=== PATIENT | female | born 1960 | race Caucasian/White ===

== ENCOUNTER → 2019-03-07 14:00 | Outpatient (CLI) | payer OTHER, SELFPAY | PROVIDERS: PCP Nurse Practitioner Family; Visit Provider Nurse Practitioner Family | DX: G47.33 Obstructive sleep apnea (adult) (pediatric) (principal) | CPT/HCPCS: 95806 ==

== ENCOUNTER → 2019-09-16 07:46 | Outpatient (CLI) | payer OTHER, SELFPAY ==
--- NOTE | 2019-09-16 07:48 | MM_ITS ---
PROCEDURE: MM DIG SCREENING MAMM BI W/CAD Patient Age:58Y CLINICAL INDICATION: SCREENING routine mammogram. Previous at [facility]. No hormones but no new complaints. 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 R2 CAD reviewed. FINDINGS: Low-density breast with generalized fatty replacement. No dominant or suspicious mass in either breast. No suspicious calcifications but no architectural distortion. The prior scanned and film screen studies are minimal a value for comparison Right breast. No areas of significant concern. Scattered benign secretory and benign round calcifications are more evident at right breast than left but. No mass lesion b Left breast but no significant findings but . Bilateral follow-up 1 year recommended IMPRESSION: Low-density breast, diffuse fatty replacement. No areas of significant concern. Scattered benign calcifications on right. Follow-up 1 year recommended BI-RAD Category: 2 Benign Finding(s) FOLLOW-UP: 1YR 1 Year Follow-up (A letter has been sent to the patient regarding results of the study.) The, a Dictated by: Kt Anderson MD 10/05/2019 21:28 Electronically signed by Kt Anderson MD in [place] 10/05/2019 21:28
== END ==
PROVIDERS: PCP Nurse Practitioner; Visit Provider Nurse Practitioner
DX: Z12.31 Encounter for screening mammogram for malignant neoplasm of breast (principal)
CPT/HCPCS: 77067

== ENCOUNTER 2020-03-14 19:27 | Emergency (ER) | payer MEDICAID, SELFPAY ==
[2020-03-14] VITALS (9 sets, daily range): BP systolic 129–145; BP diastolic 70–84; PULSE 68–81; RESP 16–18; TEMP 36.9–37; O2SAT 95–99; BMI 35.0
--- NOTE | 2020-03-14 19:53 | CT_ITS ---
PROCEDURE: CT ABDOMEN PELVIS W CON CLINICAL INDICATION: generalized abd. pain Lower abdominal pain with nausea and constipation now having diarrhea COMPARISON: ABDPELW/O CT ABD PELVIS W/O CONTRAST from 09/22/2014 TECHNIQUE: IV Contrast: 75ML OPTIRAY 350 Oral Contrast None Axial images obtained with sagittal and coronal reformats. All CT scans at the facility use one or more dose reduction, viz: automated exposure control, ma/kV adjustment per patient size (including targeted exams where dose is matched to indication, i.e. head), or iterative reconstruction technique. FINDINGS: LOWER THORAX: No acute finding ABDOMEN & PELVIS: Prior cholecystectomy with mild biliary ectasia. The liver, spleen, adrenal glands, and pancreas have an unremarkable appearance. There is a horseshoe kidney present. No renal or ureteral calculi. No hydronephrosis. There is a tiny umbilical hernia containing fat. No intestinal obstruction or free air. No evidence of appendicitis. There is colonic diverticulosis. There is mild thickening of the sigmoid colon in the left lower quadrant with minimal stranding of the pericolic fat. This could be due to mild acute diverticulitis or even chronic colitis. This was much more extensive on 09/22/2014.. Degenerative changes are present in the lumbar spine. There is 9 mm anterolisthesis of L4 on L5. There is a right-sided inguinal hernia containing a loop of small bowel without obstruction. IMPRESSION: 1. Colonic diverticulosis with possible mild acute diverticulitis in the sigmoid colon in the left lower quadrant versus chronic changes. 2. Horseshoe kidney 3. Right inguinal hernia containing a loop of small bowel without obstruction Dictated by: Antoino Mckeon MD 03/15/2020 08:35 Electronically signed by Antonio Mckeon MD in [place] 03/15/2020 08:35
[2020-03-14 20:11] LABS: Microscopic, Urine URINE MICROSCOPIC (MICROSCOPIC)
[2020-03-14 20:14] LABS: Appearance,Urine CLEAR (Clear); Bilirubin,Urine Negative (Negative); Blood, Urine Negative (Negative); Color,Urine YELLOW (Yellow); Glucose,Urine (UA) Negative (Negative); Ketones,Urine Negative (Negative); Leukocyte Esterase,Urine 1+ (Negative); Nitrate,Urine Negative (Negative); Protein,Urine Negative (Negative); Urobilinogen,Urine 0.2 EU/dl (0.2)
[2020-03-14 20:17] LABS: Basophils # 0.1 K/mm3 (0-0.2); Basophils % 0.5 % (0.1-2.0); Eosinophils # 0.2 K/mm3 (0.0-0.4); Eosinophils % 2.1 % (0.1-12.0); Hematocrit 44.9 % (37.0-47.0); Hemoglobin 15.3 g/dL (12.2-16.2); Lymphocytes # 1.8 K/mm3 (0.7-4.5); Lymphocytes % 18.2 % (10-50); Mean Corpuscular Hemoglobin 30.5 pg (27.0-31.2); Mean Corpuscular Volume 89.6 fl (81-99); Mean Platelet Volume 8.4 fl (7.4-10.4); Monocytes # 0.7 K/mm3 (0.1-1.0); Neutrophils # 7.1 K/mm3 (1.8-7.8); Neutrophils % 72.2 % (37.0-80.0); Platelet Count 327 K/mm3 (142-424); Red Blood Count 5.01 M/mm3 (4.20-5.40); Red Cell Distribution Width 12.9 % (11.5-17.5); White Blood Count 9.8 K/mm3 (4.8-10.8)
[2020-03-14 20:22] LABS: Squamous Epithelial Cell,Urine Occasional #/hpf (0-5)
[2020-03-14 20:31] LABS: Alanine Aminotransferase 30 U/L (12-78); Albumin Level 4.1 g/dl (3.5-5.0); Albumin/Globulin Ratio 1.2 (1.1-1.8); Alkaline Phosphatase 48 U/L (38-126); Amylase 43 U/L (30-110); Anion Gap 10.3 mEq/L (5-15); Aspartate Amino Transferase 37 U/L (14-36); Bilirubin,Total 0.2 mg/dl (0.2-1.3); Blood Urea Nitrogen 13 mg/dl (7-17); Calcium 8.9 mg/dl (8.4-10.2); Carbon Dioxide 31 mmol/L (22.0-30.0); Chloride 100 mmol/L (98-107); Creatinine Clearance Estimated 137 mL/min (50-200); Estimated Glomerular Filt Rate 85 ml/min (>60); GFR (African American) 103 ML/MIN (>60); Globulin 3.3 g/dL (1.3-3.2); Glucose 149 mg/dl (74-100); Lipase 125 U/L (23-300); Potassium 3.3 mmoL/L (3.5-5.1); Sodium 138 mmol/L (136-145); Total Protein,Serum 7.4 g/dl (6.3-8.2)
[2020-03-14 20:36] LABS: C-Reactive Protein 4.9 mg/L (0-4)
--- NOTE | 2020-03-14 20:38 | HMH.EDNVD ---
ED Disposition Clinical Impression: Diverticulitis Disposition: Home, Self-Care Condition on Discharge: Good Instructions: DI for Diverticulitis Additional Instructions: call pcp for follow up and consider surg consult , stop flagyl Prescriptions: clindamycin HCL [Clindamycin HCl 300mg Cap] 300 mg PO Q6 #28 cap Transmission Status: Pending to [id number] Referrals: Meaghan Mcnamara, HORTICULTURE TEACHER [Primary Care Provider] - - Critical Care Critical Care Time: No Attestation: On 03/14/20, the high probability of a clinically significant, sudden or life threatening deterioration of the following system(s) required my full and direct attention, intervention and personal management. The time I documented below is in addition to time spent performing reported procedures but includes the following listed in this critical care notation. Medical Decision Making - Medical Records Medical records reviewed: Yes: I reviewed the patient's medical records. - Felix Inquiry Pt receiving controlled substance: No Vital Signs: 03/14/20 19:29 03/14/20 20:00 03/14/20 20:30 Temperature 98.6 F Temperature Source Oral Pulse Rate [Left Radial] 81 80 74 Respiratory Rate 16 17 16 Blood Pressure [Right Arm] 139/70 145/71 H 141/79 H Blood Pressure Mean [Right Arm] 93 95 99 Blood Pressure Source [Right Arm] Automatic Cuff Automatic Cuff Automatic Cuff Blood Pressure Position [Right Arm] Sitting Supine Supine 02 Sat by Pulse Oximetry 98 95 99 Oxygen Delivery Method Room Air Room Air Room Air 03/14/20 21:00 03/14/20 21:30 03/14/20 22:00 Temperature Temperature Source Pulse Rate [Left Radial] 81 68 68 Respiratory Rate 16 17 16 Blood Pressure [Right Arm] 144/78 H 129/74 132/78 Blood Pressure Mean [Right Arm] 100 92 96 Blood Pressure Source [Right Arm] Automatic Cuff Automatic Cuff Automatic Cuff Blood Pressure Position [Right Arm] Supine Supine Supine 02 Sat by Pulse Oximetry 99 99 97 Oxygen Delivery Method Room Air Room Air Room Air 03/14/20 22:30 Temperature Temperature Source Pulse Rate [Left Radial] 76 Respiratory Rate 18 Blood Pressure [Right Arm] 137/84 Blood Pressure Mean [Right Arm] 101 Blood Pressure Source [Right Arm] Automatic Cuff Blood Pressure Position [Right Arm] Supine 02 Sat by Pulse Oximetry 99 Oxygen Delivery Method Room Air - Lab Data Lab results reviewed: Yes: I reviewed the patient's lab results. Lab Results 03/14/20 19:45: Urine Color Yellow, Urine Appearance Clear, Urine pH 6.0, Ur Specific [place] 1.020, Urine Protein Negative, Urine Glucose (UA) Negative, Urine Ketones Negative, Urine Blood Negative, Urine Nitrate Negative, Urine Bilirubin Negative, Urine Urobilinogen 0.2, Ur Leukocyte Esterase 1+ A, Urine WBC 5-10, Ur Squamous Epith Cells Occasional, Ur Renal Epithelial Cell 5-10 03/14/20 19:57: WBC 9.8, RBC 5.01, Hgb 15.3, Hct 44.9, MCV 89.6, MCH 30.5, MCHC 34.0, RDW 12.9, Plt Count 327, MPV 8.4, Neut % (Auto) 72.2, Lymph % (Auto) 18.2, [place] % (Auto) 7.0, Eos % (Auto) 2.1, Baso % (Auto) 0.5, Neut # (Auto) 7.1, Lymph # (Auto) 1.8, [place] # (Auto) 0.7, Eos # (Auto) 0.2, Baso # (Auto) 0.1, ESR 16 03/14/20 19:57: Sodium 138, Potassium 3.3 L, Chloride 100, Carbon Dioxide 31 H, Anion Gap 10.3, BUN 13, Creatinine 0.70, Estimated Creat Clear 137, Estimated GFR 85, Est GFR ( Amer) 103, Glucose 149 H, Calcium 8.9, Total Bilirubin 0.2, AST 37 H, ALT 30, Alkaline Phosphatase 48, C-Reactive Protein 4.9 H, Total Protein 7.4, Albumin 4.1, Globulin 3.3 H, Albumin/Globulin Ratio 1.2, Amylase 43, Lipase 125 03/14/20 21:05: Lactate 1.2 Result diagrams: 03/14/20 19:57 03/14/20 19:57 Orders (Tests/Meds): ED MEDICATIONS Generic Name Dose Route Start Last Admin Trade Name Freq PRN Reason Stop Dose Admin Sodium Chloride 1,000 mls @ 999 mls/hr 03/14/20 20:00 03/14/20 20:12 Sod Chlor 0.9% 1000ml Bag IV 03/14/20 21:00 999 mls/hr .Q1H1M COBY Administration Ceftriaxone Sodium 1 gm
[2020-03-14 20:40] LABS: Erythrocyte Sedimentation Rate 16 mm/hr (0-30)
[2020-03-14 21:37] LABS: Lactic Acid 1.2 mmol/L (0.7-2.1)
== END 2020-03-14 23:28 | disposition home or self-care (01) ==
PROVIDERS: Emergency Medicine; Emergency Provider Emergency Medicine; PCP Nurse Practitioner
DX: K57.92 Diverticulitis of intestine, part unspecified, without perforation or abscess without bleeding (principal); Z88.6 Allergy status to analgesic agent
CPT/HCPCS: 74177; 80053; 81001; 82150; 83605; 83690; 85025; 85651; 86140; 87040; 87086; 96365; 96367; 96375; 99284; J2405; Q9967

== ENCOUNTER 2020-06-10 12:10 | Emergency (ER) | payer MEDICAID, SELFPAY ==
[2020-06-10 12:23] VITALS: BP 138/79; PULSE 64; RESP 18; TEMP 36.7; O2SAT 98; BMI 37.0
[2020-06-10 12:29] VITALS: BMI 37.0
--- NOTE | 2020-06-10 12:30 | XR_ITS ---
PROCEDURE: XR KNEE RT 3V CLINICAL INDICATION: INJURY Pain COMPARISON: MR LEAJW/ORT MRI-LOW EXT ANY JOINT W/O-RT from 01/08/2015 FINDINGS: No fracture or dislocation. No lytic or blastic change. There is normal mineralization. There are mild osteoarthritic changes of the medial compartment and moderate osteoarthritis of the patellofemoral joint with small suprapatellar effusions. There are multiple calcific densities in the popliteal region consistent with loose bodies/synovial osteo chondroma is.. The largest of these loose bodies measures 9 mm. IMPRESSION: Osteoarthritis with knee joint effusion with multiple loose bodies in the popliteal region Dictated by: Antonio Mckeon MD 06/11/2020 16:25 Antonio Mckeon MD in [place] 06/11/2020 16:25
[2020-06-10 12:31] VITALS: BP 134/74; PULSE 58; RESP 20; TEMP 36.7; O2SAT 99; BMI 37.0
--- NOTE | 2020-06-10 12:32 | HMH.EDUTC ---
[facility] [place] Disposition Clinical Impression: Knee sprain Qualifiers: Encounter type: initial encounter Involved ligament of knee: other ligament Laterality: right Qualified Code(s): S83.8X1A - Sprain of other specified parts of right knee, initial encounter Disposition: Home, Self-Care Condition on Discharge: Good Instructions: How to Choose and Use a Walker, How To Perform RICE (Rest, Ice, Compress, Elevate), How to Use a Knee Immobilizer Additional Instructions: *weight bearing as tolerated *RICE, Rest the extremity, Ice 15-20 minutes 3-4 times daily, Compress- wear the gabino wrap as discussed as much as possible to help reduce swelling and pain, Elevate the extremity when at rest *Gabino wrap is for support and help control swelling, use it except in the shower. Be sure that is not to tight but not to loose either *Elevate when resting *Ibuprofen every 6-8 hours as needed for pain an inflammation. If need something more can take Tylenol in between doses of Ibuprofen to help Immediately follow up with your family doctor for new or worsening of symptoms, or no noticeable improvement over the next 3-5 days Follow up with Family Doctor as scheduled Follow up with Orthopedics if no improvement or any worsening of symptoms Straight to ER if any life threatening symptoms Referrals: Lexis Shaffer MD [Physician] - (Call office for appointment) Meaghan Mcnamara APRN [Primary Care Provider] - As needed Juan Weems MD [Referring] - 06/14/20 10:00 am (appointement at [facility]) Time of Disposition: 13:26 Medical Decision Making - Felix Inquiry Pt receiving controlled substance: No Felix was queried for this patient: No Vital Signs: 06/10/20 12:23 06/10/20 12:31 06/10/20 13:28 Temperature 98.1 F 98.1 F 98.1 F Temperature Source Oral Oral Pulse Rate 58 L Pulse Rate [Right Radial] 64 58 L Respiratory Rate 18 20 20 Blood Pressure 134/74 Blood Pressure [Right Arm] 138/79 134/74 Blood Pressure Mean [Right Arm] 98 94 Blood Pressure Source [Right Arm] Automatic Cuff Blood Pressure Position [Right Arm] Sitting 02 Sat by Pulse Oximetry 98 99 Oxygen Delivery Method Room Air Room Air Orders (Tests/Meds): ORDERS Category Date Time Status Knee XR right 3 views [XR knee RT 3V] Stat Exams 06/10/20 12:30 Taken Medical Decision Narrative: Spoke with staff in Orthopedic clinic and Dr Shaffer loss prevention specialist advised them that I would have patient call office for appointment [facility] [place] HPI - General Stated complaint: right knee pain, no accident Time Seen by Provider: 06/10/20 12:32 Mode of Arrival: Ambulatory Source of Information: Patient Limitations: No Limitations Description of Symptoms (Recalled from Triage Doc. by RN): right knee pain after hyper extending it per patient. - History of Present Illness Provider Complaint: Patient states that she was walking yesterday when she stepped into a hole and hyperextended her right knee State that years ago she had problems with this knee and it wanted to give out on her but then she rested it and has not had problems with it since until she hurt it yesterday States that now when she walks she feels like it is going to give out on her - Related Data Home Medications Medication Instructions Recorded Confirmed Ciprofloxacin HCl [Ciprofloxacin 500 mg PO BID 03/14/20 03/14/20 500mg Tab] metroNIDAZOLE [metroNIDAZOLE 500mg 500 mg PO DAILY 03/14/20 03/14/20 Tablet] Previous Rx's Medication Instructions Recorded clindamycin HCL [Clindamycin HCl 300 mg PO Q6 #28 cap 03/14/20 300mg Cap] Allergies Allergy/AdvReac Type Severity Reaction Status Date / Time ibuprofen Allergy Verified 06/10/20 12:36 [facility] History - Hepatitis A Screen Attestation statement:: This patient has been screened for Hepatitis A risk factors. I have reviewed the patient's past medical history: Yes - Social History Alcohol Intake: never Occupational
[2020-06-10 13:28] VITALS: BP 134/74; PULSE 58; RESP 20; TEMP 36.7; O2SAT 99
== END 2020-06-10 13:59 | disposition home or self-care (01) ==
PROVIDERS: Emergency Provider Nurse Practitioner; PCP Nurse Practitioner
DX: S83.8X1A Sprain of other specified parts of right knee, initial encounter (principal); W17.2XXA Fall into hole, initial encounter; Y92.017 Garden or yard in single-family (private) house as the place of occurrence of the external cause
CPT/HCPCS: 73562; 99201

== ENCOUNTER 2020-07-13 10:44 | Emergency (ER) | payer MEDICAID, SELFPAY ==
[2020-07-13 10:52] VITALS: BP 123/74; PULSE 61; RESP 18; TEMP 36.6; O2SAT 99; BMI 37.0
--- NOTE | 2020-07-13 11:15 | HMH.EDUTC ---
[facility] [place] Disposition Clinical Impression: Encounter for laboratory testing for COVID-19 virus, Body aches Disposition: Home, Self-Care Condition on Discharge: Good Instructions: Nosebleeds (Alternative Therapy), DI for Nosebleed, Preventing the Spread of Coronavirus Discharge Instructions Additional Instructions: *Monitor Temp, Over the counter Motrin or Tylenol as directed/as needed Tylenol every 4 hours and Motrin every 6 hours (as long as your family doctor has told you that you can take it) for fever or pain. and straight to ER if unable to lower temp less than 101.0 after medication given *Warm salt water gargles may help to soothe the throat *Throat Lozenges *Warm fluids like tea with honey may help to soothe the throat *Sleep elevated *Humidifier/Vaporizer Follow up IMMEDIATELY for new or worsening symptoms or no Noticeable improvement over the next 48-72 hours. 911 for difficulty breathing or swallowing You was tested for today for COVID19 your test result should be back in the next 24 hours, you may call tomorrow after 9am to see if your test results are back and the result You was given a handout with instructions for Self Quarantine and Self isolation for while you wait on test results and what to do if they are positive Referrals: Meaghan Mcnamara APRN [Primary Care Provider] - As needed Forms: Work/School Release Medical Decision Making - Felix Inquiry Pt receiving controlled substance: No Felix was queried for this patient: No Vital Signs: 07/13/20 10:52 Temperature 97.9 F Temperature Source Oral Pulse Rate [Radial] 61 Respiratory Rate 18 Blood Pressure [Right Arm] 123/74 Blood Pressure Mean [Right Arm] 90 Blood Pressure Source [Right Arm] Automatic Cuff Blood Pressure Position [Right Arm] Sitting 02 Sat by Pulse Oximetry 99 Oxygen Delivery Method Room Air Orders (Tests/Meds): ORDERS Category Date Time Status Covid-19 Nasal PCR Sendout [facility] Stat Lab 07/13/20 10:49 Received Medical Decision Narrative: after covid test patient had minor bleeding from the nose that easily stopped with ice pack [facility] [place] HPI - General Stated complaint: body aches Time Seen by Provider: 07/13/20 11:15 Mode of Arrival: Ambulatory Source of Information: Patient Limitations: No Limitations Description of Symptoms (Recalled from Triage Doc. by RN): BODY ACHES ALL OVER LAST NIGHT WANTS COVID TEST. HEENT Symptoms (Recalled from RN notes): No Resp Symptoms (Recalled from RN notes): No Skin Symptoms (Recalled from RN notes): No MS Symptoms (Recalled from RN notes): Yes Functional Status (Recalled from RN notes): WNL - History of Present Illness Provider Complaint: Patient states that yesterday she started feeling achy all over and last night it continued States that she woke up this morning with body aches and mild chills and wanted to get tested for COVID - Related Data Home Medications Medication Instructions Recorded Confirmed Ciprofloxacin HCl [Ciprofloxacin 500 mg PO BID 03/14/20 03/14/20 500mg Tab] metroNIDAZOLE [metroNIDAZOLE 500mg 500 mg PO DAILY 03/14/20 03/14/20 Tablet] Previous Rx's Medication Instructions Recorded clindamycin HCL [Clindamycin HCl 300 mg PO Q6 #28 cap 03/14/20 300mg Cap] Allergies Allergy/AdvReac Type Severity Reaction Status Date / Time ibuprofen Allergy Verified 06/10/20 12:36 - Worker's Comp Is this a Worker's Comp case?: No [facility] History - Hepatitis A Screen Drug use history?: No High risk sexual behaviors?: No History of sexually transmitted infection?: No Currently employed?: No Childcare worker?: No Do you have indoor plumbing?: Yes Do you have electricity?: Yes Attestation statement:: This patient has been screened for Hepatitis A risk factors. I have reviewed the patient's past medical history: Yes Laterality Cases: Left: Arthroscopy Shoulder - Social History Alcohol Intake: never Occupational Status: other
[2020-07-13 11:39] VITALS: BP 123/74; PULSE 61; RESP 18; TEMP 36.6; O2SAT 99
[2020-07-14 09:06] LABS: Covid-19 Nasal PCR Sendout Lex NOT DETECTED
== END 2020-07-13 11:40 | disposition home or self-care (01) ==
PROVIDERS: Emergency Provider Nurse Practitioner; PCP Nurse Practitioner
DX: Z20.828 Contact with and (suspected) exposure to other viral communicable diseases (principal)
CPT/HCPCS: 99201; U0004

== ENCOUNTER → 2021-03-22 09:04 | Outpatient (CLI) | payer MEDICAID, SELFPAY ==
--- NOTE | 2021-03-22 09:08 | XR_ITS ---
PROCEDURE: XR FOOT WT BEARING RT 3V CLINICAL INDICATION: bilateral foot pain COMPARISON: No exams were available for comparison FINDINGS: Moderate hallux valgus with osteoarthritis of the 1st MTP joint and bunion formation at the distal aspect of the 1st metatarsal. Mild osteoarthritic changes at the tarsal metatarsal junction, talonavicular joint, and navicular cuneiform joint. Normal alignment Other findings:. Prominent calcaneal spur and Achilles enthesophyte. IMPRESSION: Osteoarthritic change with hallux valgus and bunion formation at the 1st MTP Dictated by: Antonio Mckeon MD 03/22/2021 10:29 Antonio Mckeon MD in [place] 03/22/2021 10:29
--- NOTE | 2021-03-22 09:08 | XR_ITS ---
PROCEDURE: XR FOOT WT BEARING LT 3V CLINICAL INDICATION: bilateral foot pain COMPARISON: No exams were available for comparison FINDINGS: Moderate hallux valgus with osteoarthritis of the 1st MTP joint and bunion formation at the distal aspect of the 1st metatarsal. Mild osteoarthritic changes at the tarsal metatarsal junction talonavicular joint, and navicular cuneiform joint with pes planus. Other findings:Prominent calcaneal spur. Osteoarthritis at the ankle joint. IMPRESSION: Osteoarthritic changes with pes planus and hallux valgus Dictated by: Antonio Mckeon MD 03/22/2021 10:28 Antonio Mckeon MD in [place] 03/22/2021 10:28
== END ==
PROVIDERS: PCP Nurse Practitioner; Visit Provider Podiatrist
DX: M79.672 Pain in left foot (principal); M79.671 Pain in right foot
CPT/HCPCS: 73630

== ENCOUNTER → 2021-04-05 08:10 | Outpatient (CLI) | payer MEDICAID, SELFPAY ==
--- NOTE | 2021-04-05 08:12 | MM_ITS ---
PROCEDURE: MM DIG SCREENING MAMM BI W/CAD Digital Breast Tomosynthesis Included CLINICAL INDICATION: SCREENING There is no personal or family history breast cancer. 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 R2 CAD reviewed. FINDINGS: The breasts are composed primarily fibroglandular each breast there are mole markers on each breast. There few scattered benign-appearing microcalcifications in each breast. There are no CAD markings. There is no suspicious lesion and no suspicious microcalcifications. IMPRESSION: Low-density fatty type breast parenchyma with no suspicious lesions seen BI-RAD Category: 2 Benign Finding(s) FOLLOW-UP: 1YR 1 Year Follow-up (A letter has been sent to the patient regarding results of the study.) Dictated by: Dr. Jr Ashton MD 04/06/2021 08:46 Dr. Jr Ashton MD in [place] 04/06/2021 08:46
== END ==
PROVIDERS: PCP Nurse Practitioner; Visit Provider Nurse Practitioner
DX: Z12.31 Encounter for screening mammogram for malignant neoplasm of breast (principal)
CPT/HCPCS: 77063; 77067

== ENCOUNTER → 2021-04-21 09:07 | Outpatient (CLI) | payer MEDICAID, SELFPAY ==
--- NOTE | 2021-04-21 09:12 | XR_ITS ---
PROCEDURE: XR ANKLE WT BEARING LT MIN 3V CLINICAL INDICATION: ankle pain COMPARISON: No exams were available for comparison FINDINGS: Bones: No fracture or dislocation. No lytic or blastic change. There is normal mineralization. Joints: The ankle joint space is preserved. There are mild degenerative changes in the midfoot. Other findings:Small calcaneal spur and Achilles enthesophyte noted. IMPRESSION: No acute findings. Dictated by: Antonio Mckeon MD 04/21/2021 13:04 Antonio Mckeon MD in [place] 04/21/2021 13:04
[2021-04-21 10:27] LABS: Basophils # 0.1 K/mm3 (0-0.2); Basophils % 0.7 % (0.1-2.0); Eosinophils # 0.4 K/mm3 (0.0-0.4); Eosinophils % 4.6 % (0.1-12.0); Hematocrit 47.2 % (37.0-47.0); Lymphocytes # 1.5 K/mm3 (0.7-4.5); Lymphocytes % 18.9 % (10-50); Mean Corpuscular HGB Conc 31.8 g/dL (31.8-35.4); Mean Corpuscular Hemoglobin 29.2 pg (27.0-31.2); Mean Corpuscular Volume 91.9 fl (81-99); Mean Platelet Volume 8.1 fl (7.4-10.4); Monocytes # 0.4 K/mm3 (0.1-1.0); Monocytes % 4.7 % (1.7-9.3); Neutrophils # 5.6 K/mm3 (1.8-7.8); Neutrophils % 71.2 % (37.0-80.0); Platelet Count 254 K/mm3 (142-424); Red Blood Count 5.13 M/mm3 (4.20-5.40); Red Cell Distribution Width 12.9 % (11.5-17.5); White Blood Count 7.8 K/mm3 (4.8-10.8)
[2021-04-21 10:46] LABS: Chloride 107 mmol/L (98-107)
[2021-04-21 10:47] LABS: Potassium 4.5 mmoL/L (3.5-5.1); Sodium 142 mmol/L (136-145)
[2021-04-21 10:49] LABS: Alanine Aminotransferase 27 U/L (12-78); Aspartate Amino Transferase 34 U/L (14-36); Bilirubin,Total 0.7 mg/dl (0.2-1.3); Blood Urea Nitrogen 16 mg/dl (7-17); Estimated Glomerular Filt Rate 102 ml/min (>60); GFR (African American) 123 ML/MIN (>60)
[2021-04-21 10:50] LABS: Albumin Level 4.3 g/dl (3.5-5.0); Albumin/Globulin Ratio 1.5 (1.1-1.8); Alkaline Phosphatase 56 U/L (38-126); Anion Gap 13.5 mEq/L (5-15); Calcium 9.1 mg/dl (8.4-10.2); Carbon Dioxide 26 mmol/L (22.0-30.0); Globulin 2.8 g/dL (1.3-3.2); Glucose 101 mg/dl (74-100); Total Protein,Serum 7.1 g/dl (6.3-8.2)
[2021-04-21 10:53] LABS: Erythrocyte Sedimentation Rate 15 mm/hr (0-30)
[2021-04-21 10:55] LABS: C-Reactive Protein 5.1 mg/L (0-4)
[2021-04-21 11:15] LABS: Hemoglobin A1C 5.9 % (4.0-6.0)
[2021-04-29 19:23] LABS: 1,25 Dihydroxy Vitamin D 38 pg/mL (.); 1,25-Dihydroxy, Vitamin D-2 <10 pg/mL (.); 1,25-Dihydroxy, Vitamin D-3 37 pg/mL (.)
== END ==
PROVIDERS: PCP Nurse Practitioner; Visit Provider Podiatrist
DX: S99.912A Unspecified injury of left ankle, initial encounter (principal); M79.672 Pain in left foot
CPT/HCPCS: 73610; 80053; 82652; 83036; 85025; 85651; 86140

== ENCOUNTER → 2021-04-25 09:00 | Outpatient (CLI) | payer MEDICAID, SELFPAY ==
--- NOTE | 2021-04-25 09:01 | XR_ITS ---
PROCEDURE: XR DEXA AXIAL SKELETON CLINICAL HISTORY: osteoporosis COMPARISON: No exams were available for comparison FINDINGS: The right hip BMD is 0.839 with a T-score of -0.1. The left hip BMD is 0.939 with a T-score of 0.8. The lumbar spine BMD is 1.259 with a T-score of 1.9. IMPRESSION: This patient is considered normal according to the World Health Organization criteria. Fracture risk is low. Based on these results a follow-up exam is recommended in 2 year. Dictated by: Antonio Mckeon MD 04/25/2021 10:12 Antonio Mckeon MD in [place] 04/25/2021 10:12
== END ==
PROVIDERS: PCP Nurse Practitioner; Visit Provider Podiatrist
DX: M81.0 Age-related osteoporosis without current pathological fracture (principal)
CPT/HCPCS: 77080

== ENCOUNTER → 2021-05-11 13:42 | Outpatient (CLI) | payer MEDICAID, SELFPAY | PROVIDERS: Visit Provider Internal Medicine Gastroenterology | DX: Z20.822 Contact with and (suspected) exposure to COVID-19 (principal); Z01.812 Encounter for preprocedural laboratory examination; Z12.11 Encounter for screening for malignant neoplasm of colon | CPT/HCPCS: U0003 ==

== ENCOUNTER 2021-05-13 06:56 | Day surgery (SDC) | payer MEDICAID, SELFPAY ==
[2021-05-06 11:34] VITALS: BMI 37.4
[2021-05-13] VITALS (7 sets, daily range): BP systolic 83–118; BP diastolic 50–82; PULSE 51–63; RESP 18; TEMP 36.2–36.3; O2SAT 96–98
--- NOTE | 2021-05-13 07:22 | P.PN_ITS ---
[facility] Anesthesia Checklist - Patient Identification Patient Identification: Arm Band - Structural Data Admitted From: Home Planned Operative Procedure/s: Colonoscopy Consent for Planned Operative Procedure(s) Verified: Yes - NPO Status Verified Time NPO: 00:00 - Airway Assessment C-Spine Mobility Assessed: Yes TMJ Mobility Assessed: Yes - Neurological Assessment Level of Consciousness: Awake Hx Seizures: No Numbness or tingling in extremities: No - Anesthesia Plan Anesthesia Risk discussed: Yes Anesthesia Plan: Verified ASA Class: III Anesthesia Type: MAC [facility] History I have reviewed the patient's past medical history: Yes Medical History: Reports:: Anxiety, Hypertension Denies:: Cancer, Diabetes Mellitus Type 1, Diabetes Mellitus Type 2, Internal Pacemaker, MRSA *Have you ever received a pneumonia vaccine?: No *Have you received a flu vaccine this season?: Yes Other Medical History: Reports: Arthritis Anesthesia experience/problems:: States she couldn't feel alert for days Laterality Cases: Left: Arthroscopy Shoulder Other Surgeries: Yes: Cholecystectomy. No: Pacemaker Amputation: No Fractures: No - *Social History Last grade of school completed: High school graduate Smoking Status: Never smoker Alcohol Intake: never Substance Use Type: denies use *Occupational Status:: unemployed Housing: house Household Members: spouse *Travel in the last 8 weeks: None - Psychiatric History Pschychiatric History:: Reports:: Anxiety Family Hx:: Diabetes, Hypertension, Hyperlipidemia, Asthma
--- NOTE | 2021-05-13 08:28 | P.PCN_ITS ---
[facility] Procedure Note Procedure Note:: Colonoscopy Procedure Report: Colonoscopy with snare polypectomy (snare cautery) and Endo Clip placement Endoscopist: Amos Lea II, MD Referring physician: STACI Downs Date of Procedure: May 13, 2021 Equipment: Olympus 190 variable stiffness pediatric colonoscope Sedation: MAC sedation Indication: Mrs. Rodriguez is a 60-year-old female who is here for initial screening colonoscopy. 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 She does get crampy abdominal discomfort and diarrhea especially with stress. She does state that milk and dairy resulted in gassiness, bloating and diarrhea. The patient does have some chronic gas and bloating. She does note hemorrhoidal bleeding at least once monthly. She has had several bouts of diverticulitis and her last bout was in the fall 2019. She does get fever with this. She does take a probiotic (lactobacillus) daily. She has had prior cholecystectomy. She reports no abdominal pain, weight loss or family history of colon cancer. Procedure: Prior to the procedure, a history and physical exam was performed, and patient's medications and allergies were reviewed. The risks, benefits and alternatives of the sedation and procedure were discussed with the patient. All questions were answered and informed consent was obtained. The patient was brought to the procedure room. Patient identification and proposed procedure were verified by the physician and the nurse. The patient was placed in a left lateral decubitus position and the scope was passed under direct vision. Throughout the procedure, the patient's blood pressure, pulse, and oxygen saturations were monitored continuously. The colonoscopy was accomplished without difficulty. The patient tolerated the procedure well. Findings: On digital rectal examination there was normal rectal tone. There were no external hemorrhoids. The colonoscope was introduced through the anal canal to the rectum and advanced to the cecum. The ileocecal valve and appendiceal orifice were identified. The scope was advanced a short distance into the ileum which appeared grossly normal. The scope was then withdrawn into the colon. The cecum, ascending and transverse colon and mucosa were grossly normal. There were scattered diverticuli throughout the descending and sigmoid colon (LEFT colon). There was a large pedunculated 14 to 15 mm polyp in the sigmoid colon at 25 cm from the anal verge. This was removed via snare cautery. There was some heme at the polypectomy site so 2 endoclips were placed over the polyp stalk with excellent hemostasis. The rectum itself was normal. Upon retroflexion within the rectum there were grade 1-2 internal hemorrhoids. The preparation was excellent throughout with Paris Preparation Score of 9. The cecal time was 12 minutes. Impression: 1. Pedunculated sigmoid colon polyp (14 to 15 mm) 2. Left-sided diverticulosis 3. Grade 1-2 internal hemorrhoids Plan: I will follow up the polyp histology. Based upon the size of this adenomatous polyp, I would consider repeat surveillance again in 3 years if this is villous adenoma/advanced adenoma. I will discussed dietary measures and bulking fiber (FiberCon 2 tablets p.o. every morning) and IBgard. I would consider adding Colestid for cholerrheic diarrhea.
== END 2021-05-13 09:22 | disposition home or self-care (01) ==
LOC: OUTP 06:58
PROVIDERS: PCP Nurse Practitioner; Visit Provider Internal Medicine Gastroenterology
PROC: 0DJD8ZZ Inspection of Lower Intestinal Tract, Via Natural or Artificial Opening Endoscopic (ICD-10-PCS; CPT 45378; principal; 2021-05-13 08:00)
DX: Z12.11 Encounter for screening for malignant neoplasm of colon (principal); Z87.19 Personal history of other diseases of the digestive system; K63.5 Polyp of colon; K57.32 Diverticulitis of large intestine without perforation or abscess without bleeding; K64.0 First degree hemorrhoids; I10 Essential (primary) hypertension; F41.9 Anxiety disorder, unspecified; M19.90 Unspecified osteoarthritis, unspecified site
CPT/HCPCS: 45385; J2704

== ENCOUNTER → 2021-07-28 09:02 | Outpatient (CLI) | payer MEDICAID, SELFPAY ==
[2021-08-03 12:11] LABS: Pancreatic Elastase, Fecal >500 (>200)
== END ==
PROVIDERS: Visit Provider Internal Medicine Gastroenterology
DX: R19.7 Diarrhea, unspecified (principal); R14.0 Abdominal distension (gaseous)
CPT/HCPCS: 82656

== ENCOUNTER 2021-11-07 17:24 | Emergency (ER) | payer MEDICAID, SELFPAY ==
[2021-11-07] VITALS (11 sets, daily range): BP systolic 105–169; BP diastolic 60–105; PULSE 62–82; RESP 12–20; TEMP 36.5–36.7; O2SAT 92–100; BMI 37.5
--- NOTE | 2021-11-07 17:45 | XR_ITS ---
PROCEDURE INFORMATION: Exam: XR Left Shoulder Exam date and time: 11/07/2021 5:45 PM Age: 60 years old Clinical indication: Injury or trauma; Fall; Blunt trauma (contusions or hematomas); Shoulder; Left; Additional info: Pain TECHNIQUE: Imaging protocol: XR Left shoulder. Views: 2 or more views. Total images: 2 COMPARISON: No relevant prior studies available. FINDINGS: Bones/joints: Anterior inferior glenohumeral dislocation. No mikie macro fractures. Suspect minimal bony Bankart impaction injury at the posterosuperior humeral head. Calcification suggesting Bankart injury at the anterior inferior glenoid margin is better demonstrated on the subsequent views at 6:15 p.m., although this is age indeterminate. Small chronic appearing calcifications adjacent to the acromion. Lungs: 6 mm calcified granuloma in the left lung. Soft tissues: Normal. IMPRESSION: 1. Anterior inferior glenohumeral dislocation. 2. Calcification at the anterior inferior glenoid margin better demonstrated on subsequent images at 6:15 p.m. suggesting small bony Bankart injury, although this is age indeterminate and might be chronic.
--- NOTE | 2021-11-07 17:45 | XR_ITS ---
PROCEDURE INFORMATION: Exam: XR Left Humerus Exam date and time: 11/07/2021 5:45 PM Age: 60 years old Clinical indication: Injury or trauma; Fall; Blunt trauma (contusions or hematomas); Arm, upper; Left; Additional info: Pain TECHNIQUE: Imaging protocol: XR Left humerus. Views: 2 or more views. Total images: 3 COMPARISON: CR XR SHOULDER LT MIN 2V 11/07/2021 6:13 PM FINDINGS: Bones/joints: Osteopenia. Anterior inferior glenohumeral dislocation unchanged from comparison exam at 6:13 p.m.. No humeral macrofracture although there is suspected minor Hill-Sachs impaction injury at the posterosuperior humeral head. 10 x 3 mm calcification at the anterior inferior glenoid margin on the transthoracic view suggests a small bony Bankart injury although this is age indeterminate. Small calcifications adjacent to the acromion and posterior glenoid margin may be chronic although minor avulsion flakes are not excluded. Adjacent ribs appear intact. Soft tissues: No gross soft tissue abnormalities. IMPRESSION: 1. Continued anterior inferior dislocation of the left glenohumeral joint. 2. No humeral macro fracture although there is suspected mild Hill-Sachs impaction injury. 3. Thin 10 x 3 mm calcification at the anterior inferior glenoid margin suggesting bony Bankart injury although this is age indeterminate. Additional smaller periarticular calcifications are probably chronic although minor avulsion flake injuries are not excluded.
--- NOTE | 2021-11-07 18:31 | HMH.EDGENADL ---
ED Disposition Clinical Impression: Hill Sachs deformity, left Dislocation of left shoulder joint Qualifiers: Encounter type: initial encounter Qualified Code(s): S43.005A - Unspecified dislocation of left shoulder joint, initial encounter Disposition: Home, Self-Care Condition on Discharge: Good Instructions: DI for Shoulder Dislocation Prescriptions: Hydrocod/Acet 5/325 mg [Warren 5/325mg tablet] 1 tab PO Q6HP PRN #7 tab PRN Reason: Moderate Pain Transmission Status: Sent to [facility] Referrals: Meaghan Mcnamara APRN [Primary Care Provider] - Mathieu Gagnon MD [Staff Physician] - - Critical Care Critical Care Time: No Attestation: On 11/07/21, the high probability of a clinically significant, sudden or life threatening deterioration of the following system(s) required my full and direct attention, intervention and personal management. The time I documented below is in addition to time spent performing reported procedures but includes the following listed in this critical care notation. Medical Decision Making - Medical Records Medical records reviewed: Yes: I reviewed the patient's medical records. - Felix Inquiry Pt receiving controlled substance: Yes Felix was queried for this patient: No Reason not queried -: Emergent pt cond-no time Risks and benefits of using a controlled substance: were discussed with pt by me Vital Signs: 11/07/21 17:26 Temperature 97.7 F Temperature Source Oral Pulse Rate [Radial] 82 Respiratory Rate 20 Blood Pressure [Right Arm] 151/98 H Blood Pressure Mean [Right Arm] 115 Blood Pressure Position [Right Arm] Sitting 02 Sat by Pulse Oximetry 98 Oxygen Delivery Method Room Air Orders (Tests/Meds): ED MEDICATIONS Generic Name Dose Route Start Last Admin Trade Name Freq PRN Reason Stop Dose Admin Sodium Chloride 1,000 mls @ 999 mls/hr 11/07/21 18:00 11/07/21 17:59 Sod Chlor 0.9% 1000ml Bag IV 11/07/21 19:00 999 mls/hr .Q1H1M COBY Administration Discontinued Medications Generic Name Dose Route Start Last Admin Trade Name Freq PRN Reason Stop Dose Admin Hydromorphone HCl 1 mg 11/07/21 17:56 11/07/21 17:57 Hydromorphone 2mg/Ml Syringe IV 11/07/21 17:57 1 mg ONCE ONE Administration Morphine Sulfate 4 mg 11/07/21 17:51 11/07/21 17:59 Morphine 4mg/Ml Syringe IV 11/07/21 17:52 Not Given ONCE ONE Ondansetron HCl 4 mg 11/07/21 17:51 11/07/21 17:57 Ondansetron 4mg/2ml Vial IV 11/07/21 17:52 4 mg ONCE ONE Administration ORDERS Category Date Time Status XR shoulder LT 1V Stat Exams 11/07/21 19:35 Ordered - Radiology Data #1 Image(s): Shoulder Image Reviewed: Yes I reviewed the patient's radiology results, Yes I reviewed the patient's radiology image, Yes I have reviewed radiologist's interpretation IMPRESSION: 1. Anterior inferior glenohumeral dislocation. 2. Calcification at the anterior inferior glenoid margin better demonstrated on subsequent images at 6:15 p.m. suggesting small bony Bankart injury, although this is age indeterminate and might be chronic. IMPRESSION: 1. Continued anterior inferior dislocation of the left glenohumeral joint. 2. No humeral macro fracture although there is suspected mild Hill-Sachs impaction injury. 3. Thin 10 x 3 mm calcification at the anterior inferior glenoid margin suggesting bony Bankart injury although this is age indeterminate. Additional smaller periarticular calcifications are probably chronic although minor avulsion flake injuries are not excluded. - Reevaluation(s) Time: 19:50 Reevaluation #1: On reevaluation, patient tolerated procedure well. Patient's pain is improved. Relocation was confirmed via x-ray. Patient does have questionable Hill-Sachs deformity. She will need to follow-up with orthopedic surgery. Given strict return precautions. Verbalized understanding. Medical Decision Narrative: This
--- NOTE | 2021-11-07 19:35 | XR_ITS ---
PROCEDURE INFORMATION: Exam: XR Left Shoulder Exam date and time: 11/07/2021 7:35 PM Age: 60 years old Clinical indication: Pain; Shoulder; Left; Additional info: Post reduction TECHNIQUE: Imaging protocol: XR Left shoulder. Views: 1 view. Total images: 1 COMPARISON: CR XR SHOULDER LT MIN 2V 11/07/2021 6:13 PM FINDINGS: Bones/joints: The previous anterior inferior glenohumeral dislocation appears reduced, although there is a high riding humeral head position relative to the glenoid which may relate to chronic rotator cuff tear. No gross fractures are evident. Soft tissues: Normal. IMPRESSION: Glenohumeral joint successfully reduced although there is a high riding humeral head configuration suspicious for chronic rotator cuff tear.
== END 2021-11-07 20:50 | disposition home or self-care (01) ==
PROVIDERS: Emergency Provider Emergency Medicine; PCP Nurse Practitioner
DX: S43.005A Unspecified dislocation of left shoulder joint, initial encounter (principal); S42.295A Other nondisplaced fracture of upper end of left humerus, initial encounter for closed fracture; W01.0XXA Fall on same level from slipping, tripping and stumbling without subsequent striking against object, initial encounter; Y92.010 Kitchen of single-family (private) house as the place of occurrence of the external cause
CPT/HCPCS: 73020; 73030; 73060; 96365; 96375; 99152; 99153; 99284; J2405

== ENCOUNTER 2021-12-31 12:47 | Emergency (ER) | payer MEDICAID, SELFPAY ==
[2021-12-31 13:12] VITALS: BP 132/86; PULSE 77; RESP 19; TEMP 36.9; O2SAT 100; BMI 40.3
--- NOTE | 2021-12-31 13:14 | HMH.EDUTC ---
[facility] [place] Disposition Clinical Impression: Spondylolysis of lumbosacral region, Lumbar back pain with radiculopathy affecting right lower extremity Disposition: Home, Self-Care Condition on Discharge: Good Instructions: DI for Chronic Pain -- Adult Additional Instructions: Follow up with marine habitat resource specialist Referrals: Meaghan Mcnamara APRN [Primary Care Provider] - Time of Disposition: 14:22 Medical Decision Making - Felix Inquiry Pt receiving controlled substance: No Vital Signs: 12/31/21 13:12 Temperature 98.4 F Temperature Source Oral Pulse Rate [Right Brachial] 77 Respiratory Rate 19 Blood Pressure [Right Arm] 132/86 Blood Pressure Mean [Right Arm] 101 Blood Pressure Source [Right Arm] Automatic Cuff Blood Pressure Position [Right Arm] Sitting 02 Sat by Pulse Oximetry 100 Orders (Tests/Meds): ED MEDICATIONS Discontinued Medications Generic Name Dose Route Start Last Admin Trade Name Freq PRN Reason Stop Dose Admin Ketorolac Tromethamine 60 mg 12/31/21 14:12 Ketorolac 60mg/2ml Vial IM 12/31/21 14:13 ONCE ONE Methylprednisolone Acetate 80 mg 12/31/21 14:12 Methylprednisolone Acetate 80mg/Ml Vial IM 12/31/21 14:13 ONCE ONE ORDERS Category Date Time Status XR hip RT 2-3V w/pelvis Stat Exams 12/31/21 13:42 Taken XR lumbar spine 2-3V Stat Exams 12/31/21 13:42 Taken - Radiology Data #1 Image(s): Hip Image Reviewed: Yes I reviewed the patient's radiology image Preliminary Findings: No Fracture Seen #2 Image(s): L-Spine Image Reviewed: Yes I reviewed the patient's radiology image Preliminary Findings: Abnormal, No Fracture Seen (spondylolisthesis) [facility] [place] HPI - General Stated complaint: right foot numbness, lower back and hip pain Time Seen by Provider: 12/31/21 14:16 - History of Present Illness Provider Complaint: Patient fell on 11/07 and began having back pain on 11/18. She has a stress fracture of her lumbar spine and spondylolisthesis. She is under the care of ortho and a marine habitat resource specialist. She is taking Mobic or Diclofenac. She starts PT this week. For the past week or so, she has pain radiating to her right groin, her right hip and down her right leg. Her right foot is numb. Onset (ago): week(s) (1) Location: back, right, lower extremity Radiation: extremity Severity scale (1-10): 5 Quality: burning Consistency: constant Relieving factors: none Exacerbating factors: none Associated symptoms: denies other symptoms Treatments prior to arrival: NSAID, splint - Related Data Home Medications Medication Instructions Recorded Confirmed fenofibrate nanocrystallized 48 mg 48 mg PO DAILY tab 03/22/21 06/20/21 tablet hydrochlorothiazide 25 mg tablet 25 mg PO DAILY tab 03/22/21 06/20/21 lorazepam 0.5 mg tablet 0.5 mg PO DAILY tab 03/22/21 06/20/21 meloxicam 7.5 mg tablet 7.5 mg PO DAILY tab 03/22/21 06/20/21 metoprolol tartrate 100 mg tablet 100 mg PO BID tab 03/22/21 06/20/21 potassium chloride 20 mEq 20 meq PO DAILY tab 03/22/21 06/20/21 tablet,extended release tizanidine 4 mg tablet 4 mg PO DAILY tab 03/22/21 06/20/21 Aspirin [Aspirin 81mg EC Tab] 81 mg PO DAILY 05/13/21 06/20/21 Calcium Carb, Citrate/Vit D3 1 each PO DAILY 05/13/21 06/20/21 [Calcium + D3 ER Tablet] L.acidoph,Paracasei, B.lactis 1 each PO DAILY 05/13/21 06/20/21 [Probiotic] Vit A/Vit C/Vit E/Zinc/Copper 1 each PO DAILY 05/13/21 06/20/21 [Preservision Areds Tablet] Previous Rx's Medication Instructions Recorded Hydrocod/Acet 5/325 mg [Mingus 1 tab PO Q6HP PRN #7 tab 11/07/21 5/325mg tablet] Allergies Allergy/AdvReac Type Severity Reaction Status Date / Time ibuprofen AdvReac fluid Verified 06/20/21 10:43 retention [facility] History - Hepatitis A Screen Attestation statement:: This patient has been screened for Hepatitis A risk factors. I have reviewed the patient's past medical history: Yes Medical History: Report
--- NOTE | 2021-12-31 13:42 | XR_ITS ---
PROCEDURE INFORMATION: Exam: XR Right Hip Exam date and time: 12/31/2021 1:44 PM Age: 61 years old Clinical indication: Hip pain; Right hip TECHNIQUE: Imaging protocol: XR Right hip. Views: 2 or 3 views hip with pelvis when performed. COMPARISON: CT ABDOMEN PELVIS W CON 03/14/2020 9:16 PM FINDINGS: Bones/joints: Mild osteoarthritis of the right hip joint, as manifested by decreased joint space, subchondral sclerosis, and marginal osteophyte formation. There is a linear lucency with cortical disruption, consistent with an acute fracture. There is no evidence of joint dislocation. No aggressive osseous lesions. Soft tissues: There is no significant soft tissue swelling. Vasculature: There are numerous benign phleboliths in the pelvis. IMPRESSION: 1. Mild right hip osteoarthritis. 2. No acute skeletal pathology.
--- NOTE | 2021-12-31 13:42 | XR_ITS ---
PROCEDURE INFORMATION: Exam: XR Lumbosacral Spine Exam date and time: 12/31/2021 1:43 PM Age: 61 years old Clinical indication: Low back pain and lumbago with sciatica; Right TECHNIQUE: Imaging protocol: XR of the lumbosacral spine. Views: 2 or 3 views. COMPARISON: CR [id number] LUMBAR SPINE-2 TO 3 VIEWS 06/01/2017 12:45 PM FINDINGS: Moderate to severe multilevel degenerative changes of the lumbar spine, as manifested by decreased intervertebral disc space, subchondral sclerosis, and moderate multilevel anterior osteophytes. There is significantly decreased intervertebral disc space at L1-L2, L2-L3, and L4-L5. There is grade 1 retrolisthesis of L2 in relation to L3 and L3 in relation to L4. There is grade 1 anterolisthesis of L4 in relation to L5. The spinal canal appears grossly patent. There is severe and diffuse facet joint hypertrophy noted. No acutely displaced fracture or dislocation. No aggressive osseous lesion. No significant soft tissue swelling. IMPRESSION: 1. Moderate to severe multilevel degenerative changes, as detailed above. 2. No acute skeletal pathology.
[2021-12-31 14:32] VITALS: BP 132/86; PULSE 77; RESP 19; TEMP 36.9; O2SAT 100
== END 2021-12-31 14:40 | disposition home or self-care (01) ==
PROVIDERS: Emergency Provider Physician Assistant; PCP Nurse Practitioner
DX: M47.896 Other spondylosis, lumbar region (principal); I10 Essential (primary) hypertension; F41.9 Anxiety disorder, unspecified
CPT/HCPCS: 72100; 73502; 96372; 99213; G0463; J1040

== ENCOUNTER 2022-03-08 08:00 | Outpatient (RCR) | payer MEDICAID, SELFPAY | END 2022-03-08 08:05 | disposition home or self-care (01) | LOC: OT 08:00 | PROVIDERS: PCP Nurse Practitioner; Visit Provider Orthopaedic Surgery | DX: M25.312 Other instability, left shoulder (principal); S42.145A Nondisplaced fracture of glenoid cavity of scapula, left shoulder, initial encounter for closed fracture | CPT/HCPCS: 97010; 97014; 97110; 97140; 97165; 97530; G0283 ==

== ENCOUNTER 2022-03-16 10:30 | Outpatient (RCR) | payer MEDICAID, SELFPAY | END 2022-03-16 10:35 | disposition home or self-care (01) | LOC: PT 10:30 | PROVIDERS: PCP Nurse Practitioner; Visit Provider Orthopaedic Surgery | DX: M54.50 Low back pain, unspecified (principal); M79.604 Pain in right leg | CPT/HCPCS: 97010; 97012; 97014; 97110; 97163; 97164; G0283 ==

== ENCOUNTER 2022-05-16 09:39 | Emergency (ER) | payer MEDICAID, SELFPAY ==
[2022-05-16 11:30] VITALS: BP 150/71; PULSE 70; RESP 17; TEMP 36.8; O2SAT 97; BMI 38.2
--- NOTE | 2022-05-16 11:46 | EXP.UTC ---
Discharge Plan Disposition Patient Disposition: Home, Self-Care Condition: Good Prescriptions Prescriptions: New azithromycin [Zithromax Z-Alexis] 250 mg tablet See Rx Instructions .ROUTE .COMPLEX Qty: 6 0RF Rx Instructions: For 250 mg dose pack: take 500 mg today (day 1), then 250 mg for 4 days (days 2-5) methylprednisolone [Medrol (Alexis)] 4 mg tablets,dose pack See Rx Instructions .Route .COMPLEX 6 Days Qty: 21 0RF Rx Instructions: taper pack; No Action lorazepam 0.5 mg tablet 0.5 mg PO DAILY fenofibrate nanocrystallized 48 mg tablet 48 mg PO DAILY hydrochlorothiazide 25 mg tablet 25 mg PO DAILY meloxicam 7.5 mg tablet 7.5 mg PO DAILY tizanidine 4 mg tablet 4 mg PO DAILY metoprolol tartrate 100 mg tablet 100 mg PO BID potassium chloride 20 mEq tablet extended release 20 meq PO DAILY hydrocodone-acetaminophen 1 TAB tablet 1 tab PO Q6HP PRN (Reason: Moderate Pain) Qty: 7 0RF aspirin 81 MG tablet,delayed release (DR/EC) 81 mg PO DAILY vitamins A,C,Z-aynv-epjpbf 1 EACH tablet 1 each PO DAILY calcium carb and citrate-vitD3 1 EACH tablet extended release 1 each PO DAILY L.acidoph, paracasei,B. lactis 1 EACH capsule 1 each PO DAILY Referrals Follow up/Referrals: Meaghan Mcnamara APRN [Primary Care Provider] - See instructions Activity Restrictions/Add. Instructions Additional Instructions/Restrictions: *Monitor Temp, Over the counter Motrin or Tylenol as directed/as needed Tylenol every 4 hours and Motrin every 6 hours (as long as your family doctor has told you that you can take it) for fever or pain. and straight to ER if unable to lower temp less than 101.0 after medication given *Warm salt water gargles may help to soothe the throat *Throat Lozenges? *Warm fluids like tea with honey may help to soothe the throat? *Sleep elevated *Humidifier/Vaporizer Your throat swab was sent for culture. Those results are typically sent to your primary care. Be sure to follow up in 2-3 days with your family doctor/primary care physician if no improvement so they can review those result and treat if necessary. If you don?t have a primary care doctor, I recommend you get one but in the mean time, you will have to return to a walk in clinic Follow up IMMEDIATELY for new or worsening symptoms or no Noticeable improvement over the next 48-72 hours. 911 for difficulty breathing or swallowing You were tested for today for COVID19 your test result should be back in the next 24-48 hours, you may check your results on the [facility] My Health Portal Make sure to take your Vitamins Vit. C Vit D and Zinc if you can take them Clinical Impressions Clinical Impression: URI (upper respiratory infection) Qualifiers: URI type: unspecified URI Qualified Code(s): J06.9 - Acute upper respiratory infection, unspecified Instructions Patient Instructions: Sore Throat, Sinusitis Discharge ED Provider: Shy Ramon [facility] [place] General Stated complaint: Sore throat, drainage Mode of Arrival: Ambulatory Source of Information: Patient Limitations: No Limitations Time Seen by Provider: 05/16/22 11:46 Description of Symptoms (Recalled from Triage Doc. by RN): PATIENT C/O SORE THROAT, RUNNY NOSE, AND BODY ACHES SINCE YESTERDAY. REQUESTING A COVID TEST HEENT Symptoms (Recalled from RN notes): Yes Resp Symptoms (Recalled from RN notes): No Skin Symptoms (Recalled from RN notes): No MS Symptoms (Recalled from RN notes): No Functional Status (Recalled from RN notes): WNL History of Present Illness Provider Complaint: Patient state that she has been having sore throat, runny nose, drainage in the back of her throat sinus congestion and pressure that got worse yesterday State that had something similar and had to have antibiotics State that she wants to get tested for strep and COVID to be safe also Related Data Home Medications
[2022-05-16 12:00] VITALS: BP 150/71; PULSE 70; RESP 17; TEMP 36.8; O2SAT 97
[2022-05-16 12:01] LABS: UTC Strep Screen (Rapid) Negative (Negative)
== END 2022-05-16 12:03 | disposition home or self-care (01) ==
PROVIDERS: Emergency Provider Nurse Practitioner; PCP Nurse Practitioner
DX: J06.9 Acute upper respiratory infection, unspecified (principal)
CPT/HCPCS: 87880; 99212; C9803; G0463; U0003; U0005

== ENCOUNTER 2022-08-07 08:02 | Emergency (ER) | payer MEDICAID, SELFPAY ==
[2022-08-07 08:30] VITALS: BP 140/72; PULSE 73; RESP 20; TEMP 36.7; O2SAT 96; BMI 37.4
--- NOTE | 2022-08-07 08:57 | EXP.UTC ---
Discharge Plan Disposition Patient Disposition: Home, Self-Care Condition: Good Prescriptions Prescriptions: New azithromycin [Zithromax Z-Alexis] 250 mg tablet See Rx Instructions .ROUTE .COMPLEX 5 Days Qty: 6 0RF Rx Instructions: For 250 mg dose pack: take 500 mg today (day 1), then 250 mg for 4 days (days 2-5) prednisone [prednisone] 20 mg tablet 20 mg PO BID 5 Days Qty: 10 0RF benzonatate 100 mg capsule 100 mg PO TID PRN (Reason: cough) Qty: 30 0RF No Action lorazepam 0.5 mg tablet 0.5 mg PO DAILY fenofibrate nanocrystallized 48 mg tablet 48 mg PO DAILY hydrochlorothiazide 25 mg tablet 25 mg PO DAILY meloxicam 7.5 mg tablet 7.5 mg PO DAILY tizanidine 4 mg tablet 4 mg PO DAILY metoprolol tartrate 100 mg tablet 100 mg PO BID potassium chloride 20 mEq tablet extended release 20 meq PO DAILY hydrocodone-acetaminophen 1 TAB tablet 1 tab PO Q6HP PRN (Reason: Moderate Pain) Qty: 7 0RF aspirin 81 MG tablet,delayed release (DR/EC) 81 mg PO DAILY vitamins A,C,U-hdnw-[id number] 1 EACH tablet 1 each PO DAILY calcium carb and citrate-vitD3 1 EACH tablet extended release 1 each PO DAILY L.acidoph, paracasei,B. lactis 1 EACH capsule 1 each PO DAILY azithromycin [Zithromax Z-Alexis] 250 mg tablet See Rx Instructions .ROUTE .COMPLEX Qty: 6 0RF Rx Instructions: For 250 mg dose pack: take 500 mg today (day 1), then 250 mg for 4 days (days 2-5) methylprednisolone [Medrol (Alexis)] 4 mg tablets,dose pack See Rx Instructions .Route .COMPLEX 6 Days Qty: 21 0RF Rx Instructions: taper pack; Referrals Follow up/Referrals: Meaghan Mcnamara APRN [Primary Care Provider] - See instructions Activity Restrictions/Add. Instructions Additional Instructions/Restrictions: Start antibiotic today. Be sure to complete entire prescription even if feeling better Monitor temp. Tylenol every 4 hours as needed and / or ibuprofen every 6 hours as needed ( As long as your primary care physician has told you that it ok to take both. For fever/aches/pains ER if no less than 101 despite Tylenol or Motrin Humidifier/vaporizer or hot steamy shower *Tessalon Perles will not cause drowsiness but use at bedtime to help stop cough so that you may get some rest. *Start steroid today. Helps with inflammation therefore, cough and wheezing. Follow directions on the package. Reviewed side effects. Patient reports taking them before. Follow up IMMEDIATELY for new or worsening of symptoms OR no noticeable improvement over the next 48-72 hours. 911 immediately for any life threatening symptoms such as chest pain or difficulty breathing Clinical Impressions Clinical Impression: Sinusitis, Bronchitis Instructions Patient Instructions: DI for Sinusitis, Sinusitis, Acute Bronchitis, DI for Acute Bronchitis Discharge ED Provider: Shy Ramon [facility] [place] HPI General Stated complaint: congestion cough Mode of Arrival: Ambulatory Source of Information: Patient Limitations: No Limitations Time Seen by Provider: 08/07/22 09:02 Description of Symptoms (Recalled from Triage Doc. by RN): PATIENT C/O CHEST CONGESTION AND COUGH SINCE SUNDAY HEENT Symptoms (Recalled from RN notes): No Resp Symptoms (Recalled from RN notes): Yes Skin Symptoms (Recalled from RN notes): No MS Symptoms (Recalled from RN notes): No Functional Status (Recalled from RN notes): WNL History of Present Illness Provider Complaint: Patient states that she has been having sinus congestion and pressure and feels like it is moving into her chest area States that on Sunday she had burning like sensation in her throat on Sunday from all the drainage States that her cough is dry but she felt like she was having a little wheezing last night so she wanted to come in and get treated before it got too bad Related Data Home Medications Medication Instruc
[2022-08-07 09:10] VITALS: BP 140/72; PULSE 73; RESP 20; TEMP 36.7; O2SAT 96
== END 2022-08-07 09:31 | disposition home or self-care (01) ==
PROVIDERS: Emergency Provider Nurse Practitioner; PCP Nurse Practitioner
DX: J40 Bronchitis, not specified as acute or chronic (principal); J32.9 Chronic sinusitis, unspecified
CPT/HCPCS: 99212; G0463

== ENCOUNTER 2022-08-14 08:00 | Emergency (ER) | payer MEDICAID, SELFPAY ==
--- NOTE | 2022-08-14 08:26 | EXP.UTC ---
Discharge Plan Disposition Patient Disposition: Home, Self-Care Condition: Good Prescriptions Prescriptions: New methylprednisolone 4 mg Tablets,Dose Pack 4 mg PO DIRECTED Qty: 21 0RF guaifenesin [Mucinex] 600 mg tablet extended release 12hr 600 - 1,200 mg PO BIDP PRN (Reason: Congestion) Qty: 30 0RF amoxicillin-pot clavulanate 500-125 mg tablet 1 tab PO BID Qty: 20 0RF albuterol sulfate [Ventolin HFA] 90 mcg/actuation HFA aerosol inhaler 2 puff inhalation Q6H PRN (Reason: Shortness Of Breath Or Wheezing) Qty: 6.7 2RF No Action lorazepam 0.5 mg tablet 0.5 mg PO DAILY fenofibrate nanocrystallized 48 mg tablet 48 mg PO DAILY hydrochlorothiazide 25 mg tablet 25 mg PO DAILY meloxicam 7.5 mg tablet 7.5 mg PO DAILY tizanidine 4 mg tablet 4 mg PO DAILY metoprolol tartrate 100 mg tablet 100 mg PO BID potassium chloride 20 mEq tablet extended release 20 meq PO DAILY hydrocodone-acetaminophen 1 TAB tablet 1 tab PO Q6HP PRN (Reason: Moderate Pain) Qty: 7 0RF aspirin 81 MG tablet,delayed release (DR/EC) 81 mg PO DAILY vitamins A,C,J-fhgu-obecsv 1 EACH tablet 1 each PO DAILY calcium carb and citrate-vitD3 1 EACH tablet extended release 1 each PO DAILY L.acidoph, paracasei,B. lactis 1 EACH capsule 1 each PO DAILY azithromycin [Zithromax Z-Alexis] 250 mg tablet See Rx Instructions .ROUTE .COMPLEX Qty: 6 0RF Rx Instructions: For 250 mg dose pack: take 500 mg today (day 1), then 250 mg for 4 days (days 2-5) methylprednisolone [Medrol (Alexis)] 4 mg tablets,dose pack See Rx Instructions .Route .COMPLEX 6 Days Qty: 21 0RF Rx Instructions: taper pack; azithromycin [Zithromax Z-Alexis] 250 mg tablet See Rx Instructions .ROUTE .COMPLEX 5 Days Qty: 6 0RF Rx Instructions: For 250 mg dose pack: take 500 mg today (day 1), then 250 mg for 4 days (days 2-5) prednisone [prednisone] 20 mg tablet 20 mg PO BID 5 Days Qty: 10 0RF benzonatate 100 mg capsule 100 mg PO TID PRN (Reason: cough) Qty: 30 0RF Referrals Follow up/Referrals: Meaghan Mcnamara, ASHWIN [Primary Care Provider] - See instructions Activity Restrictions/Add. Instructions Additional Instructions/Restrictions: Drink plenty of fluids. Take tylenol or ibuprofen for pain or fever. Take the medications as directed. Follow up with your regular doctor. GO TO THE ER FOR ANY WORSENING SYMPTOMS Clinical Impressions Clinical Impression: Viral syndrome, Bronchitis Instructions Patient Instructions: DI for Acute Bronchitis, DI for Viral Syndrome [place]charge ED Provider: Frantz Campbell [facility] [place] General Stated complaint: congestion soa Time Seen by Provider: 08/14/22 08:26 History of Present Illness Provider Complaint: She states that she has had chest congestion for the past 2 weeks. She has had a z-pack with not much improvement in her symptoms. Related Data Home Medications Medication Instructions Recorded Confirmed fenofibrate nanocrystallized 48 mg 48 mg PO DAILY Cholesterol 03/22/21 06/20/21 tablet hydrochlorothiazide 25 mg tablet 25 mg PO DAILY High blood pressure 03/22/21 06/20/21 lorazepam 0.5 mg tablet 0.5 mg PO DAILY Anxiety 03/22/21 06/20/21 meloxicam 7.5 mg tablet 7.5 mg PO DAILY Arthritis 03/22/21 06/20/21 metoprolol tartrate 100 mg tablet 100 mg PO BID High blood pressure 03/22/21 06/20/21 potassium chloride 20 mEq 20 meq PO DAILY Supplement 03/22/21 06/20/21 tablet,extended release tizanidine 4 mg tablet 4 mg PO DAILY bladder 03/22/21 06/20/21 L.acidoph, paracasei,B. lactis 10 1 each PO DAILY Supplement 05/13/21 06/20/21 billion cell capsule aspirin 81 mg tablet,delayed 81 mg PO DAILY HEART HEALTHY 05/13/21 06/20/21 release calcium carb,cit ER 600 mg-vit D3 1 each PO DAILY Supplement 05/13/21 06/20/21 12.5 mcg (500 unit) tablet,ext.rel vitamins A,C,N-ruik-oyxmqh 2,148 1 each PO DAILY Supplem
[2022-08-14 08:30] LABS: UTC Influenza A Antigen Negative (Negative); UTC Strep Screen (Rapid) Negative (Negative)
--- NOTE | 2022-08-14 08:30 | XR_ITS ---
FINAL REPORT CLINICAL HISTORY: cough, congestion FINDINGS: TWO-VIEW CHEST Two views of the chest were obtained. The heart size and pulmonary vascularity are within normal limits. The mediastinum is normal. No acute pulmonary abnormality is identified. There is no pneumothorax. The bony thorax is intact. IMPRESSION: No active disease. Reviewed, Interpreted and Dictated by Sandip Troy MD Transcribed by Tuyet Houston Authenticated and [facility]
[2022-08-14 08:31] LABS: UTC Influenza B Antigen Negative (Negative)
[2022-08-14 08:37] VITALS: BP 140/66; PULSE 65; RESP 16; TEMP 37; O2SAT 97; BMI 36.8
[2022-08-14 09:15] VITALS: BP 140/66; PULSE 65; RESP 16; TEMP 37
[2022-08-14 09:34] LABS: Adenovirus,PCR Not Detected (NotDetected); Bordetella Pertussis Not Detected (NotDetected); Chlamydophila Pneumoniae, PCR Not Detected (NotDetected); Coronavirus 19, PCR Not Detected (NotDetected); Coronavirus 229E Not Detected (NotDetected); Coronavirus NL63 Not Detected (NotDetected); Coronavirus OC43 Not Detected (NotDetected); Coronovirus HKU1,PCR Not Detected (NotDetected); Human Metapneumovirus Not Detected (NotDetected); Influenza A, PCR Not Detected (NotDetected); Influenza AH1, 2009 Not Detected (NotDetected); Influenza AH1, PCR Not Detected (NotDetected); Influenza AH3,PCR Not Detected (NotDetected); Influenza B, PCR Not Detected (NotDetected); Mycoplasma Pneumoniae, PCR Not Detected (NotDetected); Parainfluenza 1, PCR Not Detected (NotDetected); Parainfluenza 2, PCR Not Detected (NotDetected); Parainfluenza 3, PCR Not Detected (NotDetected); Parainfluenza 4, PCR Not Detected (NotDetected); Rhinovirus/Enterovirus Not Detected (NotDetected)
[2022-08-14 19:24] LABS: Respiratory Syncytial Virus Detected (NotDetected)
== END 2022-08-14 09:16 | disposition home or self-care (01) ==
PROVIDERS: Emergency Provider Nurse Practitioner Family; PCP Nurse Practitioner
DX: J20.5 Acute bronchitis due to respiratory syncytial virus (principal)
CPT/HCPCS: 71046; 87581; 87632; 87798; 87804; 87880; 99212; C9803; G0463; U0003; U0005

== ENCOUNTER → 2022-08-14 09:43 | Outpatient (CLI) | payer MEDICAID, SELFPAY ==
--- NOTE | 2022-08-14 09:46 | MM_ITS ---
PROCEDURE INFORMATION: Exam: MG Bilateral Screening 3D Mammography Exam date and time: 08/14/2022 9:47 AM Age: 61 years old Clinical indication: Screening examination. No family history of breast cancer. TECHNIQUE: Imaging protocol: Bilateral Screening tomosynthesis and 2D mammography including computer-aided detection (CAD) when performed. COMPARISON: 1. MG MM DIG SCREENING MAMM BI W/CAD 04/05/2021 8:09 AM 2. MG MM DIG SCREENING MAMM BI W/CAD 09/16/2019 8:28 AM 3. MG MAMMO SUPERVISOR RUBBER COVERING 05/05/2008 9:43 AM 4. MG MAMMO SUPERVISOR RUBBER COVERING 05/14/2007 9:51 AM FINDINGS: MAMMOGRAPHY: Breast composition: There are scattered areas of fibroglandular density. Mass: None. Architectural distortion: None. Calcifications: No suspicious calcifications. Asymmetric density: None. Skin thickening: None. Axillary adenopathy: None. IMPRESSION: No mammographic evidence of malignancy. Annual screening is recommended unless otherwise clinically indicated. ASSESSMENT: BI-RADS Category 1: Negative
== END ==
PROVIDERS: PCP Nurse Practitioner; Visit Provider Nurse Practitioner
DX: Z12.31 Encounter for screening mammogram for malignant neoplasm of breast (principal)
CPT/HCPCS: 77063; 77067

== ENCOUNTER 2022-09-13 09:00 | Outpatient (RCR) | payer MEDICAID, SELFPAY | END 2022-09-20 10:32 | disposition home or self-care (01) | LOC: PT.CARL 09:00 | PROVIDERS: PCP Nurse Practitioner; Visit Provider Nurse Practitioner | DX: M79.601 Pain in right arm (principal) | CPT/HCPCS: 97010; 97014; 97110; 97163; 97164; 97530; G0283 ==

== ENCOUNTER 2022-10-27 08:00 | Emergency (ER) | payer MEDICAID, SELFPAY ==
[2022-10-27 08:15] VITALS: BP 140/95; PULSE 77; RESP 20; TEMP 36.7; O2SAT 98; BMI 37.5
--- NOTE | 2022-10-27 08:22 | EXP.UTC ---
Discharge Plan Disposition Patient Disposition: Home, Self-Care Condition: Good Prescriptions Prescriptions: New prednisone [prednisone] 20 mg tablet 20 mg PO BID 5 Days Qty: 10 0RF amoxicillin-pot clavulanate 875-125 mg Tablet 1 tab PO Q12H Qty: 20 0RF No Action lorazepam 0.5 mg tablet 0.5 mg PO DAILY fenofibrate nanocrystallized 48 mg tablet 48 mg PO DAILY hydrochlorothiazide 25 mg tablet 25 mg PO DAILY meloxicam 7.5 mg tablet 7.5 mg PO DAILY metoprolol tartrate 100 mg tablet 100 mg PO BID potassium chloride 20 mEq tablet extended release 20 meq PO DAILY hydrocodone-acetaminophen 1 TAB tablet 1 tab PO Q6HP PRN (Reason: Moderate Pain) Qty: 7 0RF guaifenesin [Mucinex] 600 mg tablet extended release 12hr 600 - 1,200 mg PO BIDP PRN (Reason: Congestion) Qty: 30 0RF albuterol sulfate [Ventolin HFA] 90 mcg/actuation HFA aerosol inhaler 2 puff inhalation Q6H PRN (Reason: Shortness Of Breath Or Wheezing) Qty: 6.7 2RF aspirin 81 MG tablet,delayed release (DR/EC) 81 mg PO DAILY calcium carb and citrate-vitD3 1 EACH tablet extended release 1 each PO DAILY prednisone [prednisone] 20 mg tablet 20 mg PO BID 5 Days Qty: 10 0RF Referrals Follow up/Referrals: Meaghan Mcnamara APRN [Primary Care Provider] - See instructions Activity Restrictions/Add. Instructions Additional Instructions/Restrictions: Rest, fluids Clinical Impressions Clinical Impression: Sinusitis Instructions Patient Instructions: DI for Sinusitis Discharge ED Provider: Philly Mcnamara [facility] [place] General Stated complaint: Sore throat drainage Time Seen by Provider: 10/27/22 08:22 History of Present Illness Provider Complaint: Sore throat, sinus drainage X 1week. No fever. Losing voice. Has been gargling salt water with little relief. Onset (ago): week(s) (1) Relieving factors: none Exacerbating factors: none Associated symptoms: denies other symptoms Treatments prior to arrival: other (salt water gargles) Related Data Home Medications Medication Instructions Recorded Confirmed fenofibrate nanocrystallized 48 mg 48 mg PO DAILY Cholesterol 03/22/21 10/27/22 tablet hydrochlorothiazide 25 mg tablet 25 mg PO DAILY High blood pressure 03/22/21 10/27/22 lorazepam 0.5 mg tablet 0.5 mg PO DAILY Anxiety 03/22/21 10/27/22 meloxicam 7.5 mg tablet 7.5 mg PO DAILY Arthritis 03/22/21 06/20/21 metoprolol tartrate 100 mg tablet 100 mg PO BID High blood pressure 03/22/21 10/27/22 potassium chloride 20 mEq 20 meq PO DAILY Supplement 03/22/21 10/27/22 tablet,extended release aspirin 81 mg tablet,delayed 81 mg PO DAILY HEART HEALTHY 05/13/21 06/20/21 release calcium carb,cit ER 600 mg-vit D3 1 each PO DAILY Supplement 05/13/21 06/20/21 12.5 mcg (500 unit) tablet,ext.rel Previous Rx's Medication Instructions Recorded hydrocodone 5 mg-acetaminophen 325 1 tab PO Q6HP PRN Moderate Pain #7 11/07/21 mg tablet tabs prednisone 20 mg tablet 20 mg PO BID 5 days #10 tabs 08/07/22 albuterol sulfate 90 mcg/actuation 2 puff inhalation Q6H PRN 08/14/22 aerosol inhaler (Ventolin HFA) Shortness Of Breath Or Wheezing #6.7 grams guaifenesin 600 mg tablet, 600 - 1,200 mg PO BIDP PRN 08/14/22 extended release 12 hr (Mucinex) Congestion #30 tabs amoxicillin 875 mg-potassium 1 tab PO Q12H #20 tabs 10/27/22 clavulanate 125 mg tablet prednisone 20 mg tablet 20 mg PO BID 5 days #10 tabs 10/27/22 Allergies Allergy/AdvReac Type Severity Reaction Status Date / Time ibuprofen AdvReac fluid Verified 10/27/22 08:26 retention PFS PFS Disclaimer: The information contained in this section may have been updated after the patient was seen, as this information can be updated by other users. Medical History Anxiety Endometriosis Hypertension Kidney stone Surgical History (Reviewed 08/15/22 @ 22:29 by Reagan
[2022-10-27 08:40] VITALS: BP 140/95; PULSE 77; RESP 20; TEMP 36.7; O2SAT 98
== END 2022-10-27 08:40 | disposition home or self-care (01) ==
PROVIDERS: Emergency Provider Physician Assistant; PCP Nurse Practitioner
DX: J32.9 Chronic sinusitis, unspecified (principal)
CPT/HCPCS: 99212; 99213; G0463

== ENCOUNTER 2022-12-09 08:00 | Emergency (ER) | payer MEDICAID, SELFPAY ==
[2022-12-09 08:10] VITALS: BP 131/75; PULSE 70; RESP 20; TEMP 37; O2SAT 96; BMI 37.0
--- NOTE | 2022-12-09 08:15 | XR_ITS ---
PROCEDURE INFORMATION: Exam: XR Chest Exam date and time: 12/09/2022 8:19 AM Age: 62 years old Clinical indication: Cough TECHNIQUE: Imaging protocol: Radiologic exam of the chest. Views: 2 views. COMPARISON: CR XR CHEST 2V 08/14/2022 8:29 AM FINDINGS: Lungs: Unremarkable. No consolidation. Pleural spaces: Unremarkable. No pleural effusion. No pneumothorax. Heart/Mediastinum: Unremarkable. No cardiomegaly. Bones/joints: Unremarkable. IMPRESSION: No acute findings.
--- NOTE | 2022-12-09 08:55 | EXP.UTC ---
Discharge Plan Disposition Patient Disposition: Home, Self-Care Condition: Good Prescriptions Prescriptions: New prednisone 10 mg tablet 10 mg PO DIRECTED 9 Days Qty: 21 0RF Rx Instructions: Take 4 tablets daily for 3 days, then take 2 tablets daily for 3 days, then take 1 tablet daily for 3 days, then stop. guaifenesin [Mucinex] 600 mg tablet extended release 12hr 600 - 1,200 mg PO BIDP PRN (Reason: Congestion) Qty: 30 0RF benzonatate [benzonatate] 100 mg capsule 100 mg PO TIDP PRN (Reason: Cough) Qty: 30 0RF amoxicillin [amoxicillin] 875 mg tablet 875 mg PO Q12H Qty: 20 0RF No Action lorazepam 0.5 mg tablet 0.5 mg PO DAILY fenofibrate nanocrystallized 48 mg tablet 48 mg PO DAILY hydrochlorothiazide 25 mg tablet 25 mg PO DAILY metoprolol tartrate 100 mg tablet 100 mg PO BID potassium chloride 20 mEq tablet extended release 20 meq PO DAILY albuterol sulfate [Ventolin HFA] 90 mcg/actuation HFA aerosol inhaler 2 puff inhalation Q6H PRN (Reason: Shortness Of Breath Or Wheezing) Qty: 6.7 2RF aspirin 81 MG tablet,delayed release (DR/EC) 81 mg PO DAILY Referrals Follow up/Referrals: Meaghan Mcnamara APRN [Primary Care Provider] - See instructions Activity Restrictions/Add. Instructions Additional Instructions/Restrictions: Drink plenty of fluids. Take tylenol or ibuprofen for pain or fever. Take the medications as directed. Follow up with your regular doctor. GO TO THE ER FOR ANY WORSENING SYMPTOMS Don't start the oral steroids until tomorrow, since you had the shot here today. Clinical Impressions Clinical Impression: Acute bronchitis, Sinusitis Instructions Patient Instructions: DI for Sinusitis, DI for Acute Bronchitis, Ceftriaxone Injection, Methylprednisolone Injection Discharge ED Provider: Frantz Campbell [facility] General Stated complaint: sore throat,cough,SOA,congestion Mode of Arrival: Ambulatory Source of Information: Patient Limitations: No Limitations Time Seen by Provider: 12/09/22 08:45 Description of Symptoms (Recalled from Triage Doc. by RN): congestion, cough, and wheezing HEENT Symptoms (Recalled from RN notes): Yes Resp Symptoms (Recalled from RN notes): No Skin Symptoms (Recalled from RN notes): No MS Symptoms (Recalled from RN notes): No Functional Status (Recalled from RN notes): n/a History of Present Illness Provider Complaint: She states that for the past 5 days she has had worsening sinus and chest congestion. She is coughing up thick yellowish sputum. She denies fever. Related Data Home Medications Medication Instructions Recorded Confirmed fenofibrate nanocrystallized 48 mg 48 mg PO DAILY Cholesterol 03/22/21 12/09/22 tablet hydrochlorothiazide 25 mg tablet 25 mg PO DAILY High blood pressure 03/22/21 12/09/22 lorazepam 0.5 mg tablet 0.5 mg PO DAILY Anxiety 03/22/21 12/09/22 metoprolol tartrate 100 mg tablet 100 mg PO BID High blood pressure 03/22/21 12/09/22 potassium chloride 20 mEq 20 meq PO DAILY Supplement 03/22/21 12/09/22 tablet,extended release aspirin 81 mg tablet,delayed 81 mg PO DAILY HEART HEALTHY 05/13/21 12/09/22 release Previous Rx's Medication Instructions Recorded albuterol sulfate 90 mcg/actuation 2 puff inhalation Q6H PRN 08/14/22 aerosol inhaler (Ventolin HFA) Shortness Of Breath Or Wheezing #6.7 grams amoxicillin 875 mg tablet 875 mg PO Q12H #20 tabs 12/09/22 benzonatate 100 mg capsule 100 mg PO TIDP PRN Cough #30 caps 12/09/22 guaifenesin 600 mg tablet, 600 - 1,200 mg PO BIDP PRN 12/09/22 extended release 12 hr (Mucinex) Congestion #30 tabs prednisone 10 mg tablet 10 mg PO DIRECTED 9 days #21 12/09/22 tabs Allergies Allergy/AdvReac Type Severity Reaction Status Date / Time ibuprofen AdvReac fluid Verified 12/09/22 08:14 retention Worker's Comp Is this a Worker's Comp case?: No [facility] Disclaimer: The information c
[2022-12-09 09:30] VITALS: BP 131/75; PULSE 70; RESP 20; TEMP 37; O2SAT 96
== END 2022-12-09 09:30 | disposition home or self-care (01) ==
PROVIDERS: Emergency Provider Nurse Practitioner Family; PCP Nurse Practitioner
DX: J20.9 Acute bronchitis, unspecified (principal); J01.90 Acute sinusitis, unspecified
CPT/HCPCS: 96372; 71046; 99212; 99214; G0463; J0696

== ENCOUNTER → 2023-03-23 06:49 | Outpatient (CLI) | payer MEDICAID, SELFPAY ==
--- NOTE | 2023-03-23 07:21 | US_ITS ---
FINAL REPORT TECHNIQUE: Limited sonographic images of the neck were obtained. CLINICAL HISTORY: LYMPHEDEMA FINDINGS: US THYROID/HEAD OR NECK SOFT TISSUE There are small bilateral neck nodes. No mass or abnormal fluid collection identified. IMPRESSION: No mass or abnormal fluid collection. Reviewed, Interpreted and Dictated by Choco Lo III, MD Transcribed by Cathy Luna Authenticated and [facility]
== END ==
PROVIDERS: PCP Nurse Practitioner; Visit Provider Nurse Practitioner Family
DX: I89.0 Lymphedema, not elsewhere classified (principal)
CPT/HCPCS: 76536

== ENCOUNTER → 2023-04-24 09:22 | Outpatient (CLI) | payer MEDICAID, SELFPAY ==
--- NOTE | 2023-04-24 09:25 | XR_ITS ---
FINAL REPORT CLINICAL HISTORY: left ankle pain COMPARISON: None FINDINGS: LEFT ANKLE: Three views of the left ankle were obtained. There is no acute fracture or dislocation. There is mild and moderate degenerative change noted in the ankle. Calcaneal spurs are present. There is a chronic calcification adjacent to the medial malleolus. Soft tissue swelling is present. IMPRESSION: Degenerative change and soft tissue swelling present. No acute bony abnormality identified. Reviewed, Interpreted and Dictated by Choco Lo III, MD Transcribed by Jaja Valladares Authenticated and [facility]
--- NOTE | 2023-04-24 09:25 | XR_ITS ---
FINAL REPORT CLINICAL HISTORY: left foot pain COMPARISON: None FINDINGS: LEFT FOOT: Three views of the left foot were obtained. There is no acute fracture or dislocation. There is a moderate hallux valgus deformity. Mild degenerative changes are noted in the foot. Calcaneal spurs are present as well as pes planus. There is no soft tissue abnormality. IMPRESSION: No acute bony abnormality. Degenerative change as described. Reviewed, Interpreted and Dictated by Choco Lo III, MD Transcribed by Jaja Valladares Authenticated and [facility]
== END ==
PROVIDERS: PCP Nurse Practitioner; Visit Provider Nurse Practitioner Family
DX: M25.572 Pain in left ankle and joints of left foot (principal); M77.42 Metatarsalgia, left foot
CPT/HCPCS: 73610; 73630

== ENCOUNTER 2023-04-28 08:25 | Emergency (ER) | payer MEDICAID, SELFPAY ==
[2023-04-28 08:35] VITALS: BP 147/82; PULSE 60; RESP 20; TEMP 36.5; O2SAT 98; BMI 38.7
--- NOTE | 2023-04-28 08:42 | EXP.UTC ---
Discharge Plan Disposition Patient Disposition: Home, Self-Care Condition: Good Prescriptions Prescriptions: New ciprofloxacin HCl [Cipro] 500 mg tablet 500 mg PO BID 10 Days Qty: 20 0RF metronidazole 500 mg tablet 500 mg PO Q8H Qty: 30 0RF ondansetron 4 mg Tablet,Disintegrating 4 mg PO Q8H PRN (Reason: Nausea) Qty: 12 0RF No Action calcium carbonate [Calcium 600] 600 mg calcium (1,500 mg) tablet 600 mg PO BID fenofibrate nanocrystallized 48 mg tablet 48 mg PO DAILY hydrochlorothiazide 25 mg tablet 25 mg PO DAILY metoprolol tartrate 100 mg tablet 100 mg PO BID potassium chloride 20 mEq tablet extended release 20 meq PO DAILY lorazepam 0.5 mg tablet 0.5 mg PO BID aspirin 81 MG tablet,delayed release (DR/EC) 81 mg PO DAILY Referrals Follow up/Referrals: Meaghan Mcnamara APRN [Primary Care Provider] - See instructions Activity Restrictions/Add. Instructions Additional Instructions/Restrictions: Drink plenty of fluids. Take tylenol for pain or fever. Take the medications as directed. Follow up with your regular doctor. GO TO THE ER FOR ANY WORSENING SYMPTOMS Clinical Impressions Clinical Impression: Diverticulitis Instructions Patient Instructions: DI for Diverticulitis, Ondansetron, Ciprofloxacin, Metronidazole Discharge ED Provider: Frantz Campbell [facility] General Stated complaint: stomach cramps Time Seen by Provider: 04/28/23 08:42 History of Present Illness Provider Complaint: She states that for the past 3 days she has had left lower quadrant abdominal pain. She states that she has a history of diverticulitis and this feels like her normal symptoms. Usually her pcp gives her antibiotics and it takes care of it. She denies any fever or chills. Related Data Home Medications Medication Instructions Recorded Confirmed fenofibrate nanocrystallized 48 mg 48 mg PO DAILY Cholesterol 03/22/21 04/28/23 tablet hydrochlorothiazide 25 mg tablet 25 mg PO DAILY Hypertension 03/22/21 04/28/23 metoprolol tartrate 100 mg tablet 100 mg PO BID Hypertension 03/22/21 04/28/23 potassium chloride 20 mEq 20 meq PO DAILY Supplement 03/22/21 04/28/23 tablet,extended release aspirin 81 mg tablet,delayed 81 mg PO DAILY HEART HEALTHY 05/13/21 04/28/23 release lorazepam 0.5 mg tablet 0.5 mg PO BID Anxiety 01/18/23 04/28/23 calcium carbonate 600 mg calcium 600 mg PO BID Supplement 04/24/23 04/28/23 (1,500 mg) tablet (Calcium) Previous Rx's Medication Instructions Recorded ciprofloxacin HCl 500 mg tablet 500 mg PO BID 10 days #20 tabs 04/28/23 (Cipro) metronidazole 500 mg tablet 500 mg PO Q8H #30 tabs 04/28/23 ondansetron 4 mg disintegrating 4 mg PO Q8H PRN Nausea #12 tabs 04/28/23 tablet Allergies Allergy/AdvReac Type Severity Reaction Status Date / Time ibuprofen AdvReac fluid Verified 04/24/23 09:01 retention PFS PFSH Disclaimer: The information contained in this section may have been updated after the patient was seen, as this information can be updated by other users. Medical History Anxiety Endometriosis Hypertension Kidney stone Left ankle pain Metatarsalgia of left foot Surgical History History of cholecystectomy Social History Smoking Status: Never smoker alcohol intake: never substance use type: denies use current occupational status: retired and disabled Travel in the last 8 weeks: None household members: family housing: house current occupational exposures/hazards: No caffeine: No ROS Obtained: Yes All systems reviewed & no additional complaints except as documented Constitutional Constitutional: Denies chills, Denies fever(s) and Reports poor appetite ENT Ears, Nose, Mouth, and Throat: Denies dizziness and Konstantin
[2023-04-28 08:54] VITALS: BP 147/82; PULSE 60; RESP 20; TEMP 36.5; O2SAT 98
== END 2023-04-28 08:56 | disposition home or self-care (01) ==
PROVIDERS: Emergency Provider Nurse Practitioner Family; PCP Nurse Practitioner
DX: K57.32 Diverticulitis of large intestine without perforation or abscess without bleeding (principal); R10.32 Left lower quadrant pain; I10 Essential (primary) hypertension; F41.9 Anxiety disorder, unspecified
CPT/HCPCS: 99212; 99214; G0463

== ENCOUNTER → 2023-05-01 10:01 | Outpatient (CLI) | payer MEDICAID, SELFPAY ==
--- NOTE | 2023-05-01 10:03 | US_ITS ---
FINAL REPORT CLINICAL HISTORY: Decreased Pulses, HTN, bilateral claudication, bilateral rest pain, obesity FINDINGS: COMPLETE ANKLE/BRACHIAL INDICES BILATERAL Complete ankle brachial indices were obtained. The right ELIAS is 1.1. The left ELIAS is 1.3. IMPRESSION: ABIs are within normal limits bilaterally. Reviewed, Interpreted and Dictated by Choco Lo III, MD Transcribed by Cathy Luna Authenticated and [facility]
== END ==
PROVIDERS: PCP Nurse Practitioner; Visit Provider Nurse Practitioner Family
DX: R09.89 Other specified symptoms and signs involving the circulatory and respiratory systems (principal)
CPT/HCPCS: 93923

== ENCOUNTER → 2023-05-22 08:50 | Outpatient (CLI) | payer MEDICAID, SELFPAY | PROVIDERS: Visit Provider Nurse Practitioner Family | DX: M79.674 Pain in right toe(s) (principal); B35.1 Tinea unguium | CPT/HCPCS: 87102; 87206; 87220 ==

== ENCOUNTER 2023-05-26 16:16 | Emergency (ER) | payer MEDICAID, SELFPAY ==
[2023-05-26 16:30] VITALS: BP 121/69; PULSE 62; RESP 18; TEMP 36.8; O2SAT 95; BMI 37.5
--- NOTE | 2023-05-26 16:36 | EXP.UTC ---
Discharge Plan Disposition Patient Disposition: Home, Self-Care Condition: Good Prescriptions Prescriptions: New phenazopyridine [Pyridium] 200 mg tablet 200 mg PO Q8H 2 Days Qty: 6 0RF sulfamethoxazole-trimethoprim [Bactrim DS] 800-160 mg Tablet 1 tab PO BID Qty: 14 0RF mupirocin 2 % ointment 1 applic topical TID 7 Days Qty: 15 0RF mupirocin 2 % ointment 1 applic topical TID 7 Days Qty: 15 0RF No Action calcium carbonate [Calcium 600] 600 mg calcium (1,500 mg) tablet 600 mg PO BID fenofibrate nanocrystallized 48 mg tablet 48 mg PO DAILY hydrochlorothiazide 25 mg tablet 25 mg PO DAILY metoprolol tartrate 100 mg tablet 100 mg PO BID potassium chloride 20 mEq tablet extended release 20 meq PO DAILY lorazepam 0.5 mg tablet 0.5 mg PO BID metronidazole 500 mg tablet 500 mg PO Q8H Qty: 30 0RF aspirin 81 MG tablet,delayed release (DR/EC) 81 mg PO DAILY Referrals Follow up/Referrals: Meaghan Mcnamara APRN [Primary Care Provider] - See instructions Activity Restrictions/Add. Instructions Additional Instructions/Restrictions: Drink plenty of fluids. Take tylenol or ibuprofen for pain or fever. Take the medications as directed. Follow up with your regular doctor. GO TO THE ER FOR ANY WORSENING SYMPTOMS Put the mupirocin on the red area on your left ankle. The pyridium will make your urine turn orange, this is an expected side effect. It will stain your clothes if it comes into contact with them. We will culture the urine. That will tell what bacteria is causing your infection and which antibiotics will treat it best. Sometimes the first antibiotic we prescribe turns out to not work against different bacteria. So, make sure you follow up within 3 days if you are not getting better. Clinical Impressions Clinical Impression: UTI (urinary tract infection), Ankle pain, left Instructions Patient Instructions: Urinary Tract Infection, DI for Urinary Tract Infection (UTI), Mupirocin Discharge ED Provider: Frantz Campbell [facility] General Stated complaint: ankle swelling and pain, no accident Time Seen by Provider: 05/26/23 16:35 History of Present Illness Provider Complaint: She states that for the past 3 days she has had worsening dysuria, low back pain and urinary frequency. She also c/o right ankle pain for the past several days. She denies any injury. Related Data Home Medications Medication Instructions Recorded Confirmed fenofibrate nanocrystallized 48 mg 48 mg PO DAILY Cholesterol 03/22/21 05/26/23 tablet hydrochlorothiazide 25 mg tablet 25 mg PO DAILY Hypertension 03/22/21 05/26/23 metoprolol tartrate 100 mg tablet 100 mg PO BID Hypertension 03/22/21 05/26/23 potassium chloride 20 mEq 20 meq PO DAILY Supplement 03/22/21 05/26/23 tablet,extended release aspirin 81 mg tablet,delayed 81 mg PO DAILY HEART HEALTHY 05/13/21 05/26/23 release lorazepam 0.5 mg tablet 0.5 mg PO BID Anxiety 01/18/23 05/26/23 calcium carbonate 600 mg calcium 600 mg PO BID Supplement 04/24/23 05/26/23 (1,500 mg) tablet (Calcium) Previous Rx's Medication Instructions Recorded metronidazole 500 mg tablet 500 mg PO Q8H #30 tabs 04/28/23 mupirocin 2 % topical ointment 1 applic topical TID 7 days #15 05/26/23 grams mupirocin 2 % topical ointment 1 applic topical TID 7 days #15 05/26/23 grams phenazopyridine 200 mg tablet 200 mg PO Q8H 2 days #6 tabs 05/26/23 (Pyridium) sulfamethoxazole 800 1 tab PO BID #14 tabs 05/26/23 mg-trimethoprim 160 mg tablet (Bactrim DS) Allergies Allergy/AdvReac Type Severity Reaction Status Date / Time ibuprofen AdvReac fluid Verified 05/26/23 16:50 retention [facility] Disclaimer: The information contained in this section may have been updated after the patient was seen, as this information can be updated by other users. Medical History (Reviewed 05/22/23 @ 08:14 by Pauly
[2023-05-26 16:43] LABS: Microscopic, Urine URINE MICROSCOPIC (MICROSCOPIC)
[2023-05-26 16:48] LABS: Appearance,Urine CLEAR (Clear); Bilirubin,Urine Negative (Negative); Blood, Urine Negative (Negative); Color,Urine YELLOW (Yellow); Glucose,Urine (UA) Negative (Negative); Ketones,Urine Negative (Negative); Leukocyte Esterase,Urine 1+ (Negative); Nitrate,Urine Negative (Negative); Protein,Urine Negative (Negative); Urobilinogen,Urine 0.2 EU/dl (0.2)
[2023-05-26 18:00] VITALS: BP 121/69; PULSE 62; RESP 18; TEMP 36.8; O2SAT 95
== END 2023-05-26 18:00 | disposition home or self-care (01) ==
PROVIDERS: Emergency Provider Nurse Practitioner Family; PCP Nurse Practitioner
DX: N39.0 Urinary tract infection, site not specified (principal); M25.572 Pain in left ankle and joints of left foot; M54.59 Other low back pain; I10 Essential (primary) hypertension; F41.9 Anxiety disorder, unspecified
CPT/HCPCS: 81001; 87086; 99212; 99214; G0463

== ENCOUNTER 2023-05-28 09:36 | Outpatient (RCR) | payer MEDICAID, SELFPAY ==
--- NOTE | 2023-05-28 11:11 | HMH.PTOPEV ---
PT Outpatient Evaluation Rehab PT Outpatient Evaluation Start: 05/28/23 09:43 Freq: Status: Active Protocol: Document 05/28/23 09:43 PDESEROUX (Rec: 05/28/23 11:10 [email or web address] [id number]) E-signed By Danny Goode, PT Outpatient Therapy Subjective History Subjective History Pt. is a 62 year old female who presents to [facility] in [place] for the initial evaluation this date(05/28/23) w/ c/o subacute and constant LLE ankle and ft. P!, edema, decreased circulation, and instability of insidious onset since February 2023. Pt. reports current s/s are secondary to being on my feet more in the summer time. Pt. vocalizes having similar s/s last summer(2021) secondary to being more active, but reports symptoms are better during the winter d/t being more sedentary. Pt. reports having symptom relief w/ steroids, resting, and icing w / previuos s/s. Pt. reports having symptom relief of current s/s w/ recent steroid injection. Pt. reports current s/s worsen w/ ambulation, standing, and first getting out of bet in the morning time . Pt. also c/o imbalance d/t current s/s. Pt. reports current edema has improved w/ injection and rest. Recent diagnostic imaging indicates bone on bone and arterial calcifications per pt. report . Pt. reports being referred to Dr. Beavers secondary to positive findings on the imaging and Ankle-Brachial Pressure Index score. Pt. reports donning CAM bt. x1 wk, but stated having to discontinue secondary to having an increase in hip/LBP! . Pt. reports having a
== END 2023-07-09 15:37 | disposition home or self-care (01) ==
LOC: PT 09:36
PROVIDERS: Visit Provider Nurse Practitioner Family
DX: M25.572 Pain in left ankle and joints of left foot (principal); M25.372 Other instability, left ankle
CPT/HCPCS: 97163

== ENCOUNTER 2023-08-20 08:06 | Emergency (ER) | payer MEDICAID, SELFPAY ==
[2023-08-20 08:20] VITALS: BP 137/82; PULSE 59; RESP 20; TEMP 36.7; O2SAT 98; BMI 36.8
[2023-08-20 08:39] LABS: Apearance,Urine Cloudy (Clear); Color,Urine Yellow (Yellow); Glucose,Urine (UA) Negative (Negative); Ketones,Urine Negative (Negative); Protein,Urine Negative (Negative); Specific Gravity, Urine 1.025 (1.005-1.030)
[2023-08-20 08:40] LABS: Bilirubin,Urine Negative (Negative); Blood, Urine 2+ (Negative); UTC Leukocyte Esterase,Urine 1+ (Negative); UTC Nitrate,Urine Positive (Negative); Urobilinogen,Urine 0.2 EU/dl (0.2)
--- NOTE | 2023-08-20 08:40 | EXP.UTC ---
Discharge Plan Disposition Patient Disposition: Home, Self-Care Condition: Good Prescriptions Prescriptions: New cefdinir 300 mg capsule 300 mg PO BID Qty: 20 0RF phenazopyridine [Pyridium] 200 mg tablet 200 mg PO Q8H 2 Days Qty: 6 0RF No Action calcium carbonate [Calcium 600] 600 mg calcium (1,500 mg) tablet 600 mg PO BID fenofibrate nanocrystallized 48 mg tablet 48 mg PO DAILY hydrochlorothiazide 25 mg tablet 25 mg PO DAILY metoprolol tartrate 100 mg tablet 100 mg PO BID potassium chloride 20 mEq tablet extended release 20 meq PO DAILY lorazepam 0.5 mg tablet 0.5 mg PO BID aspirin 81 MG tablet,delayed release (DR/EC) 81 mg PO DAILY mupirocin 2 % ointment 1 applic topical TID 7 Days Qty: 15 0RF mupirocin 2 % ointment 1 applic topical TID 7 Days Qty: 15 0RF Referrals Follow up/Referrals: Meaghan Mcnamara APRN [Primary Care Provider] - See instructions Activity Restrictions/Add. Instructions Additional Instructions/Restrictions: *Increase fluids. Water not Soda or Tea *Start antibiotic immediately and be sure to take as ordered for the FULL length of time although you should start to see improvement over the next 48 hours *Pyridium as needed Remember this medication will turn your urine . This is normal but it will stain what ever it gets on *You should not use Pyridium for more than 48 hours. If so , follow up with your primary physician to review urine culture and ensure that antibiotic is adequate for infection *Be SURE to follow up anytime for new or worsening symptoms with your family doctor. AND in 48 hours for urine culture results with your family doctor, if you do not have a doctor then you may call back to the [facility] for urine culture results and further treatment. We do recommend that you choose and establish care with a Primary Care Physician. ?AND follow up with them ?in 10-14 days to repeat UA to ensure infection is resolved and blood no longer present *Be sure to let your PCP know that we sent urine cultures from the [facility] so they can follow up to ensure that you area the on the correct antibiotic Call your doctor office and make appointment for 48 hours (2 days from today) ?to follow up and get the results of your urine culture and further treatment Clinical Impressions Clinical Impression: UTI (urinary tract infection) Qualifiers: Urinary tract infection type: site unspecified Hematuria presence: with hematuria Qualified Code(s): N39.0 - Urinary tract infection, site not specified; R31.9 - Hematuria, unspecified Instructions Patient Instructions: DI for Urinary Tract Infection (UTI), Urinary Tract Infection Discharge ED Provider: Shy Ramon [facility] [place] General Stated complaint: possible UTI Mode of Arrival: Ambulatory Source of Information: Patient Limitations: No Limitations Time Seen by Provider: 08/20/23 08:41 Description of Symptoms (Recalled from Triage Doc. by RN): PATIENT C/O PELVIC PRESSURE, AND URINARY FREQUENCY AND URGENCY SINCE YESTERDAY HEENT Symptoms (Recalled from RN notes): No Resp Symptoms (Recalled from RN notes): No Skin Symptoms (Recalled from RN notes): No MS Symptoms (Recalled from RN notes): No Functional Status (Recalled from RN notes): WNL History of Present Illness Provider Complaint: Patient states that she thinks she may have a UTI States she has been having pressure, pain/spasms after urination frequency and urgency states feels like it does when she has a UTI States this morning she was still having symptoms so she came in Denies fever denies chills Related Data Home Medications Medication Instructions Recorded Confirmed fenofibrate nanocrystallized 48 mg 48 mg PO DAILY Cholesterol 03/22/21 06/04/23 tablet hydrochlorothiazide 25 mg tablet 25 mg PO DAILY Hypertension 03/22/21 06/04/23 metoprolol tartrate 100 mg tablet 100 mg PO BID Hypertension 03/22/21 06/04/23 potassium chloride 20 mEq
[2023-08-20 08:47] VITALS: BP 137/82; PULSE 59; RESP 20; TEMP 36.7; O2SAT 98
--- NOTE | 2023-08-23 15:30 | EXP.EVENT.NO ---
The patient called and says that she is continuing to have her UTI symptoms despite taking the medications as prescribed. She request to have the urine culture from her last visit reviewed to see if she is on the right antibiotic. When looking at her lab work, no urine culture is noted. So, the lab was called and they state that they still have the urine but they never received an order for a culture. So, the order for the culture was entered now. Macrobid was prescribed for the patient. She was instructed to stop her current antibiotic and start the new one. She was also instructed to follow up with her pcp.
== END 2023-08-20 08:50 | disposition home or self-care (01) ==
PROVIDERS: Emergency Provider Nurse Practitioner; PCP Nurse Practitioner
DX: N39.0 Urinary tract infection, site not specified (principal); R31.9 Hematuria, unspecified; R10.2 Pelvic and perineal pain; I10 Essential (primary) hypertension
CPT/HCPCS: 81003; 87086; 99212; 99214; G0463

== ENCOUNTER 2023-10-03 10:26 | Emergency (ER) | payer MEDICAID, SELFPAY ==
[2023-10-03 10:50] VITALS: PULSE 58; RESP 19; TEMP 36.9; O2SAT 98; BMI 38.7
[2023-10-03 10:53] LABS: Apearance,Urine Cloudy (Clear); Color,Urine Dark Yellow (Yellow); PH,Urine 5.5 (5.0-8.5)
[2023-10-03 10:54] LABS: Bilirubin,Urine Negative (Negative); Blood, Urine 1+ (Negative); Glucose,Urine (UA) Negative (Negative); Ketones,Urine Negative (Negative); Protein,Urine Negative (Negative); UTC Leukocyte Esterase,Urine 3+ (Negative); UTC Nitrate,Urine Negative (Negative); Urobilinogen,Urine 0.2 EU/dl (0.2)
--- NOTE | 2023-10-03 11:03 | EXP.UTC ---
Discharge Plan Disposition Patient Disposition: Home, Self-Care Condition: Good Prescriptions Prescriptions: New cyclobenzaprine 10 mg Tablet 10 mg PO BID PRN (Reason: Muscle Spasm) Qty: 20 0RF methylprednisolone 4 mg Tablets,Dose Pack 4 mg PO DIRECTED 6 Days Qty: 21 0RF Rx Instructions: Take 1 pack as directed for 6 days cefdinir 300 mg capsule 300 mg PO BID 7 Days Qty: 14 0RF No Action calcium carbonate [Calcium 600] 600 mg calcium (1,500 mg) tablet 600 mg PO BID fenofibrate nanocrystallized 48 mg tablet 48 mg PO DAILY hydrochlorothiazide 25 mg tablet 25 mg PO DAILY metoprolol tartrate 100 mg tablet 100 mg PO BID potassium chloride 20 mEq tablet extended release 20 meq PO DAILY lorazepam 0.5 mg tablet 0.5 mg PO BID aspirin 81 MG tablet,delayed release (DR/EC) 81 mg PO DAILY Referrals Follow up/Referrals: Meaghan Mcnamara APRN [Primary Care Provider] - See instructions Activity Restrictions/Add. Instructions Additional Instructions/Restrictions: Go home and rest. It would be best if you rested tomorrow too. No heavy lifting. No twisting. The muscle relaxer (cyclobenzaprine--Flexeril) will make you drowsy, so don't drive or operate heavy machinery after taking it. Don't start the oral steroids (medrol dose pack) until tomorrow, since you had the shots in here today. Drink plenty of fluids. Take the medications as directed. Follow up with your regular doctor. GO TO THE ER FOR ANY WORSENING SYMPTOMS We will culture the urine. That will tell what bacteria is causing your infection and which antibiotics will treat it best. Sometimes the first antibiotic we prescribe turns out to not work against different bacteria. So, make sure you follow up within 3 days if you are not getting better. Clinical Impressions Clinical Impression: Low back pain with sciatica, UTI (urinary tract infection) Stand Alone Forms Stand Alone Forms: Work/School Release Instructions Patient Instructions: Urine Culture, DI for Low Back Pain, DI for Urinary Tract Infection (UTI), Cyclobenzaprine Discharge ED Provider: Frantz Campbell [facility] General Stated complaint: back pain Mode of Arrival: Ambulatory Source of Information: Patient Limitations: No Limitations Time Seen by Provider: 10/03/23 11:03 Description of Symptoms (Recalled from Triage Doc. by RN): Pt's symptoms are right lower back pain, and makes feet tingle. Has hx of back problems. HEENT Symptoms (Recalled from RN notes): No Resp Symptoms (Recalled from RN notes): No Skin Symptoms (Recalled from RN notes): No MS Symptoms (Recalled from RN notes): Yes Functional Status (Recalled from RN notes): n/a History of Present Illness Provider Complaint: She states that she has had right lower back pain that radiates down her right leg at time. Her symptoms began about 3 days ago. She denies any fever/chills. Related Data Home Medications Medication Instructions Recorded Confirmed fenofibrate nanocrystallized 48 mg 48 mg PO DAILY Cholesterol 03/22/21 10/03/23 tablet hydrochlorothiazide 25 mg tablet 25 mg PO DAILY Hypertension 03/22/21 10/03/23 metoprolol tartrate 100 mg tablet 100 mg PO BID Hypertension 03/22/21 10/03/23 potassium chloride 20 mEq 20 meq PO DAILY Supplement 03/22/21 10/03/23 tablet,extended release aspirin 81 mg tablet,delayed 81 mg PO DAILY HEART HEALTHY 05/13/21 10/03/23 release lorazepam 0.5 mg tablet 0.5 mg PO BID Anxiety 01/18/23 10/03/23 calcium carbonate 600 mg calcium 600 mg PO BID Supplement 04/24/23 10/03/23 (1,500 mg) tablet (Calcium) Previous Rx's Medication Instructions Recorded cefdinir 300 mg capsule 300 mg PO BID 7 days #14 caps 10/03/23 cyclobenzaprine 10 mg tablet 10 mg PO BID PRN Muscle Spasm #20 10/03/23 tabs methylprednisolone 4 mg tablets in 4 mg PO DIRECTED 6 days #21 tabs 10/03/23 a dose pack Allergies Allergy/AdvReac Type Severity Reaction Status Date / Time ibuprofen AdvReac fluid Verified 10/03/23 10:58 retention Worker's Comp Is this a Worker's Comp case?: No [facility] Disclaimer: The information contained in this section may have been updated after the patient was seen, as this information can be updated by other users. Medical History (Updated 10/03/23 @ 11:46 by Frantz Campbell APRN) Anxiety Dyspnea on exertion Edema Endometriosis Hypertension Kidney stone Left ankle pain Metatarsalgia of left foot Surgical History History of cholecystectomy Social History Smoking Status: Never smoker alcohol intake: never substance use type: denies use current occupational status: retired and disabled Travel in the last 8 weeks: None household members: family housing: house current occupational exposures/hazards: No caffeine: No ROS Obtained: Yes All systems reviewed & no additional complaints except as documented Constitutional Constitutional: Denies chills and Denies fever(s) Eyes Eyes: Denies eye discharge ENT Ears, Nose, Mouth, and Throat: Denies dizziness, Denies otalgia, Denies neck pain and Denies sore throat Cardiovascular Cardiovascular: Denies chest pain Respiratory Respiratory: Denies shortness of breath, Denies chest congestion, Denies cough, Denies stridor and Denies wheezing Gastrointestinal Gastrointestingal: Denies nausea or vomiting Musculoskeletal Musculoskeletal: Reports as per HPI, Reports back pain and Denies neck pain Integumentary/Breasts Skin/Breast: Denies rash Neurologic Neurologic: Denies dizziness and Denies paresthesias Allergic/Immunologic Allergic/Immunologic: Denies wheezing Physical Exam General General appearance: alert and in no apparent distress Head Head exam: atraumatic, normocephalic and normal inspection Eye Eye exam: Present normal appearance, PERRL and EOMI ENT ENT exam: Present normal exam, normal oropharynx, mucous membranes moist, TM's normal bilaterally and normal external ear exam Neck Neck exam: Present normal inspection, full ROM and trachea midline; Absent meningismus or lymphadenopathy Chest Chest inspection: Present normal inspection and symmetric chest wall rise; Absent tenderness Respiratory Respiratory exam: Present normal lung sounds bilaterally; Absent respiratory distress Cardiovascular Cardiovascular exam: Present regular rate and normal rhythm; Absent JVD Abdominal Exam Abdominal exam: Present soft and normal bowel sounds; Absent distention, tenderness or guarding Extremities Exam Extremities exam: Present normal inspection, full ROM and normal capillary refill; Absent calf tenderness Back Exam Back exam: Present normal inspection; Absent tenderness Neurological Exam Neurological exam: Present alert, oriented X3, CN II-XII intact, normal gait and reflexes normal; Absent motor sensory deficit Expanded Neurological Exam Cranial nerves: Normal: EOM function (II, III, IV, ), facial sensation (V), facial palsy (VII), gag reflex (IX), spinal accessory function (XI) and tongue deviation (XII) Cerebellar function: normal gait Motor strength - LUE: 5/5 Motor strength - RUE: 5/5 Motor strength - LLE: 5/5 Motor strength - RLE: 5/5 Sensory exam upper extremity: Normal: light touch and 2 point discrimination Sensory exam lower extremity: Normal: light touch and 2 point discrimination DTR: 2+: biceps (L), biceps (R), patellar (L), patellar (R), Achilles tendon (L) and Achilles tendon (R) Spinal cord function: Absent saddle anesthesia Psychiatric Psychiatric exam: Present normal affect and normal mood Skin Skin exam: Present warm, dry, intact and normal color Lymphatic Lymphatic Findings: no adenopathy Medical Decision Making Medical Records Medical records reviewed: No I reviewed the patient's medical records. Felix Inquiry Pt receiving controlled substance: No Vital Signs: 10/03/23 10:50 Temperature 98.4 F Temperature Source Oral Pulse Rate [Right Radial] 58 L Respiratory Rate 19 02 Sat by Pulse Oximetry 98 Oxygen Delivery Method Room Air Lab Data Lab results reviewed: Yes I reviewed the patient's lab results. Lab Results 10/03/23 10:43: Urine Color Dark yellow, Urine Appearance Cloudy, Urine pH 5.5, Ur Specific [place] 1.020, Urine Protein Negative, Urine Glucose (UA) Negative, Urine Ketones Negative, Urine Blood 1+, Urine Nitrate Negative, Urine Bilirubin Negative, Urine Urobilinogen 0.2, Ur Leukocyte Esterase 3+ A
[2023-10-03] MEDS: KETOROLAC 60MG/2ML VIAL 60 MG IM (11:21)
[2023-10-03] MEDS: DEXAMETHASONE 4MG/ML 1ML VIAL 8 MG IM (11:21)
[2023-10-03 12:00] VITALS: BP 0/0; PULSE 58; RESP 18; TEMP 36.7; O2SAT 98
== END 2023-10-03 12:00 | disposition home or self-care (01) ==
PROVIDERS: Emergency Provider Nurse Practitioner Family; PCP Nurse Practitioner
DX: N39.0 Urinary tract infection, site not specified (principal); M54.41 Lumbago with sciatica, right side; I10 Essential (primary) hypertension
CPT/HCPCS: 81003; 87086; 96372; 99212; 99214; G0463

== ENCOUNTER 2023-12-27 08:14 | Emergency (ER) | payer MEDICAID, SELFPAY ==
[2023-12-27 08:25] VITALS: BP 121/49; PULSE 60; RESP 19; TEMP 36.9; O2SAT 99; BMI 36.8
--- NOTE | 2023-12-27 09:06 | EXP.UTC ---
Discharge Plan Disposition Patient Disposition: Home, Self-Care Condition: Good Prescriptions Prescriptions: New ondansetron 4 mg Tablet,Disintegrating 4 mg PO Q8H PRN (Reason: Nausea) Qty: 12 0RF No Action fenofibrate nanocrystallized 48 mg tablet 48 mg PO DAILY hydrochlorothiazide 25 mg tablet 25 mg PO DAILY metoprolol tartrate 100 mg tablet 100 mg PO BID potassium chloride 20 mEq tablet extended release 20 meq PO DAILY lorazepam 0.5 mg tablet 0.5 mg PO BID aspirin 81 MG tablet,delayed release (DR/EC) 81 mg PO DAILY Referrals Follow up/Referrals: Meaghan Mcnamara APRN [Primary Care Provider] - See instructions Activity Restrictions/Add. Instructions Additional Instructions/Restrictions: Drink plenty of fluids. Pedialyte or water would be the best things to drink. Take tylenol for pain or fever. Take the zofran as directed for your nausea. Follow up with your regular doctor. GO TO THE ER FOR ANY WORSENING SYMPTOMS Clinical Impressions Clinical Impression: Gastroenteritis, Diarrhea Instructions Patient Instructions: Viral Gastroenteritis, DI for Viral Gastroenteritis -- Adult, Ondansetron Discharge ED Provider: Frantz Campbell [facility] General Stated complaint: v/d hot flashes exposed to Covid Mode of Arrival: Ambulatory Source of Information: Patient Limitations: No Limitations Time Seen by Provider: 12/27/23 09:05 Description of Symptoms (Recalled from Triage Doc. by RN): PATIENT C/O STOMACH CRAMPS THAT STARTED SUNDAY AND DECREASED APPETITE, HOT FLASHES, AND DIARRHEA THAT STARTED SUNDAY NIGHT. PATIENT STATES SHE WAS EXPOSED TO COVID ON SUNDAY HEENT Symptoms (Recalled from RN notes): No Resp Symptoms (Recalled from RN notes): No Skin Symptoms (Recalled from RN notes): No MS Symptoms (Recalled from RN notes): No Functional Status (Recalled from RN notes): WNL History of Present Illness Provider Complaint: She states that for the past 2 days she has had diarrhea, abdominal cramping, and nausea. She has not vomited, but she has felt like she was close. She denies abdominal pain. She denies fever. She has been exposed to covid-19. She denies any cough, congestion, and sore throat. Related Data Home Medications Medication Instructions Recorded Confirmed fenofibrate nanocrystallized 48 mg 48 mg PO DAILY Cholesterol 03/22/21 12/27/23 tablet hydrochlorothiazide 25 mg tablet 25 mg PO DAILY Hypertension 03/22/21 12/27/23 metoprolol tartrate 100 mg tablet 100 mg PO BID Hypertension 03/22/21 12/27/23 potassium chloride 20 mEq 20 meq PO DAILY Supplement 03/22/21 12/27/23 tablet,extended release aspirin 81 mg tablet,delayed 81 mg PO DAILY HEART HEALTHY 05/13/21 12/27/23 release lorazepam 0.5 mg tablet 0.5 mg PO BID Anxiety 01/18/23 12/27/23 Previous Rx's Medication Instructions Recorded ondansetron 4 mg disintegrating 4 mg PO Q8H PRN Nausea #12 tabs 12/27/23 tablet Allergies Allergy/AdvReac Type Severity Reaction Status Date / Time ibuprofen AdvReac fluid Verified 10/03/23 10:58 retention Worker's Comp Is this a Worker's Comp case?: No [facility] Disclaimer: The information contained in this section may have been updated after the patient was seen, as this information can be updated by other users. Medical History (Updated 12/27/23 @ 09:19 by Frantz Campbell APRN) Edema Dyspnea on exertion Metatarsalgia of left foot Left ankle pain Endometriosis Kidney stone Anxiety Hypertension Surgical History History of cholecystectomy Social History Smoking Status: Never smoker alcohol intake: never substance use type: denies use current occupational status: retired and disabled Travel in the last 8 weeks: None household members: family housing: house current occupational exposures/hazards: No caffeine: No ROS Obtained: Yes All systems reviewed & no additional complaints except as documented Constitutional Constitutional: Denies chills, Denies fever(s) and Reports poor appetite ENT Ears, Nose, Mouth, and Throat: Denies dizziness and Denies sore throat Cardiovascular Cardiovascular: Denies dyspnea Respiratory Respiratory: Denies chest congestion, Denies cough and Denies dyspnea Gastrointestinal Gastrointestingal: Reports as per HPI, cramping, diarrhea and nausea; Denies abdominal pain, hematochezia, melena or vomiting Genitourinary Female Genitourinary: Denies difficulty voiding, Denies dysuria, Denies hematuria, Denies urinary frequency, Denies urinary incontinence, Denies urinary hesitancy and Denies urinary urgency Musculoskeletal Musculoskeletal: Denies arthralgias Integumentary/Breasts Skin/Breast: Denies rash Neurologic Neurologic: Denies dizziness Physical Exam General General appearance: alert and in no apparent distress Head Head exam: atraumatic and normocephalic Eye Eye exam: Present normal appearance, PERRL and EOMI ENT ENT exam: Present normal exam, normal oropharynx, mucous membranes moist, TM's normal bilaterally and normal external ear exam Neck Neck exam: Present normal inspection, full ROM and trachea midline; Absent tenderness, meningismus or lymphadenopathy Chest Chest inspection: Present normal inspection and symmetric chest wall rise; Absent tenderness, rash or abscess Respiratory Respiratory exam: Present normal lung sounds bilaterally; Absent respiratory distress, wheezes or stridor Cardiovascular Cardiovascular exam: Present regular rate and normal rhythm; Absent irregular rhythm, systolic murmur, diastolic murmur or JVD Abdominal Exam Abdominal exam: Present soft and hyperactive bowel sounds; Absent distention, tenderness, guarding, rebound, rigidity, psoas sign, obturator sign, heel tap sign, Gorman's sign, Rovsing's sign or tenderness at McBurney's Point Extremities Exam Extremities exam: Present normal inspection and full ROM; Absent tenderness Back Exam Back exam: Present normal inspection and full ROM; Absent tenderness, CVA tenderness (R) or CVA tenderness (L) Neurological Exam Neurological exam: Present alert, oriented X3 and CN II-XII intact Psychiatric Psychiatric exam: Present normal affect and normal mood Skin Skin exam: Present warm, dry, intact and normal color Lymphatic Lymphatic Findings: no adenopathy Medical Decision Making Medical Records Medical records reviewed: No I reviewed the patient's medical records. Felix Inquiry Pt receiving controlled substance: No Vital Signs: 12/27/23 08:25 Temperature 98.4 F Temperature Source Oral Pulse Rate [Left Brachial] 60 Respiratory Rate 19 Blood Pressure [Left Arm] 121/49 L Blood Pressure Mean [Left Arm] 73 Blood Pressure Source [Left Arm] Automatic Cuff Blood Pressure Position [Left Arm] Sitting 02 Sat by Pulse Oximetry 99 Oxygen Delivery Method Room Air Lab Data Lab results reviewed: Yes I reviewed the patient's lab results. Orders (Tests/Meds): ORDERS Category Date Time Status Covid-19 Nasal PCR ([facility]) Routine Lab 12/27/23 08:25 Received
[2023-12-27 09:16] LABS: Adenovirus F 40/41, stool Not Detected (NotDetected); Astrovirus Not Detected (NotDetected); Campylobacter Not Detected (NotDetected); Cryptosporidium Not Detected (NotDetected); Cyclospora Cayetanesis Not Detected (NotDetected); Entamoeba histolytica Not Detected (NotDetected); Enteroaggregative E coli Not Detected (NotDetected); Enteropathogenic E coli Not Detected (NotDetected); Enterotoxigenic E coli Not Detected (NotDetected); Giardia lamblia Not Detected (NotDetected); Norovirus Not Detected (NotDetected); Plesimonas Shigalloides, PCR Not Detected (NotDetected); Rotavirus A Not Detected (NotDetected); Salmonella, PCR Not Detected (NotDetected); Shiga-like toxin E coli Not Detected (NotDetected); Shigella Enterovasive E coli Not Detected (NotDetected); Vibrio Cholerae Not Detected (NotDetected); Vibrio, PCR Not Detected (NotDetected); Yersinia Entercolitica, PCR Not Detected (NotDetected)
[2023-12-27 09:17] VITALS: BP 121/49; PULSE 60; RESP 19; TEMP 36.9; O2SAT 99
[2023-12-30 10:36] LABS: Clostridium Difficile A/B, PCR Detected (NotDetected); Sapovirus Detected (NotDetected)
== END 2023-12-27 09:24 | disposition home or self-care (01) ==
PROVIDERS: Emergency Provider Nurse Practitioner Family; PCP Nurse Practitioner
DX: A08.39 Other viral enteritis (principal); A04.72 Enterocolitis due to Clostridium difficile, not specified as recurrent; R19.7 Diarrhea, unspecified; R10.819 Abdominal tenderness, unspecified site; R11.0 Nausea; I10 Essential (primary) hypertension
CPT/HCPCS: 87507; 87635; 99212; 99214; G0463

== ENCOUNTER 2024-02-14 08:19 | Emergency (ER) | payer MEDICAID, SELFPAY ==
[2024-02-14 08:50] VITALS: BP 157/70; PULSE 55; RESP 20; TEMP 36.6; O2SAT 97; BMI 36.9
[2024-02-14 08:51] LABS: Apearance,Urine Clear (Clear); Color,Urine Yellow (Yellow)
[2024-02-14 08:52] LABS: Bilirubin,Urine Negative (Negative); Blood, Urine Trace (Negative); Glucose,Urine (UA) Negative (Negative); Ketones,Urine Negative (Negative); Protein,Urine Negative (Negative); UTC Leukocyte Esterase,Urine 1+ (Negative); UTC Nitrate,Urine Negative (Negative); Urobilinogen,Urine 0.2 EU/dl (0.2)
--- NOTE | 2024-02-14 09:27 | EXP.UTC ---
Discharge Plan Disposition Patient Disposition: Home, Self-Care Condition: Good Prescriptions Prescriptions: New cephalexin 500 mg capsule 500 mg PO BID 7 Days Qty: 14 0RF No Action fenofibrate nanocrystallized 48 mg tablet 48 mg PO DAILY hydrochlorothiazide 25 mg tablet 25 mg PO DAILY metoprolol tartrate 100 mg tablet 100 mg PO BID potassium chloride 20 mEq tablet extended release 20 meq PO DAILY lorazepam 0.5 mg tablet 0.5 mg PO BID aspirin 81 MG tablet,delayed release (DR/EC) 81 mg PO DAILY Referrals Follow up/Referrals: Meaghan Mcnamara APRN [Primary Care Provider] - See instructions Activity Restrictions/Add. Instructions Additional Instructions/Restrictions: *Increase fluids. Water not Soda or Tea *Start antibiotic immediately and be sure to take as ordered for the FULL length of time although you should start to see improvement over the next 48 hours Be SURE to follow up anytime for new or worsening symptoms with your family doctor. AND in 48 hours for urine culture results with your family doctor, if you do not have a doctor then you may call back to the [facility] for urine culture results and further treatment. We do recommend that you choose and establish care with a Primary Care Physician. ?AND follow up with them ?in 10-14 days to repeat UA to ensure infection is resolved and blood no longer present *Be sure to let your PCP know that we sent urine cultures from the [facility] so they can follow up to ensure that you area the on the correct antibiotic Call your doctor office and make appointment for 48 hours (2 days from today) ?to follow up and get the results of your urine culture and further treatment Clinical Impressions Clinical Impression: UTI (urinary tract infection) Instructions Patient Instructions: DI for Urinary Tract Infection (UTI), Urinary Tract Infection Discharge ED Provider: Shy Ramon [facility] HPI General Stated complaint: burning while urinating, lower back pain Mode of Arrival: Ambulatory Source of Information: Patient Limitations: No Limitations Time Seen by Provider: 02/14/24 09:37 Description of Symptoms (Recalled from Triage Doc. by RN): PATIENT C/O BURNING WITH URINATION, BLADDER PRESSURE, AND LOWER BACK PAIN X 2 DAYS HEENT Symptoms (Recalled from RN notes): No Resp Symptoms (Recalled from RN notes): No Skin Symptoms (Recalled from RN notes): No MS Symptoms (Recalled from RN notes): No Functional Status (Recalled from RN notes): WNL History of Present Illness Provider Complaint: Patient states that she feels like she may have a UTI States that she has been having achy like feeling in her back and feeling like she is urinating more often and pressure so today she came in to get checked Related Data Home Medications Medication Instructions Recorded Confirmed fenofibrate nanocrystallized 48 mg 48 mg PO DAILY Cholesterol 03/22/21 02/14/24 tablet hydrochlorothiazide 25 mg tablet 25 mg PO DAILY Hypertension 03/22/21 02/14/24 metoprolol tartrate 100 mg tablet 100 mg PO BID Hypertension 03/22/21 02/14/24 potassium chloride 20 mEq 20 meq PO DAILY Supplement 03/22/21 02/14/24 tablet,extended release aspirin 81 mg tablet,delayed 81 mg PO DAILY HEART HEALTHY 05/13/21 02/14/24 release lorazepam 0.5 mg tablet 0.5 mg PO BID Anxiety 01/18/23 02/14/24 Previous Rx's Medication Instructions Recorded cephalexin 500 mg capsule 500 mg PO BID 7 days #14 caps 02/14/24 Allergies Allergy/AdvReac Type Severity Reaction Status Date / Time ibuprofen AdvReac fluid Verified 10/03/23 10:58 retention Worker's Comp Is this a Worker's Comp case?: No [facility] Disclaimer: The information contained in this section may have been updated after the patient was seen, as this information can be updated by other users. Medical History (Updated 02/14/24 @ 09:42 by Shy Ramon APRN) Edema Dyspnea on exertion Metatarsalgia of left foot Left ankle pain Endometriosis Kidney stone Anxiety Hypertension Surgical History History of cholecystectomy Social History Smoking Status: Never smoker alcohol intake: never substance use type: denies use current occupational status: retired and disabled Travel in the last 8 weeks: None household members: family housing: house current occupational exposures/hazards: No caffeine: No ROS Obtained: Yes All systems reviewed & no additional complaints except as documented and Yes Systems reviewed as appropriate & no additional complaints except as documented ENT Ears, Nose, Mouth, and Throat: Reports system reviewed and no additional complaints, except as documented and Reports as per HPI Cardiovascular Cardiovascular: Reports system reviewed and no additional complaints, except as documented and Reports as per HPI Respiratory Respiratory: Reports system reviewed and no additional complaints, except as documented and Reports as per HPI Gastrointestinal Gastrointestingal: Reports system reviewed and no additional complaints, except as documented and as per HPI Genitourinary Female Genitourinary: Reports system reviewed and no additional complaints, except as documented, Reports as per HPI, Reports flank pain, Reports urinary frequency and Reports urinary urgency Physical Exam General General appearance: alert and in no apparent distress ENT ENT exam: Present mucous membranes moist Respiratory Respiratory exam: Present normal lung sounds bilaterally; Absent respiratory distress or wheezes Cardiovascular Cardiovascular exam: Present regular rate, normal rhythm and normal heart sounds Neurological Exam Neurological exam: Present alert, oriented X3 and normal gait Medical Decision Making Felix Inquiry Pt receiving controlled substance: No Felix was queried for this patient: No Vital Signs: 02/14/24 08:50 Temperature 97.9 F Temperature Source Oral Pulse Rate [Right Brachial] 55 L Respiratory Rate 20 Blood Pressure [Right Arm] 157/70 H Blood Pressure Mean [Right Arm] 99 Blood Pressure Source [Right Arm] Automatic Cuff Blood Pressure Position [Right Arm] Sitting 02 Sat by Pulse Oximetry 97 Oxygen Delivery Method Room Air Lab Data Lab results reviewed: Yes I reviewed the patient's lab results. Lab Results 02/14/24 08:50: Urine Color Yellow, Urine Appearance Clear, Urine pH 7.0, Ur Specific [place] 1.020, Urine Protein Negative, Urine Glucose (UA) Negative, Urine Ketones Negative, Urine Blood Trace, Urine Nitrate Negative, Urine Bilirubin Negative, Urine Urobilinogen 0.2, Ur Leukocyte Esterase 1+ A Orders (Tests/Meds): ORDERS Category Date Time Status Urine Culture Stat Micro 02/14/24 08:51 Ordered
[2024-02-14 09:44] VITALS: BP 157/70; PULSE 55; RESP 20; TEMP 36.6; O2SAT 97
== END 2024-02-14 09:47 | disposition home or self-care (01) ==
PROVIDERS: Emergency Provider Nurse Practitioner; PCP Nurse Practitioner
DX: N39.0 Urinary tract infection, site not specified (principal); R30.0 Dysuria; M54.59 Other low back pain
CPT/HCPCS: 81003; 87086; 99212; 99214; G0463

== ENCOUNTER 2024-03-18 09:00 | Outpatient (RCR) | payer MEDICAID, SELFPAY | END 2024-04-15 13:15 | disposition home or self-care (01) | LOC: PT 09:00 | PROVIDERS: Visit Provider Podiatrist Foot & Ankle Surgery | DX: M25.572 Pain in left ankle and joints of left foot (principal); R26.89 Other abnormalities of gait and mobility | CPT/HCPCS: 97110; 97163 ==

== ENCOUNTER 2024-03-25 10:26 | Outpatient (CLI) | payer MEDICAID, SELFPAY ==
--- NOTE | 2024-03-25 10:29 | MM_ITS ---
PROCEDURE INFORMATION: Exam: MG Bilateral Screening 3D Mammography Exam date and time: 03/25/2024 10:18 AM Age: 63 years old Clinical indication: Screening examination TECHNIQUE: Imaging protocol: Bilateral Screening tomosynthesis and 2D mammography including computer-aided detection (CAD) when performed. COMPARISON: 1. MG MM DIG SCREENING MAMM BI W/CAD 08/14/2022 9:47 AM 2. MG MM DIG SCREENING MAMM BI W/CAD 04/05/2021 8:09 AM FINDINGS: MAMMOGRAPHY: Breast composition: The breasts are almost entirely fatty. Mass: None. Architectural distortion: None. Calcifications: No suspicious calcifications. Asymmetric density: None. Skin thickening: None. Axillary adenopathy: None. IMPRESSION: No mammographic evidence of malignancy. Annual screening is recommended unless otherwise clinically indicated. ASSESSMENT: BI-RADS Category 1: Negative
== END 2024-03-25 23:59 | disposition home or self-care (01) ==
LOC: RAD 10:26
PROVIDERS: PCP Nurse Practitioner; Visit Provider Nurse Practitioner
DX: Z12.31 Encounter for screening mammogram for malignant neoplasm of breast (principal)
CPT/HCPCS: 77063; 77067

== ENCOUNTER 2024-04-19 22:05 | Emergency (ER) | payer MEDICAID, SELFPAY ==
[2024-04-19 22:07] VITALS: BP 123/61; PULSE 80; RESP 20; TEMP 36.9; O2SAT 99; BMI 37.3
[2024-04-19 22:19] VITALS: BP 132/61; PULSE 81; O2SAT 98
[2024-04-19 22:30] VITALS: BP 118/69; PULSE 75; O2SAT 96
--- NOTE | 2024-04-19 22:58 | XR_ITS ---
PROCEDURE INFORMATION: Exam: XR Right Hip Exam date and time: 04/19/2024 11:09 PM Age: 63 years old Clinical indication: Injury or trauma; Fall; Other: Pain TECHNIQUE: Imaging protocol: Radiologic exam of the right hip. Views: 2 or 3 views hip with pelvis when performed. COMPARISON: CR XR HIP RT 2-3V W/PELVIS 04/19/2024 11:09 PM FINDINGS: Bones/joints: Degenerative changes of both hips [id number]. Degenerative changes of both sacroiliac joints. No acute fracture. Soft tissues: Unremarkable. IMPRESSION: No acute findings.
--- NOTE | 2024-04-19 22:58 | XR_ITS ---
PROCEDURE INFORMATION: Exam: XR Right Femur Exam date and time: 04/19/2024 11:09 PM Age: 63 years old Clinical indication: Injury or trauma; Fall; Other: Pain TECHNIQUE: Imaging protocol: Radiologic exam of the right femur. Views: 2 views. COMPARISON: CR XR HIP RT 2-3V W/PELVIS 04/19/2024 11:09 PM FINDINGS: Bones/joints: Severe degenerative changes of hip. Moderate to moderately severe degenerative changes of the visualized knee. No acute fracture. Soft tissues: Unremarkable. IMPRESSION: No acute findings.
[2024-04-19 23:00] VITALS: BP 125/66; PULSE 72; O2SAT 95
--- NOTE | 2024-04-19 23:00 | ED_ITS ---
Discharge Plan Disposition Patient Disposition: Home, Self-Care Condition: Good Prescriptions Prescriptions: New methocarbamol 500 mg tablet 500 mg PO Q6H PRN (Reason: pain) Qty: 30 0RF lidocaine 5 % adhesive patch,medicated 1 patch topical DAILY PRN (Reason: pain) Qty: 30 0RF Rx Instructions: leave on most painful area for up to 12 hrs No Action fenofibrate nanocrystallized 48 mg tablet 48 mg PO DAILY hydrochlorothiazide 25 mg tablet 25 mg PO DAILY metoprolol tartrate 100 mg tablet 100 mg PO BID potassium chloride 20 mEq tablet extended release 20 meq PO DAILY lorazepam 0.5 mg tablet 0.5 mg PO BID aspirin 81 MG tablet,delayed release (DR/EC) 81 mg PO DAILY cephalexin 500 mg capsule 500 mg PO BID 7 Days Qty: 14 0RF Referrals Follow up/Referrals: Meaghan Mcnamara APRN [Primary Care Provider] - See instructions Activity Restrictions/Add. Instructions Additional Instructions/Restrictions: At this time it was felt you are safe to be discharged home. If new or worsening symptoms please do not hesitate to return the emergency department. Please follow-up with Dr. Henderson as discussed. Please take Tylenol and Robaxin as needed for pain. Please use lidocaine patches as needed. Clinical Impressions Clinical Impression: Pulled hamstring, Fall Print Language Print Language: Malaysian Discharge ED Provider: Wilson Carroll General Adult HPI <Lawrence Cheek MD - Last Filed: 04/19/24 23:04> General Chief complaint: Fall Stated complaint: AO 04/19/24 2100 right leg injury Time Seen by Provider: 04/19/24 22:08 Mode of Arrival: Wheelchair Source of Information: Patient Limitations: No Limitations Description of Symptoms (Recalled from ER Triage Doc. by RN): Pt. presented to the ED after a ground level fall onto hardwood floor. Pt. was trying to seperate her dogs and tripped. c/o pain to the back of her right thigh. c/o pain with bearing weight. area on back of thigh with some redness. History of Present Illness HPI narrative: Patient is 63-year-old female past medical history of chronic back pain who presents emergency department for evaluation of traumatic injury sustained in a fall. Patient was trying to separate her dogs which were fighting and she tripped falling hitting one of them on the ground and hitting the hardwood floor . She is complaining of posterior hip and thigh pain. Has been ambulatory since. No other acute complaints at this time. No anticoagulants. Related Data Home Medications ?Medication ?Instructions ?Recorded ?Confirmed fenofibrate nanocrystallized 48 mg 48 mg PO DAILY Cholesterol 03/22/21 02/14/24 tablet hydrochlorothiazide 25 mg tablet 25 mg PO DAILY Hypertension 03/22/21 02/14/24 metoprolol tartrate 100 mg tablet 100 mg PO BID Hypertension 03/22/21 02/14/24 potassium chloride 20 mEq 20 meq PO DAILY Supplement 03/22/21 02/14/24 tablet,extended release aspirin 81 mg tablet,delayed 81 mg PO DAILY HEART HEALTHY 05/13/21 02/14/24 release lorazepam 0.5 mg tablet 0.5 mg PO BID Anxiety 01/18/23 02/14/24 Previous Rx's ?Medication ?Instructions ?Recorded cephalexin 500 mg capsule 500 mg PO BID 7 days #14 caps 02/14/24 lidocaine 5 % topical patch 1 patch topical DAILY PRN pain #30 04/20/24 ea methocarbamol 500 mg tablet 500 mg PO Q6H PRN pain #30 tabs 04/20/24 Allergies Allergy/AdvReac Type Severity Reaction Status Date / Time ibuprofen AdvReac fluid Verified 10/03/23 10:58 retention ON LICENSE OF [facility] <Lawrence Cheek MD - Last Filed: 04/19/24 23:04> PFS Disclaimer: The information contained in this section may have been updated after the patient was seen, as this information can be updated by other users. Medical History (Updated 04/19/24 @ 23:04 by Lawrence Cheek MD) Edema Dyspnea on exertion Metatarsalgia of left foot Left ankle pain Endometriosis Kidney stone Anxiety Hypertension Surgical History History of cholecystectomy Social History Smoking Status: Never smoker alcohol intake: never substance use type: denies use current occupational status: retired and disabled Travel in the last 8 weeks: None household members: family housing: house current occupational exposures/hazards: No caffeine: No <Lawrence Cheek MD - Last Filed: 04/19/24 23:04> ROS Obtained: Yes Systems reviewed as appropriate & no additional complaints except as documented Physical Exam <Lawrence Cheek MD - Last Filed: 04/19/24 23:04> General General appearance: alert and in no apparent distress Head Head exam: atraumatic and normocephalic Eye Eye exam: Present PERRL and EOMI ENT ENT exam: Present mucous membranes moist Neck Neck exam: Present normal inspection Chest Chest inspection: Present normal inspection and symmetric chest wall rise Respiratory Respiratory exam: Present normal lung sounds bilaterally; Absent respiratory distress Cardiovascular Cardiovascular exam: Present regular rate and normal rhythm Abdominal Exam Abdominal exam: Present soft; Absent tenderness Extremities Exam Extremities exam: Present normal inspection and other (Tenderness over her posterior right thigh posterior medial. 5 out of 5 strength bilateral lower extremities in all joints. Pain of the posterior right thigh with flexion at the knee against resistance.) Back Exam Back exam: Absent tenderness (No midline back tenderness) Neurological Exam Neurological exam: Present alert Psychiatric Psychiatric exam: Present normal affect Skin Skin exam: Present warm and dry Medical Decision Making <Lawrence Cheek MD - Last Filed: 04/19/24 23:04> Felix Inquiry Pt receiving controlled substance: No Vital Signs: 04/19/24 22:07 04/19/24 22:19 04/19/24 22:30 Temperature 98.4 F Temperature Source Oral Pulse Rate 81 75 Pulse Rate [Right] 80 Respiratory Rate 20 Blood Pressure 132/61 118/69 Blood Pressure [Right Arm] 123/61 Blood Pressure Mean [Right Arm] 81 Blood Pressure Source Blood Pressure Source [Right Arm] Automatic Cuff Blood Pressure Position Blood Pressure Position [Right Arm] Supine 02 Sat by Pulse Oximetry 99 98 96 Oxygen Delivery Method Room Air 04/19/24 23:00 04/19/24 23:31 04/20/24 00:00 Temperature Temperature Source Pulse Rate 72 86 78 Pulse Rate [Right] Respiratory Rate Blood Pressure 125/66 150/80 H 130/75 Blood Pressure [Right Arm] Blood Pressure Mean [Right Arm] Blood Pressure Source Blood Pressure Source [Right Arm] Blood Pressure Position Blood Pressure Position [Right Arm] 02 Sat by Pulse Oximetry 95 97 97 Oxygen Delivery Method 04/20/24 01:08 Temperature 97.9 F Temperature Source Oral Pulse Rate 77 Pulse Rate [Right] Respiratory Rate 17 Blood Pressure 130/75 Blood Pressure [Right Arm] Blood Pressure Mean [Right Arm] Blood Pressure Source Automatic Cuff Blood Pressure Source [Right Arm] Blood Pressure Position Sitting Blood Pressure Position [Right Arm] 02 Sat by Pulse Oximetry Oxygen Delivery Method Room Air Orders (Tests/Meds): ED MEDICATIONS Discontinued Medications Generic Name Dose Route Start Last Admin Trade Name Jolene PRN Reason Stop Dose Admin Acetaminophen 1,000 mg 04/19/24 22:58 04/19/24 23:11 Acetaminophen 500mg Tab PO 04/19/24 22:59 1,000 mg ONCE ONE Administration Methocarbamol 1,000 mg 04/19/24 22:59 04/19/24 23:12 Methocarbamol 500mg Tablet PO 04/19/24 23:00 1,000 mg ONCE ONE Administration ORDERS Category Date Time Status Femur XR right 2 views [XR femur RT 2V] Stat Exams 04/19/24 22:58 Completed XR hip RT 2-3V w/pelvis Stat Exams 04/19/24 22:58 Completed Medical Decision Narrative: In summary patient is 63-year-old female past medical history described above who presents emergency department for evaluation traumatic injury sustained in a fall. Patient is hemodynamically stable nontoxic-appearing upon arrival, afebrile. I suspect that patient has a pulled hamstring given the location of pain and pain with at the knee against resistance. However differential does include fracture for which point films of the right hip and femur will be obtained. Initial inventions include Tylenol, methocarbamol. Patient is allergic to ibuprofen so will be deferred. Plain films and repeat evaluation pending at time of transfer of care to the oncoming physician, Dr. Carroll. <Wilson Carroll MD - Last Filed: 04/20/24 02:57> Vital Signs: 04/19/24 22:07 04/19/24 22:19 04/19/24 22:30 Temperature 98.4 F Temperature Source Oral Pulse Rate 81 75 Pulse Rate [Right] 80 Respiratory Rate 20 Blood Pressure 132/61 118/69 Blood Pressure [Right Arm] 123/61 Blood Pressure Mean [Right Arm] 81 Blood Pressure Source Blood Pressure Source [Right Arm] Automatic Cuff Blood Pressure Position Blood Pressure Position [Right Arm] Supine 02 Sat by Pulse Oximetry 99 98 96 Oxygen Delivery Method Room Air 04/19/24 23:00 04/19/24 23:31 04/20/24 00:00 Temperature Temperature Source Pulse Rate 72 86 78 Pulse Rate [Right] Respiratory Rate Blood Pressure 125/66 150/80 H 130/75 Blood Pressure [Right Arm] Blood Pressure Mean [Right Arm] Blood Pressure Source Blood Pressure Source [Right Arm] Blood Pressure Position Blood Pressure Position [Right Arm] 02 Sat by Pulse Oximetry 95 97 97 Oxygen Delivery Method 04/20/24 01:08 Temperature 97.9 F Temperature Source Oral Pulse Rate 77 Pulse Rate [Right] Respiratory Rate 17 Blood Pressure 130/75 Blood Pressure [Right Arm] Blood Pressure Mean [Right Arm] Blood Pressure Source Automatic Cuff Blood Pressure Source [Right Arm] Blood Pressure Position Sitting Blood Pressure Position [Right Arm] 02 Sat by Pulse Oximetry Oxygen Delivery Method Room Air Orders (Tests/Meds): ED MEDICATIONS Discontinued Medications Generic Name Dose Route Start Last Admin Trade Name Freq PRN Reason Stop Dose Admin Acetaminophen 1,000 mg 04/19/24 22:58 04/19/24 23:11 Acetaminophen 500mg Tab PO 04/19/24 22:59 1,000 mg ONCE ONE Administration Methocarbamol 1,000 mg 04/19/24 22:59 04/19/24 23:12 Methocarbamol 500mg Tablet PO 04/19/24 23:00 1,000 mg ONCE ONE Administration ORDERS Category Date Time Status Femur XR right 2 views [XR femur RT 2V] Stat Exams 04/19/24 22:58 Completed XR hip RT 2-3V w/pelvis Stat Exams 04/19/24 22:58 Completed Medical Decision Narrative: In summary patient is 63-year-old female past medical history described above who presents emergency department for evaluation traumatic injury sustained in a fall. Patient is hemodynamically stable nontoxic-appearing upon arrival, afebrile. I suspect that patient has a pulled hamstring given the location of pain and pain with at the knee against resistance. However differential does include fracture for which point films of the right hip and femur will be obtained. Initial inventions include Tylenol, methocarbamol. Patient is allergic to ibuprofen so will be deferred. Plain films and repeat evaluation pending at time of transfer of care to the oncoming physician, Dr. Carroll. Carly CORONA: I assumed care of the patient at the time of handoff from the prior provider. On reassessment patient reports mild symptomatic improvement. Radiographs were independently interpreted by me and show no evidence of acute fracture or dislocation. History and exam is most consistent with a musculoskeletal strain. Patient is able to ambulate in the ER. Patient was discharged with prescription for Robaxin and instructions to follow-up PCP for physical therapy and further assessment. Patient reports that she has a walker at home that she will use for ambulation. She was given directions regarding symptomatic care. Critical Care <Lawrence Cheek MD - Last Filed: 04/19/24 23:04> Critical Care Time Critical Care Time: No
[2024-04-19] MEDS: ACETAMINOPHEN 500MG TAB 1000 MG PO (23:11)
[2024-04-19] MEDS: METHOCARBAMOL 500MG TABLET 1000 MG PO (23:12)
--- NOTE | 2024-04-19 23:13 | PC.NURSE ---
patient to radiology
[2024-04-19 23:31] VITALS: BP 150/80; PULSE 86; O2SAT 97
[2024-04-20] VITALS: BP 130/75; PULSE 78; O2SAT 97
--- NOTE | 2024-04-20 00:05 | PC.NURSE ---
Called rad to check on images
[2024-04-20 01:08] VITALS: BP 130/75; PULSE 77; RESP 17; TEMP 36.6; O2SAT 95
== END 2024-04-20 01:31 | disposition home or self-care (01) ==
PROVIDERS: Emergency Provider Emergency Medicine; PCP Nurse Practitioner
DX: S76.311A Strain of muscle, fascia and tendon of the posterior muscle group at thigh level, right thigh, initial encounter (principal); M25.551 Pain in right hip; M79.651 Pain in right thigh; W19.XXXA Unspecified fall, initial encounter
CPT/HCPCS: 73502; 73552; 99283

== ENCOUNTER 2024-06-14 08:44 | Emergency (ER) | payer MEDICAID, SELFPAY ==
--- NOTE | 2024-06-14 09:06 | ED_ITS ---
Discharge Plan Disposition Patient Disposition: Home, Self-Care Condition: Good Prescriptions Prescriptions: New ciprofloxacin HCl [Cipro] 500 mg tablet 500 mg PO Q12H 5 Days Qty: 10 0RF loratadine 10 mg tablet 10 mg PO DAILY Qty: 30 2RF phenazopyridine [Pyridium] 100 mg tablet 100 mg PO TID Qty: 6 0RF No Action fenofibrate nanocrystallized 48 mg tablet 48 mg PO DAILY hydrochlorothiazide 25 mg tablet 25 mg PO DAILY metoprolol tartrate 100 mg tablet 100 mg PO BID potassium chloride 20 mEq tablet extended release 20 meq PO DAILY lorazepam 0.5 mg tablet 0.5 mg PO BID methocarbamol 500 mg tablet 500 mg PO Q6H PRN (Reason: pain) Qty: 30 0RF lidocaine 5 % adhesive patch,medicated 1 patch topical DAILY PRN (Reason: pain) Qty: 30 0RF Rx Instructions: leave on most painful area for up to 12 hrs aspirin 81 MG tablet,delayed release (DR/EC) 81 mg PO DAILY cephalexin 500 mg capsule 500 mg PO BID 7 Days Qty: 14 0RF Referrals Follow up/Referrals: Meaghan Mcnamara APRN [Primary Care Provider] - See instructions Activity Restrictions/Add. Instructions Additional Instructions/Restrictions: Take medication as prescribed. If symptoms persist or worsen, return to clinic or go to primary care provider Clinical Impressions Clinical Impression: Seasonal allergies UTI (urinary tract infection) Qualifiers: Urinary tract infection type: acute cystitis Hematuria presence: with hematuria Qualified Code(s): N30.01 - Acute cystitis with hematuria Instructions Patient Instructions: DI for Urinary Tract Infection (UTI), Allergic Rhinitis Print Language Print Language: Persian Discharge ED Provider: Argelia Tabares [facility] General Stated complaint: uti pain, sore throat Time Seen by Provider: 06/14/24 09:06 History of Present Illness Provider Complaint: Pt reports that she has had some burning with urination, frequency, incontinence, and urgency for the last 3 days. She states that she has increased her fluids to flush out, but this has not helped. She reports that for the last 2 days she has had drainage down the back of her throat and this has made her throat sore. Related Data Home Medications ?Medication ?Instructions ?Recorded ?Confirmed fenofibrate nanocrystallized 48 mg 48 mg PO DAILY Cholesterol 03/22/21 02/14/24 tablet hydrochlorothiazide 25 mg tablet 25 mg PO DAILY Hypertension 03/22/21 02/14/24 metoprolol tartrate 100 mg tablet 100 mg PO BID Hypertension 03/22/21 02/14/24 potassium chloride 20 mEq 20 meq PO DAILY Supplement 03/22/21 02/14/24 tablet,extended release aspirin 81 mg tablet,delayed 81 mg PO DAILY HEART HEALTHY 05/13/21 02/14/24 release lorazepam 0.5 mg tablet 0.5 mg PO BID Anxiety 01/18/23 02/14/24 Previous Rx's ?Medication ?Instructions ?Recorded cephalexin 500 mg capsule 500 mg PO BID 7 days #14 caps 02/14/24 lidocaine 5 % topical patch 1 patch topical DAILY PRN pain #30 04/20/24 ea methocarbamol 500 mg tablet 500 mg PO Q6H PRN pain #30 tabs 04/20/24 ciprofloxacin HCl 500 mg tablet 500 mg PO Q12H 5 days #10 tabs 06/14/24 (Cipro) loratadine 10 mg tablet 10 mg PO DAILY #30 tabs 06/14/24 phenazopyridine 100 mg tablet 100 mg PO TID 6 doses #6 tabs 06/14/24 (Pyridium) Allergies Allergy/AdvReac Type Severity Reaction Status Date / Time ibuprofen AdvReac fluid Verified 10/03/23 10:58 retention [facility] Disclaimer: The information contained in this section may have been updated after the patient was seen, as this information can be updated by other users. Medical History (Updated 06/14/24 @ 09:20 by Argelia Tabares APRN) Edema Dyspnea on exertion Metatarsalgia of left foot Left ankle pain Endometriosis Kidney stone Anxiety Hypertension Surgical History History of cholecystectomy Social History Smoking Status: Never smoker alcohol intake: never substance use type: denies use current occupational status: retired and disabled Travel in the last 8 weeks: None household members: family housing: house current occupational exposures/hazards: No caffeine: No ROS Obtained: Yes All systems reviewed & no additional complaints except as documented Constitutional Constitutional: Reports system reviewed and no additional complaints, except as documented and Reports malaise Eyes Eyes: Reports system reviewed and no additional complaints, except as documented ENT Ears, Nose, Mouth, and Throat: Reports system reviewed and no additional complaints, except as documented, Reports post nasal drip and Reports sore throat Cardiovascular Cardiovascular: Reports system reviewed and no additional complaints, except as documented Respiratory Respiratory: Reports system reviewed and no additional complaints, except as documented and Reports non-productive cough Gastrointestinal Gastrointestingal: Reports system reviewed and no additional complaints, except as documented Genitourinary Female Genitourinary: Reports system reviewed and no additional complaints, except as documented, Reports dysuria, Denies flank pain, Reports urinary frequency, Reports urinary incontinence and Reports urinary urgency Musculoskeletal Musculoskeletal: Reports system reviewed and no additional complaints, except as documented Integumentary/Breasts Skin/Breast: Reports system reviewed and no additional complaints, except as documented Neurologic Neurologic: Reports system reviewed and no additional complaints, except as documented Endocrine Endocrine: Reports system reviewed and no additional complaints, except as documented Hematologic/Lymphatic Henatologic/Lymphatic: Reports system reviewed and no additional complaints, except as documented Allergic/Immunologic Allergic/Immunologic: Reports system reviewed and no additional complaints, except as documented Physical Exam General General appearance: alert and in no apparent distress Head Head exam: atraumatic and normocephalic Eye Eye exam: Present normal appearance ENT ENT exam: Present mucous membranes moist Expanded ENT Exam External ear exam: Present normal external inspection Nasal speculum exam: Bilateral: normal Mouth exam: Present normal external inspection Teeth exam: Present normal inspection Throat exam: Present normal inspection Comment: post nasal drainage noted Neck Neck exam: Present normal inspection; Absent lymphadenopathy Chest Chest inspection: Present normal inspection and symmetric chest wall rise Respiratory Respiratory exam: Present normal lung sounds bilaterally Cardiovascular Cardiovascular exam: Present regular rate, normal rhythm and normal heart sounds Abdominal Exam Abdominal exam: Present soft and tenderness Abdominal tenderness: Present suprapubic Extremities Exam Extremities exam: Present normal inspection Back Exam Back exam: Present normal inspection; Absent CVA tenderness (R) or CVA tenderness (L) Neurological Exam Neurological exam: Present alert and oriented X3 Psychiatric Psychiatric exam: Present normal affect and normal mood Skin Skin exam: Present warm and dry Medical Decision Making Medical Records Screening: Per USPSTF and CDC recommendations, given the prevalence of disease in our region, it is our hospital?s policy to screen for HIV and viral Hepatitis for all patients aged 18 and over and those with ongoing risk factors. Felix Inquiry Pt receiving controlled substance: No Felix was queried for this patient: No
[2024-06-14 09:13] VITALS: BP 137/78; PULSE 59; RESP 16; TEMP 36.8; O2SAT 96; BMI 38.8
[2024-06-14 09:23] VITALS: BP 137/78; PULSE 59; RESP 16; TEMP 36.8; O2SAT 96
[2024-06-14 10:38] LABS: Microscopic, Urine URINE MICROSCOPIC (MICROSCOPIC)
[2024-06-14 10:44] LABS: Appearance,Urine CLEAR (Clear); Bilirubin,Urine Negative (Negative); Blood, Urine 1+ (Negative); Color,Urine YELLOW (Yellow); Glucose,Urine (UA) Negative (Negative); Ketones,Urine Negative (Negative); Leukocyte Esterase,Urine 2+ (Negative); Nitrate,Urine Negative (Negative); PH,Urine 6.5 (5.0-8.5); Protein,Urine Negative (Negative); Urobilinogen,Urine 0.2 EU/dl (0.2)
[2024-06-14 11:13] LABS: Bacteria,Urine Trace /lpf; WBC,Urine Occasional #/hpf (0-3)
== END 2024-06-14 09:24 | disposition home or self-care (01) ==
PROVIDERS: Emergency Provider Nurse Practitioner Family; PCP Nurse Practitioner
DX: N39.0 Urinary tract infection, site not specified (principal); B96.89 Other specified bacterial agents as the cause of diseases classified elsewhere; R30.0 Dysuria; R35.0 Frequency of micturition; R07.0 Pain in throat
CPT/HCPCS: 81001; 87086; 99212; 99214; G0463

== ENCOUNTER 2024-10-21 09:26 | Emergency (ER) | payer MEDICAID, SELFPAY ==
[2024-10-21 10:18] VITALS: BP 166/85; PULSE 61; RESP 18; TEMP 36.7; O2SAT 97; BMI 38.9
--- NOTE | 2024-10-21 10:21 | ED_ITS ---
Discharge Plan Disposition Patient Disposition: Home, Self-Care Condition: Good Prescriptions Prescriptions: New fluconazole 150 mg tablet 150 mg PO ONCE Qty: 1 3RF phenazopyridine [Pyridium] 200 mg tablet 200 mg PO Q8H 2 Days Qty: 6 0RF cephalexin 500 mg capsule 500 mg PO QID 7 Days Qty: 28 0RF ondansetron 4 mg Tablet,Disintegrating 4 mg PO Q8H PRN (Reason: Nausea) Qty: 12 0RF No Action fenofibrate nanocrystallized 48 mg tablet 48 mg PO DAILY hydrochlorothiazide 25 mg tablet 25 mg PO DAILY metoprolol tartrate 100 mg tablet 100 mg PO BID potassium chloride 20 mEq tablet extended release 20 meq PO DAILY lorazepam 0.5 mg tablet 0.5 mg PO BID methocarbamol 500 mg tablet 500 mg PO Q6H PRN (Reason: pain) Qty: 30 0RF lidocaine 5 % adhesive patch,medicated 1 patch topical DAILY PRN (Reason: pain) Qty: 30 0RF Rx Instructions: leave on most painful area for up to 12 hrs aspirin 81 MG tablet,delayed release (DR/EC) 81 mg PO DAILY cephalexin 500 mg capsule 500 mg PO BID 7 Days Qty: 14 0RF ciprofloxacin HCl [Cipro] 500 mg tablet 500 mg PO Q12H 5 Days Qty: 10 0RF loratadine 10 mg tablet 10 mg PO DAILY Qty: 30 2RF phenazopyridine [Pyridium] 100 mg tablet 100 mg PO TID Qty: 6 0RF Referrals Follow up/Referrals: Meaghan Mcnamara APRN [Primary Care Provider] - See instructions Activity Restrictions/Add. Instructions Additional Instructions/Restrictions: Drink plenty of fluids. Take tylenol or ibuprofen for pain or fever. Take the medications as directed. Follow up with your regular doctor. GO TO THE ER FOR ANY WORSENING SYMPTOMS The pyridium will make your urine turn orange, this is an expected side effect. It will stain your clothes if it comes into contact with them. We will culture the urine. That will tell what bacteria is causing your infection and which antibiotics will treat it best.This test takes 3 days to complete. Clinical Impressions Clinical Impression: UTI (urinary tract infection) Instructions Patient Instructions: Urine Culture, DI for Urinary Tract Infection (UTI), Phenazopyridine, Fluconazole Print Language Print Language: Chadian Discharge ED Provider: Frantz Campbell [facility] [place] HPI General Stated complaint: fever, frequent urination, burning when urinating Mode of Arrival: Ambulatory Source of Information: Patient Time Seen by Provider: 10/21/24 10:21 Description of Symptoms (Recalled from Triage Doc. by RN): UTI S/S HEENT Symptoms (Recalled from RN notes): No Resp Symptoms (Recalled from RN notes): No Skin Symptoms (Recalled from RN notes): No MS Symptoms (Recalled from RN notes): No Functional Status (Recalled from RN notes): WNL Related Data Home Medications ?Medication ?Instructions ?Recorded ?Confirmed fenofibrate nanocrystallized 48 mg 48 mg PO DAILY Cholesterol 03/22/21 10/21/24 tablet hydrochlorothiazide 25 mg tablet 25 mg PO DAILY Hypertension 03/22/21 10/21/24 metoprolol tartrate 100 mg tablet 100 mg PO BID Hypertension 03/22/21 10/21/24 potassium chloride 20 mEq 20 meq PO DAILY Supplement 03/22/21 10/21/24 tablet,extended release aspirin 81 mg tablet,delayed 81 mg PO DAILY HEART HEALTHY 05/13/21 10/21/24 release lorazepam 0.5 mg tablet 0.5 mg PO BID Anxiety 01/18/23 10/21/24 Previous Rx's ?Medication ?Instructions ?Recorded cephalexin 500 mg capsule 500 mg PO BID 7 days #14 caps 02/14/24 lidocaine 5 % topical patch 1 patch topical DAILY PRN pain #30 04/20/24 ea methocarbamol 500 mg tablet 500 mg PO Q6H PRN pain #30 tabs 04/20/24 ciprofloxacin HCl 500 mg tablet 500 mg PO Q12H 5 days #10 tabs 06/14/24 (Cipro) loratadine 10 mg tablet 10 mg PO DAILY #30 tabs 06/14/24 phenazopyridine 100 mg tablet 100 mg PO TID 6 doses #6 tabs 06/14/24 (Pyridium) cephalexin 500 mg capsule 500 mg PO QID 7 days #28 caps 10/21/24 fluconazole 150 mg tablet 150 mg PO ONCE 1 dose #1 tab 10/21/24 ondansetron 4 mg disintegrating 4 mg PO Q8H PRN Nausea #12 tabs 10/21/24 tablet phenazopyridine 200 mg tablet 200 mg PO Q8H 2 days #6 tabs 10/21/24 (Pyridium) Allergies Allergy/AdvReac Type Severity Reaction Status Date / Time ibuprofen AdvReac fluid Verified 10/03/23 10:58 retention Worker's Comp Is this a Worker's Comp case?: No [facility] Disclaimer: The information contained in this section may have been updated after the patient was seen, as this information can be updated by other users. Medical History (Updated 10/21/24 @ 10:41 by Frantz Campbell APRN) Edema Dyspnea on exertion Metatarsalgia of left foot Left ankle pain Endometriosis Kidney stone Anxiety Hypertension Surgical History History of cholecystectomy Social History Smoking Status: Never smoker alcohol intake: never substance use type: denies use current occupational status: retired and disabled Travel in the last 8 weeks: None household members: family housing: house current occupational exposures/hazards: No caffeine: No Have you lived/traveled outside [place] in past 30 days?: No Contact w/someone who lives/traveled outside [place] past 30 days?: No Exposure to someone with infectious disease in past 14 days?: No Do you have a fever (greater than 100.4 F or 38 C)?: Yes Have you tested positive for COVID-19: No Exposed to someone with COVID-19 in past 14 days?: No Do you have a sore throat?: No Do you have a cough?: No Do you have any weakness?: No Do you have any diarrhea?: No Are you experiencing any unusual bleeding?: No Do you have any muscle aches/pain?: No Do you have any abdominal pain?: No Are you experiencing loss of taste or smell?: No ROS Obtained: Yes All systems reviewed & no additional complaints except as documented Constitutional Constitutional: Reports system reviewed and no additional complaints, except as documented, Denies chills and Denies fever(s) Eyes Eyes: Denies eye discharge ENT Ears, Nose, Mouth, and Throat: Denies dysphagia, Denies sore throat and Denies throat swelling Cardiovascular Cardiovascular: Denies chest pain and Denies dyspnea Respiratory Respiratory: Denies chest congestion, Denies cough and Denies dyspnea Gastrointestinal Gastrointestingal: Denies abdominal pain, constipation, diarrhea, dysphagia, nausea or vomiting Genitourinary Female Genitourinary: Reports as per HPI, Reports dysuria, Reports urinary frequency, Denies urinary incontinence, Reports urinary hesitancy and Reports urinary urgency Musculoskeletal Musculoskeletal: Denies arthralgias and Reports back pain Integumentary/Breasts Skin/Breast: Denies rash Neurologic Neurologic: Denies paresthesias Allergic/Immunologic Allergic/Immunologic: Denies throat swelling Physical Exam General General appearance: alert and in no apparent distress Head Head exam: atraumatic and normocephalic Eye Eye exam: Present normal appearance, PERRL and EOMI ENT ENT exam: Present normal exam, mucous membranes moist, TM's normal bilaterally and normal external ear exam Neck Neck exam: Present normal inspection, full ROM and trachea midline; Absent tenderness, meningismus or lymphadenopathy Chest Chest inspection: Present normal inspection and symmetric chest wall rise; Absent tenderness Respiratory Respiratory exam: Present normal lung sounds bilaterally; Absent respiratory distress, wheezes or stridor Cardiovascular Cardiovascular exam: Present regular rate, normal rhythm and normal heart sounds Abdominal Exam Abdominal exam: Present soft and normal bowel sounds; Absent distention, tenderness, guarding, rebound, rigidity, incision, psoas sign, obturator sign, heel tap sign, Gorman's sign, Rovsing's sign or tenderness at McBurney's Point Extremities Exam Extremities exam: Present normal inspection, full ROM and normal capillary refill; Absent tenderness, edema, joint swelling, calf tenderness or cyanosis Back Exam Back exam: Present normal inspection and full ROM; Absent tenderness, CVA tenderness (R) or CVA tenderness (L) Neurological Exam Neurological exam: Present alert, oriented X3 and normal gait Psychiatric Psychiatric exam: Present normal affect and normal mood Skin Skin exam: Present warm, dry, intact and normal color Lymphatic Lymphatic Findings: no adenopathy Medical Decision Making Medical Records Medical records reviewed: No I reviewed the patient's medical records. Screening: Per USPSTF and CDC recommendations, given the prevalence of disease in our region, it is our hospital?s policy to screen for HIV and viral Hepatitis for all patients aged 18 and over and those with ongoing risk factors. Felix Inquiry Pt receiving controlled substance: No Vital Signs: 10/21/24 10:18 Temperature 98.0 F Temperature Source Oral Pulse Rate [Left Radial] 61 Respiratory Rate 18 Blood Pressure [Left Arm] 166/85 H Blood Pressure Mean [Left Arm] 112 02 Sat by Pulse Oximetry 97 Lab Data Lab results reviewed: Yes I reviewed the patient's lab results.
[2024-10-21 10:33] LABS: Apearance,Urine Clear (Clear); Bilirubin,Urine Negative (Negative); Blood, Urine Negative (Negative); Color,Urine Yellow (Yellow); Glucose,Urine (UA) Negative (Negative); Ketones,Urine Negative (Negative); PH,Urine 5.5 (5.0-8.5); Protein,Urine Negative (Negative); Specific Gravity, Urine 1.025 (1.005-1.030); Urobilinogen,Urine 0.2 EU/dl (0.2)
[2024-10-21 10:34] LABS: UTC Leukocyte Esterase,Urine 3+ (Negative); UTC Nitrate,Urine Negative (Negative)
[2024-10-21 11:00] VITALS: BP 166/85; PULSE 61; RESP 18; TEMP 36.7
== END 2024-10-21 11:01 | disposition home or self-care (01) ==
PROVIDERS: Emergency Provider Nurse Practitioner Family; PCP Nurse Practitioner
DX: N39.0 Urinary tract infection, site not specified (principal)
CPT/HCPCS: 81003; 87086; 99213; G0381

== ENCOUNTER 2024-12-01 16:25 | Outpatient (CLI) | payer MEDICARE, SELFPAY ==
[2024-12-01 15:10] LABS: Microscopic,Cath URINE MICROSCOPIC (MICROSCOPIC)
[2024-12-01 16:19] LABS: Appearance,Urine/Cath Clear (Clear); Bilirubin,Cath Negative (Negative); Blood, Urine/Cath Negative (Negative); Color,Urine/Cath Yellow (Yellow); Glucose,Urine/Cath (UA) Negative (Negative); Ketones,Urine/Cath Negative (Negative); Leukocyte Esterase,Cath Negative (Negative); Nitrate,Cath Negative (Negative); Protein,Urine/Cath Negative (Negative); Specific Gravity, Urine/Cath 1.015 (1.005-1.030); Urobilinogen,Cath 0.2 EU/dl (0.2)
[2024-12-01 16:20] LABS: Bacteria,Urine/Cath TRACE /lpf; Squamous Epithelial Ur./Cath Occasional #/hpf (0-5)
[2024-12-04 12:18] LABS: Atopobium vaginae Low - 0 Score (.); BVAB2 Low - 0 Score (.); Candida albicans NAA Negative (Negative); Candida glabrata Negative (Negative); Chlamydia Trachomatis NAA Negative (Negative); HSV 1 NAA Negative (Negative); HSV 2 NAA Negative (Negative); Megasphaera 1 Low - 0 Score (.); Neisseria gonorrhoeae NAA Negative (Negative); Trich vag NAA Negative (Negative)
== END 2024-12-01 23:59 | disposition home or self-care (01) ==
LOC: LAB.DROPOF 16:25
PROVIDERS: PCP Urology; Visit Provider Urology
DX: N32.81 Overactive bladder (principal); N39.0 Urinary tract infection, site not specified; R31.9 Hematuria, unspecified; N95.2 Postmenopausal atrophic vaginitis
CPT/HCPCS: 81001; 87086; 87491; 87529; 87591; 87661; 87798; 87801

== ENCOUNTER 2024-12-25 08:44 | Outpatient (CLI) | payer MEDICARE, MEDICAID, SELFPAY ==
[2024-12-25 09:15] LABS: Blood Urea Nitrogen 17 mg/dl (7-17); Estimated Glomerular Filt Rate 84 ml/min (>60); GFR (African American) 102 ML/MIN (>60)
--- NOTE | 2024-12-25 09:30 | CT_ITS ---
FINAL REPORT TECHNIQUE: Axial CT of the abdomen and pelvis, without and with IV contrast. This study was performed with techniques to keep radiation doses as low as reasonably achievable, (ALARA). Individualized dose reduction techniques using automated exposure control or adjustment of mA and/or kV according to the patient''s size were employed. CLINICAL HISTORY: Hematuria FINDINGS: Abdomen: Lung bases are clear. Liver has an unremarkable CT appearance. The spleen, pancreas and adrenal glands are unremarkable. There is biliary ductal dilatation measuring up to 12 mm, probably related to previous cholecystectomy. There are tiny nonobstructing stones within the left renal calyces. 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 There is a benign, 28 mm cyst in the left kidney. No obstructive changes are identified. No bowel obstruction or fluid collection is seen. There is a tiny umbilical hernia containing fat. Pelvis: The appendix is normal. The uterus and ovaries are unremarkable. The bladder has a normal appearance. Pelvic bowel loops are unremarkable. No fluid collection or adenopathy is seen. IMPRESSION: Horseshoe kidney with tiny nonobstructing left renal stones. Benign-appearing left renal cyst without evidence of renal neoplasm. Reviewed, Interpreted and Dictated by Sandip Troy MD Transcribed by Cathy Luna Authenticated and . [facility]
[2024-12-25] MEDS: IOPAMIDOL-370 (76%);100ML BOTTLE 75 ML IV (09:38)
[2024-12-25] MEDS: SODIUM CHLORIDE 0.9% 10ML SYR (RAD ONLY) 10 ML IV (09:38)
== END 2024-12-25 23:59 | disposition home or self-care (01) ==
LOC: RAD 08:45
PROVIDERS: PCP Urology; Visit Provider Urology
DX: N32.81 Overactive bladder (principal); R31.9 Hematuria, unspecified
CPT/HCPCS: 36415; 74178; 82565; 84520; Q9967

== ENCOUNTER 2025-03-02 16:13 | Outpatient (CLI) | payer MEDICARE, MEDICAID, SELFPAY ==
[2025-03-02 14:53] LABS: Microscopic, Urine URINE MICROSCOPIC (MICROSCOPIC)
[2025-03-02 15:31] LABS: Appearance,Urine CLEAR (Clear); Bilirubin,Urine Negative (Negative); Blood, Urine TRACE-L (Negative); Color,Urine YELLOW (Yellow); Glucose,Urine (UA) Negative (Negative); Ketones,Urine Negative (Negative); Leukocyte Esterase,Urine 2+ (Negative); Nitrate,Urine POSITIVE (Negative); PH,Urine 6.5 (5.0-8.5); Protein,Urine Negative (Negative); Specific Gravity, Urine 1.015 (1.005-1.030); Urobilinogen,Urine 0.2 EU/dl (0.2)
[2025-03-02 15:57] LABS: Bacteria,Urine 4+ /lpf
--- OUTSIDE RECORDS SUMMARY | 2025-03-02 16:16 | XMS_ITS | Clinical Summary ---
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 Medications No information available. Medications Administered No information available. Allergies, Adverse Reactions, Alerts No information available. Results No information available. Plan of Care No information available. Procedures No information available. Vital Signs No information available. Immunizations No information available. Advance Directives No information available.
--- OUTSIDE RECORDS SUMMARY | 2025-03-02 16:17 | XMS_ITS | Data Portability ---
Author Organization [facility] Oohly., [facility] Address [address] [place] [address] [place] [address] Care Team Providers Care Infection Control Practitioner Name Role Phone MEAGHAN MCNAMARA Primary Care Provider Unavailabl e Assessment No assessment recorded. 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 Not available Not available Not available Lab HbA1c (hemoglob in A1c), blood [address], [address], 02/26/2025 12:36:45 drug screen, 14 drugs (detectim ed), urine 2024 025 [place] [id number] [facility], [address] [place] [address], [address], 02/26/2025 12:36:45 culture, urine 2024 025 [place] [facility]), [address] [place] [address], [address], 11/27/2024 05:06:44 urinalysi s, dipstick [address], [address], 11/25/2024 10:40:32 CBC w/ auto diff 2024 025 [place] [facility], [facility] [place], [address], 11/26/2024 08:12:56 CMP, serum or plasma 2024 025 [facility] ([place]), [address] [place], [address], 11/26/2024 08:12:57 TSH + free T4, serum 2024 025 [facility] ([place]), [address] [place], [address], 11/26/2024 08:12:56 vaginal pathogens panel, SUPA+probe , vaginal fluid 2024 025 [facility] ([place]), [address] [place], [address], 11/27/2024 05:06:44 lipid panel, serum 2024 025 [facility]), [address] [place], [address], 11/26/2024 08:12:57 HbA1c (hemoglob in A1c), blood 2024 025 [facility] ([place]), [address] [place], [address], 11/26/2024 08:12:58 cobalamin and folate panel, serum 2024 025 [facility]), [address] [place], [address], 11/26/2024 08:12:58 vitamin D, 25-hydrox y, total, serum 2024 025 [facility] ([place]), [address] [place], [address], 11/26/2024 08:12:59 iron + TIBC + ferritin, serum [address] [facility]), [address] [place], [address], 11/26/2024 08:12:56 CBC w/ auto diff 2024 025 [facility]), [address] [place], [address], 09/26/2024 07:07:58 CMP, serum or plasma [address]24 [address] [facility]), [address] [place], [address], 09/26/2024 07:07:59 TSH + free T4, serum 2024 025 [facility]), [address] [place], [address], 09/26/2024 07:07:58 lipid panel, serum 2024 025 [facility]), [address] [place], [address], 09/26/2024 07:08:00 HbA1c (hemoglob in A1c), blood [address] [facility]), [address] [place], [address], 09/26/2024 07:08:01 cobalamin and folate panel, serum [address] [facility]), [facility] [place], [address], 09/26/2024 07:08:00 vitamin D, 25-hydrox y, total, serum [address] [facility]), [address] [place], [address], 09/26/2024 07:08:02 iron + TIBC + ferritin, serum [address] [facility]), [address] [place] [address], [place], [address], 09/26/2024 07:07:57 urinalysi s, dipstick [address], [facility] [place], [address], 08/25/2024 15:47:18 culture, urine 2023 024 [place] [facility]), [address] [place] [address], [address], 08/27/2024 07:10:50 bacterial vaginosis + vaginitis panel, vaginal 2023 024 [place] [facility] [address] [place] [address], [address], 08/27/2024 07:10:49 Referral urologist referral - david recurrent UTI. 2024 025 [place] [facility], [address], [place], [address], 12/01/2024 13:04:05 dermatolo gist referral - first avail. skin check/les ions. after first of year 2023 024 [place] [facility], [address] , [place] [address], [place], [address], 11/13/2024 14:14:55 Procedures None recorded. Surgeries None recorded. Imaging XR, knee, 3 view 2024 025 [facility], [facility], [place], [address], 02/26/2025 13:52:59 Medication Orders fenofibra te nanocryst allized 48 mg tablet 2024 025 [facility], [address] [place] [address], [address], 02/26/2025 09:41:37 metoprolo l tartrate 100 mg tablet 2024 025 [facility], [address] [place] [address], [address], 02/26/2025 09:41:37 calcium 600 mg (as carbonate )-vitamin D3 20 mcg (800 unit) tablet 2024 025 [facility], [address] [place] [address], [address], 02/26/2025 09:41:36 prednison e 20 mg tablet 2024 025 [facility], [address] [place] [address], [address], 02/26/2025 10:06:55 doxycycli ne monohydra te 100 mg capsule 2024 025 [facility], [address] [place] [address], [address], 02/26/2025 09:06:29 prednison e 20 mg tablet 2024 025 [facility], [address] [place] [address], [address], 12/08/2024 14:49:14 mupirocin 2 % topical ointment 2024 025 [facility], [address] [place] [address], [address], 12/08/2024 14:49:13 Augmentin 500 mg-125 mg tablet 2024 025 [facility], [address] [place] [address], [address], 12/08/2024 13:56:10 diclofena c sodium 75 mg tablet,de layed release [address], [address] [place] [address], [place], [address], 11/25/2024 10:12:26 methocarb heber 500 mg tablet 2024 [place] [id number] [facility], [address], [place], [address], 11/25/2024 10:12:26 lorazepam 0.5 mg tablet 2024 [place] [facility], [address], [place], [address], 12/10/2024 15:30:18 fluconazo le 150 mg tablet 2024 [place] [facility], [address] , [place], [address], 12/08/2024 13:56:11 fenofibra te nanocryst allized 48 mg tablet 2024 49 [facility], [address] , [place], [address], 11/25/2024 10:12:26 aspirin 81 mg tablet,de layed release 2024 [place] [id number] [facility], [address] , [place], [address], 11/25/2024 10:12:26 hydrochlo rothiazid e 25 mg tablet 2024 [place] [id number] [facility], [address] , [place], [address], 11/25/2024 10:12:26 metoprolo l tartrate 100 mg tablet 2024 [place] [id number] [facility], [address] , [place], [address], 11/25/2024 10:12:27 polyethyl kelvin glycol 3350 17 gram/dose oral powder 2024 025 mary [facility], [address], [place], [address], 11/25/2024 10:12:27 calcium 600 mg (as carbonate )-vitamin D3 20 mcg (800 unit) tablet 2024 025 mary [facility], [address], [place], [address], 11/25/2024 10:12:26 multivita min tablet 2024 [place] [facility], [address], [place], [address], 02/26/2025 08:55:18 potassium chloride ER 20 mEq tablet,ex tended release(p art/cryst ) 2024 [email or web address] [facility], [address], [place], [address], 11/25/2024 10:12:27 diclofena c sodium 75 mg tablet,de layed release 2024 025 [place] [facility], [address], [place], [address], 09/25/2024 11:29:17 methocarb heber 500 mg tablet 2024 025 [place] [facility], [address], [place], [address], 09/29/2024 11:36:46 lorazepam 0.5 mg tablet 2024 025 [facility] [facility], [address], [place], [address], 09/29/2024 11:36:47 fenofibra te nanocryst allized 48 mg tablet 2024 025 [facility] [facility], [address], [place], [address], 09/29/2024 11:36:50 aspirin 81 mg tablet,de layed release 2024 025 [facility] [facility], [address] [facility], [place], [address], 09/29/2024 11:36:50 hydrochlo rothiazid e 25 mg tablet 2024 025 [place] [facility], [address] , [place], [address], 09/29/2024 11:36:44 metoprolo l tartrate 100 mg tablet 2024 025 [facility] [facility], [address] [place], [address], 09/29/2024 11:36:41 polyethyl kelvin glycol 3350 17 gram/dose oral powder 2024 025 [place] [facility], [address] [facility], [place], [address], 09/29/2024 11:36:51 calcium 600 mg (as carbonate )-vitamin D3 20 mcg (800 unit) tablet 2024 025 [place] [facility], [address] , [place], [address], 11/03/2024 11:27:51 multivita min tablet 2024 025 [facility], [address] [place], [address], 02/26/2025 08:54:33 potassium chloride ER 20 mEq tablet,ex tended release(p art/cryst ) 2024 025 [place] [facility], [address] [place], [address], 09/29/2024 11:36:42 Macrobid 100 mg capsule 2023 025 [place] [facility], [address] [place], [address], 09/25/2024 10:58:47 fluconazo le 150 mg tablet 2023 025 [facility], [address] [place], [address], 12/08/2024 13:55:48 Patient TargetsNo targets recorded. 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 skin check/lesions. after first of year Referring Physician: Meaghan Mcnamara [facility], Encounter Date: 08/25/2024 Urologist Referral for Recur rent urinary tract infection david recurrent UTI. Referring Physician: Meaghan Mcnamara [facility], Encounter Date: 11/25/2024 Results Created Date Observation Date Name Description Value Unit Range Abnormal Flag Note LastModifiedBy Organization Detail LastModifiedTime 08/25/2008/26/2024 NUSWA B VAGIN ITIS (VG) atopobium vaginae Low - 0 score Not Available [facility]) [address] [place], [address], 08/27/2024 07:10:49 08/25/2008/26/2024 NUSWA B VAGIN ITIS (VG) bvab 2 Low - 0 score Not Available [facility] [address] [place], [address], 08/27/2024 07:10:49 08/25/2008/26/2024 NUSWA B VAGIN ITIS (VG) megasphaera 1 Low - 0 score Calcu late total score by gay larsen the 3 indiv idual bacte rial vagin osis (BV) marke r score s toget her. Total score is inter prete d as follo ws: Total score 0-1: Indic ates the absen ce of BV. Total score 2: Indet ermin ate for BV. Addit ional clini anam data shoul d be evalu ated to estab radha a diagn osis. Total score 3-6: Indic ates the prese nce of BV. Not Available [facility] ([facility]) [address] [place], [address], 08/27/2024 07:10:49 08/25/20 24 08/26/2024 NUSWA B VAGIN ITIS (VG) becky albicans, SUPA Negati ve negati ve Not Available [facility] ([facility]) [address] [place], [address], 08/27/2024 07:10:49 08/25/20 24 08/26/2024 NUSWA B VAGIN ITIS (VG) becky glabrata, SUPA Negati ve negati ve Not Available [facility] ([facility]) [address] [place], [address], 08/27/2024 07:10:49 08/25/20 24 08/27/2024 NUSWA B VAGIN ITIS (VG) trich vag by SUPA Negati ve negati ve Not Available [facility]) [address] [place], [address], 08/27/2024 07:10:49 08/25/20 24 08/27/2024 URINE CULTU REJOURDAN urine culture, routine Final report Not Available [facility]) [address] [place], [address], 08/27/2024 07:10:50 08/25/20 24 08/27/2024 URINE CULTU REJOURDAN result 1 No growth Not Available [facility]) [address] [place], [address], 08/27/2024 07:10:50 08/25/20 24 08/25/2024 urina lysis , dipst ick Leukocytes Small Not Available [address], [address], 08/25/2024 13:54:23 08/25/20 24 08/25/2024 urina lysis , dipst ick Nitrite negati ve Not Available [address], [address], 08/25/2024 13:54:23 08/25/20 24 08/25/2024 urina lysis , dipst ick Urobilinogen .2 Not Available [address], [address], 08/25/2024 13:54:23 08/25/20 24 08/25/2024 urina lysis , dipst ick Protein Negati ve Not Available [address], [address], 08/25/2024 13:54:23 08/25/20 24 08/25/2024 urina lysis , dipst ick pH 6.0 Not Available [address], [address], 08/25/2024 13:54:23 08/25/20 24 08/25/2024 urina lysis , dipst ick Blood Negati ve Not Available [address], [address], 08/25/2024 13:54:23 08/25/20 24 08/25/2024 urina lysis , dipst ick Specific [place] 1.020 Not Available [address], [address], 08/25/2024 13:54:23 08/25/20 24 08/25/2024 urina lysis , dipst ick Ketone Negati ve Not Available [address], [address], 08/25/2024 13:54:23 08/25/20 24 08/25/2024 urina lysis , dipst ick Bilirubin Negati ve Not Available [address], [address], 08/25/2024 13:54:23 08/25/20 24 08/25/2024 urina lysis , dipst ick Glucose Negati ve Not Available [address], [address], 08/25/2024 13:54:23 08/25/20 24 08/25/2024 urina lysis , dipst ick Appearance Clear Not Available [address], [address], 08/25/2024 13:54:23 08/25/20 24 08/25/2024 urina lysis , dipst ick Color Dark Yellow Not Available [address], [address], 08/25/2024 13:54:23 09/25/1909/26/2024 FE+TI BC+FE R iron bind.cap.(TI BC) 305 ug/dL 250-45 0 normal Not Available [facility]) [address] [facility], [place], [address], 09/26/2024 07:07:57 09/25/1909/26/2024 FE+TI BC+FE R UIBC 199 ug/dL 118-36 9 normal Not Available [facility] ([facility]) [address] [facility], [place], [address], 09/26/2024 07:07:57 09/25/19 25 09/26/2024 FE+TI BC+FE R iron 106 ug/dL 27-139 normal Not Available [facility] ([facility]) [address] [place], [address], 09/26/2024 07:07:57 09/25/19 25 09/26/2024 FE+TI BC+FE R iron saturation 35 % 15-55 normal Not Available [facility] ([facility]) [address] [place], [address], 09/26/2024 07:07:57 09/25/1909/26/2024 FE+TI BC+FE R ferritin 323 NG/mL 15-150 above high normal Not Available [facility] ([facility]) [address] [place], [address], 09/26/2024 07:07:57 09/25/1909/26/2024 TSH+F REE T4 TSH 1.730 uIU/m L 0.450- 4.500 normal Not Available [facility] ([facility]) [address] [place], [address], 09/26/2024 07:07:58 09/25/1909/26/2024 TSH+F REE T4 T4,free(dire ct) 1.26 NG/dL 0.82-1 .77 normal Not Available [facility] ([facility]) [address] [place], [address], 09/26/2024 07:07:58 09/25/1909/26/2024 CBC WITH DIFFE RENKENNEDY AL/PL ATELE T WBC 13.5 x10e3 /uL 3.4-10 .8 above high normal Not Available [facility] ([facility]) [address] [place], [address], 09/26/2024 07:07:58 09/25/1909/26/2024 CBC WITH DIFFE RENTI AL/PL ATELE T RBC 5.30 x10e6 /uL 3.77-5 .28 above high normal Not Available [facility] ([facility]) [address] [place], [address], 09/26/2024 07:07:58 09/25/1909/26/2024 CBC WITH DIFFE RENTI AL/PL ATELE T hemoglobin 16.2 g/dL 11.1-1 5.9 above high normal Not Available [facility] ([facility]) [address] [place], [address], 09/26/2024 07:07:58 09/25/1909/26/2024 CBC WITH DIFFE RENTI AL/PL ATELE T hematocrit 47.9 % 34.0-4 6.6 above high normal Not Available [facility] ([facility]) [address] [place], [address], 09/26/2024 07:07:58 09/25/1909/26/2024 CBC WITH DIFFE RENTI AL/PL ATELE T MCV 90 fL 79-97 normal Not Available [facility]) [address] [place], [address], 09/26/2024 07:07:58 09/25/1909/26/2024 CBC WITH DIFFE RENTI AL/PL ATELE T MCH 30.6 pg 26.6-3 3.0 normal Not Available [facility]) [address] [place], [address], 09/26/2024 07:07:58 09/25/1909/26/2024 CBC WITH DIFFE RENTI AL/PL ATELE T MCHC 33.8 g/dL 31.5-3 5.7 normal Not Available [facility] ([facility]) [address] [place], [address], 09/26/2024 07:07:58 09/25/1911 1009/26/2024 CBC WITH DIFFE RENTI AL/PL ATELE T RDW 12.2 % 11.7-1 5.4 Not Available [facility]) [address] [facility], [place], [address], 09/26/2024 07:07:58 09/25/19 25 09/26/2024 CBC WITH DIFFE RENTI AL/PL ATELE T platelets 275 x10e3 /uL 150-45 0 normal Not Available [facility] ([facility]) [address] [facility], [place], [address], 09/26/2024 07:07:58 09/25/1909/26/2024 CBC WITH DIFFE RENTI AL/PL ATELE T neutrophils 77 % not estab. normal Not Available [facility] ([facility]) [address] [facility], [place], [address], 09/26/2024 07:07:58 09/25/19 25 09/26/2024 CBC WITH DIFFE RENTI AL/PL ATELE T lymphs 15 % not estab. normal Not Available [facility] ([facility]) [address] [facility], [place], [address], 09/26/2024 07:07:58 09/25/19 25 09/26/2024 CBC WITH DIFFE RENTI AL/PL ATELE T monocytes 6 % not estab. normal Not Available [facility] ([facility]) [address] [facility], [place], [address], 09/26/2024 07:07:58 09/25/1909/26/2024 CBC WITH DIFFE RENTI AL/PL ATELE T eos 1 % not estab. normal Not Available [facility] ([facility]) [address] [facility], [place], [address], 09/26/2024 07:07:58 09/25/19 25 09/26/2024 CBC WITH DIFFE RENTI AL/PL ATELE T basos 0 % not estab. normal Not Available [facility] ([facility]) [address] [place], [address], 09/26/2024 07:07:58 09/25/19 25 09/26/2024 CBC WITH DIFFE RENTI AL/PL ATELE T immature cells BLACKSMITH HELPER Not Available [facility] ([facility]) [address] [place], [address], 09/26/2024 07:07:58 09/25/1909/26/2024 CBC WITH DIFFE RENTI AL/PL ATELE T neutrophils (absolute) 10.4 x10e3 /uL 1.4-7. 0 above high normal Not Available [facility] ([facility]) [address] [facility], [place], [address], 09/26/2024 07:07:58 09/25/19 25 09/26/2024 CBC WITH DIFFE RENTI AL/PL ATELE T lymphs (absolute) 2.0 x10e3 /uL 0.7-3. 1 normal Not Available [facility] ([facility]) [address] [place], [address], 09/26/2024 07:07:58 09/25/19 25 09/26/2024 CBC WITH DIFFE RENTI AL/PL ATELE T monocytes(ab solute) 0.9 x10e3 /uL 0.1-0. 9 normal Not Available [facility] ([facility]) [address] [place], [address], 09/26/2024 07:07:58 09/25/1909/26/2024 CBC WITH DIFFE RENTI AL/PL ATELE T eos (absolute) 0.2 x10e3 /uL 0.0-0. 4 normal Not Available [facility] ([facility]) [address] [place], [address], 09/26/2024 07:07:58 09/25/1909/26/2024 CBC WITH DIFFE RENTI AL/PL ATELE T baso (absolute) 0.1 x10e3 /uL 0.0-0. 2 normal Not Available [facility] ([facility]) [address] [facility], [place], [address], 09/26/2024 07:07:58 09/25/19 25 09/26/2024 CBC WITH DIFFE RENTI AL/PL ATELE T immature granulocytes 1 % not estab. Not Available [facility] ([facility]) [address] [facility], [place], [address], 09/26/2024 07:07:58 09/25/1909/26/2024 CBC WITH DIFFE RENTI AL/PL ATELE T immature grans (abs) 0.1 x10e3 /uL 0.0-0. 1 Not Available [facility] ([facility]) [address] [facility], [place], [address], 09/26/2024 07:07:58 09/25/19 25 09/26/2024 CBC WITH DIFFE RENTI AL/PL ATELE T NRBC BLACKSMITH HELPER Not Available [facility] ([facility]) [address] [facility], [place], [address], 09/26/2024 07:07:58 09/25/19 25 09/26/2024 CBC WITH DIFFE RENTI AL/PL ATELE T hematology comments: BLACKSMITH HELPER Not Available [facility] ([facility]) [address] [place], [address], 09/26/2024 07:07:58 09/25/19 25 09/26/2024 COMP. METAB OLIC PANEL (14) glucose 98 mg/dL 70-99 normal Not Available [facility] ([facility]) [address] [place], [address], 09/26/2024 07:07:59 09/25/19 25 09/26/2024 COMP. METAB OLIC PANEL (14) BUN 19 mg/dL 8-27 normal Not Available [facility] ([facility]) [address] [facility] [place], [address], 09/26/2024 07:07:59 09/25/19 25 09/26/2024 COMP. METAB OLIC PANEL (14) creatinine 0.70 mg/dL 0.57-1 .00 normal Not Available [facility] ([facility]) [address] [facility] [place], [address], 09/26/2024 07:07:59 09/25/19 25 09/26/2024 COMP. METAB OLIC PANEL (14) eGFR 97 mL/mi n/1.7 3 >59 normal Not Available [facility] ([facility]) [address] [facility] [place], [address], 09/26/2024 07:07:59 09/25/19 25 09/26/2024 COMP. METAB OLIC PANEL (14) BUN/creatini ne ratio 27 12-28 normal Not Available [facility]) [address] [facility] [place], [address], 09/26/2024 07:07:59 09/25/19 25 09/26/2024 COMP. METAB OLIC PANEL (14) sodium 137 mmol/ L 134-14 4 normal Not Available [facility] ([facility]) [address] [facility] [place], [address], 09/26/2024 07:07:59 09/25/19 25 09/26/2024 COMP. METAB OLIC PANEL (14) potassium 4.0 mmol/ L 3.5-5. 2 normal Not Available [facility] ([facility]) [address] [facility] [place], [address], 09/26/2024 07:07:59 09/25/19 25 09/26/2024 COMP. METAB OLIC PANEL (14) chloride 97 mmol/ L 96-106 normal Not Available [facility] ([facility]) [address] [place], [address], 09/26/2024 07:07:59 09/25/19 25 09/26/2024 COMP. METAB OLIC PANEL (14) carbon dioxide, total 23 mmol/ L 20-29 normal Not Available [facility] ([facility]) [address] [place], [address], 09/26/2024 07:07:59 09/25/19 25 09/26/2024 COMP. METAB OLIC PANEL (14) calcium 9.1 mg/dL 8.7-10 .3 normal Not Available [facility] ([facility]) [address] [place], [address], 09/26/2024 07:07:59 09/25/19 25 09/26/2024 COMP. METAB OLIC PANEL (14) protein, total 6.7 g/dL 6.0-8. 5 normal Not Available [facility] ([facility]) [address] [place], [address], 09/26/2024 07:07:59 09/25/1909/26/2024 COMP. METAB OLIC PANEL (14) albumin 4.2 g/dL 3.9-4. 9 normal Not Available [facility] ([facility]) [address] [place], [address], 09/26/2024 07:07:59 09/25/1909/26/2024 COMP. METAB OLIC PANEL (14) globulin, total 2.5 g/dL 1.5-4. 5 Not Available [facility] ([facility]) [address] [place], [address], 09/26/2024 07:07:59 09/25/19 25 09/26/2024 COMP. METAB OLIC PANEL (14) bilirubin, total 0.7 mg/dL 0.0-1. 2 normal Not Available [facility] ([facility]) [address] [place], [address], 09/26/2024 07:07:59 09/25/19 25 09/26/2024 COMP. METAB OLIC PANEL (14) alkaline phosphatase 61 IU/L 44-121 normal Not Available [facility]) [address] [place], [address], 09/26/2024 07:07:59 09/25/19 25 09/26/2024 COMP. METAB OLIC PANEL (14) AST (SGOT) 16 IU/L 0-40 normal Not Available [facility] ([facility]) [address] [place], [address], 09/26/2024 07:07:59 09/25/19 25 09/26/2024 COMP. METAB OLIC PANEL (14) ALT (SGPT) 16 IU/L 0-32 normal Not Available [facility] ([facility]) [address] [place], [address], 09/26/2024 07:07:59 09/25/19 25 09/26/2024 LIPID PANEL cholesterol, total 183 mg/dL 100-19 9 normal Not Available [facility] ([facility]) [address] [place], [address], 09/26/2024 07:08:00 09/25/19 25 09/26/2024 LIPID PANEL triglyceride s 183 mg/dL 0-149 above high normal Not Available [facility] ([facility]) [address] [place], [address], 09/26/2024 07:08:00 09/25/19 25 09/26/2024 LIPID PANEL HDL cholesterol 55 mg/dL >39 normal Not Available [facility] ([facility]) [address] [place], [address], 09/26/2024 07:08:00 09/25/19 25 09/26/2024 LIPID PANEL VLDL cholesterol anam 31 mg/dL 5-40 Not Available [facility] ([facility]) [address] [facility], [place], [address], 09/26/2024 07:08:00 09/25/1909/26/2024 LIPID PANEL LDL chol calc ([facility]) 97 mg/dL 0-99 Not Available [facility] ([facility]) [address] [facility] [place], [address], 09/26/2024 07:08:00 09/25/1909/26/2024 LIPID PANEL LDL calc comment: BLACKSMITH HELPER Not Available [facility] ([facility]) [address] [facility], [place], [address], 09/26/2024 07:08:00 09/25/19 25 09/26/2024 VITAM IN B12 AND FOLAT E vitamin B12 365 pg/mL 232-12 45 normal Not Available [facility] ([facility]) [address] [facility], [place], [address], 09/26/2024 07:08:00 09/25/1909/26/2024 VITAM IN B12 AND FOLAT E folate (folic acid), serum 10.4 NG/mL >3.0 normal A serum folat e mart ntrat ion of less than 3.1 ng/mL is consi dered to repre sent clini anam defic iency . Not Available [facility] ([facility]) [address] [facility], [place], [address], 09/26/2024 07:08:00 09/25/1909/26/2024 HEMOG LOBIN A1C hemoglobin A1C 6.7 % 4.8-5. 6 above high normal Predi abete s: 5.7 - 6.4 Diabe chriss: >6.4 Glyce shemar contr ol for adult s with diabe chriss: <7.0 Not Available [facility] ([facility]) [address] [facility], [place], [address], 09/26/2024 07:08:01 09/25/1909/26/2024 VITAM IN D, 25-HY DROXY vitamin D, 25-hydroxy 33.5 NG/mL 30.0-1 00.0 Vitam in D defic iency has been defin ed by the Insti tute of Medic ine and an Endoc rine Socie ty pract ice guide line as a level of serum 25-OH vitam in D less than 20 ng/mL (1,2) . The Endoc rine Socie ty went on to furth er defin e vitam in D insuf ficie ncy as a level betwe en 21 and 29 ng/mL (2). 1. IOM (Inst itute of Medic ine). 2010. Mareka ry refer ence tg es for calci um and D. Pepe alvarez [place]: The [facility] . 2. Cheryl sainz MF, Moira ibanez [place], Khushbu off-F errar i FLOOD, et al. Evalu ation , treat ment, and preve ntion of vitam in D defic iency : an Endoc rine Socie ty clini anam pract ice guide line. JCEM. 2010; 96(7) :1911 -30. Not Available [facility] ([facility]) [address] [place], [address], 09/26/2024 07:08:02 11/26/19 25 11/26/2024 FE+TI BC+FE R iron bind.cap.(TI BC) 300 ug/dL 250-45 0 normal Not Available [facility] ([facility]) [address] [place], [address], 11/26/2024 08:12:56 11/26/19 25 11/26/2024 FE+TI BC+FE R UIBC 213 ug/dL 118-36 9 normal Not Available [facility] ([facility]) [address] [place], [address], 11/26/2024 08:12:56 11/26/19 25 11/26/2024 FE+TI BC+FE R iron 87 ug/dL 27-139 normal Not Available [facility] ([facility]) [address] [place], [address], 11/26/2024 08:12:56 11/26/1911/26/2024 FE+TI BC+FE R iron saturation 29 % 15-55 normal Not Available [facility] ([facility]) [address] [place], [address], 11/26/2024 08:12:56 11/26/19 25 11/26/2024 FE+TI BC+FE R ferritin 288 NG/mL 15-150 above high normal Not Available [facility] ([facility]) [address] [place], [address], 11/26/2024 08:12:56 11/26/19 25 11/26/2024 TSH+F REE T4 TSH 1.260 uIU/m L 0.450- 4.500 normal Not Available [facility] ([facility]) [address] [place], [address], 11/26/2024 08:12:56 11/26/1911/26/2024 TSH+F REE T4 T4,free(dire ct) 1.10 NG/dL 0.82-1 .77 normal Not Available [facility] ([facility]) [address] [place], [address], 11/26/2024 08:12:56 11/26/1911/26/2024 CBC WITH DIFFE RENTI AL/PL ATELE T WBC 12.8 x10e3 /uL 3.4-10 .8 above high normal Not Available [facility] ([facility]) [address] [place], [address], 11/26/2024 08:12:56 11/26/19 25 11/26/2024 CBC WITH DIFFE RENTI AL/PL ATELE T RBC 5.41 x10e6 /uL 3.77-5 .28 above high normal Not Available [facility] ([facility]) [address] [facility] [place], [address], 11/26/2024 08:12:56 11/26/19 25 11/26/2024 CBC WITH DIFFE RENTI AL/PL ATELE T hemoglobin 16.3 g/dL 11.1-1 5.9 above high normal Not Available [facility] ([facility]) [address] [facility], [place], [address], 11/26/2024 08:12:56 11/26/19 25 11/26/2024 CBC WITH DIFFE RENTI AL/PL ATELE T hematocrit 48.9 % 34.0-4 6.6 above high normal Not Available [facility] ([facility]) [address] [facility], [place], [address], 11/26/2024 08:12:56 11/26/19 25 11/26/2024 CBC WITH DIFFE RENTI AL/PL ATELE T MCV 90 fL 79-97 normal Not Available [facility] ([facility]) [address] [facility] [place], [address], 11/26/2024 08:12:56 11/26/19 25 11/26/2024 CBC WITH DIFFE RENTI AL/PL ATELE T MCH 30.1 pg 26.6-3 3.0 normal Not Available [facility] ([facility]) [address] [place], [address], 11/26/2024 08:12:56 11/26/1911/26/2024 CBC WITH DIFFE RENTI AL/PL ATELE T MCHC 33.3 g/dL 31.5-3 5.7 normal Not Available [facility] ([facility]) [address] [place], [address], 11/26/2024 08:12:56 11/26/19 25 11/26/2024 CBC WITH DIFFE RENTI AL/PL ATELE T RDW 12.2 % 11.7-1 5.4 Not Available [facility] ([facility]) [address] [facility], [place], [address], 11/26/2024 08:12:56 11/26/19 25 11/26/2024 CBC WITH DIFFE RENTI AL/PL ATELE T platelets 233 x10e3 /uL 150-45 0 normal Not Available [facility] ([facility]) [address] [facility], [place], [address], 11/26/2024 08:12:56 11/26/19 25 11/26/2024 CBC WITH DIFFE RENTI AL/PL ATELE T neutrophils 83 % not estab. normal Not Available [facility] ([facility]) [address] [facility], [place], [address], 11/26/2024 08:12:56 11/26/19 25 11/26/2024 CBC WITH DIFFE RENTI AL/PL ATELE T lymphs 9 % not estab. normal Not Available [facility] ([facility]) [address] [facility] [place], [address], 11/26/2024 08:12:56 11/26/19 25 11/26/2024 CBC WITH DIFFE RENTI AL/PL ATELE T monocytes 6 % not estab. normal Not Available [facility] ([facility]) [address] [facility], [place], [address], 11/26/2024 08:12:56 11/26/19 25 11/26/2024 CBC WITH DIFFE RENTI AL/PL ATELE T eos 1 % not estab. normal Not Available [facility] ([facility]) [address] [facility], [place], [address], 11/26/2024 08:12:56 11/26/19 25 11/26/2024 CBC WITH DIFFE RENTI AL/PL ATELE T basos 1 % not estab. normal Not Available [facility] ([facility]) [address] [facility], [place], [address], 11/26/2024 08:12:56 11/26/19 25 11/26/2024 CBC WITH DIFFE RENTI AL/PL ATELE T immature cells BLACKSMITH HELPER Not Available [facility] ([facility]) [address] [place], [address], 11/26/2024 08:12:56 11/26/19 25 11/26/2024 CBC WITH DIFFE RENTI AL/PL ATELE T neutrophils (absolute) 10.6 x10e3 /uL 1.4-7. 0 above high normal Not Available [facility] ([facility]) [address] [place], [address], 11/26/2024 08:12:56 11/26/19 25 11/26/2024 CBC WITH DIFFE RENTI AL/PL ATELE T lymphs (absolute) 1.2 x10e3 /uL 0.7-3. 1 normal Not Available [facility] ([facility]) [address] [place], [address], 11/26/2024 08:12:56 11/26/19 25 11/26/2024 CBC WITH DIFFE RENTI AL/PL ATELE T monocytes(ab solute) 0.8 x10e3 /uL 0.1-0. 9 normal Not Available [facility] ([facility]) [address] [place], [address], 11/26/2024 08:12:56 11/26/19 25 11/26/2024 CBC WITH DIFFE RENTI AL/PL ATELE T eos (absolute) 0.2 x10e3 /uL 0.0-0. 4 normal Not Available [facility] ([facility]) [address] [place], [address], 11/26/2024 08:12:56 11/26/19 25 11/26/2024 CBC WITH DIFFE RENTI AL/PL ATELE T baso (absolute) 0.1 x10e3 /uL 0.0-0. 2 normal Not Available [facility] ([facility]) [address] [facility], [place], [address], 11/26/2024 08:12:56 11/26/19 25 11/26/2024 CBC WITH DIFFE RENTI AL/PL ATELE T immature granulocytes 0 % not estab. Not Available [facility] ([facility]) [address] [facility] [place], [address], 11/26/2024 08:12:56 11/26/19 25 11/26/2024 CBC WITH DIFFE RENTI AL/PL ATELE T immature grans (abs) 0.0 x10e3 /uL 0.0-0. 1 Not Available [facility] ([facility]) [address] [facility] [place], [address], 11/26/2024 08:12:56 11/26/19 25 11/26/2024 CBC WITH DIFFE RENTI AL/PL ATELE T NRBC BLACKSMITH HELPER Not Available [facility] ([facility]) [address] [facility] [place], [address], 11/26/2024 08:12:56 11/26/1911/26/2024 CBC WITH DIFFE RENTI AL/PL ATELE T hematology comments: BLACKSMITH HELPER Not Available [facility] ([facility]) [address] [facility], [place], [address], 11/26/2024 08:12:56 11/26/19 25 11/26/2024 COMP. METAB OLIC PANEL (14) glucose 112 mg/dL 70-99 above high normal Not Available [facility] ([facility]) [address] [facility] [place], [address], 11/26/2024 08:12:57 11/26/19 25 11/26/2024 COMP. METAB OLIC PANEL (14) BUN 18 mg/dL 8-27 normal Not Available [facility] ([facility]) [address] [facility], [place], [address], 11/26/2024 08:12:57 11/26/19 25 11/26/2024 COMP. METAB OLIC PANEL (14) creatinine 0.67 mg/dL 0.57-1 .00 normal Not Available [facility] ([facility]) [address] [facility] [place], [address], 11/26/2024 08:12:57 11/26/19 25 11/26/2024 COMP. METAB OLIC PANEL (14) eGFR 98 mL/mi n/1.7 3 >59 normal Not Available [facility] ([facility]) [address] [facility] [place], [address], 11/26/2024 08:12:57 11/26/19 25 11/26/2024 COMP. METAB OLIC PANEL (14) BUN/creatini ne ratio 27 12-28 normal Not Available [facility] ([facility]) [address] [facility] [place], [address], 11/26/2024 08:12:57 11/26/19 25 11/26/2024 COMP. METAB OLIC PANEL (14) sodium 141 mmol/ L 134-14 4 normal Not Available [facility] ([facility]) [address] [facility] [place], [address], 11/26/2024 08:12:57 11/26/19 25 11/26/2024 COMP. METAB OLIC PANEL (14) potassium 4.4 mmol/ L 3.5-5. 2 normal Not Available [facility] ([facility]) [address] [facility] [place], [address], 11/26/2024 08:12:57 11/26/19 25 11/26/2024 COMP. METAB OLIC PANEL (14) chloride 101 mmol/ L 96-106 normal Not Available [facility] ([facility]) [address] [facility] [place], [address], 11/26/2024 08:12:57 11/26/19 25 11/26/2024 COMP. METAB OLIC PANEL (14) carbon dioxide, total 22 mmol/ L 20-29 normal Not Available [facility] ([facility]) [address] [facility] [place], [address], 11/26/2024 08:12:57 11/26/19 25 11/26/2024 COMP. METAB OLIC PANEL (14) calcium 9.4 mg/dL 8.7-10 .3 normal Not Available [facility] ([facility]) [address] [facility] [place], [address], 11/26/2024 08:12:57 11/26/19 25 11/26/2024 COMP. METAB OLIC PANEL (14) protein, total 6.6 g/dL 6.0-8. 5 normal Not Available [facility] ([facility]) [address] [facility] [place], [address], 11/26/2024 08:12:57 11/26/19 25 11/26/2024 COMP. METAB OLIC PANEL (14) albumin 4.2 g/dL 3.9-4. 9 normal Not Available [facility] ([facility]) [address] [facility] [place], [address], 11/26/2024 08:12:57 11/26/19 25 11/26/2024 COMP. METAB OLIC PANEL (14) globulin, total 2.4 g/dL 1.5-4. 5 Not Available [facility] ([facility]) [address] [facility] [place], [address], 11/26/2024 08:12:57 11/26/19 25 11/26/2024 COMP. METAB OLIC PANEL (14) bilirubin, total 0.8 mg/dL 0.0-1. 2 normal Not Available [facility] ([facility]) [address] [facility] [place], [address], 11/26/2024 08:12:57 11/26/19 25 11/26/2024 COMP. METAB OLIC PANEL (14) alkaline phosphatase 63 IU/L 44-121 normal Not Available [facility] ([facility]) [address] [facility] [place], [address], 11/26/2024 08:12:57 11/26/19 25 11/26/2024 COMP. METAB OLIC PANEL (14) AST (SGOT) 20 IU/L 0-40 normal Not Available [facility] ([facility]) [address] [facility] [place], [address], 11/26/2024 08:12:57 11/26/19 25 11/26/2024 COMP. METAB OLIC PANEL (14) ALT (SGPT) 17 IU/L 0-32 normal Not Available [facility] ([facility]) [address] [facility] [place], [address], 11/26/2024 08:12:57 11/26/19 25 11/26/2024 LIPID PANEL cholesterol, total 221 mg/dL 100-19 9 above high normal Not Available [facility] ([facility]) [address] [place], [address], 11/26/2024 08:12:57 11/26/19 25 11/26/2024 LIPID PANEL triglyceride s 129 mg/dL 0-149 normal Not Available [facility] ([facility]) [address] [place], [address], 11/26/2024 08:12:57 11/26/19 25 11/26/2024 LIPID PANEL HDL cholesterol 60 mg/dL >39 normal Not Available [facility] ([facility]) [address] [facility] [place], [address], 11/26/2024 08:12:57 11/26/19 25 11/26/2024 LIPID PANEL VLDL cholesterol anam 23 mg/dL 5-40 Not Available [facility] ([facility]) [address] [place], [address], 11/26/2024 08:12:57 11/26/19 25 11/26/2024 LIPID PANEL LDL chol calc ([facility]) 138 mg/dL 0-99 above high normal Not Available [facility] ([facility]) [address] [place], [address], 11/26/2024 08:12:57 11/26/19 25 11/26/2024 LIPID PANEL LDL calc comment: BLACKSMITH HELPER Not Available [facility] ([facility]) [address] [place], [address], 11/26/2024 08:12:57 11/26/19 25 11/26/2024 VITAM IN B12 AND FOLAT E vitamin B12 402 pg/mL 232-12 45 normal Not Available [facility] ([facility]) [address] [facility] [place], [address], 11/26/2024 08:12:58 11/26/19 25 11/26/2024 VITAM IN B12 AND FOLAT E folate (folic acid), serum 19.5 NG/mL >3.0 normal A serum folat e mart ntrat ion of less than 3.1 ng/mL is consi dered to repre sent clini anam defic iency . Not Available [facility] ([facility]) [address] [facility] [place], [address], 11/26/2024 08:12:58 11/26/1911/26/2024 HEMOG LOBIN A1C hemoglobin A1C 6.7 % 4.8-5. 6 above high normal Predi abete s: 5.7 - 6.4 Diabe chriss: >6.4 Glyce shemar contr ol for adult s with diabe chriss: <7.0 Not Available [facility] ([facility]) [address] [place], [address], 11/26/2024 08:12:58 11/26/19 25 11/26/2024 VITAM IN D, 25-HY DROXY vitamin D, 25-hydroxy 32.0 NG/mL 30.0-1 00.0 Vitam in D defic iency has been defin ed by the Insti tute of Medic ine and an Endoc rine Socie ty pract ice guide line as a level of serum 25-OH vitam in D less than 20 ng/mL (1,2) . The Endoc rine Socie ty went on to furth er defin e vitam in D insuf ficie ncy as a level betwe en 21 and 29 ng/mL (2). 1. IOM (Inst itute of Medic ine). 2010. Dieta ry refer ence intak es for calci um and D. Pepe alvarez [place]: The [facility] Press . 2. Cheryl sainz MF, Moira ibanez [place], Khushbu off-F titi i FLOOD, et al. Evalu ation , treat ment, and preve ntion of vitam in D defic iency : an Endoc rine Socie ty clini anam pract ice guide line. JCEM. 2010; 96(7) :1911 -30. Not Available [facility] ([facility]) [address] [place], [address], 11/26/2024 08:12:59 11/26/19 25 11/26/2024 NUSWA B VAGIN ITIS PLUS (VG+) atopobium vaginae Low - 0 score Not Available [facility] ([facility]) [address] [place], [address], 11/27/2024 05:06:44 11/26/19 25 11/26/2024 NUSWA B VAGIN ITIS PLUS (VG+) bvab 2 Low - 0 score Not Available [facility] ([facility]) [address] [place], [address], 11/27/2024 05:06:44 11/26/19 25 11/26/2024 NUSWA B VAGIN ITIS PLUS (VG+) megasphaera 1 Low - 0 score Calcu late total score by gay larsen the 3 indiv idual bacte rial vagin osis (BV) marke r score s toget her. Total score is inter prete d as follo ws: Total score 0-1: Indic ates the absen ce of BV. Total score 2: Indet ermin ate for BV. Addit ional clini anam data shoul d be evalu ated to estab radha a diagn osis. Total score 3-6: Indic ates the prese nce of BV. Not Available [facility] ([facility]) [address] [place], [address], 11/27/2024 05:06:44 11/26/19 25 11/26/2024 NUSWA B VAGIN ITIS PLUS (VG+) becky albicans, SUPA Negati ve negati ve Not Available [facility] ([facility]) [address] [place], [address], 11/27/2024 05:06:44 11/26/19 25 11/26/2024 NUSWA B VAGIN ITIS PLUS (VG+) becky glabrata, SUPA Negati ve negati ve Not Available [facility] ([facility]) [address] [place], [address], 11/27/2024 05:06:44 11/26/19 25 11/27/2024 NUSWA B VAGIN ITIS PLUS (VG+) trich vag by SUPA Negati ve negati ve Not Available [facility] ([facility]) [address] [place], [address], 11/27/2024 05:06:44 11/26/19 25 11/27/2024 NUSWA B VAGIN ITIS PLUS (VG+) chlamydia trachomatis, SUPA Negati ve negati ve Not Available [facility] ([facility]) [address] [place], [address], 11/27/2024 05:06:44 11/26/19 25 11/27/2024 NUSWA B VAGIN ITIS PLUS (VG+) neisseria gonorrhoeae, SUPA Negati ve negati ve Not Available [facility] ([facility]) [address] [facility] [place], [address], 11/27/2024 05:06:44 11/26/19 25 11/26/2024 URINE CULTU RE, ROUTI NE urine culture, routine Final report Not Available [facility] ([facility]) [address] [facility] [place], [address], 11/27/2024 05:06:44 11/26/19 25 11/26/2024 URINE CULTU RE, ROUTI NE result 1 COMMEN T Cultu re shows less than 10,00 0 colon y formi ng units of bacte vito per nicho liter of urine . This colon y count is not gener ally consi dered to be clini breanna signi ficlukas t. Not Available [facility] ([facility]) [address] [facility] [place], [address], 11/27/2024 05:06:44 11/26/19 25 11/25/2024 urina lysis , dipst ick Leukocytes Large Not Available [address], [address], 11/25/2024 09:22:28 11/26/19 25 11/25/2024 urina lysis , dipst ick Nitrite negati ve Not Available [address], [address], 11/25/2024 09:22:28 11/26/19 25 11/25/2024 urina lysis , dipst ick Urobilinogen .2 Not Available [address], [address], 11/25/2024 09:22:28 11/26/19 25 11/25/2024 urina lysis , dipst ick Protein Negati ve Not Available [address], [address], 11/25/2024 09:22:28 11/26/19 25 11/25/2024 urina lysis , dipst ick pH 6.0 Not Available [address], [address], 11/25/2024 09:22:28 11/26/19 25 11/25/2024 urina lysis , dipst ick Blood Non-He molyze d: Trace Not Available [address], [address], 11/25/2024 09:22:28 11/26/19 25 11/25/2024 urina lysis , dipst ick Specific [place] 1.015 Not Available [address], [address], 11/25/2024 09:22:28 11/26/19 25 11/25/2024 urina lysis , dipst ick Ketone Negati ve Not Available [address], [address], 11/25/2024 09:22:28 11/26/19 25 11/25/2024 urina lysis , dipst ick Bilirubin Negati ve Not Available [address], [address], 11/25/2024 09:22:28 11/26/19 25 11/25/2024 urina lysis , dipst ick Glucose Negati ve Not Available [address], [address], 11/25/2024 09:22:28 11/26/19 25 11/25/2024 urina lysis , dipst ick Appearance Cloudy Not Available [address], [address], 11/25/2024 09:22:28 11/26/19 25 11/25/2024 urina lysis , dipst ick Color Dark Yellow Not Available [address], [address], 11/25/2024 09:22:28 02/27/20 25 02/26/2025 HbA1c (hemo globi n A1c), blood HbA1c 6.6 Not Available [address], [address], 02/25/2025 17:20:33 01/28/20 25 05/13/2021 colon oscop y proce dure (PROC ) No observ ation record ed. [email or web address] Not Available 01/27 17:54:05 02/27/20 25 04/25/2021 DEXA No observ ation record ed. [email or web address] [facility] (Med Record) [address], [place], [address], 02/27/2025 10:30:40 02/27/20 25 XR, knee, 3 view No observ ation record ed. [email or web address] [address], [address], 02/27/2025 10:09:09 Result Notes None recorded. Problems Name Problem SNOMED Code Status Onset Date Resolution Date Notes Provider Name and Address Organization Details Recorded Time Cat scratch disease [id number] Completed 202007/20/2022 Problem Code: A28.1; Problem Code Type: ICD-10; CURTIS Teresa - [employer] 08:38:26 Candidia sis of vulva [id number] Completed 201902/01/2021 Not Available [employer] 22:55:53 Neoplast ic disease of uncertai n behavior [id number] Completed 202107/20/2022 Problem Code: D48.9; Problem Code Type: ICD-10; KARMA keen [employer] 08:38:26 Mixed hyperlip idemia [id number] Active 2016 Problem Code: E78.2; Problem Code Type: ICD-10; Not Available [facility] 2 22:55:53 Generali zed anxiety disorder 81317349 Completed 201709/19/2018 Problem Code: F41.1; Problem Code Type: ICD-10; Not Available [facility] 22:55:53 Generali zed anxiety disorder 69039592 Active 2016 Problem Code: F41.1; Problem Code Type: ICD-10; Not Available [facility] 22:55:53 Obstruct meg sleep apnea syndrome 64825924 Active 2018 Problem Code: G47.33; Problem Code Type: ICD-10; Not Available [facility] 22:55:53 Hyperten sive disorder [id number] Active 2016 Problem Code: I10; Problem Code Type: ICD-10; Not Available [facility] 22:55:54 Acute sinusiti s 62559707 Completed 201701/31/2018 Problem Code: J01.90; Problem Code Type: ICD-10; Not Available [facility] 22:55:54 Acute sinusiti s 73130796 Completed 201802/02/2020 Problem Code: J01.90; Problem Code Type: ICD-10; Not Available [facility] 22:55:54 Streptoc occal sore throat 84322556 Completed 201601/14/2017 Problem Code: J02.0; Problem Code Type: ICD-10; Not Available [facility] 22:55:54 Acute pharyngi tis 879117510 Completed 201509/29/2016 Problem Code: J02.8; Problem Code Type: ICD-10; Not Available [facility] 22:55:54 Acute pharyngi tis [id number] Completed 201605/28/2017 Problem Code: J02.8; Problem Code Type: ICD-10; Not Available [facility] 2 22:55:54 Acute pharyngi tis [id number] Completed 201606/14/2017 Problem Code: J02.8; Problem Code Type: ICD-10; Not Available [facility] 2 22:55:54 Acute respirat ory infectio ns [id number] Completed 201807/20/2022 Problem Code: J22; Problem Code Type: ICD-10; KARMA SOLNER [place], [employer]. 2 08:38:26 Divertic ular disease of colon [id number] Active 2019 Problem Code: K57.30; Problem Code Type: ICD-10; [employer]MA [employer] 2 08:38:51 Divertic ulitis of large intestin e without complica tion 660883272 Completed 201606/17/2021 Problem Code: K57.32; Problem Code Type: ICD-10; Not Available [facility] 2 22:55:54 Constipa tion 26089059 Completed 201907/20/2022 [employer] 2 08:38:26 Divertic ulitis of intestin e 398223868 Completed 201807/20/2022 Problem Code: K57.92; Problem Code Type: ICD-10; KARMA JAZ [employer] 2 08:38:26 Irritabl e bowel syndrome 97314543 Active 2018 Problem Code: K58.2; Problem Code Type: ICD-10; Not Available [facility] 2 22:55:55 Epidermo id cyst of skin 514266071 Completed 201810/02/2022 Problem Code: L72.3; Problem Code Type: ICD-10; KARMACARLOS SEBASTIAN [employer] 3 10:15:38 Disorder of skin and/or subcutan eous tissue 16625555 Completed 201807/20/2022 Problem Code: L98.9; Problem Code Type: ICD-10; KARMA keen, [employer] 2 08:38:26 Pain in right knee Completed 201907/20/2022 Problem Code: M25.561; Problem Code Type: ICD-10; KARMA keen, [employer] 2 08:38:26 Pain of left hip joint [id number] 9100 Completed 202107/20/2022 Problem Code: M25.552; Problem Code Type: ICD-10; KARMA keen, [employer] 2 08:38:26 Lumbar spondylo listhesi s [id number] 9102 Completed 201607/20/2022 Problem Code: M43.16; Problem Code Type: ICD-10; KARMA keen, [employer] 2 08:38:26 Low back pain 686703448 Completed 202004/22/2021 Problem Code: M54.5; Problem Code Type: ICD-10; Not Available [facility] 2 22:55:56 Low back pain 706101757 Active 2016 Problem Code: M54.5; Problem Code Type: ICD-10; Not Available [facility] 2 22:55:56 Left side sciatica [id number] 9104 Completed 202004/22/2021 Problem Code: M54.32; Problem Code Type: ICD-10; Not Available [facility] 2 22:55:56 Low back pain 108333536 Completed 201609/04/2019 Problem Code: M54.5; Problem Code Type: ICD-10; Not Available [facility] 2 22:55:57 Spasm of back muscles 169646444 Completed 201603/30/2017 Problem Code: M62.830; Problem Code Type: ICD-10; Not Available [facility] 2 22:55:57 Plantar fascial fibromat osis 25667564 Completed 201805/03/2020 Problem Code: M72.2; Problem Code Type: ICD-10; Not Available [facility] 22:55:57 Plantar fascial fibromat osis 79217226 Active 2019 Problem Code: M72.2; Problem Code Type: ICD-10; Not Available [facility] 22:55:57 Urinary tract infectio us disease 86589018 Completed 202102/20/2022 Problem Code: N39.0; Problem Code Type: ICD-10; Not Available [facility] 22:55:57 Acute vaginiti s 10448105 Completed 202107/20/2022 Problem Code: N76.0; Problem Code Type: ICD-10; KARMA keen, [employer] 08:38:26 Urinary tract infectio us disease 18075837 Completed 202004/22/2021 Problem Code: N39.0; Problem Code Type: ICD-10; Not Available [facility] 22:55:58 Urinary tract infectio us disease 89952188 Completed 202004/22/2021 Problem Code: N39.0; Problem Code Type: ICD-10; Not Available [facility] 22:55:58 Acute vaginiti s 12600235 Completed 201808/21/2019 Problem Code: N76.0; Problem Code Type: ICD-10; KARMA keen, [employer] 08:38:26 Cough 54307808 Completed 201511/14/2016 Problem Code: R05; Problem Code Type: ICD-10; Sarah keen, [employer] 5 13:56:02 Abdomina l pain 02119613 Completed 201807/20/2022 Problem Code: R10.9; Problem Code Type: ICD-10; KARMA keen [employer] 2 08:38:26 Rebound tenderne ss 41145392 Completed 201708/09/2018 Not Available [facility] 2 22:55:59 Dysuria 21585141 Completed 202107/20/2022 Problem Code: R30.0; Problem Code Type: ICD-10; Sarah keen [employer] 4 13:54:17 Dysuria 81650114 Completed 202004/22/2021 Problem Code: R30.0; Problem Code Type: ICD-10; Sarah keen, [employer] 4 13:54:17 Dysthymi a 25458504 Completed 201609/04/2019 Problem Code: R53.81; Problem Code Type: ICD-10; Not Available [facility] 2 22:56:00 Chronic fatigue syndrome 00570366 Active 2020 Problem Code: R53.82; Problem Code Type: ICD-10; Not Available [facility] 2 22:56:00 Abnormal weight gain 556903838 Completed 201706/15/2018 Problem Code: R63.5; Problem Code Type: ICD-10; Not Available [facility] 2 22:56:00 Fracture of lumbar spine 636697758 Completed 202107/20/2022 Problem Code: S32.009A ; Problem Code Type: ICD-10; KARMA keen [employer] 2 08:38:26 Divertic ulum of [place] an tube 934411457 Completed 201703/18/2018 Problem Code: H69.80; Problem Code Type: ICD-10; Not Available [facility] 2 22:56:01 Fracture of shoulder 72190522750 925582 Completed 202107/20/2022 Problem Code: S42.90XA ; Problem Code Type: ICD-10; KARMA keen [employer] 2 08:38:26 General examinat ion of patient Completed 201907/20/2022 KARMA keen, [employer] 2 08:38:26 Dog bite Completed 202007/20/2022 KARMA keen, [employer] 2 08:38:26 General examinat ion of patient Completed 202006/17/2021 KARMA keen, [employer] 2 08:38:26 Gynecolo gic examinat ion Completed 202007/20/2022 Problem Code: Z01.411; Problem Code Type: ICD-10; KARMA keen, [employer] 2 08:38:26 Screenin g mammogra phy Completed 202004/22/2021 Problem Code: Z12.31; Problem Code Type: ICD-10; KARMA keen, [employer] 2 08:38:26 Acute sinusiti s 95881072 Completed 201810/03/2018 Problem Code: J01.90; Problem Code Type: ICD-10; Not Available [facility] 2 22:56:03 Screenin g mammogra phy Completed 201807/20/2022 Problem Code: Z12.31; Problem Code Type: ICD-10; KARMA keen, [employer] 2 08:38:26 Endocrin e/metabo lic screenin g Completed 201910/02/2022 Problem Code: Z13.29; Problem Code Type: ICD-10; KARMA keen, [employer] 3 10:15:38 Body mass index 30+ - obesity 803410835 Active 2020 Problem Code: Z68.36; Problem Code Type: ICD-10; Not Available [facility] 2 22:56:05 Body mass index 30+ - obesity 400933928 Completed 201902/01/2021 Problem Code: Z68.37; Problem Code Type: ICD-10; Not Available [facility] 22:56:06 Body mass index 30+ - obesity 707405291 Completed 201902/01/2021 Problem Code: Z68.37; Problem Code Type: ICD-10; Not Available [facility] 22:56:06 Body mass index 30+ - obesity 103416707 Completed 202012/22/2021 Problem Code: Z68.38; Problem Code Type: ICD-10; Not Available [facility] 22:56:07 Current drug user 062919396 Active 2019 Problem Code: Z79.899; Problem Code Type: ICD-10; Not Available [facility] 22:56:07 Body mass index 30+ - obesity 104199395 Completed 201802/01/2021 Problem Code: Z68.37; Problem Code Type: ICD-10; Not Available [facility] 22:56:08 Body mass index 30+ - obesity 016614673 Completed 201802/01/2021 Problem Code: Z68.37; Problem Code Type: ICD-10; Not Available [facility] 22:56:09 Cyst of thyroid 64106918 Completed 201701/25/2021 Problem Code: 246.2; Problem Code Type: ICD-9; Not Available [facility] 22:56:09 Acquired hallux malleus 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 Active 2020 Problem Code: M20.40; Problem Code Type: ICD-10; Not Available [facility] 22:56:09 Bunion 563942532 Active 2020 Problem Code: M21.619; Problem Code Type: ICD-10; Not Available [facility] 22:56:10 History of disorder of digestiv e system 641562513 Completed 201807/20/2022 Problem Code: Z87.19; Problem Code Type: ICD-10; KARMA keen [facility] 08:38:26 Low back pain 252989813 Completed 201904/22/2021 Problem Code: M54.5; Problem Code Type: ICD-10; Not Available [facility] 22:56:11 Spasm of back muscles 703743433 Completed 201612/15/2016 Problem Code: M62.830; Problem Code Type: ICD-10; Not Available [facility] 2 22:56:11 Generali zed anxiety disorder 02159037 Completed 201501/25/2021 Problem Code: 300.02; Problem Code Type: ICD-9; Not Available [facility] 22:56:12 Urinary tract infectio us disease 34724472 Completed 201709/24/2018 Problem Code: N39.0; Problem Code Type: ICD-10; Not Available [facility] 2 22:56:14 Generali zed anxiety disorder 88045124 Completed 201601/25/2021 Problem Code: 300.02; Problem Code Type: ICD-9; Not Available [facility] 2 22:56:15 Benign essentia l hyperten andrew 2034589 Completed 201601/25/2021 Problem Code: 401.1; Problem Code Type: ICD-9; Not Available [facility] 2 22:56:16 Dysfunct ion of eustachi an tube 01912536 Completed 201703/18/2018 Problem Code: 381.81; Problem Code Type: ICD-9; Not Available [facility] 2 22:56:16 Benign essentia l hyperten andrew 9813337 Completed 201701/25/2021 Problem Code: 401.1; Problem Code Type: ICD-9; Not Available [facility] 2 22:56:17 Divertic ulitis of colon 829850319 Completed 201601/25/2021 Problem Code: 562.11; Problem Code Type: ICD-9; Not Available [facility] 2 22:56:17 Acquired spondylo listhesi s 802924493 Completed 201601/25/2021 Problem Code: 738.4; Problem Code Type: ICD-9; Not Available [facility] 2 22:56:18 Generali zed abdomina l pain 811700747 Completed 201708/09/2018 Problem Code: 789.07; Problem Code Type: ICD-9; Not Available [facility] 2 22:56:19 Fever 395805839 Completed 201607/20/2022 Problem Code: R50.81; Problem Code Type: ICD-10; KARMA JAZ [employer], [employer] 2 08:38:26 Spasm 03370703 Completed 201612/15/2016 Problem Code: 728.85; Problem Code Type: ICD-9; Not Available [facility] 2 22:56:20 Spasm 14284801 Completed 201603/30/2017 Problem Code: 728.85; Problem Code Type: ICD-9; Not Available [facility] 2 22:56:20 Dog bite Completed 201902/02/2020 [employer] 2 08:38:26 Screenin g for malignan t neoplasm of colon Completed 202007/20/2022 KARMACARLOS SEBASTIAN [employer], [employer] 2 08:38:26 Screenin g mammogra phy Completed 201805/03/2020 Problem Code: Z12.31; Problem Code Type: ICD-10; KARMACARLOS keen, [employer] 2 08:38:26 Body mass index 30+ - obesity 048943201 Completed 201802/01/2021 Problem Code: Z68.37; Problem Code Type: ICD-10; Not Available [facility] 2 22:56:23 Malaise and fatigue 232488861 Completed 201601/25/2021 Problem Code: 780.79; Problem Code Type: ICD-9; Not Available [facility] 2 22:56:26 Dysuria 51033738 Active 2023 Problem Code: R30.0; Problem Code Type: ICD-10; Sarah keen, [employer] 4 13:54:17 Recurren t urinary tract infectio n 723770173 Active 2023 Sarah keen, [employer] 4 13:54:30 Vaginal discharg e 463937952 Active 2023 Sarah Quiroga [employer], [employer] 4 13:54:43 Vaginal irritati on 108330609 Active 2024 Sarah Quiroga [employer], [employer] 5 09:40:04 Cough 60598092 Active 2024 Problem Code: R05; Problem Code Type: ICD-10; Sarah keen, [employer] 5 13:56:02 Type 2 diabetes mellitus 13270371 Active 2024 Sarah Quiroga [employer], [employer] 5 17:20:31 Problem Notes None recorded. Procedures Surgical History Date Name Laterality Status Provider Name and Address Organization Details Recorded Time 03/25/20 24 Most Recent Mammogram completed [employer] 06/09/2024 11:20:51 08/29/20 16 cholecystectomy completed Not Available [facility] 05/23/2022 22:56:18 Orthopedic Surgery completed [employer] 09/19/2022 09:53:54 Gallbladder Surgery completed [employer] 09/19/2022 09:53:54 Colposcopy completed [employer] 09/19/2022 09:53:54 Imaging Results None recorded. Procedure Notes None recorded. Medical Equipment None Reported. Allergies Allergen ID Allergen Name Allergen Category Reaction Reaction Severity Criticality Documentation Date Start Date Code Code System Note Provider Name and Address Organization Details Recorded Time 29004 ibuprofen medicatio n Not available Not available Not available 05/23/2022 5640 RxNorm Not Available [facility] 2 22:57:15 07669 Norvasc medicatio n Not available Not available Not available 05/23/2022 34110 RxNorm Not Available [facility] 2 22:57:15 Medications Name Sig Start Date Stop Date Status Note LastModified by Organization Details LastModified Time gabapenti n 4% lipomax cream [] APPLY 1 GRAM 3-4 TIMES DAILY FOR TREATMEN T OF PAIN 03/13 completed podiatry Not Available Not Available Not Available diclofena c na/ lidocaine hcl 0.925/0.3 % gel (w/w) [] APPLY 4 GRAMS 3-4 TIMES DAILY FOR TREATMEN T OF PAIN 09/06 completed Not Available Not Available Not Available multivita min tablet 1 tablet PO daily 02/26 completed Not Available Not Available Not Available cyclobenz aprine 10 mg tablet TAKE 1 TABLET BY MOUTH TWICE DAILY NEEDED FOR MUSCLE SPASM 11/06 completed Not Available Not Available Not Available methocarb heber 500 mg tablet take 1 tablet by oral route 4 times per day PRN muscle aches 2024 active Not Available Not Available Not Avai lable promethaz ine-DM 6.25 mg-15 mg/5 mL oral syrup Take 1 teaspoon by mouth q 4 to 6 hr 07/30 completed Not Available Not Available Not Available nystatin 100,000 unit/mL oral suspensio n Take 5 mL 4 times a day by oral route for 7 days. 11/16 completed Not Available Not Available Not Available prednison e 10 mg tablet TAKE 4 TABLETS BY MOUTH ONCE DAILY FOR 3 DAYS, THEN TAKE 2 TABLETS ONCE DAILY FOR 3 DAYS, THEN TAKE 1 TABLET ONCE DAILY FOR 3 DAYS. 01/16 completed Not Available Not Available Not Available polyethyl kelvin glycol 3350 17 gram oral powder packet take 1 packet (17 gram) mixed with 8 oz. water, juice, soda, coffee or tea by oral route once daily 07/20 completed Not Available Not Available Not Available cetirizin e 10 mg tablet Take 1 tablet(s ) by mouth daily 07/13 completed Not Available Not Available Not Available oxybutyni n chloride ER 10 mg tablet,ex tended release 24 hr TAKE 1 TABLET BY MOUTH ONCE DAILY active Not Available Not Available No t Available azithromy susy 250 mg tablet TAKE 2 TABLETS (500 MG) BY ORAL ROUTE ONCE DAILY FOR 1 DAY THEN 1 TABLET (250 MG) BY ORAL ROUTE ONCE DAILY FOR 4 DAYS 11/06 completed Not Available Not Available Not Available aspirin 325 mg tablet take 1 tablet (325 mg) once daily 02/20 completed Not Available Not Available Not Available metoprolo l tartrate 100 mg tablet Take 1 tablet twice a day by oral route. 2024 active Not Available Not Available Not Avai lable tizanidin e 4 mg tablet 1 po q hs 02/03 completed Not Available Not Available Not Available fluconazo le 150 mg tablet take one tablet by mouth today then repeat in 3 days. 12/08 completed Not Available Not Available Not Available meloxicam 15 mg tablet Take 1 tablet(s ) by mouth daily 07/17 completed Not Available Not Available Not Available phenazopy ridine 200 mg tablet TAKE 1 TABLET BY MOUTH EVERY 8 HOURS FOR 2 DAYS 12/08 completed Not Available Not Available Not Available prednison e 20 mg tablet Take 1 tablet 3 times a day by oral route for 3 days. 2024 active Not Available Not Available Not Avai lable prednison e 5 mg tablet 10 pills po today and decrease by one pill each day 03/30 completed Not Available Not Available Not Available metronida zole 500 mg tablet TAKE 1 TABLET BY MOUTH EVERY 8 HOURS 05/10 completed Not Available Not Available Not Available dextromet horphan-g uaifenesi n 10 mg-100 mg/5 mL oral syrup Take 1 teaspoon by mouth q4h prn for cough 11/18 completed Not Available Not Available Not Available calcium 600 mg (as carbonate )-vitamin D3 5 mcg (200 unit) tablet Take 1 tablet(s ) by mouth bid 07/20 completed Not Available Not Available Not Available ciproflox acin 500 mg tablet TAKE 1 TABLET BY MOUTH EVERY 12 HOURS FOR 5 DAYS 08/25 completed Not Available Not Available Not Available sulfameth oxazole 800 mg-trimet hoprim 160 mg tablet take 1 tablet by oral route bid for 7 days 12/06 completed Not Available Not Available Not Available aspirin 81 mg tablet,de layed release take 1 tablet (81 mg) by oral route once daily 2024 active Not Available Not Available Not Avai lable Medrol 4 mg tablet as directed 09/23 completed Not Available Not Available Not Available vancomyci n 125 mg capsule TAKE 1 CAPSULE BY MOUTH EVERY 6 HOURS 01/13 completed Not Available Not Available Not Available Depo-Medr ol 80 mg/mL suspensio n for injection Take 1 mL by injectio n route. 11/16 completed Not Available Not Available Not Available meloxicam 7.5 mg tablet take 1 tablet (7.5 mg) by oral route once daily 05/10 completed Not Available Not Available Not Available alprazola m 0.5 mg tablet Take 1 tablet twice a day by oral route. 06/05 completed Not Available Not Available Not Available water for irrigatio n, sterile solution 07/20 completed Not Available Not Available Not Available amoxicill in 875 mg tablet TAKE 1 TABLET BY MOUTH EVERY 12 HOURS 01/16 completed Not Available Not Available Not Available potassium chloride ER 20 mEq tablet,ex tended release(p art/cryst ) Take 1 tablet every day by oral route. 2024 active Not Available Not Available Not Avai lable lorazepam 0.5 mg tablet TAKE ONE TABLET BY MOUTH TWICE DAILY NEEDED active Not Available Not Available No t Available Diflucan 100 mg tablet take 1 tablet (100 mg) by oral route once daily for 3 days 07/23 completed Not Available Not Available Not Available phenazopy ridine 100 mg tablet TAKE 1 TABLET BY MOUTH THREE TIMES DAILY FOR 6 DAYS 08/25 completed Not Available Not Available Not Available benzonata te 100 mg capsule TAKE 1 CAPSULE BY MOUTH THREE TIMES DAILY NEEDED FOR COUGH 01/16 completed Not Available Not Available Not Available doxycycli ne monohydra te 100 mg capsule TAKE ONE CAPSULE BY MOUTH TWICE DAILY 02/26 completed Not Available Not Available Not Available cephalexi n 500 mg capsule TAKE 1 CAPSULE BY MOUTH 4 TIMES DAILY FOR 7 DAYS 12/08 completed Not Available Not Available Not Available erythromy susy 5 mg/gram (0.5 %) eye ointment 09/06 completed Not Available Not Available Not Available nitrofura ntoin macrocrys jocelynn 100 mg capsule Take 1 capsule every day by oral route at bedtime for 90 days. active urologis t Not Available Not Available Not Available lidocaine 5 % topical patch USE 1 PATCH EXTERNAL LY TO MOST PAINFUL AREA FOR UP TO 12 HOURS active Not Available Not Available No t Available diclofena c sodium 75 mg tablet,de layed release Take 1 tablet twice a day by oral route as needed. 2024 active Not Available Not Available Not Avai lable hydrochlo rothiazid e 25 mg tablet Take 1 tablet twice a day by oral route. 2024 active Not Available Not Available Not Avai lable mupirocin 2 % topical ointment APPLY A SMALL AMOUNT TO THE AFFECTED AREA BY TOPICAL ROUTE 3 TIMES PER DAY active Not Available Not Available No t Available polyethyl kelvin glycol 3350 17 gram/dose oral powder 1 capful in 8 oz beverage q day 2024 active Not Available Not Available Not Avai lable estradiol 0.01% (0.1 mg/gram) vaginal cream USING FINGER TECHNIQU E APPLY 1 GRAM VAGINALL Y ONCE DAILY FOR 14 DAYS AND THEN 3 TIMES WEEKLY active Not Available Not Available No t Available methylpre dnisolone 4 mg tablets in a dose pack TAKE BY MOUTH DIRECTED ON INSIDE OF PACKAGE 09/25 completed Not Available Not Available Not Available Lactobaci llus acidophil us capsule 1 capsule (30 million) po daily 03/13 completed Not Available Not Available Not Available ondansetr on 4 mg disintegr ating tablet DISSOLVE 1 TABLET IN MOUTH EVERY 8 HOURS NEEDED FOR NAUSEA active Not Available Not Available No t Available cefdinir 300 mg capsule TAKE 1 CAPSULE BY MOUTH TWICE DAILY FOR 7 DAYS 11/06 completed Not Available Not Available Not Available fluticaso ne propionat e 50 mcg/actua tion nasal spray,sophia pension 1 spray(s) each nostril bid 03/18 completed Not Available Not Available Not Available Augmentin 500 mg-125 mg tablet Take 1 tablet every 12 hours by oral route for 7 days. 12/08 completed Not Available Not Available Not Available loratadin e 10 mg tablet TAKE 1 TABLET BY MOUTH ONCE DAILY active Not Available Not Available No t Available amoxicill in 875 mg-potass ium clavulana te 125 mg tablet Take 1 tablet every 12 hours by oral route for 10 days. 01/13 completed Not Available Not Available Not Available Ventolin HFA 90 mcg/actua tion aerosol inhaler INHALE 2 PUFFS BY MOUTH EVERY 6 HOURS NEEDED FOR SHORTNES S OF BREATH OR WHEEZING active Not Available Not Available No t Available nitrofura ntoin monohydra te/macroc rystals 100 mg capsule Take 1 capsule every 12 hours by oral route for 7 days. 09/25 completed Not Available Not Available Not Available Lactobaci llus acidophil 04/22 completed Not Available Not Available Not Available fenofibra te nanocryst allized 48 mg tablet Take 1 tablet every day by oral route. 2024 active Not Available Not Available Not Avai lable diclofena c 1 % topical gel 07/20 completed Not Available Not Available Not Available Mucus Relief ER 600 mg tablet, extended release TAKE 1 TO 2 TABLETS BY MOUTH TWICE DAILY NEEDED FOR CONGESTI ON 09/19 completed Not Available Not Available Not Available calcium 600 mg (as carbonate )-vitamin D3 20 mcg (800 unit) tablet Take 1 tablet twice a day by oral route. 2024 active Not Available Not Available Not Avai lable One Daily Multivita min 400 mcg tablet active Not Available Not Available Not Available potassium chloride ER 20 mEq tablet,ex tended release Take 1 tablet by mouth once daily 07/20 completed Not Available Not Available Not Available Vitals Date Recorded Body height Body mass index (BMI) Body weight Heart rate Oxygen saturation Oxygen saturation in Arterial blood by Pulse oximetry Systolic blood pressure Diastolic blood pressure Provider Name and Address Organization Details Last Updated DateTime 5 170.18 cm 38.7 kg/m2 439312. 32 g 59 /min 98 % 98 % 132 mm[Hg] 67 mm[Hg] [employer] 5 11:03:04 Date Recorded Body height Body mass index (BMI) Body weight Body temperature Heart rate Oxygen saturation Oxygen saturation in Arterial blood by Pulse oximetry Systolic blood pressure Diastolic blood pressure Provider Name and Address Organization Details Last Updated DateTime 5 170.18 cm 37.7 kg/m2 398689. 76 g 97.7 [degF] 73 /min 95 % 95 % 139 mm[Hg] 88 mm[Hg] [employer] 5 09:39:44 Date Recorded Body height Body mass index (BMI) Body weight Body temperature Heart rate Oxygen saturation Oxygen saturation in Arterial blood by Pulse oximetry Systolic blood pressure Diastolic blood pressure Provider Name and Address Organization Details Last Updated DateTime 5 170.18 cm 37.9 kg/m2 816199. 35 g 97.9 [degF] 65 /min 95 % 95 % 138 mm[Hg] 81 mm[Hg] [employer] 5 13:55:39 Date Recorded Body height Body mass index (BMI) Body weight Heart rate Oxygen saturation Oxygen saturation in Arterial blood by Pulse oximetry Systolic blood pressure Diastolic blood pressure Provider Name and Address Organization Details Last Updated DateTime 5 170.18 cm 39.5 kg/m2 251208. 28 g 55 /min 95 % 95 % 132 mm[Hg] 77 mm[Hg] [employer] 5 08:54:56 Date Recorded Body height Body mass index (BMI) Body weight Heart rate Oxygen saturation Oxygen saturation in Arterial blood by Pulse oximetry Body temperature Systolic blood pressure Diastolic blood pressure Provider Name and Address Organization Details Last Updated DateTime 4 170.18 cm 39.3 kg/m2 448346. 68 g 83 /min 95 % 95 % 97.7 [degF] 135 mm[Hg] 83 mm[Hg] [employer] 4 13:53:20 Social History Question Answer Notes LastModified by Organizat ion Details LastModified Time Tobacco Smoking Status Never Smoker KARMA keen [facility] [employer] 07/20/2022 08:40:03 Do You Have An Advance Directive? No [email or web address] Information n ot available 07/20/2022 Is Your Home Air Conditioned? Yes [email or web address] Information not available 09/19/2022 Are You Blind Or Do You Have Difficulty Seeing? No [email or web address] Information n ot available 07/20/2022 Are You A Caregiver? No [email or web address] Information not available 07/20/2022 In The 14 Days Before Symptom Onset, Have You Had Close Contact With A Laboratory-confirm ed COVID-19 While That Case Was Ill? No [email or web address] Information n ot available 09/19/2022 In The 14 Days Before Symptom Onset, Have You Had Close Contact With A Person Who Is Under Investigation For COVID-19 While That Person Was Ill? No [email or web address] Information not available 09/19/2022 Have You Been To An Area Known To Be High Risk For COVID-19? No [email or web address] Information not available 09/19/2022 Are You Deaf Or Do You Have Serious Difficulty Hearing? No [email or web address] Information not available 07/20/2022 What Type Of Diet Are You Following? REGULAR [email or web address] Information n ot available 07/20/2022 Have There Been Any Changes To Your Family Or Social Situation? No [email or web address] Information no t available 07/20/2022 Are There Any Guns Present In Your Home? No [email or web address] Information not available 07/20/2022 Which Of Your Hands Is Dominant? Right [email or web address] Information n ot available 09/19/2022 Do You Have A Medical Power Of Telephone Mechanic? No Information not available 07/20/2022 What Was The Date Of Your Most Recent Tobacco Screening? 02/26/2025 [email or web address] Information not available 02/26/2025 Do You Have Any Pets? Yes [email or web address] Information not available 09/19/2022 Do You Use Protection During Sex? No [email or web address] Information not available 09/19/2022 What Is Your Relationship Status? [email or web address] Information not available 07/20/2022 Have You Repeated Any Grades? Yes [email or web address] Information not available 09/19/2022 Do You Use Your Seat Belt Or Car Seat Routinely? Yes [email or web address] Information not available 07/20/2022 Are You Sexually Active? Yes [email or web address] Information not available 09/19/2022 Do You Have Any Siblings? 3 Information not available 09/19/2022 Do You Have Smoke And Carbon Monoxide Detectors In Your Home? Yes [email or web address] Information not available 07/20/2022 Are You Passively Exposed To Smoke? No [email or web address] Information no t available 09/19/2022 Are There Any Smokers In Your House? Yes [email or web address] Information not available 09/19/2022 Do You Use Sunscreen Routinely? No Information not available 07/20/2022 Have You Recently Traveled Abroad? No [email or web address] Information not available 07/20/2022 Do You Have Difficulty Walking Or Climbing Stairs? No [email or web address] Information not available 07/20/2022 Are You Currently In School? No [email or web address] Information not available 07/20/2022 Sex: Female Functional Status Question Answer Note LastModified by Organizat ion Details LastModified Time Do you use any illicit or recreational drugs? No [email or web address] Information not available 09/19/2022 What is your level of alcohol consumption? None [email or web address] Information not available 07/20/2022 Are you currently employed? No [email or web address] Information not available 07/20/2022 Do you have transportation difficulties? No Information not available 07/20/2022 Are you able to walk? YESWOREST [email or web address] Information not available 07/20/2022 Do you have difficulty doing errands alone? No [email or web address] Information not available 07/20/2022 Are you able to care for yourself? Yes [email or web address] Information not available 07/20/2022 Do you have difficulty dressing or bathing? No [email or web address] Information not available 07/20/2022 Mental Status Question Answer Note LastModified by Organizat ion Details LastModified Time Do you feel stressed (tense, restless, nervous, or anxious, or unable to sleep at night)? [id number] [email or web address] Information not available 09/19/2022 Do you have difficulty concentrating, remembering or making decisions? No Information no t available 07/20/2022 Are you or have you been involved with bullying? No [email or web address] Information not available 09/19/2022 Family History Relationship Description Onset Age of this Age Resolved Age Notes LastModified by Organization Details LastModified Time Unspecified Relation Family history of Hypertension [email or web address] Not available 09:08:53 Unspecified Relation Family history of diabetes mellitus type 2 API-27 Not available 2023 09:08:53 Maternal Grandmother Hypertensive disorder Not available 09/19 09:53:52 Paternal Grandfather Hypertensive disorder [email or web address] Not available 09/19 09:53:52 Mother Hypertensive disorder [email or web address] Not available 09/19 09:53:52 Mother Arthritis [email or web address] Not availa ble 09/19/2022 09:53:52 Mother Diabetes mellitus [email or web address] Not available 09/19 09:53:52 Mother Hypercholest erolemia [email or web address] Not available 09/19 09:53:52 Mother Anxiety disorder [email or web address] Not available 09/19 09:53:52 Father Arthritis Not availa ble 09/19/2022 09:53:52 Father Liver problem [email or web address] Not available 09/19 09:53:52 Father Diabetes mellitus [email or web address] Not available 09/19 09:53:52 Father Hypertensive disorder [email or web address] Not available 09/19 09:53:52 Maternal Grandfather Hypertensive disorder Not available 09/19 09:53:52 Brother Hypertensive disorder [email or web address] Not available 09/19 09:53:52 Brother Diabetes mellitus [email or web address] Not available 09/19 09:53:52 Sister Hypertensive disorder [email or web address] Not available 09/19 09:53:52 Sister Diabetes mellitus [email or web address] Not available 01/03 /2023 09:53:52 Medical History Condition Response Hypertension Y High Cholesterol Y Gynecological History Statement/Question Response Abnormal Pap N STIs/STDs N HPV Vaccine N Age at Menarche 10 Most Recent Mammogram 03/25/2024 Age at First Child 39 If Post Menopausal, Age at Menopause 49 Sexually Active? Y Menses Monthly N Date of Last Pap Smear Sexual Problems? N Obstetrics History GPAL:G 1 P 0 1 0 1 Type Value Premature 1 Living 1 Total 1 Immunizations Vaccine Type Date Status Note Provider Nam e and Address Organization Details Recorded Time Influenza, split virus, quadrivalent, PF 3 completed Reta [place] null, [employer] 07/10/2023 08:32:44 Influenza, split virus, quadrivalent, preservative 1 completed Reta Gary null, [employer] 12/07/2023 09:26:55 Influenza, split virus, quadrivalent, preservative 0 completed Reta [place] null, [employer] 12/07/2023 09:26:55 Influenza, split virus, quadrivalent, preservative 9 completed Reta [place] null, [employer] 12/07/2023 09:26:55 Tdap 7 completed Reta [place] null, [employer] 12/07/2023 09:26:55 COVID-19, mRNA, LNP-S, PF, 100 mcg/0.5mL dose or 50 mcg/0.25mL dose 1 completed Reta [place] null, [employer] 12/07/2023 09:26:55 COVID-19, mRNA, LNP-S, PF, 100 mcg/0.5mL dose or 50 mcg/0.25mL dose 1 completed Reta Gary null, [employer] 12/07/2023 09:26:55 Influenza, split virus, quadrivalent, PF 8 completed Reta [place] null, [employer] 12/07/2023 09:26:55 zoster recombinant 06/27/202 4 completed Meaghan Mcnamara, DENTAL [employer]OR [address] [place], [address], [employer] 03/13/2024 08:53:07 zoster recombinant 4 completed Meaghan Mcnamara, DENTAL [employer]AL[employer] PROCESSOR [address] [place], [address], [employer] 06/09/2024 12:19:53 Influenza, split virus, trivalent, PF 4 completed Sarah Quiroga null, [employer] 06/30/2024 09:50:26 Influenza, split virus, trivalent, preservative 5 completed KARMA SEBASTIAN null, [employer] 09/19/2022 09:52:55 Influenza, split virus, quadrivalent, PF 7 completed KARMA SEBASTIAN null, [employer] 09/19/2022 09:52:55 Td (adult), 2 Lf tetanus toxoid, preservative free, adsorbed 6 completed KARMA SEBASTIAN null, [employer] 09/19/2022 09:52:55 Td (adult), 2 Lf tetanus toxoid, preservative free, adsorbed 6 completed KARMACARLOS SEBASTIAN [place], [employer] 09/19/2022 09:52:55 COVID-19, mRNA, LNP-S, PF, 100 mcg/0.5mL dose or 50 mcg/0.25mL dose 1 completed KARMA SEBASTIAN null, [employer] 09/19/2022 09:52:55 Influenza, split virus, quadrivalent, PF 2 completed KARMA SEBASTIAN null, [employer] 09/21/2022 15:11:16 Pneumococcal conjugate PCV15, polysaccharide EMX375 conjugate, adjuvant, PF 5 completed Meaghan Mcnamara APRN [address] [place], [address], [employer] 02/26/2025 09:36:12 Influenza, split virus, quadrivalent, PF 1 completed [facility]eta [place] null, [facility] 12/07/2023 09:26:55 Influenza, split virus, quadrivalent, PF 0 completed Reta [place] null, [facility] 12/07/2023 09:26:55 Influenza, split virus, quadrivalent, PF 9 completed Reta Gary null, [facility] 12/07/2023 09:26:55 Past Encounters Encounter ID Performer Location Encounter Start Date Encounter Closed Date Diagnosis/Indication Diagnosis SNOMED-CT Code Diagnosis ICD10 Code Diagnosis Note [id number] [place] [address] 07/20/2022 08:47:40 07/20/2022 10:07:52 Generalized anxiety disorder 28203108 F41.1 Pain in right arm 779023 004 M79.601 Screening for malignant neoplasm of breast 869843086 Z12.39 Candidiasis of mouth 797 91818 B37.0 Body mass index 30+ - obesity 736208016 Z68.37 [id number] [place] [address] 09/19/2022 09:38:32 09/19/2022 10:21:47 Generalized anxiety disorder 72956628 F41.1 Low back pain 181228185 M54.50 Body mass index 30+ - obesity 337606941 Z68.37 [id number] Meaghan Mcnamara [place] [address] 0 10/02/2022 10:31:38 10/02/2022 11:07:07 Low back pain 758963358 M54.50 Right side sciatica 3202 601745 51085 M54.31 Dysuria 51632181 R30.0 Acute urin jocelyne tract infection 030734529 N39.0 Body mass index 30+ - obesity 236454093 Z68.37 [id number] [place] [address] 11/16/2022 10:56:59 11/16/2022 11:34:48 Fatigue 65631199 R53.83 Vitamin D deficiency 347 74583 E55.9 Vitamin B deficiency 479 38212 E53.9 Hypocalcemia 5744869 E83 .51 Generalize d anxiety disorder 39937319 F41.1 Low back pain 670309027 M54.50 Hypokalemia 35233011 E87 .6 Abrasion 836456338 T14.8 XXA Body mass index 30+ - obesity 145050115 Z68.37 [id number] Meaghan Mcnamara [place] [address] 0 01/16/2023 16:43:30 01/16/2023 17:20:35 Dysuria 91120035 R30.0 Candidiasis of vagina 72 864810 B37.31 Foot callus 241530583 L8 4 Generalize d anxiety disorder 40898048 F41.1 [id number] [place] [address] 03/13/2023 11:32:34 03/13/2023 13:12:37 Pain in left foot 6254353895 90452 M79.672 Lymphedema 737805515 I89 .0 Generalize d anxiety disorder 13378093 F41.1 [id number] Meaghan Mcnamara [place] [address] 0 05/10/2023 07:55:06 05/10/2023 08:46:09 Generalized anxiety disorder 72668027 F41.1 Tendinitis of left elbow 1542043185 2608427 M67.824 History of diverticulitis 2341655691 64876 Z87.19 Body mass index 30+ - obesity 774880668 Z68.37 [id number] [place] [address] 05/28/2023 08:48:14 05/28/2023 10:00:55 Edema of lower extremity 823639044 R60.0 Body mass index 30+ - obesity 142874719 Z68.37 [id number] [place] [address] 07/10/2023 08:00:20 07/10/2023 08:31:50 Administration of influenza vaccine 94530228 Z23 Hypocalcemia 9781825 E83 .51 Mixed hyperlipidemia 267 931318 E78.2 Hypertensive disorder 38 410643 I10 Generalize d anxiety disorder 15254194 F41.1 Constipation 17438285 K5 9.00 Hypokalemia 02438637 E87 .6 Body mass index 30+ - obesity 743776721 Z68.37 [id number] [place] [address] 09/06/2023 10:28:25 09/06/2023 10:55:55 Hypertensive disorder 69928994 I10 Hypocalcemia 0635140 E83 .51 Low back pain 361736615 M54.50 Mixed hyperlipidemia 267 832179 E78.2 Generalize d anxiety disorder 44356841 F41.1 Hypokalemia 47461439 E87 .6 Constipation 06895825 K5 9.00 Lower resp iratory tract infection 19863655 J22 Body mass index 30+ - obesity 864230087 Z68.37 [id number] Meaghan Mcnamara [place] [address] 11/06/2023 10:24:21 11/06/2023 11:13:12 Long-term drug therapy 245383140 Z79.899 Urinary symptoms 9009520 08 R39.9 Fatigue 92887901 R53.83 Hyperlipidemia 78994105 E78.5 Vitamin D deficiency 347 66786 E55.9 Generalize d anxiety disorder 36796684 F41.1 Acute urin jocelyne tract infection 945664503 N39.0 Body mass index 30+ - obesity 604388109 Z68.37 [id number] Fadi Viveros CNM [address],[facility] e [place] [address] 11/13/2023 08:57:30 11/13/2023 12:11:24 Vaginal discharge 837836269 N89.8 Dysuria 82229905 R30.0 [id number] [place] [address] 12/07/2023 09:14:27 12/07/2023 10:28:54 Cough 45000715 R05.9 Acute sinusitis 33045482 J01.90 Pain of ri ght knee joint 4085944773 69478 M25.561 Body mass index 30+ - obesity 050386227 Z68.37 [id number] [place] [address] 01/14/2024 11:25:36 01/14/2024 11:40:52 Generalized anxiety disorder 55497009 F41.1 Low back pain 817099831 M54.50 Body mass index 30+ - obesity 989938134 Z68.37 [id number] Meaghan Mcnamara [place] [address] 03/13/2024 07:58:56 03/13/2024 09:01:11 Screening for malignant neoplasm of breast 195447777 Z12.39 Body mass index 30+ - obesity 541400265 Z68.37 Active or passive immunization 371291399 Z23 Low back pain 170467777 M54.50 Mixed hyperlipidemia 267 229677 E78.2 Hypertensive disorder 38 338744 I10 Generalize d anxiety disorder 99677028 F41.1 Hypokalemia 81603339 E87 .6 Constipation 44301557 K5 9.00 Vitamin D deficiency 347 80834 E55.9 [id number] Meaghan Mcnamara [address] [address] 06/09/2024 11:14:30 06/09/2024 11:55:48 Active or passive immunization 736367389 Z23 Hypertensive disorder 38 463332 I10 Vitamin D deficiency 347 47647 E55.9 Low back pain 880216568 M54.50 Mixed hyperlipidemia 267 046555 E78.2 Generalize d anxiety disorder 41328857 F41.1 Hypokalemia 28118040 E87 .6 Constipation 31230151 K5 9.00 Body mass index 30+ - obesity 448976195 Z68.37 [id number] [place] [address] 06/30/2024 09:25:40 06/30/2024 10:02:17 Administration of influenza vaccine 56007997 Z23 [id number] [place] [address] 08/25/2024 13:33:04 08/25/2024 14:24:26 Dysuria 19598531 R30.0 Recurrent urinary tract infection 097918760 N39.0 Vaginal discharge 338395 006 N89.8 Skin lesion 85457020 L98 .9 Acute urin jocelyne tract infection 350211654 N39.0 Candidiasis of vagina 72 025500 B37.31 Body mass index 30+ - obesity 426924443 Z68.37 [id number] Meaghan Mcnamara [place] [address] 0 09/25/2024 10:49:10 09/25/2024 11:09:57 Fatigue 82358352 R53.83 Hyperlipidemia 03420153 E78.5 Hyperglycemia 01052743 R 73.9 Vitamin D deficiency 347 23755 E55.9 Iron defic iency anemia 06106741 D50.9 Vitamin B deficiency 479 20255 E53.9 Hypertensive disorder 38 602092 I10 Low back pain 277211272 M54.50 Mixed hyperlipidemia 267 113054 E78.2 Generalize d anxiety disorder 31927522 F41.1 Hypokalemia 75650031 E87 .6 Constipation 71186548 K5 9.00 Body mass index 30+ - obesity 980144621 Z68.37 [id number] Meaghan Mcnamara [place] [address] 0 11/25/2024 08:56:09 11/25/2024 10:25:53 Recurrent urinary tract infection 961804011 N39.0 Vaginal irritation 50793 6004 N89.8 Hypertensive disorder 38 220710 I10 Mixed hyperlipidemia 267 173752 E78.2 Fatigue 86936578 R53.83 Hyperlipidemia 98901205 E78.5 Hyperglycemia 73227053 R 73.9 Vitamin D deficiency 347 45445 E55.9 Iron defic iency anemia 90857888 D50.9 Vitamin B deficiency 479 98204 E53.9 Low back pain 631013367 M54.50 Generalize d anxiety disorder 64366872 F41.1 Hypokalemia 39215618 E87 .6 Constipation 02285373 K5 9.00 Body mass index 30+ - obesity 508594842 Z68.37 Acute urin jocelyne tract infection 112890726 N39.0 Candidiasis of vagina 72 373573 B37.31 [id number] Meaghan Mcnamara[address] 12/08/2024 13:23:43 12/08/2024 14:31:57 Cough 10615679 R05.9 Impetigo 62772610 L01.00 Lower resp iratory tract infection 81311207 J22 Body mass index 30+ - obesity 135890515 Z68.37 [id number] [place] [address] 02/26/2025 08:29:46 02/26/2025 09:38:09 Type 2 diabetes mellitus 97869592 E11.9 Long-term current use of drug therapy 031377888 Z79.899 Vaccination needed 99500 89198 56202 Z23 Screening for osteoporosis 044161253 Z13.820 Patient states that she had this a couple of years ago at [facility] Pain of ri ght knee joint 5355365470 43631 M25.561 Vitamin D deficiency 347 05124 E55.9 Mixed hyperlipidemia 267 247544 E78.2 Hypertensive disorder 38 175240 I10 Body mass index 30+ - obesity 516847282 Z68.39 Health Concerns Section Related Observation LastModified by Organization Detai ls LastModified Time None Recorded Concern Status LastModified by Organization Details LastModified Time None Recorded Advance Directives Directive N: Payers Insurance Date Sequence Insurance Name Policy Number Policy Molina Covered Member ID Molina Member ID Guarantor Name 02/21/2023 1 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 Berta Rodriguez 02/26/2025 [place] [id number] - C Berta G Jennifer [id number] Berta G Jennifer 01/02/2025 SLIDING FEE SCHEDULE - DISCOUNT Berta G Jennifer 12/08/2024 2 [facility] (MEDICAID REPLACEMENT - HMO) Berta M Jennifer [id number] Berta G Jennifer 02/26/2025 1 [place] Berta G Jennifer [id number] Berta G Jennifer 02/25/2025 [place] [facility] [place] Berta G Jennifer [id number] Berta G Jennifer 10/30/2024 1 [facility] (MEDICAID REPLACEMENT - HMO) Berta M Jennifer [id number] Berta G Jennifer 02/25/2025 2 [place] [facility] [employer] - FFS/TRADITIONA L Berta M Jennifer [id number] Berta G Jennifer Notes Date Note Type Note Provider Name and Address Organization Details Recorded Time 08/25/2024 text/html pt here today wi th c/o dysuria, urinary frequency and vaginal itching for almost 2 weeks. pt states that every time this happens she gets medication and it seems to get better but then it comes back. UA with leuks. ordered a culture and swab to check for yeast. in the meantime i will treat for infection and vaginal yeast. educated pt on new meds. pt voiced understanding. pt also talked about wt loss med. pt insurance will not cover injectables and pt cannot take a stimulant due to heart palpitations with caffeine. pt also would like to go to derm for skin check. she has a couple of skin lesions she would like looked at. Meaghan Mcnamara APRN [address] [facility], [place], [address], [employer] 08/25/2024 15:41:05 09/25/2024 text/html pt here today fo r medication refills. pt states shes doing well and has no new complaints today. ordered routine labwork today. Meaghan Mcnamara APRN [address] [place], [address], [employer] 09/25/2024 12:14:41 11/25/2024 text/html 63 year old alvarez walter presents with dysuria x 3 days. States she has had recurrent UTI within the past year, with last one being in sep. States she is good until she stops taking abx. Was told it could also chronic yeast, she was treated with diflucan in sep as well. Today pain over her bladder and with voiding. Also has burning and itching around her vulva. UA with blood and large leuks today. Nu swab and urine culture sent. Will prescribe abx and diflucan today. Will also refer to urology for further workoup. 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 Pt agreesShe also is in need of routine labs and refills. pt agrees today Meaghan Mcnamara APRN [address] [place], [address], [employer] 11/25/2024 12:44:46 12/08/2024 text/html 64 year old alvarez walter presents with cough, yellow chest congestion, hoarseness x 1 week. Denies fever. States shes been around illness at [facility]. Declines testing today. Left upper lobe with Exp wheezing. Will prescribe steroids and abx today.She had f.u with urology. Switched her abx, ordered oxybutynin, ct and cystoscopy. pt also has rash below right nostril. appears to be impetigo. Meaghan Mcnamara APRN [address] [facility], [place], [address], [employer] 12/08/2024 17:48:48 02/26/2025 text/html pt here today fo r medication refills. pt states shes doing well on current medication regime. pt states around 5 days age she was stepping up into a truck and twisted or did something to her right knee and now it hurts worse than her left. states that she has been getting injections in both knees and is currently being working up for left knee sx. and now her right knee is hurting worse. states that she has taken OTC med and applied ice and has rest but its not helping. pt states when she did it something felt like it was pulling . states that it still feels that way. on exam, pt has moderate tenderness just below patella and to medial patella. states that it hurts worse weight bearing and when going up stairs. i will order xray for further evaluation and steroids to help with inflammation. A1C 6.6, 6.7 at last visit. pt states that she is trying to cut out carbs but she just got some steroid injection in bilateral knees. again went over diabetic diet and exercise with pt. Meaghan Mcnamara APRN [address] [facility], [place], [address], [facility] [employer] 02/26/2025 10:49:54 OBGyn Episode No OBEpisode recorded.
== END 2025-03-02 23:59 | disposition home or self-care (01) ==
LOC: LAB.DROPOF 16:14
PROVIDERS: PCP Urology; Visit Provider Urology
DX: N30.01 Acute cystitis with hematuria (principal)
CPT/HCPCS: 81001; 87086; 87088

== ENCOUNTER 2025-05-24 17:32 | Emergency (ER) | payer MEDICARE, MEDICAID, SELFPAY ==
--- OUTSIDE RECORDS SUMMARY | 2025-05-24 17:47 | XMS_ITS | Clinical Summary ---
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 Medications No information available. Medications Administered No information available. Allergies, Adverse Reactions, Alerts No information available. Results No information available. Plan of Care No information available. Procedures No information available. Vital Signs No information available. Immunizations No information available. Advance Directives No information available.
[2025-05-24 17:49] VITALS: BP 195/111; PULSE 62; RESP 17; TEMP 36.7; O2SAT 95; BMI 37.4
--- NOTE | 2025-05-24 18:03 | PC.NURSE ---
Patient became upset when I asked her to fill out the dog bite form for mandatory reporting to the health department. Patient states she does not want to be seen by the physician. She states she will go to her family doctor tomorrow to be seen.
== END 2025-05-24 18:07 | disposition left against medical advice (07) ==
LOC: ER 17:46
PROVIDERS: Emergency Provider Student in an Organized Health Care Education/Training Program; PCP Nurse Practitioner
DX: Z53.21 Procedure and treatment not carried out due to patient leaving prior to being seen by health care provider (principal)
CPT/HCPCS: 99211; 99282

== ENCOUNTER 2025-08-05 13:49 | Outpatient (CLI) | payer MEDICARE, MEDICAID, SELFPAY ==
--- NOTE | 2025-08-05 13:52 | MM_ITS ---
PROCEDURE INFORMATION: Exam: MG Bilateral Screening 3D Mammography Exam date and time: 08/05/2025 1:58 PM Age: 64 years old Clinical indication: Screening mammogram TECHNIQUE: Imaging protocol: Bilateral Screening tomosynthesis and 2D mammography including computer-aided detection (CAD) when performed. COMPARISON: 1. MG MM DIG SCREENING MAMM BI W/CAD 03/25/2024 10:18 AM 2. MG MM DIG SCREENING MAMM BI W/CAD 08/14/2022 9:47 AM 3. MG MM DIG SCREENING MAMM BI W/CAD 04/05/2021 8:09 AM 4. MG MM DIG SCREENING MAMM BI W/CAD 09/16/2019 8:28 AM FINDINGS: MAMMOGRAPHY: Breast composition: The breasts are almost entirely fatty. Mass: None. Architectural distortion: No new or suspicious architectural distortion. Calcifications: No new or suspicious calcifications are present Asymmetric density: No new or suspicious asymmetric density is present Skin thickening: None. Axillary adenopathy: None. IMPRESSION: No mammographic evidence of malignancy. Recommend annual screening mammography unless otherwise clinically indicated. ASSESSMENT: BI-RADS category 1: Negative.
--- OUTSIDE RECORDS SUMMARY | 2025-08-05 15:12 | XMS_ITS | Clinical Summary ---
Author Organization [facility] Address [address] [place] [address] Phone Care Team Providers Care Pharmacy Resource Tech Name Role Phone Unavailable Unavailable Conditions or Problems No information available. Medications No information available. Medications Administered No information available. Allergies, Adverse Reactions, Alerts No information available. Results No information available. Plan of Care No information available. Procedures No information available. Vital Signs No information available. Immunizations No information available. Advance Directives No information available.
--- OUTSIDE RECORDS SUMMARY | 2025-08-05 15:13 | XMS_ITS | Continuity of Care Document ---
Author Organization [facility] Address [address] [place] [id number] Care Team Providers Care Tobacco Stemmer Machine Name Role Phone MEAGHAN MCNAMARA Primary Care Provider Unavailabl e Assessment No assessment recorded. Plan of Treatment Reminders Order Date Submit Date Provider Last Modified By Organization Details Last Modified Time Details Appointments FOLLOW UP 2025 09:00A M Varun Mcnamara [employer]TENAN[employer] GROUNDSK[employer]PER Not available Not available Not available Lab HbA1c (hemoglob in A1c), blood [address], [address] [place] [address], [id number], 07/14/2025 14:00:46 Referral None recorded. Procedures None recorded. Surgeries None recorded. Imaging MAMMO, screening , digital, bilateral [address] (Formerly [facility]), [address], [place], [address], 07/28/2025 11:11:10 Medication Orders Depo-Medr ol 40 mg/mL suspensio n for injection [address] [facility] [address] [facility], [address] [place] [address], [id number], 07/14/2025 14:36:51 fenofibra te nanocryst allized 48 mg tablet [facility]24 [facility] [address] [place] [address], [id number], 07/20/2025 08:28:54 methocarb heber 500 mg tablet 2024 025 [facility], [address] [place] [address], [id number], 07/20/2025 08:28:51 Patient TargetsNo targets recorded. Patient InstructionsNo instructions recorded. Reason for Referral None Reported. Results Created Date Observation Date Name Description Value Unit Range Abnormal Flag Note LastModifiedBy Organization Detail LastModifiedTime 07/14/2007/14/2025 HbA1c (hemo globi n A1c), blood HbA1c 6.0 Not Available [address], [id number], 07/14/2025 13:39:53 Result Notes None recorded. Problems Name Problem SNOMED Code Status Onset Date Resolution Date Notes Provider Name and Address Organization Details Recorded Time Generali zed anxiety disorder [id number] Completed 201501/25/2021 Problem Code: 300.02; Problem Code Type: ICD-9; Not Available [facility] 22:56:12 Acute pharyngi tis 216510253 Completed 201509/29/2016 Problem Code: J02.8; Problem Code Type: ICD-10; Not Available [facility] 22:55:54 Cough 18719752 Completed 201511/14/2016 Problem Code: R05; Problem Code Type: ICD-10; Sarah keen [facility] [employer] 13:56:02 Spasm of back muscles 702326164 Completed 201612/15/2016 Problem Code: M62.830; Problem Code Type: ICD-10; Not Available [facility] 22:56:11 Generali zed anxiety disorder 59884501 Completed 201601/25/2021 Problem Code: 300.02; Problem Code Type: ICD-9; Not Available [facility] 22:56:15 Spasm 36746233 Completed 201612/15/2016 Problem Code: 728.85; Problem Code Type: ICD-9; Not Available [facility] 22:56:20 Generali zed anxiety disorder 41022825 Active 2016 Problem Code: F41.1; Problem Code Type: ICD-10; Not Available [facility] 22:55:53 Streptoc occal sore throat 72168508 Completed 201601/14/2017 Problem Code: J02.0; Problem Code Type: ICD-10; Not Available [facility] 2 22:55:54 Fever 530316603 Completed 201607/20/2022 Problem Code: R50.81; Problem Code Type: ICD-10; KARMA keen [employer] 08:38:26 Spasm of back muscles 658564622 Completed 201603/30/2017 Problem Code: M62.830; Problem Code Type: ICD-10; Not Available [facility] 2 22:55:57 Spasm 98850145 Completed 201603/30/2017 Problem Code: 728.85; Problem Code Type: ICD-9; Not Available [facility] 22:56:20 Mixed hyperlip idemia 967201204 Active 2016 Problem Code: E78.2; Problem Code Type: ICD-10; Not Available [facility] 22:55:53 Hyperten sive disorder 76820766 Active 2016 Problem Code: I10; Problem Code Type: ICD-10; Not Available [facility] 2 22:55:54 Dysthymi a 49991913 Completed 201609/04/2019 Problem Code: R53.81; Problem Code Type: ICD-10; Not Available [facility] 22:56:00 Benign essentia l hyperten andrew 6052210 Completed 201601/25/2021 Problem Code: 401.1; Problem Code Type: ICD-9; Not Available [facility] 2 22:56:16 Malaise and fatigue 883299489 Completed 201601/25/2021 Problem Code: 780.79; Problem Code Type: ICD-9; Not Available [facility] 2 22:56:26 Acute pharyngi tis 036116797 Completed 201605/28/2017 Problem Code: J02.8; Problem Code Type: ICD-10; Not Available [facility] 2 22:55:54 Acute pharyngi tis 430088147 Completed 201606/14/2017 Problem Code: J02.8; Problem Code Type: ICD-10; Not Available [facility] 2 22:55:54 Low back pain 696245186 Active 2016 Problem Code: M54.5; Problem Code Type: ICD-10; Not Available [facility] 22:55:56 Lumbar spondylo listhesi s [id number] 9102 Completed 201607/20/2022 Problem Code: M43.16; Problem Code Type: ICD-10; KARMA keen [facility] [employer] [facility]. 08:38:26 Acquired spondylo listhesi s 535790158 Completed 201601/25/2021 Problem Code: 738.4; Problem Code Type: ICD-9; Not Available [facility] 22:56:18 Low back pain 482938695 Completed 201609/04/2019 Problem Code: M54.5; Problem Code Type: ICD-10; Not Available [facility] 2 22:55:57 Divertic ulitis of large intestin e without complica tion 698850873 Completed 201606/17/2021 Problem Code: K57.32; Problem Code Type: ICD-10; Not Available [facility] 2 22:55:54 Divertic ulitis of colon 378784198 Completed 201601/25/2021 Problem Code: 562.11; Problem Code Type: ICD-9; Not Available [facility] 2 22:56:17 Generali zed anxiety disorder 54811776 Completed 201709/19/2018 Problem Code: F41.1; Problem Code Type: ICD-10; Not Available [facility] 2 22:55:53 Cyst of thyroid 65652665 Completed 201701/25/2021 Problem Code: 246.2; Problem Code Type: ICD-9; Not Available [facility] 2 22:56:09 Benign essentia l hyperten andrew 2232430 Completed 201701/25/2021 Problem Code: 401.1; Problem Code Type: ICD-9; Not Available [facility] 2 22:56:17 Acute sinusiti s 76903849 Completed 201701/31/2018 Problem Code: J01.90; Problem Code Type: ICD-10; Not Available [facility] 2 22:55:54 Divertic ulum of [place] an tube 255667008 Completed 201703/18/2018 Problem Code: H69.80; Problem Code Type: ICD-10; Not Available [facility] 2 22:56:01 Dysfunct ion of [place] an tube 58645138 Completed 201703/18/2018 Problem Code: 381.81; Problem Code Type: ICD-9; Not Available [facility] 2 22:56:16 Abnormal weight gain 654459556 Completed 201706/15/2018 Problem Code: R63.5; Problem Code Type: ICD-10; Not Available [facility] 2 22:56:00 Rebound tenderne ss 01961401 Completed 201708/09/2018 Not Available [facility] 2 22:55:59 Urinary tract infectio us disease 19153139 Completed 201709/24/2018 Problem Code: N39.0; Problem Code Type: ICD-10; Not Available [facility] 2 22:56:14 Generali zed abdomina l pain 740548860 Completed 201708/09/2018 Problem Code: 789.07; Problem Code Type: ICD-9; Not Available [facility] 2 22:56:19 Acute sinusiti s 44733832 Completed 201810/03/2018 Problem Code: J01.90; Problem Code Type: ICD-10; Not Available [facility] 2 22:56:03 Irritabl e bowel syndrome 79112784 Active 2018 Problem Code: K58.2; Problem Code Type: ICD-10; Not Available [facility] 22:55:55 Obstruct meg sleep apnea syndrome 44011587 Active 2018 Problem Code: G47.33; Problem Code Type: ICD-10; Not Available [facility] 2 22:55:53 Acute vaginiti s 11024373 Completed 201808/21/2019 Problem Code: N76.0; Problem Code Type: ICD-10; KARMA keen, [employer] 08:38:26 Divertic ulitis of intestin e 565734247 Completed 201807/20/2022 Problem Code: K57.92; Problem Code Type: ICD-10; KARMA SEBASTIAN [employer] 08:38:26 Abdomina l pain 21439329 Completed 201807/20/2022 Problem Code: R10.9; Problem Code Type: ICD-10; KARMACARLOS SEBASTIAN [employer], [employer] 08:38:26 Body mass index 30+ - obesity 418295113 Completed 201802/01/2021 Problem Code: Z68.37; Problem Code Type: ICD-10; Not Available [facility] 2 22:56:08 History of disorder of digestiv e system 280794135 Completed 201807/20/2022 Problem Code: Z87.19; Problem Code Type: ICD-10; KARMACARLOS SEBASTIAN [employer], [employer] 08:38:26 Epidermo id cyst of skin 456015959 Completed 201810/02/2022 Problem Code: L72.3; Problem Code Type: ICD-10; KARMA keen, [employer] 3 10:15:38 Plantar fascial fibromat osis 66088561 Completed 201805/03/2020 Problem Code: M72.2; Problem Code Type: ICD-10; Not Available [facility] 2 22:55:57 Screenin g mammogra phy Completed 201807/20/2022 Problem Code: Z12.31; Problem Code Type: ICD-10; KARMA keen, [employer] 2 08:38:26 Body mass index 30+ - obesity 240683258 Completed 201802/01/2021 Problem Code: Z68.37; Problem Code Type: ICD-10; Not Available [facility] 2 22:56:23 Disorder of skin and/or subcutan eous tissue 43811519 Completed 201807/20/2022 Problem Code: L98.9; Problem Code Type: ICD-10; KARMA keen, [employer] 2 08:38:26 Body mass index 30+ - obesity 525358774 Completed 201802/01/2021 Problem Code: Z68.37; Problem Code Type: ICD-10; Not Available [facility] 2 22:56:09 Acute sinusiti s 49565196 Completed 201802/02/2020 Problem Code: J01.90; Problem Code Type: ICD-10; Not Available [facility] 22:55:54 Acute respirat ory infectio ns 546475535 Completed 201807/20/2022 Problem Code: J22; Problem Code Type: ICD-10; KARMACARLOS keen, [employer] 2 08:38:26 Screenin g mammogra phy Completed 201805/03/2020 Problem Code: Z12.31; Problem Code Type: ICD-10; KARMA keen, [employer] 2 08:38:26 Body mass index 30+ - obesity 034750361 Completed 201902/01/2021 Problem Code: Z68.37; Problem Code Type: ICD-10; Not Available [facility] 2 22:56:06 Dog bite Completed 201902/02/2020 [employer] [employer] 2 08:38:26 Endocrin e/metabo lic screenin g Completed 201910/02/2022 Problem Code: Z13.29; Problem Code Type: ICD-10; KARMA keen, [employer] 3 10:15:38 General examinat ion of patient Completed 201907/20/2022 [employer] 2 08:38:26 Body mass index 30+ - obesity 679786552 Completed 201902/01/2021 Problem Code: Z68.37; Problem Code Type: ICD-10; Not Available [facility] 2 22:56:06 Current drug user 293003664 Active 2019 Problem Code: Z79.899; Problem Code Type: ICD-10; Not Available [facility] 2 22:56:07 Divertic ular disease of colon 719615242 Active 2019 Problem Code: K57.30; Problem Code Type: ICD-10; KARMA keen, [employer] 2 08:38:51 Constipa tion 44758395 Completed 201907/20/2022 KARMA keen, [employer] 2 08:38:26 Pain in right knee Completed 201907/20/2022 Problem Code: M25.561; Problem Code Type: ICD-10; KARMA keen, [employer] 2 08:38:26 Plantar fascial fibromat osis 61836662 Active 2019 Problem Code: M72.2; Problem Code Type: ICD-10; Not Available [facility] 2 22:55:57 Low back pain 396580095 Completed 201904/22/2021 Problem Code: M54.5; Problem Code Type: ICD-10; Not Available [facility] 22:56:11 Candidia sis of vulva 2088064 Completed 201902/01/2021 Not Available [facility] 22:55:53 Body mass index 30+ - obesity 550873618 Active 2020 Problem Code: Z68.36; Problem Code Type: ICD-10; Not Available [facility] 22:56:05 Acquired hallux malleus 32350943 Active 2020 Problem Code: M20.40; Problem Code Type: ICD-10; Not Available [facility] 22:56:09 Bunion 499102070 Active 2020 Problem Code: M21.619; Problem Code Type: ICD-10; Not Available [facility] 22:56:10 Dog bite Completed 202007/20/2022 [employer] 08:38:26 Low back pain 511381865 Completed 202004/22/2021 Problem Code: M54.5; Problem Code Type: ICD-10; Not Available [facility] 22:55:56 Left side sciatica 89627077846 9104 Completed 202004/22/2021 Problem Code: M54.32; Problem Code Type: ICD-10; Not Available [facility] 2 22:55:56 Urinary tract infectio us disease 10857590 Completed 202004/22/2021 Problem Code: N39.0; Problem Code Type: ICD-10; Not Available [facility] 22:55:58 Cat scratch disease 88146629 Completed 202007/20/2022 Problem Code: A28.1; Problem Code Type: ICD-10; KARMA keen [employer] 08:38:26 Urinary tract infectio us disease 88798495 Completed 202004/22/2021 Problem Code: N39.0; Problem Code Type: ICD-10; Not Available [facility] 2 22:55:58 Dysuria 12572340 Completed 202004/22/2021 Problem Code: R30.0; Problem Code Type: ICD-10; Sarah Quiroga leonila, [employer] 4 13:54:17 Screenin g mammogra phy Completed 202004/22/2021 Problem Code: Z12.31; Problem Code Type: ICD-10; KARMA SOLNER [employer], [employer] 2 08:38:26 General examinat ion of patient Completed 202006/17/2021 KARMACARLOS SOLNER [employer], [employer] 2 08:38:26 Screenin g for malignan t neoplasm of colon Completed 202007/20/2022 KARMACARLOS SOLNER [employer] 2 08:38:26 Chronic fatigue syndrome 18445134 Active 2020 Problem Code: R53.82; Problem Code Type: ICD-10; Not Available [facility] 2 22:56:00 Gynecolo gic examinat ion Completed 202007/20/2022 Problem Code: Z01.411; Problem Code Type: ICD-10; KARMA SOLNER leonila, [employer] 2 08:38:26 Body mass index 30+ - obesity 997324602 Completed 202012/22/2021 Problem Code: Z68.38; Problem Code Type: ICD-10; Not Available [facility] 2 22:56:07 Neoplast ic disease of uncertai n behavior 118880822 Completed 202107/20/2022 Problem Code: D48.9; Problem Code Type: ICD-10; KARMA SOLNER [employer], [employer] 2 08:38:26 Fracture of lumbar spine 799167350 Completed 202107/20/2022 Problem Code: S32.009A ; Problem Code Type: ICD-10; KARMA SOLNER leonila, [employer] 2 08:38:26 Fracture of shoulder 86184792128 901391 Completed 202107/20/2022 Problem Code: S42.90XA ; Problem Code Type: ICD-10; KARMA SOLNER leonila, [employer] 2 08:38:26 Urinary tract infectio us disease 88738093 Completed 202102/20/2022 Problem Code: N39.0; Problem Code Type: ICD-10; Not Available [facility] 2 22:55:57 Dysuria 59749135 Completed 202107/20/2022 Problem Code: R30.0; Problem Code Type: ICD-10; Sarah keen, [employer] 4 13:54:17 Acute vaginiti s 86026777 Completed 202107/20/2022 Problem Code: N76.0; Problem Code Type: ICD-10; KARMA SOLNER leonila, [employer] 2 08:38:26 Pain of left hip joint 91928581733 9100 Completed 202107/20/2022 Problem Code: M25.552; Problem Code Type: ICD-10; KARMA JAZCARMELITA keen, [employer] 2 08:38:26 Dysuria 72858898 Active 2023 Problem Code: R30.0; Problem Code Type: ICD-10; Sarah keen, [employer] 4 13:54:17 Recurren t urinary tract infectio n 420941360 Active 2023 Sarah keen, [employer] 4 13:54:30 Vaginal discharg e 087010815 Active 2023 Sarah keen, [employer] 4 13:54:43 Vaginal irritati on 394512702 Active 2024 Sarah Quiroga null, [employer] 09:40:04 Cough 19208819 Active 2024 Problem Code: R05; Problem Code Type: ICD-10; Sarah Quiroga null, [employer] 13:56:02 Type 2 diabetes mellitus 23995512 Active 2024 Sarah Quiroga null, [employer] 17:20:31 Lacerati on of right hand 63737123805 109794 Active 2024 Sarah Quiroga null, [employer] 14:34:23 Diabetes mellitus 51182488 Active 2024 Sarah Quiroga null, [employer] 14:21:25 Hyperlip idemia 19503613 Active 2024 Sarah Quiroga null, [employer] 14:22:06 Fatigue 07523445 Active 2024 Sarah Quiroga null, [employer] 14:22:06 Hypergly cemia 50507483 Active 2024 Sarah Quiroga null, [employer] 14:22:06 Well controll ed type 2 diabetes mellitus 263441512 Active 2024 Sarah Quiroga null, [employer] 13:24:10 Chronic pain of left upper limb 59502062463 310155 Active 2024 Sarah Quiroga null, [employer] 14:01:42 Pain of knee region 7274820523 Active 2024 Sarah Mcguirey null, [employer] 14:18:49 Problem Notes None recorded. Procedures Surgical History Date Name Laterality Status Provider Name and Address Organization Details Recorded Time 03/25/20 24 Most Recent Mammogram completed Sarah Quiroga [employer] 06/09/2024 11:20:51 08/29/20 16 cholecystectomy completed Not Available [facility] 05/23/2022 22:56:18 Orthopedic Surgery completed [facility] 09/19/2022 09:53:54 Gallbladder Surgery completed [facility] 09/19/2022 09:53:54 Colposcopy completed [facility] 09/19/2022 09:53:54 Imaging Results None recorded. Procedure Notes None recorded. Medical Equipment None Reported. Allergies Allergen ID Allergen Name Allergen Category Reaction Reaction Severity Criticality Documentation Date Start Date Code Code System Note Provider Name and Address Organization Details Recorded Time 43407 ibuprofen medicatio n Not available Not available Not available 05/23/2022 5640 RxNorm Not Available [facility] 22:57:15 98824 Norvasc medicatio n Not available Not available Not available 05/23/2022 66139 RxNorm Not Available [facility] 22:57:15 Medications Name Sig Start Date Stop [...] completed Not Available Not Available Not Available celecoxib 200 mg capsule TAKE 1 CAPSULE BY MOUTH EVERY DAY active Not Available Not Available No t Available cyclobenz aprine 10 mg tablet TAKE 1 TABLET BY MOUTH TWICE DAILY NEEDED FOR MUSCLE SPASM 11/06 completed Not Available Not Available Not Available methocarb heber 500 mg tablet TAKE 1 TABLET BY MOUTH 4 TIMES DAILY NEEDED FOR muscle ACHES active Not Available Not Available No t Available promethaz ine-DM 6.25 mg-15 mg/5 mL oral syrup Take 1 teaspoon by mouth q 4 to 6 hr 07/30 completed Not Available Not Available Not Available nystatin 100,000 unit/mL oral suspensio n Take 5 mL 4 times a day by oral route for 7 days. 11/16 completed Not Available Not Available Not Available prednison e 10 mg tablet Take 1 tablet 3 times a day by oral route for 3 days. 05/14 completed Not Available Not Available Not Available Depo-Medr ol 40 mg/mL suspensio n for injection Take 1 mg by injectio n route. 2024 active Not Available Not Available Not Avai lable polyethyl kelvin glycol 3350 17 gram oral [...] Available metoprolo l tartrate 100 mg tablet TAKE 1 TABLET BY MOUTH TWICE DAILY active Not Available Not Available No t Available tizanidin e 4 mg tablet 1 po [...] Not Available prednison e 20 mg tablet TAKE ONE TABLET BY MOUTH THREE TIMES DAILY FOR THREE DAYS 05/04 completed Not Available Not Available Not Available prednison e 5 mg tablet 10 pills [...] Avai lable lorazepam 0.5 mg tablet TAKE 1 TABLET BY MOUTH TWICE DAILY NEEDED active [...] Not Available cephalexi n 500 mg capsule Take 1 capsule twice a day by oral route for 7 days. 06/08 completed Not Available Not Available Not Available erythromy susy 5 mg/gram (0.5 %) eye ointment 09/06 completed Not Available Not Available Not Available nitrofura ntoin macrocrys jocelynn 100 mg capsule TAKE 1 CAPSULE BY MOUTH AT BEDTIME NIGHTLY WITH MEALS 05/04 completed Not Available Not Available Not Available lidocaine [...] BY TOPICAL ROUTE 3 TIMES PER DAY 07/14 completed Not Available Not Available Not Available polyethyl kelvin glycol 3350 17 gram/dose oral powder 1 capful in 8 oz beverage q day 2024 active Not Available Not Available Not Avai lable estradiol 0.01% (0.1 mg/gram) vaginal cream USING FINGER TECHNIQU E APPLY 1 GRAM VAGINALL Y ONCE DAILY FOR 14 DAYS THEN USE 1 GRAM VAGINALL Y 3 TIMES WEEKLY active Not Available Not [...] MOUTH EVERY 8 HOURS NEEDED FOR NAUSEA 07/14 completed Not Available Not Available Not Available cefdinir 300 mg capsule TAKE 1 [...] tablet TAKE 1 TABLET BY MOUTH EVERY DAY active Not Available Not Available No [...] Available Not Available Lactobaci llus acidophil us 04/22 completed Not Available Not Available Not Available fenofibra te nanocryst allized 48 mg tablet TAKE 1 TABLET BY MOUTH EVERY DAY active Not Available Not Available No t Available calcium 600 mg (as carbonate )-vitamin D3 10 mcg (400 unit) tablet TAKE 1 TABLET BY MOUTH TWICE DAILY active Not Available Not Available No t Available diclofena c 1 % topical gel 07/20 completed Not Available Not Available Not Available Mucus Relief ER 600 mg tablet, extended release TAKE 1 TO 2 TABLETS BY MOUTH TWICE DAILY NEEDED FOR CONGESTI ON 09/19 completed Not Available Not Available Not Available Certavite -Antioxid ant 18 mg-400 mcg tablet TAKE 1 TABLET BY MOUTH EVERY DAY active Not Available Not Available No t Available calcium 600 mg (as carbonate )-vitamin D3 20 mcg (800 unit) tablet Take 1 tablet twice a day by oral route. 07/14 completed Not Available Not Available Not Available One Daily Multivita min 400 mcg tablet Take 1 tablet every day by oral route for 90 days. 2024 active Not Available Not Available Not Avai lable potassium chloride ER 20 mEq tablet,ex tended release Take 1 tablet by mouth once daily 07/20 completed Not Available Not Available Not Available Vitals Date Recorded Body height Body mass index (BMI) Body weight Heart rate Oxygen saturation Oxygen saturation in Arterial blood by Pulse oximetry Systolic And Diastolic Provider Name and Address Organization Details Last Updated DateTime 5 170.18 cm 38.1 kg/m2 254117. 95 g 73 /min 91 % 91 % 136/77 mm[Hg] Sarah Quiroga [employer], [employer]. 5 13:28:49 Social History Question Answer Notes LastModified by Organizat ion Details LastModified Time Tobacco Smoking Status Never Smoker KARMA keen [employer], [employer] 07/20/2022 08:40:03 Do You Have An Advance Directive? No Information n ot available 07/20/2022 Is Your Home Air Conditioned? Yes [email or web address] Information not available 09/19/2022 Are You Blind Or Do You Have Difficulty Seeing? No [email or web address] Information n ot available 07/20/2022 Are You A Caregiver? No [email or web address] Information not available 07/20/2022 In The 14 Days Before Symptom Onset, Have You Had Close Contact With A Laboratory-confirm ed COVID-19 While That Case Was Ill? No [email or web address] Information n ot available 09/19/2022 In The 14 Days Before Symptom Onset, Have You Had Close Contact With A Person Who Is Under Investigation For COVID-19 While That Person Was Ill? No [email or web address] Information not available 09/19/2022 Have You Been To An Area Known To Be High Risk For COVID-19? No [email or web address] Information not available 09/19/2022 Are You Deaf Or Do You Have Serious Difficulty Hearing? No [email or web address] Information not available 07/20/2022 What Type Of Diet Are You Following? REGULAR [email or web address] Information n ot available 07/20/2022 Have There Been Any Changes To Your Family Or Social Situation? No [email or web address] Information no t available 07/20/2022 Are There Any Guns Present In Your Home? No [email or web address] Information not available 07/20/2022 Which Of Your Hands Is Dominant? Right [email or web address] Information n ot available 09/19/2022 Do You Have A Medical Power Of Curtain Stretcher? No [email or web address] Information not available 07/20/2022 What Was The Date Of Your Most Recent Tobacco Screening? 07/14/2025 [email or web address] Information not available 07/14/2025 Do You Have Any Pets? Yes [email or web address] Information not available 09/19/2022 Do You Use Protection During Sex? No [email or web address] Information not available 09/19/2022 What Is Your Relationship Status? Information not available 07/20/2022 Have You Repeated Any Grades? Yes [email or web address] Information not available 09/19/2022 Do You Use Your Seat Belt Or Car Seat Routinely? Yes Information not available 07/20/2022 Are You Sexually Active? Yes [email or web address] Information not available 09/19/2022 Do You Have Any Siblings? 3 [email or web address] Information not available 09/19/2022 Do You Have Smoke And Carbon Monoxide Detectors In Your Home? Yes [email or web address] Information not available 07/20/2022 Are You Passively Exposed To Smoke? No Information no t available 09/19/2022 Are There Any Smokers In Your House? Yes [email or web address] Information not available 09/19/2022 Do You Use Sunscreen Routinely? No [email or web address] Information not available 07/20/2022 Have You Recently Traveled Abroad? No [email or web address] Information not available 07/20/2022 Do You Have Difficulty Walking Or Climbing Stairs? No [email or web address] Information not available 07/20/2022 Are You Currently In School? No [email or web address] Information not available 07/20/2022 Sex: Unknown Functional Status Question Answer Note LastModified by Organizat ion Details LastModified Time Do you use any illicit or recreational drugs? No Information not available 09/19/2022 What is your level of alcohol consumption? None [email or web address] Information not available 07/20/2022 Are you currently employed? No [email or web address] Information not available 07/20/2022 Do you have transportation difficulties? No [email or web address] Information not available 07/20/2022 Are you able to walk independently without assistance or assistive devices? YESWOREST [email or web address] Information not available 07/20/2022 Do you have difficulty doing errands alone? No [email or web address] Information not available 07/20/2022 Are you able to care for yourself independently? Yes Information not available 07/20/2022 Do you have difficulty dressing, bathing, grooming, or toileting? No [email or web address] Information not available 07/20/2022 Mental Status Question Answer Note LastModified by Organizat ion Details LastModified Time Do you feel stressed (tense, restless, nervous, or anxious, or unable to sleep at night)? [id number] [email or web address] Information not available 09/19/2022 Do you have difficulty concentrating, remembering or making decisions? No [email or web address] Information no t available 07/20/2022 Are you or have you been involved with bullying? No Information not available 09/19/2022 Family History Relationship Description Onset Age of this Age Resolved Age Notes LastModified by Organization Details LastModified Time Unspecified Relation Family history of Hypertension [email or web address]-27 Not available 09:08:53 Unspecified Relation Family history of diabetes mellitus type 2 API-27 Not available 2023 09:08:53 Maternal Grandmother Hypertensive disorder [email or web address] Not available 09/19 09:53:52 Paternal Grandfather Hypertensive disorder [email or web address] Not available 09/19 09:53:52 Mother Hypertensive disorder [email or web address] Not available 09/19 09:53:52 Mother Arthritis Not availa ble 09/19/2022 09:53:52 Mother Diabetes mellitus Not available 09/19 09:53:52 Mother Hypercholest erolemia [email or web address] Not available 09/19 09:53:52 Mother Anxiety disorder [email or web address] Not available 09/19 09:53:52 Father Arthritis [email or web address] Not availa ble 09/19/2022 09:53:52 Father Liver problem Not available 09/19 09:53:52 Father Diabetes mellitus [email or web address] Not available 09/19 09:53:52 Father Hypertensive disorder [email or web address] Not available 09/19 09:53:52 Maternal Grandfather Hypertensive disorder [email or web address] Not available 09/19 09:53:52 Brother Hypertensive disorder [email or web address] Not available 09/19 09:53:52 Brother Diabetes mellitus [email or web address] Not available 09/19 09:53:52 Sister Hypertensive disorder [email or web address] Not available 09/19 09:53:52 Sister Diabetes mellitus [email or web address] Not available 09/19 09:53:52 Medical History Condition Response Hypertension Y [...] split virus, quadrivalent, PF 3 completed Reta Gary null, [employer] 07/10/2023 08:32:44 Influenza, split virus, quadrivalent, preservative [address] [place] null, [employer] 12/07/2023 09:26:55 Influenza, split virus, quadrivalent, preservative 0 completed Reta Gary null, [employer] 12/07/2023 09:26:55 Influenza, split virus, quadrivalent, preservative [address] [place] null, [employer] 12/07/2023 09:26:55 Tdap 7 completed Reta Gary null, [employer] 12/07/2023 09:26:55 COVID-19, mRNA, LNP-S, PF, 100 mcg/0.5mL dose or 50 mcg/0.25mL dose [address] [place] null, [employer] 12/07/2023 09:26:55 COVID-19, mRNA, LNP-S, PF, 100 mcg/0.5mL dose or 50 mcg/0.25mL dose [address] [place] null, [employer] 12/07/2023 09:26:55 Influenza, split virus, quadrivalent, PF [address] [place] null, [employer] 12/07/2023 09:26:55 zoster recombinant 4 completed Meaghan Mcnamara APRN [address] [place], [address], [employer] 03/13/2024 08:53:07 zoster recombinant 4 completed Meaghan Mcnamara APRN [address] [place], [address], [employer] 06/09/2024 12:19:53 Influenza, split virus, trivalent, PF 4 completed Sarah keen, [employer] 06/30/2024 09:50:26 Influenza, split virus, trivalent, preservative 5 completed KARMA SEBASTIAN null, [employer] 09/19/2022 09:52:55 Influenza, split virus, quadrivalent, PF 7 completed KARMA SEBASTIAN null, [employer] 09/19/2022 09:52:55 Td (adult), 2 Lf tetanus toxoid, preservative free, adsorbed 6 completed KARMA SEBASTIAN null, [employer] 09/19/2022 09:52:55 Td (adult), 2 Lf tetanus toxoid, preservative free, adsorbed 6 completed KARMA SEBASTIAN null, [employer] 09/19/2022 09:52:55 COVID-19, mRNA, LNP-S, PF, 100 mcg/0.5mL dose or 50 mcg/0.25mL dose 1 completed KARMA SEBASTIAN null, [employer] 09/19/2022 09:52:55 Influenza, split virus, quadrivalent, PF 2 completed KARMA SEBASTIAN null, [employer] 09/21/2022 15:11:16 Pneumococcal conjugate PCV15, polysaccharide EOM114 conjugate, adjuvant, PF 5 completed Meaghan Mcnamara, [employer] [address] [place], [address], [employer] 02/26/2025 09:36:12 Tdap 5 completed Sarah keen, [employer] 05/25/2025 14:52:02 Influenza, split virus, trivalent, PF 5 completed Sarah keen, [employer] 07/14/2025 14:20:49 Influenza, split virus, quadrivalent, PF 1 completed Reta keen, [employer] 12/07/2023 09:26:55 Influenza, split virus, quadrivalent, PF 0 completed Reta Berriose null, [employer] 12/07/2023 09:26:55 Influenza, split virus, quadrivalent, PF 9 completed Reta Corteschie null, [employer] 12/07/2023 09:26:55 Past Encounters Encounter ID Performer Location Encounter Start Date Encounter Closed Date Diagnosis/Indication Diagnosis SNOMED-CT Code Diagnosis ICD10 Code Diagnosis IMO Codes Diagnosis Note [id number] Meaghan Mcnamara, [place] [phone] 07/14/2025 13:20:05 07/14/2025 15:32:00 Well controlled type 2 diabetes mellitus 267952273 E11.9 076458 Screening mammography 24 176498 Z12.31 [id number] Mixed hyperlipidemia 267 462144 E78.2 Low back pain 818152696 M54.50 Requires i nfluenza virus vaccination 410199025 Z23 6367282 Pain of knee region 1003 085764 M25.561 M25.562 G89.29 11987103 Body mass index 30+ - obesity 316652616 Z68.38 428968 Health Concerns Section Related Observation LastModified by Organization Detai ls LastModified Time None Recorded Concern Status LastModified by Organization Details LastModified Time None Recorded Payers Encounter Date Sequence Insurance Name Policy Number Policy Molina Covered Member ID Molina Member ID Guarantor Name 07/14/2025 1 [place] Berta G Jennifer [id number] Berta G Jennifer 07/14/2025 2 MEDICAID-[facility] - [facility]ADIT[place] NAL Berta M Jennifer [id number] Berta G Jennifer Notes Date Note Type Note Provider Name and Address Organization Details Recorded Time 07/14/2025 text/html pt here today for medication refills. pt states shes doing well on current medication regime. pt states that her bilateral knees have been hurting, L>R, and she is going to have a LTKA sometime between jul-sep with dr waspe and they both have been really hurting and is requesting a steroid injection. pt also wants a flu vaccine. states that the tdap vaccine she received around 6 weeks ago has still made her RUE sore and she can barely raise it, as she is raising her RUE. advise pt to continue to move RUE and apply heat. pt has lost around 9 lbs since february and A1C is 6.0 today down from 6.7 in february and 6.6 at last visit. Meaghan Mcnamara APRN [address] [place], [address], [facility] [employer] 07/14/2025 14:37:20 OBGyn Episode No OBEpisode recorded.
--- OUTSIDE RECORDS SUMMARY | 2025-08-05 15:13 | XMS_ITS | Data Portability ---
Author Organization [facility] [employer] [place] - [place] Address [address] [place] [address] [place] [address] Care Team Providers Care Exam Proctor Name Role Phone MEAGHAN MCNAMARA Primary Care Provider Unavailabl e Assessment Encounter Date Assessment Date Assessment LastModified by Organization Details LastModified Time 05/04/2025 05/04/2025 Patient presented for medication refill. Patient tolerating medication well at current dose without adverse effects. Refilled as below. Discussed plan with patient, who expressed understanding . Follow up as noted below. [email or web address] [id number] Not available 05/04/2025 10:10:54 Plan of Treatment Reminders Order Date Submit Date Provider Last Modified By Organization Details Last Modified Time Details Appointments FOLLOW UP 30 2025 09:00A M Varun Mcnamara APRN Not available Not available Not available Lab HbA1c (hemoglob in A1c), blood [address], [address], 07/14/2025 14:00:46 HbA1c (hemoglob in A1c), blood [address], [address], 02/26/2025 12:36:45 drug screen, 14 drugs (detectim ed), urine 2024 025 NIKOLAY [facility] ([facility], [address] [place] [address], [place], [address], 03/05/2025 13:07:55 Referral None recorded. Procedures None recorded. Surgeries None recorded. Imaging MAMMO, screening , digital, bilateral 2024 apple2 [facility] ([facility]), [address], [place], [address], 07/28/2025 11:11:10 XR, knee, 3 view 2024 [facility], [address] [place] [address], [address], 02/26/2025 13:52:59 Medication Orders Depo-Medr ol 40 mg/mL suspensio n for injection [address], [address] [place] [address], [address], 07/14/2025 14:36:51 fenofibra te nanocryst allized 48 mg tablet 2024 025 [facility], [address] [place] [address], [address], 07/20/2025 08:28:54 methocarb heber 500 mg tablet 2024 025 [facility], [address] [place] [address], [address], 07/20/2025 08:28:51 cephalexi n 500 mg capsule 2024 025 [facility], [address] [place] [address], [address], 06/08/2025 05:01:25 metoprolo l tartrate 100 mg tablet 2024 025 [facility], [address] [place] [address], [address], 05/25/2025 15:16:22 calcium 600 mg (as carbonate )-vitamin D3 20 mcg (800 unit) tablet 2024 025 [facility], [address] [place] [address], [address], 07/14/2025 13:46:47 lorazepam 0.5 mg tablet 2024 025 [facility], [address] [place] [address], [address], 05/05/2025 18:00:11 Depo-Medr ol 40 mg/mL suspensio n for injection 2024 025 Not available 05/25/2025 14:28:27 prednison e 10 mg tablet 2024 025 [facility], [address] [place] [address], [address], 05/14/2025 05:01:13 fenofibra te nanocryst allized 48 mg tablet 2024 025 [facility], [address] [place] [address], [address], 03/03/2025 14:49:23 metoprolo l tartrate 100 mg tablet 2024 025 [facility], [address] [place] [address], [address], 03/03/2025 14:49:24 calcium 600 mg (as carbonate )-vitamin D3 20 mcg (800 unit) tablet 2024 025 [email or web address], [address] [place] [address], [address], 07/14/2025 13:29:07 prednison e 20 mg tablet 2024 025 [facility], [address] [place] [address], [address], 05/04/2025 09:48:49 doxycycli ne monohydra te 100 mg capsule 2024 025 [facility], [address] [place] [address], [address], 02/26/2025 09:06:29 prednison e 20 mg tablet [email or web address], [address] [place] [address], [address], 05/04/2025 09:40:21 mupirocin 2 % topical ointment 2024 025 [facility], [address] [place] [address], [address], 07/14/2025 13:46:46 Patient TargetsNo targets recorded. Patient Instructions Encounter Date Encounter Id Patient Instructions Last Modified By Organization Details Last Modified Time 02/26/2025 [id number] controlled substance agreement* [email or web address] Not available 02/26/2025 09:36:12 Reason for Referral None Reported. Results Created Date Observation Date Name Description Value Unit Range Abnormal Flag Note LastModifiedBy Organization Detail LastModifiedTime 11/26/1911/26/2024 FE+TI BC+FE R iron bind.cap.(TI BC) 300 ug/dL 250-45 0 normal Not Available [facility] ([facility]) [address] [place], [address], 11/26/2024 08:12:56 11/26/1911/26/2024 FE+TI BC+FE R UIBC 213 ug/dL 118-36 9 normal Not Available [facility] ([facility]) [address] [place], [address], 11/26/2024 08:12:56 11/26/19 25 11/26/2024 FE+TI BC+FE R iron 87 ug/dL 27-139 normal Not Available [facility] ([facility]) [address] [place], [address], 11/26/2024 08:12:56 11/26/1911/26/2024 FE+TI BC+FE R iron saturation 29 % 15-55 normal Not Available [facility] ([facility]) [address] [place], [address], 11/26/2024 08:12:56 11/26/1911/26/2024 FE+TI BC+FE R ferritin 288 NG/mL 15-150 above high normal Not Available [facility] ([facility]) [address] [place], [address], 11/26/2024 08:12:56 11/26/1911/26/2024 TSH+F REE T4 TSH 1.260 uIU/m L 0.450- 4.500 normal Not Available [facility] ([facility]) [address] [place], [address], 11/26/2024 08:12:56 11/26/1911/26/2024 TSH+F REE T4 T4,free(dire ct) 1.10 NG/dL 0.82-1 .77 normal Not Available [facility] ([facility]) [address] [place], [address], 11/26/2024 08:12:56 11/26/1911/26/2024 CBC WITH DIFFE RENTI AL/PL ATELE T WBC 12.8 x10e3 /uL 3.4-10 .8 above high normal Not Available [facility] ([facility]) [address] [place], [address], 11/26/2024 08:12:56 11/26/1911/26/2024 CBC WITH DIFFE RENTI AL/PL ATELE T RBC 5.41 x10e6 /uL 3.77-5 .28 above high normal Not Available [facility] ([facility]) [address] [place], [address], 11/26/2024 08:12:56 11/26/19 25 11/26/2024 CBC WITH DIFFE RENTI AL/PL ATELE T hemoglobin 16.3 g/dL 11.1-1 5.9 above high normal Not Available [facility] ([facility]) [address] [place], [address], 11/26/2024 08:12:56 11/26/19 25 11/26/2024 CBC WITH DIFFE RENTI AL/PL ATELE T hematocrit 48.9 % 34.0-4 6.6 above high normal Not Available [facility] ([facility]) [address] [place], [address], 11/26/2024 08:12:56 11/26/19 25 11/26/2024 CBC WITH DIFFE RENTI AL/PL ATELE T MCV 90 fL 79-97 normal Not Available [facility] ([facility]) [address] [place], [address], 11/26/2024 08:12:56 11/26/19 25 11/26/2024 CBC WITH DIFFE RENTI AL/PL ATELE T MCH 30.1 pg 26.6-3 3.0 normal Not Available [facility] ([facility]) [address] [place], [address], 11/26/2024 08:12:56 11/26/19 25 11/26/2024 CBC WITH DIFFE RENTI AL/PL ATELE T MCHC 33.3 g/dL 31.5-3 5.7 normal Not Available [facility] ([facility]) [address] [place], [address], 11/26/2024 08:12:56 11/26/1911/26/2024 CBC WITH DIFFE RENTI AL/PL ATELE T RDW 12.2 % 11.7-1 5.4 Not Available [facility] ([facility]) [address] [place], [address], 11/26/2024 08:12:56 11/26/19 25 11/26/2024 CBC WITH DIFFE RENTI AL/PL ATELE T platelets 233 x10e3 /uL 150-45 0 normal Not Available [facility] ([facility]) [address] [facility], [place], [address], 11/26/2024 08:12:56 11/26/19 25 11/26/2024 CBC WITH DIFFE RENTI AL/PL ATELE T neutrophils 83 % not estab. normal Not Available [facility] ([facility]) [address] [facility], [place], [address], 11/26/2024 08:12:56 11/26/19 25 11/26/2024 CBC WITH DIFFE RENTI AL/PL ATELE T lymphs 9 % not estab. normal Not Available [facility] ([facility]) [address] [facility], [place], [address], 11/26/2024 08:12:56 11/26/19 25 11/26/2024 CBC WITH DIFFE RENTI AL/PL ATELE T monocytes 6 % not estab. normal Not Available [facility] ([facility]) [address] [facility], [place], [address], 11/26/2024 08:12:56 11/26/19 25 11/26/2024 CBC WITH DIFFE RENTI AL/PL ATELE T eos 1 % not estab. normal Not Available [facility] ([facility]) [address] [facility], [place], [address], 11/26/2024 08:12:56 11/26/19 25 11/26/2024 CBC WITH DIFFE RENTI AL/PL ATELE T basos 1 % not estab. normal Not Available [facility] ([facility]) [address] [facility], [place], [address], 11/26/2024 08:12:56 11/26/19 25 11/26/2024 CBC WITH DIFFE RENTI AL/PL ATELE T immature cells [employer]ILROAD [employer] INSPECTOR Not Available [facility] ([facility]) [address] [facility], [place], [address], 11/26/2024 08:12:56 11/26/19 25 11/26/2024 CBC WITH DIFFE RENTI AL/PL ATELE T neutrophils (absolute) 10.6 x10e3 /uL 1.4-7. 0 above high normal Not Available [facility] ([facility]) [address] [place], [address], 11/26/2024 08:12:56 11/26/19 25 11/26/2024 CBC WITH DIFFE RENTI AL/PL ATELE T lymphs (absolute) 1.2 x10e3 /uL 0.7-3. 1 normal Not Available [facility] ([facility]) [address] [place], [address], 11/26/2024 08:12:56 11/26/19 25 11/26/2024 CBC WITH DIFFE RENTI AL/PL ATELE T monocytes(ab solute) 0.8 x10e3 /uL 0.1-0. 9 normal Not Available [facility] ([facility]) [address] [place], [address], 11/26/2024 08:12:56 11/26/19 25 11/26/2024 CBC WITH DIFFE RENTI AL/PL ATELE T eos (absolute) 0.2 x10e3 /uL 0.0-0. 4 normal Not Available [facility] ([facility]) [address] [place], [address], 11/26/2024 08:12:56 11/26/19 25 11/26/2024 CBC WITH DIFFE RENTI AL/PL ATELE T baso (absolute) 0.1 x10e3 /uL 0.0-0. 2 normal Not Available [facility] ([facility]) [address] [place], [address], 11/26/2024 08:12:56 11/26/19 25 11/26/2024 CBC WITH DIFFE RENTI AL/PL ATELE T immature granulocytes 0 % not estab. Not Available [facility] ([facility]) [address] [facility], [place], [address], 11/26/2024 08:12:56 11/26/19 25 11/26/2024 CBC WITH DIFFE RENTI AL/PL ATELE T immature grans (abs) 0.0 x10e3 /uL 0.0-0. 1 Not Available [facility] ([facility]) [address] [facility], [place], [address], 11/26/2024 08:12:56 11/26/19 25 11/26/2024 CBC WITH DIFFE RENTI AL/PL ATELE T NRBC [employer]PECTOR Not Available [facility] ([facility]) [address] [facility], [place], [address], 11/26/2024 08:12:56 11/26/19 25 11/26/2024 CBC WITH DIFFE RENTI AL/PL ATELE T hematology comments: [employer]IL[employer] INSPECTOR Not Available [facility] ([facility]) [address] [facility], [place], [address], 11/26/2024 08:12:56 11/26/19 25 11/26/2024 COMP. METAB OLIC PANEL (14) glucose 112 mg/dL 70-99 above high normal Not Available [facility] ([facility]) [address] [facility], [place], [address], 11/26/2024 08:12:57 11/26/19 25 11/26/2024 COMP. METAB OLIC PANEL (14) BUN 18 mg/dL 8-27 normal Not Available [facility] ([facility]) [address] [facility], [place], [address], 11/26/2024 08:12:57 11/26/19 25 11/26/2024 COMP. METAB OLIC PANEL (14) creatinine 0.67 mg/dL 0.57-1 .00 normal Not Available [facility] ([facility]) [address] [facility] [place], [address], 11/26/2024 08:12:57 11/26/19 25 11/26/2024 COMP. METAB OLIC PANEL (14) eGFR 98 mL/mi n/1.7 3 >59 normal Not Available [facility] ([facility]) [address] [facility] [place], [address], 11/26/2024 08:12:57 11/26/19 25 11/26/2024 COMP. METAB OLIC PANEL (14) BUN/creatini ne ratio 27 12-28 normal Not Available [facility] ([facility]) [address] [facility] [place], [address], 11/26/2024 08:12:57 11/26/19 25 11/26/2024 COMP. METAB OLIC PANEL (14) sodium 141 mmol/ L 134-14 4 normal Not Available [facility] ([facility]) [address] [facility] [place], [address], 11/26/2024 08:12:57 11/26/19 25 11/26/2024 COMP. METAB OLIC PANEL (14) potassium 4.4 mmol/ L 3.5-5. 2 normal Not Available [facility] ([facility]) [address] [facility] [place], [address], 11/26/2024 08:12:57 11/26/19 25 11/26/2024 COMP. METAB OLIC PANEL (14) chloride 101 mmol/ L 96-106 normal Not Available [facility] ([facility]) [address] [facility] [place], [address], 11/26/2024 08:12:57 11/26/19 25 11/26/2024 COMP. METAB OLIC PANEL (14) carbon dioxide, total 22 mmol/ L 20-29 normal Not Available [facility] ([facility]) [address] [facility], [place], [address], 11/26/2024 08:12:57 11/26/19 25 11/26/2024 COMP. METAB OLIC PANEL (14) calcium 9.4 mg/dL 8.7-10 .3 normal Not Available [facility] ([facility]) [address] [place], [address], 11/26/2024 08:12:57 11/26/19 25 11/26/2024 COMP. METAB OLIC PANEL (14) protein, total 6.6 g/dL 6.0-8. 5 normal Not Available [facility] ([facility]) [address] [place], [address], 11/26/2024 08:12:57 11/26/19 25 11/26/2024 COMP. METAB OLIC PANEL (14) albumin 4.2 g/dL 3.9-4. 9 normal Not Available [facility] ([facility]) [address] [facility] [place], [address], 11/26/2024 08:12:57 11/26/19 25 11/26/2024 COMP. METAB OLIC PANEL (14) globulin, total 2.4 g/dL 1.5-4. 5 Not Available [facility] ([facility]) [address] [facility] [place], [address], 11/26/2024 08:12:57 11/26/19 25 11/26/2024 COMP. METAB OLIC PANEL (14) bilirubin, total 0.8 mg/dL 0.0-1. 2 normal Not Available [facility] ([facility]) [address] [place], [address], 11/26/2024 08:12:57 11/26/19 25 11/26/2024 COMP. METAB OLIC PANEL (14) alkaline phosphatase 63 IU/L 44-121 normal Not Available [facility] ([facility]) [address] [facility] [place], [address], 11/26/2024 08:12:57 11/26/19 25 11/26/2024 COMP. METAB OLIC PANEL (14) AST (SGOT) 20 IU/L 0-40 normal Not Available [facility] ([facility]) [address] [place], [address], 11/26/2024 08:12:57 11/26/19 25 11/26/2024 COMP. METAB OLIC PANEL (14) ALT (SGPT) 17 IU/L 0-32 normal Not Available [facility] ([facility]) [address] [place], [address], 11/26/2024 08:12:57 11/26/19 25 11/26/2024 LIPID PANEL cholesterol, total 221 mg/dL 100-19 9 above high normal Not Available [facility] ([facility]) [address] [place], [address], 11/26/2024 08:12:57 11/26/19 25 11/26/2024 LIPID PANEL triglyceride s 129 mg/dL 0-149 normal Not Available [facility] ([facility]) [address] [place], [address], 11/26/2024 08:12:57 11/26/19 25 11/26/2024 LIPID PANEL HDL cholesterol 60 mg/dL >39 normal Not Available [facility] ([facility]) [address] [place], [address], 11/26/2024 08:12:57 11/26/19 25 11/26/2024 LIPID PANEL VLDL cholesterol anam 23 mg/dL 5-40 Not Available [facility] ([facility]) [address] [place], [address], 11/26/2024 08:12:57 11/26/19 25 11/26/2024 LIPID PANEL LDL chol calc ([facility]) 138 mg/dL 0-99 above high normal Not Available [facility] ([facility]) [address], [place], [address], 11/26/2024 08:12:57 11/26/1911/26/2024 LIPID PANEL LDL calc comment: [employer]ILRO[employer] INSPECTOR Not Available [facility] ([facility]) [address] [facility], [place], [address], 11/26/2024 08:12:57 11/26/1911/26/2024 VITAM IN B12 AND FOLAT E vitamin B12 402 pg/mL 232-12 45 normal Not Available [facility] ([facility]) [address] [facility] [place], [address], 11/26/2024 08:12:58 11/26/1911/26/2024 VITAM IN B12 AND FOLAT E folate (folic acid), serum 19.5 NG/mL >3.0 normal A serum folat e mart ntrat ion of less than 3.1 ng/mL is consi dered to repre sent clini anam defic iency . Not Available [facility] ([facility]) [address] [facility], [place], [address], 11/26/2024 08:12:58 11/26/1911/26/2024 HEMOG LOBIN A1C hemoglobin A1C 6.7 % 4.8-5. 6 above high normal Predi abete s: 5.7 - 6.4 Diabe chriss: >6.4 Glyce shemar contr ol for adult s with diabe chriss: <7.0 Not Available [facility] ([facility]) [address] [facility], [place], [address], 11/26/2024 08:12:58 11/26/1911/26/2024 VITAM IN D, 25-HY DROXY vitamin D, [...] um and D. Pepe alvarez [place]: [facility] Press . 2. Cheryl sainz MF, Moira ibanez [place], Khushbu off-F errar i FLOOD, et al. Evalu ation , treat ment, and preve ntion of vitam in D defic iency : an Endoc rine Socie ty clini anam pract ice guide line. JCEM. 2010; 96(7) :1911 -30. Not Available [facility] ([facility]) [address] [place], [address], 11/26/2024 08:12:59 11/26/19 25 11/26/2024 NUSWA B VAGIN ITIS PLUS (VG+) atopobium vaginae Low - 0 score Not Available [facility] ([facility]) [address] [place], [address], 11/27/2024 05:06:44 11/26/19 25 11/26/2024 NUSWA B VAGIN ITIS PLUS (VG+) bvab 2 Low - 0 score Not Available [facility] ([facility]) [address] [place], [address], 11/27/2024 05:06:44 11/26/19 25 11/26/2024 NUSWA B [...] d be evalu ated to estab radha briscoe osis. Total score 3-6: Indic ates the prese nce of BV. Not Available [facility] ([facility]) [address] [facility], [place], [address], 11/27/2024 05:06:44 11/26/19 25 11/26/2024 NUSWA B VAGIN ITIS PLUS (VG+) becky albicans, SUPA Negati ve negati ve Not Available [facility] ([facility]) [address] [place], [address], 11/27/2024 05:06:44 11/26/19 25 11/26/2024 NUSWA B VAGIN ITIS PLUS (VG+) becky glabrata, SUPA Negati ve negati ve Not Available [facility] ([facility]) [address] [place], [address], 11/27/2024 05:06:44 11/26/19 25 11/27/2024 NUA B VAGIN ITIS PLUS (VG+) trich vag by SUPA Negati ve negati ve Not Available [facility] ([facility]) [address] [place], [address], 11/27/2024 05:06:44 11/26/19 25 11/27/2024 NUSWA B VAGIN ITIS PLUS (VG+) chlamydia trachomatis, SUPA Negati ve negati ve Not Available [facility] ([facility]) [address] [place], [address], 11/27/2024 05:06:44 11/26/19 25 11/27/2024 NUSWA B VAGIN ITIS PLUS (VG+) neisseria gonorrhoeae, SUPA Negati ve negati ve Not Available [facility] ([facility]) [address] [place], [address], 11/27/2024 05:06:44 11/26/19 25 11/26/2024 URINE CULTU RE, ROUTI NE urine culture, routine Final report Not Available [facility] ([facility]) [address] [facility], [place], [address], 11/27/2024 05:06:44 11/26/19 25 11/26/2024 URINE CULTU RE, ROUTI NE result 1 COMMEN T Cultu re shows less than 10,00 0 colon y formi ng units of bacte vito per nicho liter of urine . This colon y count is not gener ally consi dered to be clini breanna signi fican t. Not Available [facility] ([facility]) [address] [facility], [place], [address], 11/27/2024 05:06:44 11/26/19 25 11/25/2024 urina lysis , dipst ick Leukocytes Large Not Available [address], [address], 11/25/2024 09:22:28 11/26/19 25 11/25/2024 urina lysis , dipst ick Nitrite negati ve Not Available [address], [address], 11/25/2024 09:22:28 11/26/19 25 11/25/2024 urina lysis , dipst ick Urobilinogen .2 Not Available [address], [address], 11/25/2024 09:22:28 11/26/19 25 11/25/2024 urina lysis , dipst ick Protein Negati ve Not Available [address], [address], 11/25/2024 09:22:28 11/26/19 25 11/25/2024 urina lysis , dipst ick pH 6.0 Not Available [address], [address], 11/25/2024 09:22:28 11/26/19 25 11/25/2024 urina lysis , dipst ick Blood Non-He molyze d: Trace Not Available [address], [address], 11/25/2024 09:22:28 11/26/19 25 11/25/2024 urina lysis , dipst ick Specific [place] 1.015 Not Available [address], [address], 11/25/2024 09:22:28 11/26/19 25 11/25/2024 urina lysis , dipst ick Ketone Negati ve Not Available [address], [address], 11/25/2024 09:22:28 11/26/19 25 11/25/2024 urina lysis , dipst ick Bilirubin Negati ve Not Available [address], [address], 11/25/2024 09:22:28 11/26/19 25 11/25/2024 urina lysis , dipst ick Glucose Negati ve Not Available [address], [address], 11/25/2024 09:22:28 11/26/19 25 11/25/2024 urina lysis , dipst ick Appearance Cloudy Not Available [address], [address], 11/25/2024 09:22:28 11/26/19 25 11/25/2024 urina lysis , dipst ick Color Dark Yellow Not Available [place] [address], [place], [address], 11/25/2024 09:22:28 02/27/20 25 03/05/2025 COMPL IANCE DRUG DEMI SIS, UR summary report (summary) FINAL ===== ===== ===== ===== ===== ===== ===== ===== ===== ===== ===== ===== ===== === TOXAS SURE COMP DRUG DEMI SIS,U R ===== ===== ===== ===== ===== ===== ===== ===== ===== ===== ===== ===== ===== === Test Resul t Flag Units Drug Prese nt Loraz epam 321 ng/mg creat Sourc e of loraz epam is a sched uled presc ripti on medic ation . Metho carba mol PRESE NT Aceta minop hen PRESE NT Metop rolol PRESE NT ===== ===== ===== ===== ===== ===== ===== ===== ===== ===== ===== ===== ===== === Test Resul t Flag Units Ref Range Creat inine 56 mg/dL >=20 ===== ===== ===== ===== ===== ===== ===== ===== ===== ===== ===== ===== ===== === Decla red Medic ation s: Medic ation list was not provi ded. ===== ===== ===== ===== ===== ===== ===== ===== ===== ===== ===== ===== ===== === For pam mendieta consu ltati onsofia call [phone]. ===== ===== ===== ===== ===== ===== ===== ===== ===== ===== ===== ===== ===== === Not Available [facility] ([facility]) [address] [facility], [place], [address], 03/05/2025 13:07:54 02/27/2003/05/2025 COMPL IANCE DRUG DEMI SIS, UR pdf . Not Available [facility] ([facility]) [address] [facility], [place], [address], 03/05/2025 13:07:54 02/27/20 25 02/26/2025 HbA1c (hemo globi n A1c), blood HbA1c 6.6 Not Available [address], [address], 02/25/2025 17:20:33 07/14/20 25 07/14/2025 HbA1c (hemo globi n A1c), blood HbA1c 6.0 Not Available [address], [address], 07/14/2025 13:39:53 01/28/20 25 05/13/2021 colon oscop y proce dure (PROC ) No observ ation record ed. [email or web address] Not Available 01/27 17:54:05 02/27/20 25 04/25/2021 DEXA No observ ation record ed. [email or web address] [facility] ([facility] Record) [address], [place], [address], 02/27/2025 10:30:40 02/27/20 XR, knee, 3 view No observ ation record ed. [email or web address] [address], [place], [address], 02/27/2025 10:09:09 03/25/20 25 03/18/2025 XR, knee, 3 view No observ ation record ed. [address] (Radiology) 19 [place] [address] [place], [address], 03/27/2025 10:53:27 03/25/20 25 03/18/2025 XR, knee, 3 view No observ ation record ed. [address] (Radiology) [address] [place] [address] [place], [address], 03/27/2025 10:53:34 Result Notes None recorded. Problems Name Problem SNOMED Code Status Onset Date Resolution Date Notes Provider Name and Address Organization Details Recorded Time Generali zed anxiety disorder [id number] Completed 201501/25/2021 Problem Code: 300.02; Problem Code Type: ICD-9; Not Available [facility] 22:56:12 Acute pharyngi tis 377284033 Completed 201509/29/2016 Problem Code: J02.8; Problem Code Type: ICD-10; Not Available [facility] 2 22:55:54 Cough 45700033 Completed 201511/14/2016 Problem Code: R05; Problem Code Type: ICD-10; Sarah keen [facility] [employer], [employer] 5 13:56:02 Spasm of back muscles 280738507 Completed 201612/15/2016 Problem Code: M62.830; Problem Code Type: ICD-10; Not Available [facility] 2 22:56:11 Generali zed anxiety disorder 61209130 Completed 201601/25/2021 Problem Code: 300.02; Problem Code Type: ICD-9; Not Available [facility] 2 22:56:15 Spasm 89656976 Completed 201612/15/2016 Problem Code: 728.85; Problem Code Type: ICD-9; Not Available [facility] 22:56:20 Generali zed anxiety disorder 72708979 Active 2016 Problem Code: F41.1; Problem Code Type: ICD-10; Not Available [facility] 22:55:53 Streptoc occal sore throat 07642664 Completed 201601/14/2017 Problem Code: J02.0; Problem Code Type: ICD-10; Not Available [facility] 22:55:54 Fever 832724070 Completed 201607/20/2022 Problem Code: R50.81; Problem Code Type: ICD-10; KARMA keen [employer]. 08:38:26 Spasm of back muscles 164551797 Completed 201603/30/2017 Problem Code: M62.830; Problem Code Type: ICD-10; Not Available [facility] 22:55:57 Spasm 00153720 Completed 201603/30/2017 Problem Code: 728.85; Problem Code Type: ICD-9; Not Available [facility] 22:56:20 Mixed hyperlip idemia 597545746 Active 2016 Problem Code: E78.2; Problem Code Type: ICD-10; Not Available [facility] 22:55:53 Hyperten sive disorder 71433251 Active 2016 Problem Code: I10; Problem Code Type: ICD-10; Not Available [facility] 2 22:55:54 Dysthymi a 13733504 Completed 201609/04/2019 Problem Code: R53.81; Problem Code Type: ICD-10; Not Available [facility] 22:56:00 Benign essentia l hyperten andrew 2532376 Completed 201601/25/2021 Problem Code: 401.1; Problem Code Type: ICD-9; Not Available [facility] 2 22:56:16 Malaise and fatigue 971841365 Completed 201601/25/2021 Problem Code: 780.79; Problem Code Type: ICD-9; Not Available [facility] 22:56:26 Acute pharyngi tis 567047076 Completed 201605/28/2017 Problem Code: J02.8; Problem Code Type: ICD-10; Not Available [facility] 22:55:54 Acute pharyngi tis 786760069 Completed 201606/14/2017 Problem Code: J02.8; Problem Code Type: ICD-10; Not Available [facility] 22:55:54 Low back pain 776725396 Active 2016 Problem Code: M54.5; Problem Code Type: ICD-10; Not Available [facility] 22:55:56 Lumbar spondylo listhesi s 98808401106 9102 Completed 201607/20/2022 Problem Code: M43.16; Problem Code Type: ICD-10; [facility] 08:38:26 Acquired spondylo listhesi s 922910995 Completed 201601/25/2021 Problem Code: 738.4; Problem Code Type: ICD-9; Not Available [facility] 22:56:18 Low back pain 255754111 Completed 201609/04/2019 Problem Code: M54.5; Problem Code Type: ICD-10; Not Available [facility] 2 22:55:57 Divertic ulitis of large intestin e without complica tion 582566840 Completed 201606/17/2021 Problem Code: K57.32; Problem Code Type: ICD-10; Not Available [facility] 22:55:54 Divertic ulitis of colon 576759049 Completed 201601/25/2021 Problem Code: 562.11; Problem Code Type: ICD-9; Not Available [facility] 22:56:17 Generali zed anxiety disorder 77501027 Completed 201709/19/2018 Problem Code: F41.1; Problem Code Type: ICD-10; Not Available [facility] 2 22:55:53 Cyst of thyroid 99043280 Completed 201701/25/2021 Problem Code: 246.2; Problem Code Type: ICD-9; Not Available [facility] 2 22:56:09 Benign essentia l hyperten andrew 7808370 Completed 201701/25/2021 Problem Code: 401.1; Problem Code Type: ICD-9; Not Available [facility] 2 22:56:17 Acute sinusiti s 24726532 Completed 201701/31/2018 Problem Code: J01.90; Problem Code Type: ICD-10; Not Available [facility] 2 22:55:54 Divertic ulum of [place] an tube 956743628 Completed 201703/18/2018 Problem Code: H69.80; Problem Code Type: ICD-10; Not Available [facility] 2 22:56:01 Dysfunct ion of [place] an tube 65235155 Completed 201703/18/2018 Problem Code: 381.81; Problem Code Type: ICD-9; Not Available [facility] 2 22:56:16 Abnormal weight gain 853127242 Completed 201706/15/2018 Problem Code: R63.5; Problem Code Type: ICD-10; Not Available [facility] 2 22:56:00 Rebound tenderne ss 13955969 Completed 201708/09/2018 Not Available [facility] 2 22:55:59 Urinary tract infectio us disease 50280388 Completed 201709/24/2018 Problem Code: N39.0; Problem Code Type: ICD-10; Not Available [facility] 2 22:56:14 Generali zed abdomina l pain 550267780 Completed 201708/09/2018 Problem Code: 789.07; Problem Code Type: ICD-9; Not Available [facility] 2 22:56:19 Acute sinusiti s 13463029 Completed 201810/03/2018 Problem Code: J01.90; Problem Code Type: ICD-10; Not Available [facility] 2 22:56:03 Irritabl e bowel syndrome 73800955 Active 2018 Problem Code: K58.2; Problem Code Type: ICD-10; Not Available [facility] 22:55:55 Obstruct meg sleep apnea syndrome 85992088 Active 2018 Problem Code: G47.33; Problem Code Type: ICD-10; Not Available [facility] 2 22:55:53 Acute vaginiti s 01007154 Completed 201808/21/2019 Problem Code: N76.0; Problem Code Type: ICD-10; KARMA SEBASTIAN [employer] 08:38:26 Divertic ulitis of intestin e 323703348 Completed 201807/20/2022 Problem Code: K57.92; Problem Code Type: ICD-10; KARMA SEBASTIAN [employer] 08:38:26 Abdomina l pain 08309682 Completed 201807/20/2022 Problem Code: R10.9; Problem Code Type: ICD-10; KARMA SEBASTIAN [employer] 08:38:26 Body mass index 30+ - obesity 059515449 Completed 201802/01/2021 Problem Code: Z68.37; Problem Code Type: ICD-10; Not Available [facility] 2 22:56:08 History of disorder of digestiv e system 752687679 Completed 201807/20/2022 Problem Code: Z87.19; Problem Code Type: ICD-10; KARMA SEBASTIAN [employer] 08:38:26 Epidermo id cyst of skin 223792537 Completed 201810/02/2022 Problem Code: L72.3; Problem Code Type: ICD-10; KARMA SEBASTIAN [employer] 3 10:15:38 Plantar fascial fibromat osis 42979320 Completed 201805/03/2020 Problem Code: M72.2; Problem Code Type: ICD-10; Not Available [facility] 2 22:55:57 Screenin g mammogra phy Completed 201807/20/2022 Problem Code: Z12.31; Problem Code Type: ICD-10; KARMA keen, [employer] 2 08:38:26 Body mass index 30+ - obesity 117668471 Completed 201802/01/2021 Problem Code: Z68.37; Problem Code Type: ICD-10; Not Available [facility] 2 22:56:23 Disorder of skin and/or subcutan eous tissue 61623737 Completed 201807/20/2022 Problem Code: L98.9; Problem Code Type: ICD-10; KARMA keen, [employer] 2 08:38:26 Body mass index 30+ - obesity 476023957 Completed 201802/01/2021 Problem Code: Z68.37; Problem Code Type: ICD-10; Not Available [facility] 2 22:56:09 Acute sinusiti s 81385429 Completed 201802/02/2020 Problem Code: J01.90; Problem Code Type: ICD-10; Not Available [facility] 2 22:55:54 Acute respirat ory infectio ns 758695363 Completed 201807/20/2022 Problem Code: J22; Problem Code Type: ICD-10; KARMA keen, [employer] 2 08:38:26 Screenin g mammogra phy Completed 201805/03/2020 Problem Code: Z12.31; Problem Code Type: ICD-10; KARMA keen, [employer] 2 08:38:26 Body mass index 30+ - obesity 196181131 Completed 201902/01/2021 Problem Code: Z68.37; Problem Code Type: ICD-10; Not Available [facility] 2 22:56:06 Dog bite Completed 201902/02/2020 [place] 2 08:38:26 Endocrin e/metabo lic screenin g Completed 201910/02/2022 Problem Code: Z13.29; Problem Code Type: ICD-10; KARMA keen, [employer] 3 10:15:38 General examinat ion of patient Completed 201907/20/2022 [place] 2 08:38:26 Body mass index 30+ - obesity 971015989 Completed 201902/01/2021 Problem Code: Z68.37; Problem Code Type: ICD-10; Not Available [facility] 2 22:56:06 Current drug user 064381217 Active 2019 Problem Code: Z79.899; Problem Code Type: ICD-10; Not Available [facility] 2 22:56:07 Divertic ular disease of colon 446015231 Active 2019 Problem Code: K57.30; Problem Code Type: ICD-10; KARMA keen, [employer] 2 08:38:51 Constipa tion 62326975 Completed 201907/20/2022 KARMA SOLNER leonila, [employer] 2 08:38:26 Pain in right knee Completed 201907/20/2022 Problem Code: M25.561; Problem Code Type: ICD-10; KARMA SOLNER leonila, [employer] 2 08:38:26 Plantar fascial fibromat osis 12536157 Active 2019 Problem Code: M72.2; Problem Code Type: ICD-10; Not Available [facility] 2 22:55:57 Low back pain 179795409 Completed 201904/22/2021 Problem Code: M54.5; Problem Code Type: ICD-10; Not Available [facility] 22:56:11 Candidia sis of vulva 7697734 Completed 201902/01/2021 Not Available [facility] 22:55:53 Body mass index 30+ - obesity 436075169 Active 2020 Problem Code: Z68.36; Problem Code Type: ICD-10; Not Available [facility] 22:56:05 Acquired hallux malleus 28046492 Active 2020 Problem Code: M20.40; Problem Code Type: ICD-10; Not Available [facility] 22:56:09 Bunion 026462822 Active 2020 Problem Code: M21.619; Problem Code Type: ICD-10; Not Available [facility] 22:56:10 Dog bite Completed 202007/20/2022 KARMA keen [employer]. 08:38:26 Low back pain 129193346 Completed 202004/22/2021 Problem Code: M54.5; Problem Code Type: ICD-10; Not Available [facility] 22:55:56 Left side sciatica 37321895029 9104 Completed 202004/22/2021 Problem Code: M54.32; Problem Code Type: ICD-10; Not Available [facility] 2 22:55:56 Urinary tract infectio us disease 12339091 Completed 202004/22/2021 Problem Code: N39.0; Problem Code Type: ICD-10; Not Available [facility] 22:55:58 Cat scratch disease 38522674 Completed 202007/20/2022 Problem Code: A28.1; Problem Code Type: ICD-10; KARMA keen [employer] 2 08:38:26 Urinary tract infectio us disease 79075046 Completed 202004/22/2021 Problem Code: N39.0; Problem Code Type: ICD-10; Not Available [facility] 2 22:55:58 Dysuria 28933591 Completed 202004/22/2021 Problem Code: R30.0; Problem Code Type: ICD-10; Sarah Quiroga leonila, [employer]. 4 13:54:17 Screenin g mammogra phy Completed 202004/22/2021 Problem Code: Z12.31; Problem Code Type: ICD-10; KARMA SOLNER [employer] 2 08:38:26 General examinat ion of patient Completed 202006/17/2021 KARMA JAZ [employer] 2 08:38:26 Screenin g for malignan t neoplasm of colon Completed 202007/20/2022 KARMACARLOS SOLNER [employer] 2 08:38:26 Chronic fatigue syndrome 51571907 Active 2020 Problem Code: R53.82; Problem Code Type: ICD-10; Not Available [facility] 2 22:56:00 Gynecolo gic examinat ion Completed 202007/20/2022 Problem Code: Z01.411; Problem Code Type: ICD-10; KARMA SOLNER leonila, [employer] 2 08:38:26 Body mass index 30+ - obesity 045620608 Completed 202012/22/2021 Problem Code: Z68.38; Problem Code Type: ICD-10; Not Available [facility] 2 22:56:07 Neoplast ic disease of uncertai n behavior 423098932 Completed 202107/20/2022 Problem Code: D48.9; Problem Code Type: ICD-10; KARMA SEBASTIAN [employer] 2 08:38:26 Fracture of lumbar spine 200223520 Completed 202107/20/2022 Problem Code: S32.009A ; Problem Code Type: ICD-10; KARMA keen, [employer] 2 08:38:26 Fracture of shoulder 70494311062 835938 Completed 202107/20/2022 Problem Code: S42.90XA ; Problem Code Type: ICD-10; KARMA keen, [employer] 2 08:38:26 Urinary tract infectio us disease 40673075 Completed 202102/20/2022 Problem Code: N39.0; Problem Code Type: ICD-10; Not Available [facility] 2 22:55:57 Dysuria 89480762 Completed 202107/20/2022 Problem Code: R30.0; Problem Code Type: ICD-10; Sarah keen, [employer] 4 13:54:17 Acute vaginiti s 54283820 Completed 202107/20/2022 Problem Code: N76.0; Problem Code Type: ICD-10; KARMA SOLNER leonila, [employer] 2 08:38:26 Pain of left hip joint 69720108981 9100 Completed 202107/20/2022 Problem Code: M25.552; Problem Code Type: ICD-10; KARMA SOLNER leonila [employer] 2 08:38:26 Dysuria 77839336 Active 2023 Problem Code: R30.0; Problem Code Type: ICD-10; Sarah keen [employer] 4 13:54:17 Recurren t urinary tract infectio n 963317994 Active 2023 Sarah keen [employer] 4 13:54:30 Vaginal discharg e 398269730 Active 2023 Sarah keen [employer] 4 13:54:43 Vaginal irritati on 586099009 Active 2024 Sarah Quiroga null, [employer] 5 09:40:04 Cough 51082852 Active 2024 Problem Code: R05; Problem Code Type: ICD-10; Sarah Quiroga null, [employer] 13:56:02 Type 2 diabetes mellitus 07319083 Active 2024 Sarah Mcguirey null, [employer] 17:20:31 Lacerati on of right hand 99898478962 466171 Active 2024 Sarah Quiroga null, [employer] 14:34:23 Diabetes mellitus 22690488 Active 2024 Sarah Quiroga null, [employer] 14:21:25 Hyperlip idemia 10557625 Active 2024 Sarah Mcguirey null, [employer] 14:22:06 Fatigue 47872275 Active 2024 Sarah Mcguirey null, [employer] 14:22:06 Hypergly cemia 61677836 Active 2024 Sarah Mcguirey null, [employer] 14:22:06 Well controll ed type 2 diabetes mellitus 966560318 Active 2024 Sarah Katzlly null, [employer] 13:24:10 Chronic pain of left upper limb 94744174580 894734 Active 2024 Sarah Katzlly null, [employer] 14:01:42 Pain of knee region 8849299184 Active 2024 Sarah [place] null, [place] - [facility] 14:18:49 Problem Notes None recorded. Procedures Surgical History Date Name Laterality Status Provider Name and Address Organization Details Recorded Time 03/25/20 24 Most Recent Mammogram completed Sarah Quiroga [employer] 06/09/2024 11:20:51 08/29/20 16 cholecystectomy completed Not Available [facility] 05/23/2022 22:56:18 Orthopedic Surgery completed [employer] 09/19/2022 09:53:54 Gallbladder Surgery completed [employer] 09/19/2022 09:53:54 Colposcopy completed [employer] 09/19/2022 09:53:54 Imaging Results None recorded. Procedure Notes None recorded. Medical Equipment None Reported. Allergies Allergen ID Allergen Name Allergen Category Reaction Reaction Severity Criticality Documentation Date Start Date Code Code System Note Provider Name and Address Organization Details Recorded Time 36492 ibuprofen medicatio n Not available Not available Not available 05/23/2022 5640 RxNorm Not Available [facility] 22:57:15 85270 Norvasc medicatio n Not available Not available Not available 05/23/2022 52476 RxNorm Not Available [facility] 22:57:15 Medications Name Sig Start Date Stop [...] Updated DateTime 5 170.18 cm 37.9 kg/m2 429064. 35 g 97.9 [degF] 65 /min 95 % 95 % 138/81 mm[Hg] Sarah [employer] 5 13:55:39 Date Recorded Body height Body mass index (BMI) Body weight Heart rate Oxygen saturation Oxygen saturation in Arterial blood by Pulse oximetry Systolic And Diastolic Provider Name and Address Organization Details Last Updated DateTime 5 170.18 cm 39.5 kg/m2 348400. 28 g 55 /min 95 % 95 % 132/77 mm[Hg] Sarah [employer]. 5 08:54:56 Date Recorded Body height Body mass index (BMI) Body weight Heart rate Oxygen saturation Oxygen saturation in Arterial blood by Pulse oximetry Systolic And Diastolic Provider Name and Address Organization Details Last Updated DateTime 5 170.18 cm 39 kg/m2 797767. 2 g 66 /min 93 % 93 % 136/81 mm[Hg] Sarah Quiroga [employer] 5 09:39:44 Date Recorded Body height Body mass index (BMI) Body weight Body temperature Heart rate Oxygen saturation Oxygen saturation in Arterial blood by Pulse oximetry Systolic And Diastolic Provider Name and Address Organization Details Last Updated DateTime 5 170.18 cm 38.1 kg/m2 809908. 95 g 97.4 [degF] 69 /min 94 % 94 % 132/71 mm[Hg] Sarah Quiroga [employer] 5 14:32:28 Date Recorded Body height Body mass index (BMI) Body weight Heart rate Oxygen saturation Oxygen saturation in Arterial blood by Pulse oximetry Systolic And Diastolic Provider Name and Address Organization Details Last Updated DateTime 5 170.18 cm 38.1 kg/m2 760985. 95 g 73 /min 91 % 91 % 136/77 mm[Hg] Sarah [employer] 5 13:28:49 Social History Question Answer Notes LastModified by Organizat ion Details LastModified Time Tobacco Smoking Status Never Smoker KARMA keen [employer] 07/20/2022 08:40:03 Do You Have An Advance Directive? No [email or web address] Information n ot available 07/20/2022 Is Your Home Air Conditioned? Yes [email or web address] Information not available 09/19/2022 Are You Blind Or Do You Have Difficulty Seeing? No [email or web address] Information n ot available 07/20/2022 Are You A Caregiver? No [email or web address] Information not available 07/20/2022 In The 14 Days Before Symptom Onset, Have You Had Close Contact With A Laboratory-confirm ed COVID-19 While That Case Was Ill? No [email or web address] Information n ot available 09/19/2022 In The 14 Days Before Symptom Onset, Have You Had Close Contact With A Person Who Is Under Investigation For COVID-19 While That Person Was Ill? No Information not available 09/19/2022 Have You Been To An Area Known To Be High Risk For COVID-19? No Information not available 09/19/2022 Are You Deaf Or Do You Have Serious Difficulty Hearing? No [email or web address] Information not available 07/20/2022 What Type Of Diet Are You Following? REGULAR [email or web address] Information n ot available 07/20/2022 Have There Been Any Changes To Your Family Or Social Situation? No [email or web address] Information no t available 07/20/2022 Are There Any Guns Present In Your Home? No [email or web address] Information not available 07/20/2022 Which Of Your Hands Is Dominant? Right [email or web address] Information n ot available 09/19/2022 Do You Have A Medical Power Of Manager Pricing? No Information not available 07/20/2022 What Was The Date Of Your Most Recent Tobacco Screening? 07/14/2025 Information not available 07/14/2025 Do You Have Any Pets? Yes [email or web address] Information not available 09/19/2022 Do You Use Protection During Sex? No Information not available 09/19/2022 What Is Your Relationship Status? [email or web address] Information not available 07/20/2022 Have You Repeated Any Grades? Yes [email or web address] Information not available 09/19/2022 Do You Use Your Seat Belt Or Car Seat Routinely? Yes [email or web address] Information not available 07/20/2022 Are You Sexually Active? Yes [email or web address] Information not available 09/19/2022 Do You Have Any Siblings? 3 [email or web address] Information not available 09/19/2022 Do You Have Smoke And Carbon Monoxide Detectors In Your Home? Yes [email or web address] Information not available 07/20/2022 Are You Passively Exposed To Smoke? No [email or web address] Information no t available 09/19/2022 Are There Any Smokers In Your House? Yes [email or web address] Information not available 09/19/2022 Do You Use Sunscreen Routinely? No Information not available 07/20/2022 Have You Recently Traveled Abroad? No [email or web address] Information not available 07/20/2022 Do You Have Difficulty Walking Or Climbing Stairs? No [email or web address] Information not available 07/20/2022 Are You Currently In School? No [email or web address] Information not available 07/20/2022 Sex: Unknown Functional Status Question Answer Note LastModified by Organizat ion Details LastModified Time Do you use any illicit or recreational drugs? No [email or web address] Information not available 09/19/2022 What is your level of alcohol consumption? None [email or web address] Information not available 07/20/2022 Are you currently employed? No [email or web address] Information not available 07/20/2022 Do you have transportation difficulties? No [email or web address] Information not available 07/20/2022 Are you able to walk independently without assistance or assistive devices? YESWOREST [email or web address] Information not available 07/20/2022 Do you have difficulty doing errands alone? No [email or web address] Information not available 07/20/2022 Are you able to care for yourself independently? Yes [email or web address] Information not available 07/20/2022 Do you have difficulty dressing, bathing, grooming, or toileting? No [email or web address] Information not available 07/20/2022 Mental Status Question Answer Note LastModified by Organizat ion Details LastModified Time Do you feel stressed (tense, restless, nervous, or anxious, or unable to sleep at night)? [id number] [email or web address] Information not available 09/19/2022 Do you have difficulty concentrating, remembering or making decisions? No [email or web address] Information no t available 07/20/2022 Are you or have you been involved with bullying? No [email or web address] Information not available 09/19/2022 Family History Relationship Description Onset Age of this Age Resolved Age Notes LastModified by Organization Details LastModified Time Unspecified Relation Family history of Hypertension [email or web address] Not available 09:08:53 Unspecified Relation Family history of diabetes mellitus type 2 [email or web address] Not available 2023 09:08:53 Maternal Grandmother Hypertensive disorder [email or web address] Not available 09/19 09:53:52 Paternal Grandfather Hypertensive disorder [email or web address] Not available 09/19 09:53:52 Mother Hypertensive disorder [email or web address] Not available 09/19 09:53:52 Mother Arthritis [email or web address] Not availa ble 09/19/2022 09:53:52 Mother Diabetes mellitus [email or web address] Not available 09/19 09:53:52 Mother Hypercholest erolemia [email or web address] Not available 09/19 09:53:52 Mother Anxiety disorder [email or web address] Not available 09/19 09:53:52 Father Arthritis [email or web address] Not availa ble 09/19/2022 09:53:52 Father Liver problem [email or web address] Not available 09/19 09:53:52 Father Diabetes mellitus [email or web address] Not available 09/19 09:53:52 Father Hypertensive disorder [email or web address] Not available 09/19 09:53:52 Maternal Grandfather Hypertensive disorder [email or web address] Not available 09/19 09:53:52 Brother Hypertensive disorder [email or web address] Not available 09/19 09:53:52 Brother Diabetes mellitus [email or web address] Not available 09/19 09:53:52 Sister Hypertensive disorder [email or web address] Not available 09/19 09:53:52 Sister Diabetes mellitus [email or web address] Not available 09/19 09:53:52 Medical History Condition [...] split virus, quadrivalent, PF 3 completed Reta keen [employer] 07/10/2023 08:32:44 Influenza, split virus, quadrivalent, preservative 1 completed Reta keen [employer] 12/07/2023 09:26:55 Influenza, split virus, quadrivalent, preservative 0 completed [place] null, [employer] 12/07/2023 09:26:55 Influenza, split virus, quadrivalent, preservative 9 completed Reta [place] null, [employer] 12/07/2023 09:26:55 Tdap 7 completed Reta [place] null, [employer] 12/07/2023 09:26:55 COVID-19, mRNA, LNP-S, PF, 100 mcg/0.5mL dose or 50 mcg/0.25mL dose 1 completed Reta [place] null, [employer] 12/07/2023 09:26:55 COVID-19, mRNA, LNP-S, PF, 100 mcg/0.5mL dose or 50 mcg/0.25mL dose 1 completed Reta [place] null, [employer] 12/07/2023 09:26:55 Influenza, split virus, quadrivalent, PF 8 completed Reta [place] null, [employer] 12/07/2023 09:26:55 zoster recombinant 4 completed Meaghan Mcnamara APRN [address] [place] [address], [phone], [employer] 03/13/2024 08:53:07 zoster recombinant 4 completed Meaghan Mcnamara APRN [address] [place] [address], [phone], [employer] 06/09/2024 12:19:53 Influenza, split virus, trivalent, PF 4 completed Sarah Quiroga null, [employer] 06/30/2024 09:50:26 Influenza, split virus, trivalent, preservative 5 completed KARMA SEBASTIAN null, [employer] 09/19/2022 09:52:55 Influenza, split virus, quadrivalent, PF 7 completed KARMA SEBASTIAN null, [employer] 09/19/2022 09:52:55 Td (adult), 2 Lf tetanus toxoid, preservative free, adsorbed 6 completed KARMA JAZ null, [employer] 09/19/2022 09:52:55 Td (adult), 2 Lf tetanus toxoid, preservative free, adsorbed 6 completed KARMACARLOS SEBASTIAN null, [employer] 09/19/2022 09:52:55 COVID-19, mRNA, LNP-S, PF, 100 mcg/0.5mL dose or 50 mcg/0.25mL dose 1 completed KARMA JAZ [employer], [employer] 09/19/2022 09:52:55 Influenza, split virus, quadrivalent, PF 2 completed KARMA JAZ [employer], [employer] 09/21/2022 15:11:16 Pneumococcal conjugate PCV15, polysaccharide LDI536 conjugate, adjuvant, PF 5 completed Meaghan Mcnamara APRN [address] [place] [address], [phone], [employer] 02/26/2025 09:36:12 Tdap 5 completed Sarah Quiroga null, [employer] 05/25/2025 14:52:02 Influenza, split virus, trivalent, PF 5 completed Sarah Quiroga null, [employer] 07/14/2025 14:20:49 Influenza, split virus, quadrivalent, PF 1 completed Reta Vega null, [employer] 12/07/2023 09:26:55 Influenza, split virus, quadrivalent, PF 0 completed Reta Vega null, [employer] 12/07/2023 09:26:55 Influenza, split virus, quadrivalent, PF 12/06/201 9 completed Reta keen [facility] [employer] [employer] 12/07/2023 09:26:55 Past Encounters Encounter ID Performer Location Encounter Start Date Encounter Closed Date Diagnosis/Indication Diagnosis SNOMED-CT Code Diagnosis ICD10 Code Diagnosis IMO Codes Diagnosis Note [id number] Meaghan Mcnamara [place] [id number] 07/20/2022 08:47:40 07/20/2022 10:07:52 Generalized anxiety disorder 15193770 F41.1 Pain in right arm 714691 004 M79.601 Screening for malignant neoplasm of breast 073369645 Z12.39 Candidiasis of mouth 797 97762 B37.0 Body mass index 30+ - obesity 004446583 Z68.37 [id number] Meaghan Mcnamara [place] [id number] 09/19/2022 09:38:32 09/19/2022 10:21:47 Generalized anxiety disorder 41888500 F41.1 Low back pain 183182124 M54.50 Body mass index 30+ - obesity 690814720 Z68.37 [id number] [place] [address] 10/02/2022 10:31:38 10/02/2022 11:07:07 Low back pain 672130074 M54.50 Right side sciatica 3202 221369 41583 M54.31 Dysuria 82082009 R30.0 Acute urin jocelyne tract infection 381341779 N39.0 Body mass index 30+ - obesity 094927408 Z68.37 [id number] Meaghan Mcnamara [place] [id number] 11/16/2022 10:56:59 11/16/2022 11:34:48 Fatigue 47884708 R53.83 Vitamin D deficiency 347 38605 E55.9 Vitamin B deficiency 479 87361 E53.9 Hypocalcemia 4949863 E83 .51 Generalize d anxiety disorder 92867226 F41.1 Low back pain 902872221 M54.50 Hypokalemia 64746714 E87 .6 Abrasion 365071524 T14.8 XXA Body mass index 30+ - obesity 621957881 Z68.37 [id number] Meaghan Mcnamara [place] [address] 0 01/16/2023 16:43:30 01/16/2023 17:20:35 Dysuria 04742012 R30.0 Candidiasis of vagina 72 814635 B37.31 Foot callus 018362689 L8 4 Generalize d anxiety disorder 34050599 F41.1 [id number] Meaghan Mcnamara [place] [address] 0 03/13/2023 11:32:34 03/13/2023 13:12:37 Pain in left foot 4468627242 19055 M79.672 Lymphedema 537304082 I89 .0 Generalize d anxiety disorder 53622171 F41.1 [id number] Meaghan Mcnamara [place] [address] 0 05/10/2023 07:55:06 05/10/2023 08:46:09 Generalized anxiety disorder 54041357 F41.1 Tendinitis of left elbow 3558991776 5566233 M67.824 History of diverticulitis 4007821466 78424 Z87.19 Body mass index 30+ - obesity 372070024 Z68.37 [id number] Meaghan Mcnamara [place] [address] 0 05/28/2023 08:48:14 05/28/2023 10:00:55 Edema of lower extremity 835605907 R60.0 Body mass index 30+ - obesity 494600235 Z68.37 [id number] Meaghan Mcnamara [place] [address] 0 07/10/2023 08:00:20 07/10/2023 08:31:50 Administration of influenza vaccine 66283389 Z23 Hypocalcemia 0309194 E83 .51 Mixed hyperlipidemia 267 031209 E78.2 Hypertensive disorder 38 099959 I10 Generalize d anxiety disorder 94959540 F41.1 Constipation 29176189 K5 9.00 Hypokalemia 36784239 E87 .6 Body mass index 30+ - obesity 422949870 Z68.37 [id number] Meaghan [place] [address] 09/06/2023 10:28:25 09/06/2023 10:55:55 Hypertensive disorder 17706694 I10 Hypocalcemia 5973109 E83 .51 Low back pain 068446749 M54.50 Mixed hyperlipidemia 267 419501 E78.2 Generalize d anxiety disorder 45040914 F41.1 Hypokalemia 78875848 E87 .6 Constipation 29583130 K5 9.00 Lower resp iratory tract infection 90524126 J22 Body mass index 30+ - obesity 702303342 Z68.37 [id number] Meaghan [place] [id number] 11/06/2023 10:24:21 11/06/2023 11:13:12 Long-term drug therapy 320470582 Z79.899 Urinary symptoms 2588647 08 R39.9 Fatigue 93363681 R53.83 Hyperlipidemia 35674391 E78.5 Vitamin D deficiency 347 51123 E55.9 Generalize d anxiety disorder 99659882 F41.1 Acute urin jocelyne tract infection 185308987 N39.0 Body mass index 30+ - obesity 430963768 Z68.37 [id number] Fadi Viveros CNM [facility] [address],[place] [address] 11/13/2023 08:57:30 11/13/2023 12:11:24 Vaginal discharge 234696107 N89.8 Dysuria 12272268 R30.0 [id number] Meaghan [address] [address] 12/07/2023 09:14:27 12/07/2023 10:28:54 Cough 15672098 R05.9 Acute sinusitis 17615954 J01.90 Pain of ri ght knee joint 2846929632 74389 M25.561 Body mass index 30+ - obesity 202545240 Z68.37 [id number] [place] [address] 01/14/2024 11:25:36 01/14/2024 11:40:52 Generalized anxiety disorder 69474873 F41.1 Low back pain 737877875 M54.50 Body mass index 30+ - obesity 706949877 Z68.37 [id number] [place] [address] 03/13/2024 07:58:56 03/13/2024 09:01:11 Screening for malignant neoplasm of breast 493530717 Z12.39 Body mass index 30+ - obesity 531212454 Z68.37 Active or passive immunization 644234726 Z23 Low back pain 511835292 M54.50 Mixed hyperlipidemia 267 200437 E78.2 Hypertensive disorder 38 520068 I10 Generalize d anxiety disorder 43340104 F41.1 Hypokalemia 99271100 E87 .6 Constipation 22495999 K5 9.00 Vitamin D deficiency 347 32049 E55.9 [id number] [place] [address] 06/09/2024 11:14:30 06/09/2024 11:55:48 Active or passive immunization 737722547 Z23 Hypertensive disorder 38 075672 I10 Vitamin D deficiency 347 70170 E55.9 Low back pain 695837413 M54.50 Mixed hyperlipidemia 267 458209 E78.2 Generalize d anxiety disorder 08502871 F41.1 Hypokalemia 01600674 E87 .6 Constipation 03693756 K5 9.00 Body mass index 30+ - obesity 376570409 Z68.37 [id number] [place] [address] 06/30/2024 09:25:40 06/30/2024 10:02:17 Administration of influenza vaccine 16016792 Z23 [id number] Meaghan Mcnamara, [employer] [place] [address] 08/25/2024 13:33:04 08/25/2024 14:24:26 Dysuria 83451290 R30.0 Recurrent urinary tract infection 297890757 N39.0 Vaginal discharge 591722 006 N89.8 Skin lesion 02151841 L98 .9 Acute urin jocelyne tract infection 840485349 N39.0 Candidiasis of vagina 72 841502 B37.31 Body mass index 30+ - obesity 577408528 Z68.37 [id number] Meaghan Mcnamara [place] [address] 09/25/2024 10:49:10 09/25/2024 11:09:57 Fatigue 17048405 R53.83 Hyperlipidemia 90602341 E78.5 Hyperglycemia 40972597 R 73.9 Vitamin D deficiency 347 81135 E55.9 Iron defic iency anemia 72762923 D50.9 Vitamin B deficiency 479 30738 E53.9 Hypertensive disorder 38 554158 I10 Low back pain 135518298 M54.50 Mixed hyperlipidemia 267 426611 E78.2 Generalize d anxiety disorder 98435919 F41.1 Hypokalemia 72799838 E87 .6 Constipation 79084422 K5 9.00 Body mass index 30+ - obesity 026862011 Z68.37 [id number] [place] [address] 11/25/2024 08:56:09 11/25/2024 10:25:53 Recurrent urinary tract infection 637268603 N39.0 Vaginal irritation 74659 6004 N89.8 Hypertensive disorder 38 399558 I10 Mixed hyperlipidemia 267 725808 E78.2 Fatigue 11435009 R53.83 Hyperlipidemia 31257632 E78.5 Hyperglycemia 34450342 R 73.9 Vitamin D deficiency 347 14641 E55.9 Iron defic iency anemia 57397686 D50.9 Vitamin B deficiency 479 91629 E53.9 Low back pain 468501802 M54.50 Generalize d anxiety disorder 02966217 F41.1 Hypokalemia 84012748 E87 .6 Constipation 29451018 K5 9.00 Body mass index 30+ - obesity 568120719 Z68.37 Acute urin jocelyne tract infection 599541208 N39.0 Candidiasis of vagina 72 044978 B37.31 [id number] [place] [address] 12/08/2024 13:23:43 12/08/2024 14:31:57 Cough 90285230 R05.9 Impetigo 77695950 L01.00 Lower resp iratory tract infection 40311187 J22 Body mass index 30+ - obesity 664354427 Z68.37 [id number] Meaghan Mcnamara [place] [address] 02/26/2025 08:29:46 02/26/2025 09:38:09 Type 2 diabetes mellitus 18186248 E11.9 90673629 Long-term current use of drug therapy 827632119 Z79.899 48668803 Vaccination needed 40908 20035 41417 Z23 281724 Screening for osteoporosis 316440417 Z13.820 944477 Patient states that she had this a couple of years ago at [facility] Pain of ri ght knee joint 5970283900 92430 M25.561 209474 Vitamin D deficiency 347 50499 E55.9 Mixed hyperlipidemia 267 256684 E78.2 Hypertensive disorder 38 645162 I10 Body mass index 30+ - obesity 453179986 Z68.39 849361 [id number] Meaghan Mcnamara [place] [address] 0 05/04/2025 09:27:14 05/04/2025 10:03:23 Generalized anxiety disorder 11543748 F41.1 Controlled substance agreement and UDS UTD until Feb 2026. Hypertensive disorder 38 786289 I10 Vitamin D deficiency 347 16804 E55.9 Pain of mu ltiple joints 01693597 M25.50 753893 Body mass index 30+ - obesity 064061399 E66.9 0278566 [id number] Meaghan Mcnamara [address] 0 05/25/2025 14:24:17 05/25/2025 14:55:49 Laceration of right hand 5479061973 4630492 S61.411A 90680758 Body mass index 30+ - obesity 694023973 Z68.38 768697 [id number] Meaghan Anders [address] [address] 07/14/2025 13:20:05 07/14/2025 15:32:00 Well controlled type 2 diabetes mellitus 898502574 E11.9 774191 Screening mammography 24 439733 Z12.31 9016703341 Mixed hyperlipidemia 267 225162 E78.2 Low back pain 382642053 M54.50 Requires i nfluenza virus vaccination 747166820 Z23 2752401 Pain of knee region 1003 893355 M25.561 M25.562 G89.29 85530216 Body mass index 30+ - obesity 414610093 Z68.38 232922 Health Concerns Section Related Observation LastModified by Organization Detai ls LastModified Time None Recorded Concern Status LastModified by Organization Details LastModified Time None Recorded Advance Directives Directive N: Payers Insurance Date Sequence Insurance Name Policy Number Policy Molina Covered Member ID Molina Member ID Guarantor Name 02/21/2023 1 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 Berta G Jennifer 07/14/2025 [place] [employer] - C Berta G Jennifer [id number] Berta G Jennifer 01/02/2025 SLIDING FEE SCHEDULE - DISCOUNT Berta G Jennifer 07/14/2025 2 [facility] (MEDICAID REPLACEMENT - HMO) Berta M Jennifer [id number] Berta G Jennifer 07/14/2025 1 [place] Berta G Jennifer [id number] Berta G Jennifer 07/14/2025 [place] [facility] WRAP BILLING (MEDICAID) Berta G Jennifer [id number] Berta G Jennifer 07/14/2025 1 [employer] [place]MEDICA[place]PLACEMENT - HMO) Berta M Jennifer [id number] Berta G Jennifer 07/14/2025 2 [place] [facility] [employer] - FFS/TRADITIONA L Berta Terrazas Jennifer [id number] Berta Larsen Jennifer Notes Date Note Type Note Provider Name and Address Organization Details Recorded Time 12/08/2024 text/html 64 year old female presents with cough, yellow chest congestion, hoarseness x 1 week. Denies fever. States shes been around illness at [facility]. Declines testing today. Left upper lobe with Exp wheezing. Will prescribe steroids and abx today.She had f.u with urology. Switched her abx, ordered oxybutynin, ct and cystoscopy. pt also has rash below right nostril. appears to be impetigo. Meaghan Mcnamara APRN [address] [place], [address], [employer]. 12/08/2024 17:48:48 02/26/2025 text/html pt here today for medication refills. [...] exercise with pt. Meaghan Mcnamara APRN [address] [facility], [place], [address], [employer]. 02/26/2025 10:49:54 05/04/2025 text/html pt here today for medication refills. pt states shes doing well on current medication regime. pt states that she has flared up her back again, doing too much and it is hurting along with knees. i will order steroid injection and a couple days of oral steroid. pt voiced understanding. return for worsening symptoms. Meaghan Mcnamara APRN [address] [place], [address], [employer]. 05/04/2025 10:11:54 05/25/2025 text/html pt here today with c/o a laceration that occurred yesterday. pt states that she was cleaning out a rust fence line and was throwing it over the fence and got cut by the vanda fence. pt states that she did wash her hand. on exam today, right hand, just above thumb has a 1/2 inch laceration that is open but crusted over with a bruise around it. no s/s of infection. i will order tdap and abx. educated pt on new med. pt voiced understanding. advised pt to return for s/s of infection. Meaghan Mcnamara APRN [address] [place], [address], [employer]. 05/25/2025 15:03:21 07/14/2025 text/html pt here today for medication refills. pt states shes doing well on current medication regime. pt states that her bilateral knees have been hurting, L>R, and she is going to have a LTKA sometime between jul-sep with dr garcía and they both have been really hurting [...] at last visit. Meaghan Mcnamara APRN [address] [place], [address], [employer]. 07/14/2025 14:37:20 OBGyn Episode No OBEpisode recorded.
== END 2025-08-05 23:59 | disposition home or self-care (01) ==
LOC: RAD 13:51
PROVIDERS: PCP Nurse Practitioner; Visit Provider Nurse Practitioner
DX: Z12.31 Encounter for screening mammogram for malignant neoplasm of breast (principal)
CPT/HCPCS: 77063; 77067

== ENCOUNTER 2025-08-10 09:45 | Outpatient (CLI) | payer MEDICARE, MEDICAID, SELFPAY ==
[2025-08-10 16:12] LABS: Microscopic, Urine URINE MICROSCOPIC (MICROSCOPIC)
[2025-08-10 16:57] LABS: Bilirubin,Urine Negative (Negative); Color,Urine YELLOW (Yellow); Glucose,Urine (UA) Negative (Negative); Ketones,Urine Negative (Negative); Leukocyte Esterase,Urine Negative (Negative); PH,Urine 5.5 (5.0-8.5); Protein,Urine Negative (Negative); Specific Gravity, Urine 1.025 (1.005-1.030); Urobilinogen,Urine 0.2 EU/dl (0.2)
[2025-08-10 17:36] LABS: Bacteria,Urine 4+ /lpf; Calcium Oxalate Crystals,Urine 1+ /lpf; RBC,Urine 50-100 #/hpf (0-3)
--- OUTSIDE RECORDS SUMMARY | 2025-08-11 09:04 | XMS_ITS | Clinical Summary ---
Author Organization [facility] Address [address] [address] Phone Care Team Providers Care Package Collector Name Role Phone Isaac CORONA, Brandon Diallo Unavailable [phone] Yuliana Sheikh APRN Primary Care Provider [phone] Meaghan Mcnamara APRN Unavailable [phone] Reason for Visit and Chief Complaint The Chief Complaint is: follow up for MRI L Spine on 12/14/15 Problems Includes: Problems addressed during this encounter and other active Problems Current Visit Onset Date Resolved Date Provider Conditio n Status Lower Back Pain 12/23/2015 Brandon Gray MD Act meg Last Documented On 6 1:16PM ; [facility], [facility] Past Visits Onset Date Resolved Date Provider Condition Status History of Joint Pain Shoulder Left 2021 Sarath Eli PA-C Active Last Documented On 2 8:12AM ; [facility], [facility] Plan of Treatment Follow up apt 03/23/16 at 1pm. [place] - Last Documented On 12/31/2015 10:11AM ; [facility], [facility] Recommend weight loss. Recommend continued activity and therapy exercises. Informed of lumbar fusion surgery, she would like to think about this. Follow up in 3 months time. - Last Documented On 12/31/2015 10:11AM ; [facility] Instructions to patient Instructions for patient see pcp for wt mgmt Last Documented On 6 1:21PM ; [facility] Assessments Includes: Assessments from this encounter Findings Low back pain with L4-L5 spondylolisthesis - Last Documented On 12/31/2015 10:11AM ; [facility] Instructions Includes: Instructions from this encounter Instructions to patient Instructions for patient see pcp for wt mgmt Last Documented On 6 1:21PM ; [facility] Medical Equipment - Implanted Devices Includes: Current Devices No Medical Equipment Recorded Medications Includes: Medications discussed during this encounter and other current Medications Current Medications (continue as prescribed) Diclofenac Sodium 75 MG Oral Tablet Delayed Release Provider: Diagnosis: Last Documented On 2 8:36AM By Hillary Lofton ; [facility] Active-Pac/Gabapentin 300 & 4-1 MG & % Combination Therapy Pack 12/15/2021 Provider: Diagnosis: Last Documented On 2 8:36AM By Hillary Lofton ; [facility] Diclofenac Sodium 1% External Gel 12/15/2021 Provide r: Diagnosis: Last Documented On 2 8:36AM By Hillary Lofton ; [facility] Calcium 600 MG Oral Tablet 2021 Provider: Diagnosis: Last Documented On 2 8:41AM By Argelia Romero ; [facility], [facility] LORazepam 0.5 MG Oral Tablet 2021 Provider: Diagnosis: Last Documented On 2 8:41AM By Argelia Romero ; [facility] Metoprolol Tartrate 25 MG Oral Tablet 2021 Pro vider: Diagnosis: Last Documented On 2 8:42AM By Argelia Romero ; [facility], [facility] FiberCon 625 MG Oral Tablet 2021 Provider: Diagnosis: Last Documented On 2 8:43AM By Argelia Romero ; [facility], [facility] PreserVision AREDS Oral Capsule 2021 Provider: Diagnosis: Last Documented On 2 8:43AM By Argelia Romero ; [facility], [facility] Methocarbamol 500 MG Oral Tablet 11/21/2021 Provider : Meaghan Mcnamara APRN Diagnosis: Last Documented On 2 8:42AM By Argelia Romero ; [facility], [facility] Potassium Chloride Ivania ER 2 0 MEQ Oral Tablet Extended Release 11/21/2021 Provider: Meaghan Diallo PRN Diagnosis: Last Documented On 2 8:42AM By Argelia Romero ; [facility] Fenofibrate 48 MG Oral Tablet 10/24/2021 Provider: Meaghan Mcnamara GUEST ROOM ATTENDANT Diagnosis: Last Documented On 2 8:42AM By Argelia Romero ; [facility] Medications Administered Includes: Administered Medications from this encounter No Administered Medications Recorded Vital Signs Includes: Vital Signs from this encounter Vital Name 12/23/2015 01:21P Pulse Rate-Sitting (bpm) 79 Temp-Oral (F) 98.9 Height (in) 67 Weight (lb) 239 Body Mass Index (kg/m2) 37.4 Body Surface Area (m2) 2.2 Note: mg Last Documented: On 12/23/2015 1:21PM ; [facility] Results Includes: Results discussed during this encounter No Results Recorded For Specified Dates History of Present Illness Includes: History of Present Illness from this encounter VON Rodriguez is a 55 year old female. - Symptoms pain in back right side. - Medication list reviewed. - Previous history of chronic pain - New onset 02/27/2015 - Pain is constant (100% of the time) - Pain is throbbing Previous Treatment: Dr Sheikh, Mannie, Tyleol, PT Medications used for this condition:Mobic & Tylenol Physical therapy has helped alleviate her radicular symptoms in her right leg by she still having continued low-back pain and right buttock pain. She also has right knee pain. She has applied for disability. Social History Description Last Updated No caffeine use 12/23/2015 Last Documented On 6 10:11AM ; [facility] No recent change in diet 12/23/2015 Last Documented On 6 10:11AM ; [facility] Not a current smoker 12/23/2015 Last Documented On 6 10:11AM ; [facility] Not exercising regularly 12/23/2015 Last Documented On 6 10:11AM ; [facility] Not using alcohol 12/23/2015 Last Documented On 6 10:11AM ; [facility] Not using drugs 12/23/2015 Last Documented On 6 10:11AM ; [facility] No tobacco use 12/23/2015 Last Documented On 6 10:11AM ; [facility] Smoking status : Never smoker 12/23/2015 Last Documented On 6 10:11AM ; [facility] Procedures and Surgical History Includes: Procedures from this encounter Procedures Code Diagnosis Performing Provider Service L ocation Service Date education and instructions Last Documented On 6 1:21PM ; [facility] Clinical summary provided to patient Last Documented On 6 1:21PM ; [facility] history of a CT scan was per formed [facility] 02/27, [facility] 03/29 [address] Last Documented On 6 1:37PM ; [facility] history of an MRI was performed 12/14/15 41512 Last Documented On 6 1:37PM ; [facility] Medical History Includes: Medical History addressed during this encounter Description Last Updated Rotator Cuff 12/23/2015 Last Documented On 6 10:11AM ; [facility] Arthritic joint problems 12/23/2015 Last Documented On 6 10:11AM ; [facility] Gallbladder disease 12/23/2015 Last Documented On 6 10:11AM ; [facility] History of diverticulitis of colon 12/22 Last Documented On 6 10:11AM ; [facility] History of osteoporosis 12/23/2015 Last Documented On 6 10:11AM ; [facility] Intermittent hypertension 12/23/2015 Last Documented On 6 10:11AM ; [facility] Family History Includes: Family History addressed during this encounter Description Last Updated Family history of diabetes mellitus Moth er, Father, Sister, Brother 12/23/2015 Last Documented On 6 10:11AM ; [facility] Family history of hypertension Mother, F ather, Sister, Brother 12/23/2015 Last Documented On 6 10:11AM ; [facility] Family history of osteoporosis Father Last Documented On 6 10:11AM ; [facility] Review of Systems Includes: Review of Systems from this encounter Systemic: Not feeling tired (fatigue) and no recent weight loss. Recent weight gain. No edema. Head: No headache, no sinus pain, and no sinus pain. Eyes: No vision problems, no vision problems, and no glaucomatous visual field defect. Otolaryngeal: No hearing loss, no hearing loss, and no tinnitus. No nasal symptoms. Cardiovascular: No chest pain or discomfort, no chest pain or discomfort, and no palpitations. Pulmonary: No daytime asthma symptoms, no cough, and no chronic cough. No wheezing. Gastrointestinal: No heartburn, no heartburn, and no abdominal pain. Endocrine: No hot flashes. Muscle weakness. Hematologic: No easy bleeding and no tendency for easy bruising. Musculoskeletal: Lower back pain. No soft tissue swelling. Pain localized to one or more joints. Neurological: No dizziness, no convulsions, and no numbness. Psychological: No anxiety, no emotional lability, no depression, and no insomnia. Not crying for no reason. Skin: No dry skin, no rash, and no ulcers. Allergic and Immunologic: No complaint of seasonal allergic reaction. Mental Status Includes: Mental Status from this encounter Description No anxiety Functional Status Includes: Functional Status from this encounter No Functional Status Recorded Physical Exam Includes: Physical Exam from this encounter Allergies Includes: Active Allergies Substance Type Reaction Onset Date Resolved Date Statu s NSAIDs Allergy 12/23/2015 Active Last Documented On 2 8:06AM ; [facility] Encounters Encounter Provider Location Date Check-In Time Check- Out Time Diagnosis Follow Up Brandon Gray MD [facility] 6 1:06PM 1:58PM Insurance Includes: Active Insurance Policies Plan Name Member ID Group # Subscriber Relationship Effect meg Dates 1 - [employer] [id number] Berta Rodriguez Self Clinical Notes Includes: Clinical Notes from this encounter No Clinical Notes Recorded
--- OUTSIDE RECORDS SUMMARY | 2025-08-11 09:04 | XMS_ITS | Clinical Summary ---
Author Organization [facility] Address [address] [place] [address] Phone Care Team Providers Care Surveyor Geodetic Name Role Phone Unavailable Unavailable Conditions or Problems No information available. Medications No information available. Medications Administered No information available. Allergies, Adverse Reactions, Alerts No information available. Results No information available. Plan of Care No information available. Procedures No information available. Vital Signs No information available. Immunizations No information available. Advance Directives No information available.
--- OUTSIDE RECORDS SUMMARY | 2025-08-11 09:05 | XMS_ITS | Clinical Summary ---
Author Organization [facility] Address [address] [place] [address] Phone Care Team Providers Care Finishing Lab Technician Name Role Phone Isaac CORONA, Brandon Diallo Unavailable [phone] Yuliana Sheikh APRN Primary Care Provider [phone] Meaghan Mcnamara APRN Unavailable [phone] Reason for Referral Date Encounter Description Provider Reason for Referral 12/06/21 Physician Specified Sarath Marcelo Referral To Physician Reason for Visit and Chief Complaint The Chief Complaint is: Left shoulder pain Problems Includes: Problems addressed during this encounter and other active Problems Current Visit Onset Date Resolved Date Provider Cristhian boston Status History of Joint Pain Shoulder Left 2021 Sarath Eli PA-C Active Last Documented On 2 8:12AM ; [facility], [facility] Lower Back Pain 12/23/2015 Brandon Gray MD Act meg Last Documented On 6 1:16PM ; [facility], [facility] Plan of Treatment I did speak with Dr. Massey. we need a CT scan to further evaluate her glenoid. We will see her back as scheduled tomorrow. Options would be possible cuff revision repair versus shoulder arthroplasty - Last Documented On 12/08/2021 1:18PM ; [facility], [facility] Pending Tests Order Diagnosis Results Due Ordering P rovider Radiology - CT Scan Shoulder 12/20/21 Mora Eli PA-C Last Documented On 2 8:45AM ; [facility], [facility] Instructions to patient Lose weight Last Documented On 2 11:25AM ; [facility], [facility] Assessments Includes: Assessments from this encounter Findings Recent right shoulder dislocation with previous cuff repair now re-torn - Last Documented On 12/08/2021 1:18PM ; [facility] Instructions Includes: Instructions from this encounter Instructions to patient Lose weight Last Documented On 2 11:25AM ; [facility] Medical Equipment - Implanted Devices Includes: Current Devices No Medical Equipment Recorded Medications Includes: Medications discussed during this encounter and other current Medications Discontinued / Stopped on this date on 12/23/2015 Benazepril-Hydrochlorothiazide 20-25 MG Tablet Provider: Diagnosis: Last Documented On 2 8:41AM By Argelia Romero ; [facility] Mobic 15 MG Tablet Provider: Diagnosis: Last Documented On 2 8:41AM By Argelia Romero ; [facility] Aspirin 81 MG Tablet Provider: Diagnosis: Last Documented On 2 8:40AM By Argelia Romero ; [facility] Klor-Con 25 MEQ Packet Provider: Diagnosis: Last Documented On 2 8:41AM By Argelia Romero ; [facility] Current Medications (continue as prescribed) Diclofenac Sodium 75 MG Oral Tablet Delayed Release Provider: Diagnosis: Last Documented On 2 8:36AM By Hillary Lofton ; [facility] Active-Pac/Gabapentin 300 & 4-1 MG & % Combination Therapy Pack 12/15/2021 Provider: Diagnosis: Last Documented On 2 8:36AM By Hillary Lofton ; [facility] Diclofenac Sodium 1% External Gel 12/15/2021 Provide r: Diagnosis: Last Documented On 2 8:36AM By Hillary Lofton ; [facility] Calcium 600 MG Oral Tablet 2021 Provider: Diagnosis: Last Documented On 2 8:41AM By Argelia Romero ; [facility] LORazepam 0.5 MG Oral Tablet 2021 Provider: Diagnosis: Last Documented On 2 8:41AM By Argelia Romero ; [facility], [facility] Metoprolol Tartrate 25 MG Oral Tablet 2021 Pro vider: Diagnosis: Last Documented On 2 8:42AM By Argelia Romero ; [facility], [facility] FiberCon 625 MG Oral Tablet 2021 Provider: Diagnosis: Last Documented On 2 8:43AM By Argelia Romero ; [facility], [facility] PreserVision AREDS Oral Capsule 2021 Provider: Diagnosis: Last Documented On 2 8:43AM By Argelia Romero ; [facility], [facility] Methocarbamol 500 MG Oral Tablet 11/21/2021 Provider : Meaghan Mcnamara APRN Diagnosis: Last Documented On 2 8:42AM By Argelia Romero ; [facility], [facility] Potassium Chloride Ivania ER 2 0 MEQ Oral Tablet Extended Release 11/21/2021 Provider: Meaghan Diallo PRN Diagnosis: Last Documented On 2 8:42AM By Argelia Romero ; [facility], [facility] Fenofibrate 48 MG Oral Tablet 10/24/2021 Provider: Meaghan Mcnamara APRN Diagnosis: Last Documented On 2 8:42AM By Argelia Romero ; [facility], [facility] Medications Administered Includes: Administered Medications from this encounter No Administered Medications Recorded Vital Signs Includes: Vital Signs from this encounter Vital Name 2021 08:36A Blood Pressure Sitting R 149/98 Pulse Rate-Sitting (bpm) 57 Height (in) 67.5 Weight (lb) 240 Body Mass Index (kg/m2) 37.0 Body Surface Area (m2) 2.2 Note: mb Last Documented: On 2021 8:41AM ; [facility], [facility] Results Includes: Results discussed during this encounter No Results Recorded For Specified Dates History of Present Illness Includes: History of Present Illness from this encounter VON Rodriguez is a 61 year old female. - Allergy list reviewed - Problem list reviewed - Medication list reviewed - Pain is dull, aching - Patient pain level from 1-10: 3 - No previous treatment. Patient complains of a recent dislocation of her shoulder about a month ago. This was her first dislocation. She fell. She also had a surgical repair of her rotator cuff in 2016. She said she never got full strength back from that. She says she did get motion but her strength never recuperated. She saw an orthopedic surgeon who ordered an MRI of her shoulder. She was told she had a big tear of the cuff again. She denies any numbness in the arm. She is using a sling. Social History Description Last Updated No caffeine use 2021 Last Documented On 2 1:18PM ; [facility], [facility] No recent change in diet 2021 Last Document[facility] 2 1:18PM ; [facility] Not a current smoker. 2021 Last Documented On 2 1:18PM ; [facility] Not exercising regularly 2021 Last Documented On 2 1:18PM ; [facility] Not using alcohol 2021 Last Documented On 2 1:18PM ; [facility] Not using drugs 2021 Last Documented On 2 1:18PM ; [facility] Smoking Status Unknown Procedures and Surgical History Includes: Procedures from this encounter Procedures Code Diagnosis Performing Provider Service L ocation Service Date referral to physician Last Documented On 2 11:25AM ; [facility] an X-ray was performed [id number] Last Documented On 2 3:53PM ; [facility] an MRI was performed [id number] Last Documented On 2 3:53PM ; [facility] Surgical History Last Updated History of History of Gallbladder 2021 Last Documented On 2 1:18PM ; [facility] Medical History Includes: Medical History addressed during this encounter Description Last Updated History of arthritis 2021 Last Documented On 2 1:18PM ; [facility] History of diverticulitis of colon 12/06 Last Documented On 2 1:18PM ; [facility] History of Sleep Apnea 2021 Last Documented On 2 1:18PM ; [facility] No recent immunization for pneumococcal pneumonia 2021 Last Documented On 2 1:18PM ; [facility] Recent immunization for flu 05/18/2021 Last Documented On 2 1:18PM ; [facility] Use of CPAP 2021 Last Documented On 2 1:18PM ; [facility] Family History Includes: Family History addressed during this encounter Description Last Updated Diabetes mellitus 2021 Last Documented On 2 1:18PM ; [facility] Family history of systemic hypertension 2021 Last Documented On 2 1:18PM ; [facility] Review of Systems Includes: Review of Systems from this encounter Systemic: Not feeling tired, no recent weight loss, and no recent weight gain. Head: No headache and no sinus pain. Eyes: No vision problems, no Cataracts, no Glasses/Contacts, and no Glaucoma. Otolaryngeal: No hearing loss and no tinnitus. Cardiovascular: No chest pain or discomfort and no palpitations. Hypertension. No High Cholesterol. Pulmonary: No daytime asthma symptoms and no chronic cough. No wheezing. Gastrointestinal: No heartburn and no abdominal pain. No Indigestion, no Acid Reflux, no Peptic Ulcer, no GI Stomach Bleed, and no Ulcers. Endocrine: No hot flashes, no muscle weakness, no Diabetes, no Hypothyroid, and no Hyperthyroid. Hematologic: No easy bleeding, no tendency for easy bruising, and no Anemia. Musculoskeletal: No Arthritis and no lower back pain. No soft tissue swelling. Pain localized to one or more joints. Neurological: No dizziness, no convulsions, and no numbness. Psychological: No anxiety, no emotional lability, no depression, and no insomnia. Not crying for no reason. Skin: No dry skin. No Ulcers, no Scars, and no rash. Allergic and Immunologic: No complaint of seasonal allergic reaction. Mental Status Includes: Mental Status from this encounter Description No anxiety Functional Status Includes: Functional Status from this encounter No Functional Status Recorded Physical Exam Includes: Physical Exam from this encounter Allergies Includes: Active Allergies Substance Type Reaction Onset Date Resolved Date Statu s NSAIDs Allergy 12/23/2015 Active Last Documented On 2 8:06AM ; [facility], [facility] Encounters Encounter Provider Location Date Check-In Time Check-Out Time Diagnosis Physician Specified [facility] 12/07/19 22 8:28AM 9:34AM Insurance Includes: Active Insurance Policies Plan Name Member ID Group # Subscriber Relationship Effect meg Dates 1 - [employer] [id number] Berta Rodriguez Self Clinical Notes Includes: Clinical Notes from this encounter No Clinical Notes Recorded
--- OUTSIDE RECORDS SUMMARY | 2025-08-11 09:05 | XMS_ITS | Continuity of Care Document ---
Author Organization [facility] Address [address] [place] [address] Care Team Providers Care Lead Accountant Name Role Phone MEAGHAN MCNAMARA Primary Care Provider Unavailabl e Assessment No assessment recorded. Plan of Treatment Reminders Order Date Submit Date Provider Last Modified By Organization Details Last Modified Time Details Appointments FOLLOW UP 15 2024 01:30P M Varun Mcnamara APRN Not available Not available Not available FOLLOW UP 2025 09:00A M Varun Mcnamara APRN Not available Not available Not available Lab HbA1c (hemoglob in A1c), blood [address], [address] [place] [address], [phone], 07/14/2025 14:00:46 Referral None recorded. Procedures None recorded. Surgeries None recorded. Imaging MAMMO, screening , digital, bilateral 2024 [facility] ([facility]), [address], [place], [address], 08/10/2025 08:13:43 Medication Orders Depo-Medr ol 40 mg/mL suspensio n for injection [address] [facility] [address] [facility], [address] [place] [address], [id number], 07/14/2025 14:36:51 fenofibra te nanocryst allized 48 mg tablet 2024 025 [facility], [address] [place] [address], [id number], 07/20/2025 08:28:54 methocarb heber 500 mg tablet 2024 025 [facility], [address] [place] [address], [id number], 07/20/2025 08:28:51 Patient TargetsNo targets recorded. Patient InstructionsNo instructions recorded. Reason for Referral None Reported. Results Created Date Observation Date Name Description Value Unit Range Abnormal Flag Note LastModifiedBy Organization Detail LastModifiedTime 07/14/2007/14/2025 HbA1c (hemo globi n A1c), blood HbA1c 6.0 Not Available [address], [phone], 07/14/2025 13:39:53 08/10/2008/05/2025 MAMMO , scree chava, digit al, bilat eral No observ ation record ed. [facility] [address], [place], [address], 08/10/2025 08:13:43 Result Notes None recorded. Problems Name Problem SNOMED Code Status Onset Date Resolution Date Notes Provider Name and Address Organization Details Recorded Time Generali zed anxiety disorder 95779202 Completed 201501/25/2021 Problem Code: 300.02; Problem Code Type: ICD-9; Not Available [facility] 22:56:12 Acute pharyngi tis 768568725 Completed 201509/29/2016 Problem Code: J02.8; Problem Code Type: ICD-10; Not Available [facility] 22:55:54 Cough 68913481 Completed 201511/14/2016 Problem Code: R05; Problem Code Type: ICD-10; CURTIS Blanco - [employer] 13:56:02 Spasm of back muscles 219886969 Completed 201612/15/2016 Problem Code: M62.830; Problem Code Type: ICD-10; Not Available [facility] 22:56:11 Generali zed anxiety disorder 85428143 Completed 201601/25/2021 Problem Code: 300.02; Problem Code Type: ICD-9; Not Available [facility] 22:56:15 Spasm 47367949 Completed 201612/15/2016 Problem Code: 728.85; Problem Code Type: ICD-9; Not Available [facility] 22:56:20 Generali zed anxiety disorder 47384962 Active 2016 Problem Code: F41.1; Problem Code Type: ICD-10; Not Available [facility] 22:55:53 Streptoc occal sore throat 72687481 Completed 201601/14/2017 Problem Code: J02.0; Problem Code Type: ICD-10; Not Available [facility] 22:55:54 Fever 443621099 Completed 201607/20/2022 Problem Code: R50.81; Problem Code Type: ICD-10; KARMA keen [place] [employer] [facility]. 08:38:26 Spasm of back muscles 688850636 Completed 201603/30/2017 Problem Code: M62.830; Problem Code Type: ICD-10; Not Available [facility] 22:55:57 Spasm 75398176 Completed 201603/30/2017 Problem Code: 728.85; Problem Code Type: ICD-9; Not Available [facility] 22:56:20 Mixed hyperlip idemia 705522844 Active 2016 Problem Code: E78.2; Problem Code Type: ICD-10; Not Available [facility] 22:55:53 Hyperten sive disorder 62525592 Active 2016 Problem Code: I10; Problem Code Type: ICD-10; Not Available [facility] 22:55:54 Dysthymi a 57984046 Completed 201609/04/2019 Problem Code: R53.81; Problem Code Type: ICD-10; Not Available [facility] 22:56:00 Benign essentia l hyperten andrew 1172659 Completed 201601/25/2021 Problem Code: 401.1; Problem Code Type: ICD-9; Not Available [facility] 22:56:16 Malaise and fatigue 654175211 Completed 201601/25/2021 Problem Code: 780.79; Problem Code Type: ICD-9; Not Available [facility] 22:56:26 Acute pharyngi tis 770570926 Completed 201605/28/2017 Problem Code: J02.8; Problem Code Type: ICD-10; Not Available [facility] 22:55:54 Acute pharyngi tis 841940899 Completed 201606/14/2017 Problem Code: J02.8; Problem Code Type: ICD-10; Not Available [facility] 22:55:54 Low back pain 003820436 Active 2016 Problem Code: M54.5; Problem Code Type: ICD-10; Not Available [facility] 22:55:56 Lumbar spondylo listhesi s 14360291149 9102 Completed 201607/20/2022 Problem Code: M43.16; Problem Code Type: ICD-10; KARMA keen [facility] [employer] [facility]. 08:38:26 Acquired spondylo listhesi s 821528769 Completed 201601/25/2021 Problem Code: 738.4; Problem Code Type: ICD-9; Not Available [facility] 22:56:18 Low back pain 297250966 Completed 201609/04/2019 Problem Code: M54.5; Problem Code Type: ICD-10; Not Available [facility] 22:55:57 Divertic ulitis of large intestin e without complica tion 311522262 Completed 201606/17/2021 Problem Code: K57.32; Problem Code Type: ICD-10; [facility] Available [facility] 22:55:54 Divertic ulitis of colon 409972714 Completed 201601/25/2021 Problem Code: 562.11; Problem Code Type: ICD-9; Not Available [facility] 2 22:56:17 Generali zed anxiety disorder 43389541 Completed 201709/19/2018 Problem Code: F41.1; Problem Code Type: ICD-10; Not Available [facility] 2 22:55:53 Cyst of thyroid 38713170 Completed 201701/25/2021 Problem Code: 246.2; Problem Code Type: ICD-9; Not Available [facility] 22:56:09 Benign essentia l hyperten andrew 6287480 Completed 201701/25/2021 Problem Code: 401.1; Problem Code Type: ICD-9; Not Available [facility] 2 22:56:17 Acute sinusiti s 80975146 Completed 201701/31/2018 Problem Code: J01.90; Problem Code Type: ICD-10; Not Available [facility] 2 22:55:54 Divertic ulum of [place] an tube 450162444 Completed 201703/18/2018 Problem Code: H69.80; Problem Code Type: ICD-10; Not Available [facility] 2 22:56:01 Dysfunct ion of eustachi an tube 30757865 Completed 201703/18/2018 Problem Code: 381.81; Problem Code Type: ICD-9; Not Available [facility] 2 22:56:16 Abnormal weight gain 171338827 Completed 201706/15/2018 Problem Code: R63.5; Problem Code Type: ICD-10; Not Available [facility] 2 22:56:00 Rebound tenderne ss 56606408 Completed 201708/09/2018 Not Available [facility] 2 22:55:59 Urinary tract infectio us disease 09267475 Completed 201709/24/2018 Problem Code: N39.0; Problem Code Type: ICD-10; Not Available [facility] 22:56:14 Generali zed abdomina l pain 678533801 Completed 201708/09/2018 Problem Code: 789.07; Problem Code Type: ICD-9; Not Available [facility] 22:56:19 Acute sinusiti s 73117128 Completed 201810/03/2018 Problem Code: J01.90; Problem Code Type: ICD-10; Not Available [facility] 22:56:03 Irritabl e bowel syndrome 19715150 Active 2018 Problem Code: K58.2; Problem Code Type: ICD-10; Not Available [facility] 22:55:55 Obstruct meg sleep apnea syndrome 38588811 Active 2018 Problem Code: G47.33; Problem Code Type: ICD-10; Not Available [facility] 22:55:53 Acute vaginiti s 15648104 Completed 201808/21/2019 Problem Code: N76.0; Problem Code Type: ICD-10; KARMA keen, [employer] 08:38:26 Divertic ulitis of intestin e 649916207 Completed 201807/20/2022 Problem Code: K57.92; Problem Code Type: ICD-10; KARMA keen [employer] 08:38:26 Abdomina l pain 35891009 Completed 201807/20/2022 Problem Code: R10.9; Problem Code Type: ICD-10; KARMA keen, [employer] 08:38:26 Body mass index 30+ - obesity 982771792 Completed 201802/01/2021 Problem Code: Z68.37; Problem Code Type: ICD-10; Not Available [facility] 22:56:08 History of disorder of digestiv e system 533710757 Completed 201807/20/2022 Problem Code: Z87.19; Problem Code Type: ICD-10; KARMA SEBASTIAN [employer]. 08:38:26 Epidermo id cyst of skin 161150034 Completed 201810/02/2022 Problem Code: L72.3; Problem Code Type: ICD-10; KARMA [employer] 3 10:15:38 Plantar fascial fibromat osis 19425245 Completed 201805/03/2020 Problem Code: M72.2; Problem Code Type: ICD-10; Not Available [facility] 22:55:57 Screenin g mammogra phy Completed 201807/20/2022 Problem Code: Z12.31; Problem Code Type: ICD-10; KARMA keen, [employer]. 08:38:26 Body mass index 30+ - obesity 704213127 Completed 201802/01/2021 Problem Code: Z68.37; Problem Code Type: ICD-10; Not Available [facility] 2 22:56:23 Disorder of skin and/or subcutan eous tissue 33930303 Completed 201807/20/2022 Problem Code: L98.9; Problem Code Type: ICD-10; KARMA keen, [employer] 2 08:38:26 Body mass index 30+ - obesity 037017981 Completed 201802/01/2021 Problem Code: Z68.37; Problem Code Type: ICD-10; Not Available [facility] 2 22:56:09 Acute sinusiti s 39469104 Completed 201802/02/2020 Problem Code: J01.90; Problem Code Type: ICD-10; Not Available [facility] 2 22:55:54 Acute respirat ory infectio ns 878501190 Completed 201807/20/2022 Problem Code: J22; Problem Code Type: ICD-10; KARMA SEBASTIAN [employer] 2 08:38:26 Screenin g mammogra phy Completed 201805/03/2020 Problem Code: Z12.31; Problem Code Type: ICD-10; KARMA SOLNER leonila, [employer]. 2 08:38:26 Body mass index 30+ - obesity 873827161 Completed 201902/01/2021 Problem Code: Z68.37; Problem Code Type: ICD-10; Not Available [facility] 2 22:56:06 Dog bite Completed 201902/02/2020 KARMA SOLNER leonila, [employer] 2 08:38:26 Endocrin e/metabo lic screenin g Completed 201910/02/2022 Problem Code: Z13.29; Problem Code Type: ICD-10; KARMA SOLNER leonila, [employer] 3 10:15:38 General examinat ion of patient Completed 201907/20/2022 KARMA SOLNER [employer] 2 08:38:26 Body mass index 30+ - obesity 178420311 Completed 201902/01/2021 Problem Code: Z68.37; Problem Code Type: ICD-10; Not Available [facility] 2 22:56:06 Current drug user 372664429 Active 2019 Problem Code: Z79.899; Problem Code Type: ICD-10; Not Available [facility] 2 22:56:07 Divertic ular disease of colon 923280393 Active 2019 Problem Code: K57.30; Problem Code Type: ICD-10; KARMA SOLNER leonila, [employer] 2 08:38:51 Constipa tion 53739347 Completed 201907/20/2022 KARMA SOLNER leonila, [employer] 2 08:38:26 Pain in right knee Completed 201907/20/2022 Problem Code: M25.561; Problem Code Type: ICD-10; KARMA keen [employer] 08:38:26 Plantar fascial fibromat osis 10395475 Active 2019 Problem Code: M72.2; Problem Code Type: ICD-10; Not Available [facility] 22:55:57 Low back pain 928944592 Completed 201904/22/2021 Problem Code: M54.5; Problem Code Type: ICD-10; Not Available [facility] 22:56:11 Candidia sis of vulva 5109558 Completed 201902/01/2021 Not Available [facility] 22:55:53 Body mass index 30+ - obesity 086839744 Active 2020 Problem Code: Z68.36; Problem Code Type: ICD-10; Not Available [facility] 22:56:05 Acquired hallux malleus 76400203 Active 2020 Problem Code: M20.40; Problem Code Type: ICD-10; Not Available [facility] 22:56:09 Bunion 573732011 Active 2020 Problem Code: M21.619; Problem Code Type: ICD-10; Not Available [facility] 22:56:10 Dog bite Completed 202007/20/2022 KARMA keen [employer]. 08:38:26 Low back pain 981606334 Completed 202004/22/2021 Problem Code: M54.5; Problem Code Type: ICD-10; Not Available [facility] 22:55:56 Left side sciatica 95470123447 9104 Completed 202004/22/2021 Problem Code: M54.32; Problem Code Type: ICD-10; Not Available [facility] 22:55:56 Urinary tract infectio us disease 19165414 Completed 202004/22/2021 Problem Code: N39.0; Problem Code Type: ICD-10; Not Available [facility] 2 22:55:58 Cat scratch disease 06692810 Completed 202007/20/2022 Problem Code: A28.1; Problem Code Type: ICD-10; KARMA SOLNER leonila, [employer] 2 08:38:26 Urinary tract infectio us disease 74126751 Completed 202004/22/2021 Problem Code: N39.0; Problem Code Type: ICD-10; Not Available [facility] 2 22:55:58 Dysuria 42163740 Completed 202004/22/2021 Problem Code: R30.0; Problem Code Type: ICD-10; Sarah keen, [employer] 4 13:54:17 Screenin g mammogra phy Completed 202004/22/2021 Problem Code: Z12.31; Problem Code Type: ICD-10; KARMA SOLNER leonila, [employer] 2 08:38:26 General examinat ion of patient Completed 202006/17/2021 KARMACARLOS SOLNER [employer] 2 08:38:26 Screenin g for malignan t neoplasm of colon Completed 202007/20/2022 KARMA JAZCARMELITA keen, [employer] 2 08:38:26 Chronic fatigue syndrome 79804208 Active 2020 Problem Code: R53.82; Problem Code Type: ICD-10; Not Available [facility] 2 22:56:00 Gynecolo gic examinat ion Completed 202007/20/2022 Problem Code: Z01.411; Problem Code Type: ICD-10; KARMACARLOS keen, [employer] 2 08:38:26 Body mass index 30+ - obesity 823204299 Completed 202012/22/2021 Problem Code: Z68.38; Problem Code Type: ICD-10; Not Available [facility] 22:56:07 Neoplast ic disease of uncertai n behavior 779112050 Completed 202107/20/2022 Problem Code: D48.9; Problem Code Type: ICD-10; KARMA keen, [employer] 08:38:26 Fracture of lumbar spine 684798648 Completed 202107/20/2022 Problem Code: S32.009A ; Problem Code Type: ICD-10; KARMA keen, [employer] 08:38:26 Fracture of shoulder 46512871668 435228 Completed 202107/20/2022 Problem Code: S42.90XA ; Problem Code Type: ICD-10; KARMA SOLNER [employer], [employer] 08:38:26 Urinary tract infectio us disease 11747827 Completed 202102/20/2022 Problem Code: N39.0; Problem Code Type: ICD-10; Not Available [facility] 22:55:57 Dysuria 08019421 Completed 202107/20/2022 Problem Code: R30.0; Problem Code Type: ICD-10; Sarah keen, [employer] 13:54:17 Acute vaginiti s 49940151 Completed 202107/20/2022 Problem Code: N76.0; Problem Code Type: ICD-10; KARMA SOLNER leonila, [employer] 08:38:26 Pain of left hip joint 78760293705 9100 Completed 202107/20/2022 Problem Code: M25.552; Problem Code Type: ICD-10; KARMA SOLNER leonila, [employer] 08:38:26 Dysuria 31715730 Active 2023 Problem Code: R30.0; Problem Code Type: ICD-10; Sarah keen, [employer] 4 13:54:17 Recurren t urinary tract infectio n 556929408 Active 2023 Sarah Quiroga null, [employer] 4 13:54:30 Vaginal discharg e 367513500 Active 2023 Sarah Quiroga null, [employer] 4 13:54:43 Vaginal irritati on 228988503 Active 2024 Sarah Quiroga null, [employer] 09:40:04 Cough 88863938 Active 2024 Problem Code: R05; Problem Code Type: ICD-10; Sarah keen, [employer] 13:56:02 Type 2 diabetes mellitus 80696673 Active 2024 Sarah Quiroga null, [employer] 17:20:31 Lacerati on of right hand 31825765774 683634 Active 2024 Sarah Quiroga null, [employer] 14:34:23 Diabetes mellitus 84248483 Active 2024 Sarah Quiroga null, [employer] 14:21:25 Hyperlip idemia 36700893 Active 2024 Sarah Quiroga null, [employer] 14:22:06 Fatigue 21572419 Active 2024 Sarah Quiroga null, [employer] 14:22:06 Hypergly cemia 77861470 Active 2024 Sarah Quiroga null, [employer] 14:22:06 Well controll ed type 2 diabetes mellitus 888830171 Active 2024 Sarah Quiroga null, [employer] 5 13:24:10 Chronic pain of left upper limb 50383907568 878698 Active 2024 [employer] 14:01:42 Pain of knee region 7253832591 Active 2024 Sarah keen [employer]. 14:18:49 Problem Notes None recorded. Procedures Surgical History Date Name Laterality Status Provider Name and Address Organization Details Recorded Time 03/25/20 24 Most Recent Mammogram completed Sarah Quiroga [employer]. 06/09/2024 11:20:51 08/29/20 16 cholecystectomy completed Not Available [facility] 05/23/2022 22:56:18 Orthopedic Surgery completed [employer]. 09/19/2022 09:53:54 Gallbladder Surgery completed [employer]. 09/19/2022 09:53:54 Colposcopy completed [employer] 09/19/2022 09:53:54 Imaging Results None recorded. Procedure Notes None recorded. Medical Equipment None Reported. Allergies Allergen ID Allergen Name Allergen Category Reaction Reaction Severity Criticality Documentation Date Start Date Code Code System Note Provider Name and Address Organization Details Recorded Time 95919 ibuprofen medicatio n Not available Not available Not available 05/23/2022 5640 RxNorm Not Available [facility] 2 22:57:15 27326 Norvasc medicatio n Not available Not available Not available 05/23/2022 34516 RxNorm Not Available [facility] 2 22:57:15 Medications Name Sig Start Date [...] (BMI) Body weight Heart rate Oxygen saturation Systolic And Diastolic Provider Name and Address Organization Details Last Updated DateTime 5 170.18 cm 38.1 kg/m2 090117. 95 g 73 /min 91 % 136/77 mm[Hg] Sarah Quiroga [employer] 5 13:28:49 Social History Question Answer Notes LastModified by Organizat ion Details LastModified Time Tobacco Smoking Status Never Smoker KARMA keen [employer], [employer] 07/20/2022 08:40:03 Do You Have An Advance Directive? No [email or web address] Information n ot available 07/20/2022 Is Your Home Air Conditioned? Yes [email or web address] Information not available 09/19/2022 Are You Blind Or Do You Have Difficulty Seeing? No [email or web address] Information n ot available 07/20/2022 Are You A Caregiver? No [email or web address] Information not available 07/20/2022 In The 14 Days Before Symptom Onset, Have You Had Close Contact With A Laboratory-confirm ed COVID-19 While That Case Was Ill? No [email or web address] Information n ot available 09/19/2022 In The 14 Days Before Symptom Onset, Have You Had Close Contact With A Person Who Is Under Investigation For COVID-19 While That Person Was Ill? No [email or web address] Information not available 09/19/2022 Have You Been To An Area Known To Be High Risk For COVID-19? No [email or web address] Information not available 09/19/2022 Are You Deaf Or Do You Have Serious Difficulty Hearing? No [email or web address] Information not available 07/20/2022 What Type Of Diet Are You Following? REGULAR [email or web address] Information n ot available 07/20/2022 Have There Been Any Changes To Your Family Or Social Situation? No Information no t available 07/20/2022 Are There Any Guns Present In Your Home? No [email or web address] Information not available 07/20/2022 Which Of Your Hands Is Dominant? Right [email or web address] Information n ot available 09/19/2022 Do You Have A Medical Power Of Skin Care Therapist? No [email or web address] Information not available 07/20/2022 What Was The Date Of Your Most Recent Tobacco Screening? 07/14/2025 [email or web address] Information not available 07/14/2025 Do You Have Any Pets? Yes [email or web address] Information not available 09/19/2022 Do You Use Protection During Sex? No [email or web address] Information not available 09/19/2022 What Is Your Relationship Status? [email or web address] Information not available 07/20/2022 Have You Repeated Any Grades? Yes [email or web address] Information not available 09/19/2022 Do You Use Your Seat Belt Or Car Seat Routinely? Yes [email or web address] Information not available 07/20/2022 Are You Sexually Active? Yes Information not available 09/19/2022 Do You Have Any Siblings? 3 [email or web address] Information not available 09/19/2022 Do You Have Smoke And Carbon Monoxide Detectors In Your Home? Yes [email or web address] Information not available 07/20/2022 Are You Passively Exposed To Smoke? No [email or web address] Information no t available 09/19/2022 Are There Any Smokers In Your House? Yes [email or web address] Information not available 09/19/2022 Do You Use Sunscreen Routinely? No [email or web address] Information not available 07/20/2022 Have You Recently Traveled Abroad? No [email or web address] Information not available 07/20/2022 Do You Have Difficulty Walking Or Climbing Stairs? No [email or web address] Information not available 07/20/2022 Are You Currently In School? No [email or web address] Information not available 07/20/2022 Sex: Unknown Functional Status Question Answer Note LastModified by Organizat ion Details LastModified Time Do you use any illicit or recreational drugs? No [email or web address] Information not available 09/19/2022 What is your level of alcohol consumption? None [email or web address] Information not available 07/20/2022 Are you currently employed? No Information not available 07/20/2022 Do you have transportation difficulties? No [email or web address] Information not available 07/20/2022 Are you able to walk independently without assistance or assistive devices? YESWOREST [email or web address] Information not available 07/20/2022 Do you have difficulty doing errands alone? No Information not available 07/20/2022 Are you able to care for yourself independently? Yes [email or web address] Information not available 07/20/2022 Do you have difficulty dressing, bathing, grooming, or toileting? No [email or web address] Information not available 07/20/2022 Mental Status Question Answer Note LastModified by Organizat ion Details LastModified Time Do you feel stressed (tense, restless, nervous, or anxious, or unable to sleep at night)? [id number] [email or web address] Information not available 09/19/2022 Do you have difficulty concentrating, remembering or making decisions? No [email or web address] Information no t available 07/20/2022 Are you or have you been involved with bullying? No [email or web address] Information not available 09/19/2022 Family History Relationship Description Onset Age of this Age Resolved Age Notes LastModified by Organization Details LastModified Time Unspecified Relation Family history of Hypertension [email or web address] Not available 09:08:53 Unspecified Relation Family history of diabetes mellitus type 2 [email or web address] Not available 2023 09:08:53 Maternal Grandmother Hypertensive disorder [email or web address] Not available 09/19 09:53:52 Paternal Grandfather Hypertensive disorder [email or web address] Not available 09/19 09:53:52 Mother Hypertensive disorder [email or web address] Not available 09/19 09:53:52 Mother Arthritis [email or web address] Not availa ble 09/19/2022 09:53:52 Mother Diabetes mellitus [email or web address] Not available 09/19 09:53:52 Mother Hypercholest erolemia [email or web address] Not available 09/19 09:53:52 Mother Anxiety disorder [email or web address] Not available 09/19 09:53:52 Father Arthritis [email or web address] Not availa ble 09/19/2022 09:53:52 Father Liver problem Not available 09/19 09:53:52 Father Diabetes mellitus [email or web address] Not available 09/19 09:53:52 Father Hypertensive disorder [email or web address] Not available 09/19 09:53:52 Maternal Grandfather Hypertensive disorder [email or web address] Not available 09/19 09:53:52 Brother Hypertensive disorder [email or web address] Not available 09/19 09:53:52 Brother Diabetes mellitus [email or web address] Not available 09/19 09:53:52 Sister Hypertensive disorder [email or web address] Not available 09/19 09:53:52 Sister Diabetes mellitus [email or web address] Not available 09/19 09:53:52 Medical History Condition [...] split virus, quadrivalent, PF 3 completed Reta [place] null, [employer] 07/10/2023 08:32:44 Influenza, split virus, quadrivalent, preservative 1 completed Reta [place] null, [employer] 12/07/2023 09:26:55 Influenza, split virus, quadrivalent, preservative 0 completed Reta [place] null, [employer] 12/07/2023 09:26:55 Influenza, split virus, quadrivalent, preservative 9 completed Reta [place] null, [employer] 12/07/2023 09:26:55 Tdap 7 completed Reta [place] null, [employer] 12/07/2023 09:26:55 COVID-19, mRNA, LNP-S, PF, 100 mcg/0.5mL dose or 50 mcg/0.25mL dose 1 completed Reta Escambia null, [employer] 12/07/2023 09:26:55 COVID-19, mRNA, LNP-S, PF, 100 mcg/0.5mL dose or 50 mcg/0.25mL dose 1 completed Reta [place] null, [employer] 12/07/2023 09:26:55 Influenza, split virus, quadrivalent, PF 8 completed Reta Gary null, [employer] 12/07/2023 09:26:55 zoster recombinant 4 completed Meaghan Mcnamara APRN [address] [place], [address], [employer] 03/13/2024 08:53:07 zoster recombinant 4 completed Meaghan Mcnamara APRN [address] [place], [address], [employer] 06/09/2024 12:19:53 Influenza, split virus, trivalent, PF 4 completed Sarah keen, [employer] 06/30/2024 09:50:26 Influenza, split virus, trivalent, preservative 5 completed KARMA keen, [employer] 09/19/2022 09:52:55 Influenza, split virus, quadrivalent, PF 7 completed KARMA SEBASTIAN null, [employer] 09/19/2022 09:52:55 Td (adult), 2 Lf tetanus toxoid, preservative free, adsorbed 6 completed KARMA SEBASTIAN [employer], [employer] 09/19/2022 09:52:55 Td (adult), 2 Lf tetanus toxoid, preservative free, adsorbed 6 completed KARMA SEBASTIAN [employer], [employer] 09/19/2022 09:52:55 COVID-19, mRNA, LNP-S, PF, 100 mcg/0.5mL dose or 50 mcg/0.25mL dose 1 completed KARMA keen, [employer] 09/19/2022 09:52:55 Influenza, split virus, quadrivalent, PF 2 completed KARMA keen, [employer] 09/21/2022 15:11:16 Pneumococcal conjugate PCV15, polysaccharide [id number] conjugate, adjuvant, PF 5 completed Meaghan Mcnamara APRN [address] [place], [address], [employer] 02/26/2025 09:36:12 Tdap 5 completed Sarah keen, [employer] 05/25/2025 14:52:02 Influenza, split virus, trivalent, PF 5 completed Sarah Quiroga null, [facility] [employer] 07/14/2025 14:20:49 Influenza, split virus, quadrivalent, PF 1 completed Reta Cortes[place] null, [place] [employer] 12/07/2023 09:26:55 Influenza, split virus, quadrivalent, PF 0 completed Reta [place] null, [place] [employer] 12/07/2023 09:26:55 Influenza, split virus, quadrivalent, PF 9 completed Reta Corteschie null, [facility] 12/07/2023 09:26:55 Past Encounters Encounter ID Performer Location Encounter Start Date Encounter Closed Date Diagnosis/Indication Diagnosis SNOMED-CT Code Diagnosis ICD10 Code Diagnosis IMO Codes Diagnosis Note [id number] Meaghan Mcnamara [place] [id number] 07/14/2025 13:20:05 07/14/2025 15:32:00 Well controlled type 2 diabetes mellitus 294542800 E11.9 029013 Screening mammography 24 695492 Z12.31 [id number] Mixed hyperlipidemia 267 012558 E78.2 Low back pain 355124699 M54.50 Requires i nfluenza virus vaccination [id number] Z23 9663941 Pain of knee region 1003 963520 M25.561 M25.562 G89.29 59138096 Body mass index 30+ - obesity 583290285 Z68.38 157271 Health Concerns Section Related Observation LastModified by Organization Detai ls LastModified Time None Recorded Concern Status LastModified by Organization Details LastModified Time None Recorded Payers Encounter Date Sequence Insurance Name Policy Number Policy Molina Covered Member ID Molina Member ID Guarantor Name 07/14/2025 1 [place] Berta Mckeon Jennifer [id number] Berta G Jennifer 07/14/2025 2 [place] [employer] [place] FFS/TRADITIO NAL Berta Terrazas Jennifer [id number] Berta Mckeon Jennifer Notes Date Note Type Note Provider [...] 6.6 at last visit. Meaghan Mcnamara APRN [address] [place] [address], [place], [address], [facility] [employer] [employer] 07/14/2025 14:37:20 OBGyn Episode No OBEpisode recorded.
--- OUTSIDE RECORDS SUMMARY | 2025-08-11 09:05 | XMS_ITS ---
Care Plan - [facility], [facility] Created on: August 11, 2025 JenniferBerta lee : 1960 Sex: Female Author Organization [facility], [facility] Address [address] [place] [address] Phone Care Team Providers Care Property Coordinator Name Role Phone Isaac CORONA, Brandon Diallo Unavailable [phone] Yuliana Sheikh APRN Primary Care Provider [phone] Meaghan Mcnamara APRN Unavailable [phone]
--- OUTSIDE RECORDS SUMMARY | 2025-08-11 09:05 | XMS_ITS ---
Author Organization [facility] , [facility] Address [address] [place] [address] Phone Care Team Providers Care Denture Contour Wire Specialist Name Role Phone Isaac CORONA, Brandon Diallo Unavailable [phone] Yuliana Sheikh APRN Primary Care Provider [phone] Meaghan Mcnamara APRN Unavailable [phone] Reason for Referral Date Encounter Description Provider Reason for Referral 01/18/22 Follow Up Adrian Massey MD Refe rral To Physician 12/29/21 Follow Up Sarath Eli PA-C Refe rral To Physician 12/06/21 Physician Specified Sarath Marcelo Referral To Physician Problems Includes: Active, inactive, and resolved Problems All Visits Onset Date Resolved Date Provider Condition S tatus History of Joint Pain Shoulder Left 2021 Sarath Eli PA-C Active Last Documented On 2 8:12AM ; [facility], [facility] Lower Back Pain 12/23/2015 Brandon Gray MD Act meg Last Documented On 6 1:16PM ; [facility], [facility] Plan of Treatment Pending Tests Order Diagnosis Results Due Ordering P rovider Radiology - CT Scan Shoulder 12/20/21 Mora Eli PA-C Last Documented On 2 8:45AM ; [facility] Instructions to patient Lose weight Last Documented On 2 8:06AM ; [facility] Lose weight Last Documented On 2 8:28AM ; [facility] Lose weight Last Documented On 2 9:49AM ; [facility] Lose weight Last Documented On 2 11:25AM ; [facility] Instructions for patient see pcp for wt mgmt Last Documented On 6 1:21PM ; [facility] Assessments Includes: Assessments for all patient encounters No Assessments Recorded Instructions Includes: Instructions for all patient encounters Instructions to patient Lose weight Last Documented On 2 8:06AM ; [facility] Lose weight Last Documented On 2 8:28AM ; [facility] Lose weight Last Documented On 2 9:49AM ; [facility] Lose weight Last Documented On 2 11:25AM ; [facility] Instructions for patient see pcp for wt mgmt Last Documented On 6 1:21PM ; [facility] Medical Equipment - Implanted Devices Includes: Current and historical Devices No Medical Equipment Recorded Medications Includes: Current and historical Medications Current Medications (continue as prescribed) Diclofenac Sodium 75 MG Oral Tablet Delayed Release Provider: Diagnosis: Last Documented On 2 8:36AM By Hillary [facility], [facility] Active-Pac/Gabapentin 300 & 4-1 MG & % Combination Therapy Pack 12/15/2021 Provider: Diagnosis: Last Documented On 2 8:36AM By Hillary UNGER, [facility] Diclofenac Sodium 1% External Gel 12/15/2021 Provide r: Diagnosis: Last Documented On 2 8:36AM By Hillary UNGER, [facility] Calcium 600 MG Oral Tablet 2021 Provider: Diagnosis: Last Documented On 2 8:41AM By Argelia [facility] LORazepam 0.5 MG Oral Tablet 2021 Provider: Diagnosis: Last Documented On 2 8:41AM By Argelia [facility] Metoprolol Tartrate 25 MG Oral Tablet 2021 Pro vider: Diagnosis: Last Documented On 2 8:42AM By Argelia Romero ; [facility] FiberCon 625 MG Oral Tablet 2021 Provider: Diagnosis: Last Documented On 2 8:43AM By Argelia Romero ; [facility] PreserVision AREDS Oral Capsule 2021 Provider: Diagnosis: Last Documented On 2 8:43AM By Argelia Romero ; [facility] Methocarbamol 500 MG Oral Tablet 11/21/2021 Provider : Meaghan Mcnamraa APRN Diagnosis: Last Documented On 2 8:42AM By Argelia Romero ; [facility] Potassium Chloride Ivania ER 2 0 MEQ Oral Tablet Extended Release 11/21/2021 Provider: Meaghan MYERS Diagnosis: Last Documented On 2 8:42AM By Argelia Romero ; [facility] Fenofibrate 48 MG Oral Tablet 10/24/2021 Provider: Meaghan Mcnamara APRN Diagnosis: Last Documented On 2 8:42AM By Argelia Romero ; [facility] Past Medications on file Metoprolol Tartrate 25 MG Tablet 12/23/2015 - 12/07/19 Provider: Diagnosis: Last Documented On 2 8:42AM By Argelia Romero ; [facility] Benazepril-Hydrochlorothiazide 20-25 MG Tablet 0 12/23/2015 - 2021 Provider: Diagnosis: Last Documented On 2 8:41AM By Argelia Romero ; [facility] Mobic 15 MG Tablet 12/23/2015 - 2021 Provider: Diagnosis: Last Documented On 2 8:41AM By Argelia Romero ; [facility] Aspirin 81 MG Tablet 12/23/2015 - 2021 Provider: Diagnosis: Last Documented On 2 8:40AM By Argelia Romero ; [facility] Klor-Con 25 MEQ Packet 12/23/2015 - 2021 Provide r: Diagnosis: Last Documented On 2 8:41AM By Argelia Romero ; [facility] Calcium 600 MG Tablet 12/23/2015 - 2021 Provider : Diagnosis: Last Documented On 2 8:41AM By Argelia Romero ; [facility] LORazepam 0.5 MG Tablet 12/23/2015 - 2021 Provid er: Diagnosis: Last Documented On 2 8:41AM By Argelia Romero ; [facility] Medications Administered Includes: Administered Medications in patient's chart No Administered Medications Recorded Results Includes: Results from 08/11/2024 through 08/11/2025 No Results Recorded For Specified Dates History of Present Illness History of Present Illness not supported for this document type No History of Present Illness Recorded Social History Description Last Updated Non-smoker 12/07/2021 Last Documented On 2 10:00AM ; [facility] No caffeine use 2021 Last Documented On 2 1:18PM ; [facility] No recent change in diet 2021 Last Documented On 2 1:18PM ; [facility] Not a current smoker. 2021 Last Documented On 2 1:18PM ; [facility] Not exercising regularly 2021 Last Documented On 2 1:18PM ; [facility] Not using alcohol 2021 Last Documented On 2 1:18PM ; [facility] Not using drugs 2021 Last Documented On 2 1:18PM ; [facility] No recent change in diet 12/23/2015 Last Documented On 6 10:11AM ; [facility] Not a current smoker 12/23/2015 Last Documented On 6 10:11AM ; [facility] No tobacco use 12/23/2015 Last Documented On 6 10:11AM ; [facility] Smoking status : Never smoker 12/23/2015 Last Documented On 6 10:11AM ; [facility], [facility] Procedures and Surgical History Surgical History Last Updated History of History of Gallbladder 2021 Last Documented On 2 1:18PM ; [facility], [facility] Medical History Includes: Medical History in patient's chart Description Last Updated History of arthritis 2021 Last Documented On 2 1:18PM ; [facility] History of diverticulitis of colon 12/06 Last Documented On 2 1:18PM ; [facility], [facility] History of Sleep Apnea 2021 Last Documented On 2 1:18PM ; [facility], [facility] No recent immunization for pneumococcal pneumonia 2021 Last Documented On 2 1:18PM ; [facility], [facility] Recent immunization for flu 05/18/2021 Last Documented On 2 1:18PM ; [facility], [facility] Use of CPAP 2021 Last Documented On 2 1:18PM ; [facility] Rotator Cuff 12/23/2015 Last Documented On 6 10:11AM ; [facility], [facility] Arthritic joint problems 12/23/2015 Last Documented On 6 10:11AM ; [facility] Gallbladder disease 12/23/2015 Last Documented On 6 10:11AM ; [facility], [facility] History of osteoporosis 12/23/2015 Last Documented On 6 10:11AM ; [facility] Intermittent hypertension 12/23/2015 Last Documented On 6 10:11AM ; [facility], [facility] Family History Includes: Family History in patient's chart Description Last Updated Diabetes mellitus 2021 Last Documented On 2 1:18PM ; [facility] Family history of systemic hypertension 2021 Last Documented On 2 1:18PM ; [facility] Family history of diabetes mellitus Moth er, Father, Sister, Brother 12/23/2015 Last Documented On 6 10:11AM ; [facility], [facility] Family history of osteoporosis Father Last Documented On 6 10:11AM ; [facility] Review of Systems Review of Systems not supported for this document type No Review of Systems Recorded Mental Status Description No anxiety Functional Status No Functional Status Recorded Physical Exam Physical Exam not supported for this document type No Physical Exam Recorded Immunizations Includes: Immunizations in patient's chart Vaccine Dose # Date Site Reaction(s) Status Source Influenza 1 08/17/2021 Complete (Reported) Patient Last Documented On 2 8:18AM ; [facility] PCV (Pneumovax 23) 1 01/18/2022 Complete (Refused - Patient objection) [facility] Last Documented On 2 8:18AM ; [facility] Td 1 01/18/2022 Complete (Refused - Patient objection) [facility] Last Documented On 2 8:18AM ; [facility] Allergies Includes: Active, inactive, and resolved Allergies Substance Type Reaction Onset Date Resolved Date Statu s NSAIDs Allergy 12/23/2015 Active Last Documented On 2 8:06AM ; [facility] Insurance Includes: Active Insurance Policies Plan Name Member ID Group # Subscriber Relationship Effect meg Dates 1 - [employer] [id number] Berta Tyson Clinical Notes Includes: Signed Clinical Notes starting from 08/31/2022 No Clinical Notes Recorded
--- OUTSIDE RECORDS SUMMARY | 2025-08-11 09:05 | XMS_ITS | Clinical Summary ---
Author Organization [facility] , [facility] Address [address] [place] [address] Phone Care Team Providers Care Dowel Pointer Name Role Phone Isaac CORONA, Brandon Diallo Unavailable [phone] Yuliana Sheikh APRN Primary Care Provider [phone] Meaghan Mcnamara APRN Unavailable [phone] Reason for Referral Date Encounter Description Provider Reason for Referral 12/29/21 Follow Up Sarath Eli PA-C Refe rral To Physician Reason for Visit and Chief Complaint The Chief Complaint is: Left shoulder pain Problems Includes: Problems addressed during this encounter and other active Problems Current Visit Onset Date Resolved Date Provider Conditio n Status Lower Back Pain 12/23/2015 Brandon Gray MD Act meg Last Documented On 6 1:16PM ; [facility], [facility] Past Visits Onset Date Resolved Date Provider Condition Status History of Joint Pain Shoulder Left 2021 Sarath Eli PA-C Active Last Documented On 2 8:12AM ; [facility], [facility] Plan of Treatment We are still waiting for this bone to heal. I told her it would likely take 8-10 weeks for this to occur. She is to continue the sling and immobilization restrictions. She has some concerns about her NSAID use which I advised her to stop she is retaining fluid. I advised her to switch to Tylenol. She has some back problems and I advised her to see her attending spinal surgeon for that. - Last Documented On 12/29/2021 8:50AM ; [facility], [facility] Pending Tests Order Diagnosis Results Due Ordering P rovider Radiology - CT Scan Shoulder 12/20/21 Mora Eli PA-C Last Documented On 2 8:45AM ; [facility], [facility] Instructions to patient Lose weight Last Documented On 2 8:28AM ; [facility], [facility] Assessments Includes: Assessments from this encounter Findings Glenoid fracture left shoulder with cuff tear - Last Documented On 12/29/2021 8:50AM ; [facility], [facility] Instructions Includes: Instructions from this encounter Instructions to patient Lose weight Last Documented On 2 8:28AM ; [facility], [facility] Medical Equipment - Implanted Devices Includes: Current Devices No Medical Equipment Recorded Medications Includes: Medications discussed during this encounter and other current Medications Current Medications (continue as prescribed) Diclofenac Sodium 75 MG Oral Tablet Delayed Release Provider: Diagnosis: Last Documented On 2 8:36AM [facility] Active-Pac/Gabapentin 300 & 4-1 MG & % Combination Therapy Pack 12/15/2021 Provider: Diagnosis: Last Documented On 2 8:36AM By Hillary Lofton ; [facility], [facility] Diclofenac Sodium 1% External Gel 12/15/2021 Provide r: Diagnosis: Last Documented On 2 8:36AM By Hillary MCCLAIN [facility], [facility] Calcium 600 MG Oral Tablet 2021 Provider: Diagnosis: Last Documented On 2 8:41AM By Argelia Romero ; [facility], [facility] LORazepam 0.5 MG Oral Tablet 2021 Provider: Diagnosis: Last Documented On 2 8:41AM By Argelia Romero ; [facility], [facility] Metoprolol Tartrate 25 MG Oral Tablet 2021 Pro vider: Diagnosis: Last Documented On 2 8:42AM By Argelia Romero ; [facility], [facility] FiberCon 625 MG Oral Tablet 2021 Provider: Diagnosis: Last Documented On 2 8:43AM By Argelia Romero ; [facility], [facility] PreserVision AREDS Oral Capsule 2021 Provider: Diagnosis: Last Documented On 2 8:43AM By Argelia Romero ; [facility] Methocarbamol 500 MG Oral Tablet 11/21/2021 Provider : Meaghan Mcnamara APRN Diagnosis: Last Documented On 2 8:42AM By Argelia Romero ; [facility] Potassium Chloride Ivania ER 2 0 MEQ Oral Tablet Extended Release 11/21/2021 Provider: Meaghan Diallo PRN Diagnosis: Last Documented On 2 8:42AM By Argelia Romero ; [facility] Fenofibrate 48 MG Oral Tablet 10/24/2021 Provider: Meaghan Mcnamara APRN Diagnosis: Last Documented On 2 8:42AM By Argelia Romero ; [facility] Medications Administered Includes: Administered Medications from this encounter No Administered Medications Recorded Vital Signs Includes: Vital Signs from this encounter Vital Name 12/29/2021 08:37A Blood Pressure Sitting (mmHg) 149/86 Pulse Rate-Sitting (bpm) 59 Height (in) 67.5 Weight (lb) 235 Body Mass Index (kg/m2) 36.3 Body Surface Area (m2) 2.2 Note: hdv Last Documented: On 12/29/2021 8:37AM ; [facility] Results Includes: Results discussed during this encounter No Results Recorded For Specified Dates History of Present Illness Includes: History of Present Illness from this encounter VON Rodriguez is a 61 year old female. - Allergy list reviewed - Problem list reviewed - Medication list reviewed Patient is in today for evaluation of the shoulder. She is doing well with the shoulder unless she moves it. She is retaining some fluid from her NSAIDs. Social History Description Last Updated Non-smoker 12/07/2021 Last Documented On 2 8:28AM ; [facility] No caffeine use 2021 Last Documented On 2 8:28AM ; [facility] No recent change in diet 2021 Last Documented On 2 8:28AM ; [facility] Not a current smoker. 2021 Last Documented On 2 8:28AM ; [facility] Not exercising regularly 2021 Last Documented On 2 8:28AM ; [facility], [facility] Not using alcohol 2021 Last Documented On 2 8:28AM ; [facility], [facility] Not using drugs 2021 Last Documented On 2 8:28AM ; [facility], [facility] No recent change in diet 12/23/2015 Last Documented On 2 8:28AM ; [facility], [facility] Not a current smoker 12/23/2015 Last Documented On 2 8:28AM ; [facility] No tobacco use 12/23/2015 Last Documented On 2 8:28AM ; [facility] Smoking status : Never smoker 12/23/2015 Last Documented On 2 8:28AM ; [facility], [facility] Procedures and Surgical History Includes: Procedures from this encounter Procedures Code Diagnosis Performing Provider Service L ocation Service Date use of tobacco assessment performed 1000F Last Documented On 2 8:28AM ; [facility], [facility] referral to physician Last Documented On 2 8:37AM ; [facility], [facility] an X-ray was performed 59935 Last Documented On 2 8:28AM ; [facility] an MRI was performed [id number] Last Documented On 2 8:28AM ; [facility], [facility] Surgical History Last Updated History of History of Gallbladder 2021 Last Documented On 2 8:28AM ; [facility] Medical History Includes: Medical History addressed during this encounter Description Last Updated History of arthritis 2021 Last Documented On 2 8:28AM ; [facility], [facility] History of diverticulitis of colon 12/06 Last Documented On 2 8:28AM ; [facility], [facility] History of Sleep Apnea 2021 Last Documented On 2 8:28AM ; [facility], [facility] No recent immunization for pneumococcal pneumonia 2021 Last Documented On 2 8:28AM ; [facility], [facility] Recent immunization for flu 05/18/2021 Last Documented On 2 8:28AM ; [facility], [facility] Use of CPAP 2021 Last Documented On 2 8:28AM ; [facility], [facility] Rotator Cuff 12/23/2015 Last Documented On 2 8:28AM ; [facility], [facility] Arthritic joint problems 12/23/2015 Last Documented On 2 8:28AM ; [facility], [facility] Gallbladder disease 12/23/2015 Last Documented On 2 8:28AM ; [facility], [facility] History of osteoporosis 12/23/2015 Last Documented On 2 8:28AM ; [facility], [facility] Intermittent hypertension 12/23/2015 Last Documented On 2 8:28AM ; [facility], [facility] Family History Includes: Family History addressed during this encounter Description Last Updated Diabetes mellitus 2021 Last Documented On 2 8:28AM ; [facility], [facility] Family history of systemic hypertension 2021 Last Documented On 2 8:28AM ; [facility], [facility] Family history of diabetes mellitus Moth er, Father, Sister, Brother 12/23/2015 Last Documented On 2 8:28AM ; [facility], [facility] Family history of osteoporosis Father Last Documented On 2 8:28AM ; [facility], [facility] Review of Systems Includes: Review of Systems [...] Active Last Documented On 2 8:06AM ; [facility], [facility] Encounters Encounter Provider Location Date Check-In Time Check- Out Time Diagnosis Follow Up Sarath Eli PA-C [facility] 2 8:21AM 8:50AM Insurance Includes: Active Insurance Policies Plan Name Member ID Group # Subscriber Relationship Effect meg Dates 1 - [employer] [id number] Berta Rodriguez Self Clinical Notes Includes: Clinical Notes from this encounter No Clinical Notes Recorded
--- OUTSIDE RECORDS SUMMARY | 2025-08-11 09:05 | XMS_ITS | Continuity of Care Document ---
[facility] Organization [facility] Address [address] [place] [id number] Care Team Providers Care Sql Manager Name Role Phone MEAGHAN MCNAMARA Primary Care Provider Unavailabl e Assessment No assessment recorded. Plan of Treatment Reminders Order Date Submit Date Provider Last Modified By Organization Details Last Modified Time Details Appointments FOLLOW UP 15 2024 01:30P Mk Mcnamara APRN Not available Not available Not available FOLLOW UP 2025 09:00A M Varun Mcnamara APRN Not available Not available Not available Lab None recorded. Referral None recorded. Procedures None recorded. Surgeries None recorded. Imaging None recorded. Medication Orders cephalexi n 500 mg capsule [address] [facility], [address] [place] [address], [id number], 06/08/2025 05:01:25 Patient TargetsNo targets recorded. Patient InstructionsNo instructions recorded. Reason for Referral None Reported. Results Created Date Observation Date Name Description Value Unit Range Abnormal Flag Note LastModifiedBy Organization Detail LastModifiedTime 08/10/2008/05/2025 MAMMO , scree chava, digit al, bilat eral No observ ation record ed. [place] [id number], [place], [address], 08/10/2025 08:13:43 Result Notes None recorded. Problems Name Problem SNOMED Code Status Onset Date Resolution Date Notes Provider Name and Address Organization Details Recorded Time Generali zed anxiety disorder 89044061 Completed 201501/25/2021 Problem Code: 300.02; Problem Code Type: ICD-9; Not Available [facility] 2 22:56:12 Acute pharyngi tis 756442373 Completed 201509/29/2016 Problem Code: J02.8; Problem Code Type: ICD-10; Not Available [facility] 2 22:55:54 Cough 94584903 Completed 201511/14/2016 Problem Code: R05; Problem Code Type: ICD-10; Sarah keen, [employer] 5 13:56:02 Spasm of back muscles 896940529 Completed 201612/15/2016 Problem Code: M62.830; Problem Code Type: ICD-10; Not Available [facility] 2 22:56:11 Generali zed anxiety disorder 71948071 Completed 201601/25/2021 Problem Code: 300.02; Problem Code Type: ICD-9; Not Available [facility] 2 22:56:15 Spasm 46999699 Completed 201612/15/2016 Problem Code: 728.85; Problem Code Type: ICD-9; Not Available [facility] 2 22:56:20 Generali zed anxiety disorder 89409544 Active 2016 Problem Code: F41.1; Problem Code Type: ICD-10; Not Available [facility] 2 22:55:53 Streptoc occal sore throat 24698346 Completed 201601/14/2017 Problem Code: J02.0; Problem Code Type: ICD-10; Not Available [facility] 2 22:55:54 Fever 108161445 Completed 201607/20/2022 Problem Code: R50.81; Problem Code Type: ICD-10; KARMA keen, [employer] 2 08:38:26 Spasm of back muscles 927207844 Completed 201603/30/2017 Problem Code: M62.830; Problem Code Type: ICD-10; Not Available [facility] 2 22:55:57 Spasm 48121297 Completed 201603/30/2017 Problem Code: 728.85; Problem Code Type: ICD-9; Not Available [facility] 2 22:56:20 Mixed hyperlip idemia 923381837 Active 2016 Problem Code: E78.2; Problem Code Type: ICD-10; Not Available [facility] 22:55:53 Hyperten sive disorder 80093628 Active 2016 Problem Code: I10; Problem Code Type: ICD-10; Not Available [facility] 2 22:55:54 Dysthymi a 32561949 Completed 201609/04/2019 Problem Code: R53.81; Problem Code Type: ICD-10; Not Available [facility] 22:56:00 Benign essentia l hyperten andrew 4050206 Completed 201601/25/2021 Problem Code: 401.1; Problem Code Type: ICD-9; Not Available [facility] 22:56:16 Malaise and fatigue 817313408 Completed 201601/25/2021 Problem Code: 780.79; Problem Code Type: ICD-9; Not Available [facility] 22:56:26 Acute pharyngi tis 847570221 Completed 201605/28/2017 Problem Code: J02.8; Problem Code Type: ICD-10; Not Available [facility] 22:55:54 Acute pharyngi tis 973407725 Completed 201606/14/2017 Problem Code: J02.8; Problem Code Type: ICD-10; Not Available [facility] 2 22:55:54 Low back pain 055884296 Active 2016 Problem Code: M54.5; Problem Code Type: ICD-10; Not Available [facility] 22:55:56 Lumbar spondylo listhesi s 11607163805 9102 Completed 201607/20/2022 Problem Code: M43.16; Problem Code Type: ICD-10; KARMA keen [facility]. 11/03/202 2 08:38:26 Acquired spondylo listhesi s 273986430 Completed 201601/25/2021 Problem Code: 738.4; Problem Code Type: ICD-9; Not Available [facility] 2 22:56:18 Low back pain 886548338 Completed 201609/04/2019 Problem Code: M54.5; Problem Code Type: ICD-10; Not Available [facility] 2 22:55:57 Divertic ulitis of large intestin e without complica tion 089635453 Completed 201606/17/2021 Problem Code: K57.32; Problem Code Type: ICD-10; Not Available [facility] 2 22:55:54 Divertic ulitis of colon 007036239 Completed 201601/25/2021 Problem Code: 562.11; Problem Code Type: ICD-9; Not Available [facility] 2 22:56:17 Generali zed anxiety disorder 75158112 Completed 201709/19/2018 Problem Code: F41.1; Problem Code Type: ICD-10; Not Available [facility] 2 22:55:53 Cyst of thyroid 57725695 Completed 201701/25/2021 Problem Code: 246.2; Problem Code Type: ICD-9; Not Available [facility] 2 22:56:09 Benign essentia l hyperten andrew 5904778 Completed 201701/25/2021 Problem Code: 401.1; Problem Code Type: ICD-9; Not Available [facility] 2 22:56:17 Acute sinusiti s 09646795 Completed 201701/31/2018 Problem Code: J01.90; Problem Code Type: ICD-10; Not Available [facility] 2 22:55:54 Divertic ulum of [place] an tube 456797622 Completed 201703/18/2018 Problem Code: H69.80; Problem Code Type: ICD-10; Not Available [facility] 2 22:56:01 Dysfunct ion of eustachi an tube 80767768 Completed 201703/18/2018 Problem Code: 381.81; Problem Code Type: ICD-9; Not Available [facility] 2 22:56:16 Abnormal weight gain 019210533 Completed 201706/15/2018 Problem Code: R63.5; Problem Code Type: ICD-10; Not Available [facility] 2 22:56:00 Rebound tenderne ss 06130897 Completed 201708/09/2018 Not Available [facility] 2 22:55:59 Urinary tract infectio us disease 77854223 Completed 201709/24/2018 Problem Code: N39.0; Problem Code Type: ICD-10; Not Available [facility] 2 22:56:14 Generali zed abdomina l pain 133452573 Completed 201708/09/2018 Problem Code: 789.07; Problem Code Type: ICD-9; Not Available [facility] 2 22:56:19 Acute sinusiti s 14786878 Completed 201810/03/2018 Problem Code: J01.90; Problem Code Type: ICD-10; Not Available [facility] 2 22:56:03 Irritabl e bowel syndrome 38857901 Active 2018 Problem Code: K58.2; Problem Code Type: ICD-10; Not Available [facility] 2 22:55:55 Obstruct meg sleep apnea syndrome 25059312 Active 2018 Problem Code: G47.33; Problem Code Type: ICD-10; Not Available [facility] 2 22:55:53 Acute vaginiti s 12493298 Completed 201808/21/2019 Problem Code: N76.0; Problem Code Type: ICD-10; KARMA keen [employer] 2 08:38:26 Divertic ulitis of intestin e 535511857 Completed 201807/20/2022 Problem Code: K57.92; Problem Code Type: ICD-10; KARMA keen [employer] 2 08:38:26 Abdomina l pain 11739082 Completed 201807/20/2022 Problem Code: R10.9; Problem Code Type: ICD-10; [employer] 2 08:38:26 Body mass index 30+ - obesity 705119942 Completed 201802/01/2021 Problem Code: Z68.37; Problem Code Type: ICD-10; Not Available [facility] 2 22:56:08 History of disorder of digestiv e system 725775211 Completed 201807/20/2022 Problem Code: Z87.19; Problem Code Type: ICD-10; [employer]MA [employer] 2 08:38:26 Epidermo id cyst of skin 591527882 Completed 201810/02/2022 Problem Code: L72.3; Problem Code Type: ICD-10; [employer]MA [employer] 3 10:15:38 Plantar fascial fibromat osis 75253304 Completed 201805/03/2020 Problem Code: M72.2; Problem Code Type: ICD-10; Not Available [facility] 2 22:55:57 Screenin g mammogra phy Completed 201807/20/2022 Problem Code: Z12.31; Problem Code Type: ICD-10; KARMA keen, [employer]. 2 08:38:26 Body mass index 30+ - obesity 675178520 Completed 201802/01/2021 Problem Code: Z68.37; Problem Code Type: ICD-10; Not Available [facility] 22:56:23 Disorder of skin and/or subcutan eous tissue 17464042 Completed 201807/20/2022 Problem Code: L98.9; Problem Code Type: ICD-10; [employer] 2 08:38:26 Body mass index 30+ - obesity 245472668 Completed 201802/01/2021 Problem Code: Z68.37; Problem Code Type: ICD-10; Not Available [facility] 2 22:56:09 Acute sinusiti s 53393129 Completed 201802/02/2020 Problem Code: J01.90; Problem Code Type: ICD-10; Not Available [facility] 2 22:55:54 Acute respirat ory infectio ns 752106704 Completed 201807/20/2022 Problem Code: J22; Problem Code Type: ICD-10; KARMA keen, [employer]. 2 08:38:26 Screenin g mammogra phy Completed 201805/03/2020 Problem Code: Z12.31; Problem Code Type: ICD-10; KARMA keen, [employer]. 2 08:38:26 Body mass index 30+ - obesity 067884908 Completed 201902/01/2021 Problem Code: Z68.37; Problem Code Type: ICD-10; Not Available [facility] 2 22:56:06 Dog bite Completed 201902/02/2020 KARMA keen, [employer] 2 08:38:26 Endocrin e/metabo lic screenin g Completed 201910/02/2022 Problem Code: Z13.29; Problem Code Type: ICD-10; KARMA keen, [employer] 3 10:15:38 General examinat ion of patient Completed 201907/20/2022 KARMA keen, [employer] 2 08:38:26 Body mass index 30+ - obesity 940811451 Completed 201902/01/2021 Problem Code: Z68.37; Problem Code Type: ICD-10; Not Available [facility] 2 22:56:06 Current drug user 181615292 Active 2019 Problem Code: Z79.899; Problem Code Type: ICD-10; Not Available [facility] 2 22:56:07 Divertic ular disease of colon 404292274 Active 2019 Problem Code: K57.30; Problem Code Type: ICD-10; KARMACARLOS keen [employer]. 2 08:38:51 Constipa tion 92718728 Completed 201907/20/2022 KARMACARLOS keen [employer]. 2 08:38:26 Pain in right knee Completed 201907/20/2022 Problem Code: M25.561; Problem Code Type: ICD-10; KARMACARLOS keen [employer]. 2 08:38:26 Plantar fascial fibromat osis 64875877 Active 2019 Problem Code: M72.2; Problem Code Type: ICD-10; Not Available [facility] 2 22:55:57 Low back pain 338060809 Completed 201904/22/2021 Problem Code: M54.5; Problem Code Type: ICD-10; Not Available [facility] 2 22:56:11 Candidia sis of vulva 3448280 Completed 201902/01/2021 Not Available [facility] 2 22:55:53 Body mass index 30+ - obesity 323269159 Active 2020 Problem Code: Z68.36; Problem Code Type: ICD-10; Not Available [facility] 2 22:56:05 Acquired hallux malleus 41458568 Active 2020 Problem Code: M20.40; Problem Code Type: ICD-10; Not Available [facility] 2 22:56:09 Bunion 661577738 Active 2020 Problem Code: M21.619; Problem Code Type: ICD-10; Not Available [facility] 2 22:56:10 Dog bite Completed 202007/20/2022 KARMACARLOS keen [employer]. 2 08:38:26 Low back pain 108315842 Completed 202004/22/2021 Problem Code: M54.5; Problem Code Type: ICD-10; Not Available [facility] 2 22:55:56 Left side sciatica 28534976242 9104 Completed 202004/22/2021 Problem Code: M54.32; Problem Code Type: ICD-10; Not Available [facility] 2 22:55:56 Urinary tract infectio us disease 15328685 Completed 202004/22/2021 Problem Code: N39.0; Problem Code Type: ICD-10; Not Available [facility] 2 22:55:58 Cat scratch disease 67261560 Completed 202007/20/2022 Problem Code: A28.1; Problem Code Type: ICD-10; [facility]MA [employer] 2 08:38:26 Urinary tract infectio us disease 99641121 Completed 202004/22/2021 Problem Code: N39.0; Problem Code Type: ICD-10; Not Available [facility] 22:55:58 Dysuria 93125451 Completed 202004/22/2021 Problem Code: R30.0; Problem Code Type: ICD-10; Sarah keen [employer]. 4 13:54:17 Screenin g mammogra phy Completed 202004/22/2021 Problem Code: Z12.31; Problem Code Type: ICD-10; KARMA keen [employer]. 2 08:38:26 General examinat ion of patient Completed 202006/17/2021 KARMA SEBASTIAN [employer]. 2 08:38:26 Screenin g for malignan t neoplasm of colon Completed 202007/20/2022 [employer] [employer] 2 08:38:26 Chronic fatigue syndrome 91394578 Active 2020 Problem Code: R53.82; Problem Code Type: ICD-10; Not Available [facility] 2 22:56:00 Gynecolo gic examinat ion Completed 202007/20/2022 Problem Code: Z01.411; Problem Code Type: ICD-10; KARMA keen [employer]. 2 08:38:26 Body mass index 30+ - obesity 359187297 Completed 202012/22/2021 Problem Code: Z68.38; Problem Code Type: ICD-10; Not Available [facility] 2 22:56:07 Neoplast ic disease of uncertai n behavior 756406997 Completed 202107/20/2022 Problem Code: D48.9; Problem Code Type: ICD-10; KARMA keen, [employer]. 2 08:38:26 Fracture of lumbar spine 867132604 Completed 202107/20/2022 Problem Code: S32.009A ; Problem Code Type: ICD-10; KARMA keen [employer]. 2 08:38:26 Fracture of shoulder 88424034172 757822 Completed 202107/20/2022 Problem Code: S42.90XA ; Problem Code Type: ICD-10; KARMA keen [employer]. 2 08:38:26 Urinary tract infectio us disease 97726191 Completed 202102/20/2022 Problem Code: N39.0; Problem Code Type: ICD-10; Not Available [facility] 2 22:55:57 Dysuria 41778274 Completed 202107/20/2022 Problem Code: R30.0; Problem Code Type: ICD-10; Sarah keen [employer]. 4 13:54:17 Acute vaginiti s 62219313 Completed 202107/20/2022 Problem Code: N76.0; Problem Code Type: ICD-10; KARMA SEBASTIAN null, [employer] 2 08:38:26 Pain of left hip joint 82322622965 9100 Completed 202107/20/2022 Problem Code: M25.552; Problem Code Type: ICD-10; KARMA SEBASTIAN null, [employer] 2 08:38:26 Dysuria 77207340 Active 2023 Problem Code: R30.0; Problem Code Type: ICD-10; Sarah Quiroga null, [employer] 4 13:54:17 Recurren t urinary tract infectio n 156717419 Active 2023 Sarah Quiroga null, [employer] 4 13:54:30 Vaginal discharg e 657740723 Active 2023 Sarah Quiroga null, [employer] 4 13:54:43 Vaginal irritati on 055803530 Active 2024 Sarah Quiroga null, [employer] 5 09:40:04 Cough 11019471 Active 2024 Problem Code: R05; Problem Code Type: ICD-10; Sarah Katzlly null, [employer] 5 13:56:02 Type 2 diabetes mellitus 82256173 Active 2024 Sarah Jay null, [employer] 5 17:20:31 Lacerati on of right hand 39950335502 128849 Active 2024 Sarah Katzlly null, [employer] 5 14:34:23 Diabetes mellitus 93414954 Active 2024 Sarah Jay null, [employer] 5 14:21:25 Hyperlip idemia 21103108 Active 2024 Sarah kene, [employer] 14:22:06 Fatigue 34912346 Active 2024 Sarah keen, [employer] 14:22:06 Hypergly cemia 69376110 Active 2024 Sarah keen, [employer] 14:22:06 Well controll ed type 2 diabetes mellitus 160043035 Active 2024 Sarah Quiroga Sab[place], [employer] 13:24:10 Chronic pain of left upper limb 14496250682 485490 Active 2024 Sarah Quiroga [employer], [employer] 14:01:42 Pain of knee region 4374054581 Active 2024 Sarah Quiroga [employer], [employer]. 14:18:49 Problem Notes None recorded. Procedures Surgical History Date Name Laterality Status Provider Name and Address Organization Details Recorded Time 03/25/20 24 Most Recent Mammogram completed Sarah [employer] 06/09/2024 11:20:51 08/29/20 16 cholecystectomy completed Not Available [facility] 05/23/2022 22:56:18 Orthopedic Surgery completed [employer]. 09/19/2022 09:53:54 Gallbladder Surgery completed [employer] 09/19/2022 09:53:54 Colposcopy completed [employer]. 09/19/2022 09:53:54 Imaging Results None recorded. Procedure Notes None recorded. Medical Equipment None Reported. Allergies Allergen ID Allergen Name Allergen Category Reaction Reaction Severity Criticality Documentation Date Start Date Code Code System Note Provider Name and Address Organization Details Recorded Time 18954 ibuprofen medicatio n Not available Not available Not available 05/23/2022 5640 RxNorm Not Available [facility] 22:57:15 75440 Norvasc medicatio n Not available Not available Not available 05/23/2022 97461 RxNorm Not Available [facility] 22:57:15 Medications Name Sig Start Date [...] weight Body temperature Heart rate Oxygen saturation Systolic And Diastolic Provider Name and Address Organization Details Last Updated DateTime 5 170.18 cm 38.1 kg/m2 087954. 95 g 97.4 [degF] 69 /min 94 % 132/71 mm[Hg] Sarah Quiroga [employer] 5 14:32:28 Social History Question Answer Notes LastModified by Organizat ion Details LastModified Time Tobacco Smoking Status Never Smoker KARMA SEBASTIAN leonila [employer]. 07/20/2022 08:40:03 Do You Have An Advance Directive? No Information n ot available 07/20/2022 Is Your Home Air Conditioned? Yes [email or web address] Information not available 09/19/2022 Are You Blind Or Do You Have Difficulty Seeing? No [email or web address] Information n ot available 07/20/2022 Are You A Caregiver? No [email or web address] Information not available 07/20/2022 In The 14 Days Before Symptom Onset, Have You Had Close Contact With A Laboratory-confirm ed COVID-19 While That Case Was Ill? No [email or web address] Information n ot available 09/19/2022 In The 14 Days Before Symptom Onset, Have You Had Close Contact With A Person Who Is Under Investigation For COVID-19 While That Person Was Ill? No [email or web address] Information not available 09/19/2022 Have You Been To An Area Known To Be High Risk For COVID-19? No [email or web address] Information not available 09/19/2022 Are You Deaf Or Do You Have Serious Difficulty Hearing? No [email or web address] Information not available 07/20/2022 What Type Of Diet Are You Following? REGULAR [email or web address] Information n ot available 07/20/2022 Have There Been Any Changes To Your Family Or Social Situation? No [email or web address] Information no t available 07/20/2022 Are There Any Guns Present In Your Home? No [email or web address] Information not available 07/20/2022 Which Of Your Hands Is Dominant? Right [email or web address] Information n ot available 09/19/2022 Do You Have A Medical Power Of Radiology Transcriptionist? No [email or web address] Information not available 07/20/2022 What Was The Date Of Your Most Recent Tobacco Screening? 07/14/2025 [email or web address] Information not available 07/14/2025 Do You Have Any Pets? Yes [email or web address] Information not available 09/19/2022 Do You Use Protection During Sex? No [email or web address] Information not available 09/19/2022 What Is Your Relationship Status? [email or web address] Information not available 07/20/2022 Have You Repeated Any Grades? Yes [email or web address] Information not available 09/19/2022 Do You Use Your Seat Belt Or Car Seat Routinely? Yes Information not available 07/20/2022 Are You Sexually Active? Yes [email or web address] Information not available 09/19/2022 Do You Have Any Siblings? 3 [email or web address] Information not available 09/19/2022 Do You Have Smoke And Carbon Monoxide Detectors In Your Home? Yes Information not available 07/20/2022 Are You Passively Exposed To Smoke? No [email or web address] Information no t available 09/19/2022 Are There Any Smokers In Your House? Yes [email or web address] Information not available 09/19/2022 Do You Use Sunscreen Routinely? No [email or web address] Information not available 07/20/2022 Have You Recently Traveled Abroad? No [email or web address] Information not available 07/20/2022 Do You Have Difficulty Walking Or Climbing Stairs? No [email or web address] Information not available 07/20/2022 Are You Currently In School? No Information not available 07/20/2022 Sex: Unknown Functional Status Question Answer Note LastModified by Organizat ion Details LastModified Time Do you use any illicit or recreational drugs? No [email or web address] Information not available 09/19/2022 What is your level of alcohol consumption? None [email or web address] Information not available 07/20/2022 Are you currently employed? No [email or web address] Information not available 07/20/2022 Do you have transportation difficulties? No [email or web address] Information not available 07/20/2022 Are you able to walk independently without assistance or assistive devices? YESWOREST [email or web address] Information not available 07/20/2022 Do you have difficulty doing errands alone? No [email or web address] Information not available 07/20/2022 Are you able to care for yourself independently? Yes [email or web address] Information not available 07/20/2022 Do you have difficulty dressing, bathing, grooming, or toileting? No [email or web address] Information not available 07/20/2022 Mental Status Question Answer Note LastModified by Organizat ion Details LastModified Time Do you feel stressed (tense, restless, nervous, or anxious, or unable to sleep at night)? [id number] [email or web address] Information not available 09/19/2022 Do you have difficulty concentrating, remembering or making decisions? No [email or web address] Information no t available 07/20/2022 Are you or have you been involved with bullying? No [email or web address] Information not available 09/19/2022 Family History Relationship Description Onset Age of this Age Resolved Age Notes LastModified by Organization Details LastModified Time Unspecified Relation Family history of Hypertension [email or web address] Not available 09:08:53 Unspecified Relation Family history of diabetes mellitus type 2 [email or web address] Not available 2023 09:08:53 Maternal Grandmother Hypertensive disorder [email or web address] Not available 09/19 09:53:52 Paternal Grandfather Hypertensive disorder [email or web address] Not available 09/19 09:53:52 Mother Hypertensive disorder [email or web address] Not available 09/19 09:53:52 Mother Arthritis Not availa ble 09/19/2022 09:53:52 Mother Diabetes mellitus Not available 09/19 09:53:52 Mother Hypercholest erolemia [email or web address] Not available 09/19 09:53:52 Mother Anxiety disorder [email or web address] Not available 09/19 09:53:52 Father Arthritis Not availa ble 09/19/2022 09:53:52 Father Liver problem Not available 09/19 09:53:52 Father Diabetes mellitus [email or web address] Not available 09/19 09:53:52 Father Hypertensive disorder [email or web address] Not available 09/19 09:53:52 Maternal Grandfather Hypertensive disorder [email or web address] Not available 09/19 09:53:52 Brother Hypertensive disorder Not available 09/19 09:53:52 Brother Diabetes mellitus [email or web address] Not available 09/19 09:53:52 Sister Hypertensive disorder [email or web address] Not available 09/19 09:53:52 Sister Diabetes mellitus [email or web address] Not available 09/19 09:53:52 Medical History Condition [...] split virus, quadrivalent, PF 3 completed Reta Madera null, [employer] 07/10/2023 08:32:44 Influenza, split virus, quadrivalent, preservative 1 completed Reta Madera null, [employer] 12/07/2023 09:26:55 Influenza, split virus, quadrivalent, preservative 0 completed Reta [place]era null, [employer] 12/07/2023 09:26:55 Influenza, split virus, quadrivalent, preservative 9 completed Reta Madera null, [employer] 12/07/2023 09:26:55 Tdap 7 completed Reta Madera null, [employer] 12/07/2023 09:26:55 COVID-19, mRNA, LNP-S, PF, 100 mcg/0.5mL dose or 50 mcg/0.25mL dose 1 completed Reta Madera [employer], [employer] 12/07/2023 09:26:55 COVID-19, mRNA, LNP-S, PF, 100 mcg/0.5mL dose or 50 mcg/0.25mL dose 1 completed Reta [place]es[place] null, [employer] 12/07/2023 09:26:55 Influenza, split virus, quadrivalent, PF 8 completed Reta Madera null, [employer] 12/07/2023 09:26:55 zoster recombinant 4 completed Meaghan Mcnamara, [employer] [address] [place] [address], [id number], [employer] 03/13/2024 08:53:07 zoster recombinant 4 completed Meaghan Mcnamara, AD [employer]PERATIONS COORDINATOR [address] [place], [address], [employer] 06/09/2024 12:19:53 Influenza, split virus, trivalent, PF 4 completed Sarah Quiroga null, [employer] 06/30/2024 09:50:26 Influenza, split virus, trivalent, preservative 5 completed KARMACARLOS SEBASTIAN null, [employer] 09/19/2022 09:52:55 Influenza, split virus, quadrivalent, PF 7 completed KARMA SEBASTIAN null, [employer] 09/19/2022 09:52:55 Td (adult), 2 Lf tetanus toxoid, preservative free, adsorbed 6 completed KARMA JAZ null, [employer] 09/19/2022 09:52:55 Td (adult), 2 Lf tetanus toxoid, preservative free, adsorbed 6 completed KARMA JAZ null, [employer] 09/19/2022 09:52:55 COVID-19, mRNA, LNP-S, PF, 100 mcg/0.5mL dose or 50 mcg/0.25mL dose 1 completed KARMA keen, [employer] 09/19/2022 09:52:55 Influenza, split virus, quadrivalent, PF 2 completed KARMA keen, [employer] 09/21/2022 15:11:16 Pneumococcal conjugate PCV15, polysaccharide [id number] conjugate, adjuvant, PF 5 completed Meaghan Mcnamara APRN [address] [place] [address], [id number], [employer] 02/26/2025 09:36:12 Tdap 5 completed Sarah keen, [employer] 05/25/2025 14:52:02 Influenza, split virus, trivalent, PF 5 completed Sarah Quiroga null, [employer] 07/14/2025 14:20:49 Influenza, split virus, quadrivalent, PF 1 completed Reta Vega null, [employer] 12/07/2023 09:26:55 Influenza, split virus, quadrivalent, PF 0 completed Reta Vega null, [employer] 12/07/2023 09:26:55 Influenza, split virus, quadrivalent, PF 9 completed Reta Vega null, [employer] 12/07/2023 09:26:55 Past Encounters Encounter ID Performer Location Encounter Start Date Encounter Closed Date Diagnosis/Indication Diagnosis SNOMED-CT Code Diagnosis ICD10 Code Diagnosis IMO Codes Diagnosis Note [id number] Meaghan Mcnamara APRN [address] [address] 05/04/2025 09:27:14 05/04/2025 10:03:23 Generalized anxiety disorder 87347424 F41.1 Controlled substance agreement and UDS UTD until Feb 2026. Hypertensive disorder 38 133704 I10 Vitamin D deficiency 347 04600 E55.9 Pain of mu ltiple joints 99477361 M25.50 162864 Body mass index 30+ - obesity 588997601 E66.9 [id number] Meaghan Mcnamara APRN [address] [address] 05/25/2025 14:24:17 05/25/2025 14:55:49 Laceration of right hand 9946800773 1987080 S61.411A 61335363 Body mass index 30+ - obesity 116265351 Z68.38 511072 Health Concerns Section Related Observation LastModified by Organization Detai ls LastModified Time None Recorded Concern Status LastModified by Organization Details LastModified Time None Recorded Payers Encounter Date Sequence Insurance Name Policy Number Policy Molina Covered Member ID Molina Member ID Guarantor Name 05/25/2025 1 [place] Berta G Jennifer [id number] Berta G Jennifer 05/25/2025 2 [facility] CHOICES - FFS/TRADITIO NAL Berta M Jennifer [id number] Berta G Jennifer Notes Date Note Type Note Provider Name and Address Organization Details Recorded Time 05/25/2025 text/html pt here today with c/o [...] s/s of infection. Meaghan Mcnamara APRN [address] [facility], [place], [place], [address], [place] [facility] [employer] 05/25/2025 15:03:21 OBGyn Episode No OBEpisode recorded.
--- OUTSIDE RECORDS SUMMARY | 2025-08-11 09:06 | XMS_ITS | Data Portability ---
[facility] Organization [facility] [place] [facility] Address [address] [place] [id number] Care Team Providers Care Flight Steward Name Role Phone MEAGHAN MCNAMARA Primary Care Provider Unavailabl e Assessment Encounter Date Assessment Date Assessment LastModified by Organization Details LastModified Time 05/04/2025 05/04/2025 Patient presented for medication refill. Patient tolerating medication well at current dose without adverse effects. Refilled as below. Discussed plan with patient, who expressed understanding . Follow up as noted [place]. [place] [id number] Not available 05/04/2025 10:10:54 Plan of Treatment Reminders Order Date Submit Date Provider Last Modified By Organization Details Last Modified Time Details Appointments FOLLOW UP 15 2024 01:30P Mk Mcnamara APRN Not available Not available Not available FOLLOW UP 30 2025 09:00A Mk Mcnamara APRN Not available Not available Not available Lab HbA1c (hemoglob in A1c), blood [address], [address], 07/14/2025 14:00:46 HbA1c (hemoglob in A1c), blood [address], [address] [place] [address], [address], 02/26/2025 12:36:45 drug screen, 14 drugs (detectim ed), urine 2024 025 [facility] ([facility], [address] [place] [address], [place], [address], 03/05/2025 13:07:55 Referral None recorded. Procedures None recorded. Surgeries None recorded. Imaging MAMMO, screening , digital, bilateral 2024 [facility] ([facility]), [address], [place], [address], 08/10/2025 08:13:43 XR, knee, 3 view 2024 [facility], [address] [place] [address], [address], 02/26/2025 13:52:59 Medication Orders Depo-Medr ol 40 mg/mL suspensio n for injection [address], [address] [place] [address], [address], 07/14/2025 14:36:51 fenofibra te nanocryst allized 48 mg tablet 2024 025 [facility], [address] [place] [address], [address], 07/20/2025 08:28:54 methocarb heber 500 mg tablet 2024 025 [facility], [address] [place] [address], [address], 07/20/2025 08:28:51 cephalexi n 500 mg capsule 2024 025 [facility], [address] [place] [address], [address], 06/08/2025 05:01:25 metoprolo l tartrate 100 mg tablet 2024 025 [facility], [address] [place] [address], [address], 05/25/2025 15:16:22 calcium 600 mg (as carbonate )-vitamin D3 20 mcg (800 unit) tablet 2024 025 [facility], [address] [place] [address], [address], 07/14/2025 13:46:47 lorazepam 0.5 mg tablet 2024 025 [facility], [address] [place] [address], [address], 05/05/2025 18:00:11 Depo-Medr ol 40 mg/mL suspensio n for injection 2024 025 Not available 05/25/2025 14:28:27 prednison e 10 mg tablet 2024 025 [facility], [address] [place] [address], [address], 05/14/2025 05:01:13 fenofibra te nanocryst allized 48 mg tablet 2024 025 [facility], [address] [place] [address], [address], 03/03/2025 14:49:23 metoprolo l tartrate 100 mg tablet 2024 025 [facility], [address] [place] [address], [address], 03/03/2025 14:49:24 calcium 600 mg (as carbonate )-vitamin D3 20 mcg (800 unit) tablet 2024 025 [email or web address], [address] [place] [address], [address], 07/14/2025 13:29:07 prednison e 20 mg tablet 2024 025 [facility], [address] [place] [address], [address], 05/04/2025 09:48:49 doxycycli ne monohydra te 100 mg capsule 2024 025 [facility], [address] [place] [address], [address], 02/26/2025 09:06:29 prednison e 20 mg tablet [address], [address] [place] [address], [address], 05/04/2025 09:40:21 mupirocin 2 % topical ointment 2024 025 [facility], [address] [place] [address], [address], 07/14/2025 13:46:46 Patient TargetsNo targets recorded. Patient Instructions Encounter Date Encounter Id Patient Instructions Last Modified By Organization Details Last Modified Time 02/26/2025 [id number] controlled substance agreement* [email or web address] Not available 02/26/2025 09:36:12 Reason for Referral None Reported. Results Created Date Observation Date Name Description Value Unit Range Abnormal Flag Note LastModifiedBy Organization Detail LastModifiedTime 11/26/1911/26/2024 FE+TI BC+FE R iron bind.cap.(TI BC) 300 ug/dL 250-45 0 normal Not Available [facility] ([facility]) [address] [place], [address], 11/26/2024 08:12:56 11/26/1911/26/2024 FE+TI BC+FE R UIBC 213 ug/dL 118-36 9 normal Not Available [facility] ([facility]) [address] [place], [address], 11/26/2024 08:12:56 11/26/19 25 11/26/2024 FE+TI BC+FE R iron 87 ug/dL 27-139 normal Not Available [facility] ([facility]) [address] [place], [address], 11/26/2024 08:12:56 11/26/19 25 11/26/2024 FE+TI BC+FE R iron saturation 29 % 15-55 normal Not Available [facility] ([facility]) [address] [place], [address], 11/26/2024 08:12:56 11/26/19 25 11/26/2024 FE+TI BC+FE R ferritin 288 NG/mL 15-150 above high normal Not Available [facility] ([facility]) [address] [place], [address], 11/26/2024 08:12:56 11/26/19 25 11/26/2024 TSH+F REE T4 TSH 1.260 uIU/m L 0.450- 4.500 normal Not Available [facility] ([facility]) [address] [place], [address], 11/26/2024 08:12:56 11/26/1911/26/2024 TSH+F REE T4 T4,free(dire ct) 1.10 NG/dL 0.82-1 .77 normal Not Available [facility] ([facility]) [address] [place], [address], 11/26/2024 08:12:56 11/26/1911/26/2024 CBC WITH DIFFE RENTI AL/PL ATELE T WBC 12.8 x10e3 /uL 3.4-10 .8 above high normal Not Available [facility] ([facility]) [address] [place], [address], 11/26/2024 08:12:56 11/26/19 25 11/26/2024 CBC WITH DIFFE RENTI AL/PL ATELE T RBC 5.41 x10e6 /uL 3.77-5 .28 above high normal Not Available [facility] ([facility]) [address] [place], [address], 11/26/2024 08:12:56 11/26/19 25 11/26/2024 CBC WITH DIFFE RENTI AL/PL ATELE T hemoglobin 16.3 g/dL 11.1-1 5.9 above high normal Not Available [facility] ([facility]) [address] [place], [address], 11/26/2024 08:12:56 11/26/19 25 11/26/2024 CBC WITH DIFFE RENTI AL/PL ATELE T hematocrit 48.9 % 34.0-4 6.6 above high normal Not Available [facility] ([facility]) [address] [place], [address], 11/26/2024 08:12:56 11/26/19 25 11/26/2024 CBC WITH DIFFE RENTI AL/PL ATELE T MCV 90 fL 79-97 normal Not Available [facility] ([facility]) [address] [place], [address], 11/26/2024 08:12:56 11/26/19 25 11/26/2024 CBC WITH DIFFE RENTI AL/PL ATELE T MCH 30.1 pg 26.6-3 3.0 normal Not Available [facility] ([facility]) [address] [place], [address], 11/26/2024 08:12:56 11/26/1911/26/2024 CBC WITH DIFFE RENTI AL/PL ATELE T MCHC 33.3 g/dL 31.5-3 5.7 normal Not Available [facility] ([facility]) [address] [place], [address], 11/26/2024 08:12:56 11/26/19 25 11/26/2024 CBC WITH DIFFE RENTI AL/PL ATELE T RDW 12.2 % 11.7-1 5.4 Not Available [facility] ([facility]) [address] [place], [address], 11/26/2024 08:12:56 11/26/19 25 11/26/2024 CBC WITH DIFFE RENTI AL/PL ATELE T platelets 233 x10e3 /uL 150-45 0 normal Not Available [facility] ([facility]) [address] [facility], [place], [address], 11/26/2024 08:12:56 11/26/19 25 11/26/2024 CBC WITH DIFFE RENTI AL/PL ATELE T neutrophils 83 % not estab. normal Not Available [facility] ([facility]) [address] [facility], [place], [address], 11/26/2024 08:12:56 11/26/19 25 11/26/2024 CBC WITH DIFFE RENTI AL/PL ATELE T lymphs 9 % not estab. normal Not Available [facility] ([facility]) [address] [facility], [place], [address], 11/26/2024 08:12:56 11/26/19 25 11/26/2024 CBC WITH DIFFE RENTI AL/PL ATELE T monocytes 6 % not estab. normal Not Available [facility] ([facility]) [address] [facility], [place], [address], 11/26/2024 08:12:56 11/26/19 25 11/26/2024 CBC WITH DIFFE RENTI AL/PL ATELE T eos 1 % not estab. normal Not Available [facility] ([facility]) [address] [facility], [place], [address], 11/26/2024 08:12:56 11/26/19 25 11/26/2024 CBC WITH DIFFE RENTI AL/PL ATELE T basos 1 % not estab. normal Not Available [facility] ([facility]) [address] [facility], [place], [address], 11/26/2024 08:12:56 11/26/19 25 11/26/2024 CBC WITH DIFFE RENTI AL/PL ATELE T immature cells PUMP MECHANIC Not Available [facility] ([facility]) [address] [place], [address], 11/26/2024 08:12:56 11/26/19 25 11/26/2024 CBC WITH DIFFE RENTI AL/PL ATELE T neutrophils (absolute) 10.6 x10e3 /uL 1.4-7. 0 above high normal Not Available [facility] ([facility]) [address] [place], [address], 11/26/2024 08:12:56 11/26/19 25 11/26/2024 CBC WITH DIFFE RENTI AL/PL ATELE T lymphs (absolute) 1.2 x10e3 /uL 0.7-3. 1 normal Not Available [facility] ([facility]) [address] [place], [address], 11/26/2024 08:12:56 11/26/19 25 11/26/2024 CBC WITH DIFFE RENTI AL/PL ATELE T monocytes(ab solute) 0.8 x10e3 /uL 0.1-0. 9 normal Not Available [facility] ([facility]) [address] [place], [address], 11/26/2024 08:12:56 11/26/19 25 11/26/2024 CBC WITH DIFFE RENTI AL/PL ATELE T eos (absolute) 0.2 x10e3 /uL 0.0-0. 4 normal Not Available [facility] ([facility]) [address] [place], [address], 11/26/2024 08:12:56 11/26/19 25 11/26/2024 CBC WITH DIFFE RENTI AL/PL ATELE T baso (absolute) 0.1 x10e3 /uL 0.0-0. 2 normal Not Available [facility] ([facility]) [address] [place], [address], 11/26/2024 08:12:56 11/26/19 25 11/26/2024 CBC WITH DIFFE RENTI AL/PL ATELE T immature granulocytes 0 % not estab. Not Available [facility] ([facility]) [address] [facility], [place], [address], 11/26/2024 08:12:56 11/26/19 25 11/26/2024 CBC WITH DIFFE RENTI AL/PL ATELE T immature grans (abs) 0.0 x10e3 /uL 0.0-0. 1 Not Available [facility] ([facility]) [address] [facility], [place], [address], 11/26/2024 08:12:56 11/26/19 25 11/26/2024 CBC WITH DIFFE RENTI AL/PL ATELE T NRBC PUMP MECHANIC Not Available [facility] ([facility]) [address] [facility], [place], [address], 11/26/2024 08:12:56 11/26/19 25 11/26/2024 CBC WITH DIFFE RENTI AL/PL ATELE T hematology comments: PUMP MECHANIC Not Available [facility] ([facility]) [address] [facility], [place], [address], 11/26/2024 08:12:56 11/26/19 25 11/26/2024 COMP. METAB OLIC PANEL (14) glucose 112 mg/dL 70-99 above high normal Not Available [facility] ([facility]) [address] [facility], [place], [address], 11/26/2024 08:12:57 11/26/19 25 11/26/2024 COMP. METAB OLIC PANEL (14) BUN 18 mg/dL 8-27 normal Not Available [facility] ([facility]) [address] [facility], [place], [address], 11/26/2024 08:12:57 11/26/19 25 11/26/2024 COMP. METAB OLIC PANEL (14) creatinine 0.67 mg/dL 0.57-1 .00 normal Not Available [facility] ([facility]) [address] [facility] [place], [address], 11/26/2024 08:12:57 11/26/19 25 11/26/2024 COMP. METAB OLIC PANEL (14) eGFR 98 mL/mi n/1.7 3 >59 normal Not Available [facility] ([facility]) [address] [facility], [place], [address], 11/26/2024 08:12:57 11/26/19 25 11/26/2024 COMP. METAB OLIC PANEL (14) BUN/creatini ne ratio 27 12-28 normal Not Available [facility] ([facility]) [address] [facility], [place], [address], 11/26/2024 08:12:57 11/26/19 25 11/26/2024 COMP. METAB OLIC PANEL (14) sodium 141 mmol/ L 134-14 4 normal Not Available [facility] ([facility]) [address] [place], [address], 11/26/2024 08:12:57 11/26/19 25 11/26/2024 COMP. METAB OLIC PANEL (14) potassium 4.4 mmol/ L 3.5-5. 2 normal Not Available [facility] ([facility]) [address] [place], [address], 11/26/2024 08:12:57 11/26/19 25 11/26/2024 COMP. METAB OLIC PANEL (14) chloride 101 mmol/ L 96-106 normal Not Available [facility] ([facility]) [address] [place], [address], 11/26/2024 08:12:57 11/26/19 25 11/26/2024 COMP. METAB OLIC PANEL (14) carbon dioxide, total 22 mmol/ L 20-29 normal Not Available [facility] ([facility]) [address] [facility] [place], [address], 11/26/2024 08:12:57 11/26/19 25 11/26/2024 COMP. METAB OLIC PANEL (14) calcium 9.4 mg/dL 8.7-10 .3 normal Not Available [facility] ([facility]) [address] [facility], [place], [address], 11/26/2024 08:12:57 11/26/19 25 11/26/2024 COMP. METAB OLIC PANEL (14) protein, total 6.6 g/dL 6.0-8. 5 normal Not Available [facility] ([facility]) [address] [facility], [place], [address], 11/26/2024 08:12:57 11/26/19 25 11/26/2024 COMP. METAB OLIC PANEL (14) albumin 4.2 g/dL 3.9-4. 9 normal Not Available [facility] ([facility]) [address] [facility] [place], [address], 11/26/2024 08:12:57 11/26/19 25 11/26/2024 COMP. METAB OLIC PANEL (14) globulin, total 2.4 g/dL 1.5-4. 5 Not Available [facility] ([facility]) [address] [place], [address], 11/26/2024 08:12:57 11/26/19 25 11/26/2024 COMP. METAB OLIC PANEL (14) bilirubin, total 0.8 mg/dL 0.0-1. 2 normal Not Available [facility] ([facility]) [address] [facility] [place], [address], 11/26/2024 08:12:57 11/26/19 25 11/26/2024 COMP. METAB OLIC PANEL (14) alkaline phosphatase 63 IU/L 44-121 normal Not Available [facility] ([facility]) [address] [facility] [place], [address], 11/26/2024 08:12:57 11/26/19 25 11/26/2024 COMP. METAB OLIC PANEL (14) AST (SGOT) 20 IU/L 0-40 normal Not Available [facility] ([facility]) [address] [facility] [place], [address], 11/26/2024 08:12:57 11/26/19 25 11/26/2024 COMP. METAB OLIC PANEL (14) ALT (SGPT) 17 IU/L 0-32 normal Not Available [facility] ([facility]) [address] [facility] [place], [address], 11/26/2024 08:12:57 11/26/19 25 11/26/2024 LIPID PANEL cholesterol, total 221 mg/dL 100-19 9 above high normal Not Available [facility] ([facility]) [address] [place], [address], 11/26/2024 08:12:57 11/26/19 25 11/26/2024 LIPID PANEL triglyceride s 129 mg/dL 0-149 normal Not Available [facility] ([facility]) [address] [facility] [place], [address], 11/26/2024 08:12:57 11/26/19 25 11/26/2024 LIPID PANEL HDL cholesterol 60 mg/dL >39 normal Not Available [facility] ([facility]) [address] [facility] [place], [address], 11/26/2024 08:12:57 11/26/19 25 11/26/2024 LIPID PANEL VLDL cholesterol anam 23 mg/dL 5-40 Not Available [facility] ([facility]) [address] [place], [address], 11/26/2024 08:12:57 11/26/19 25 11/26/2024 LIPID PANEL LDL chol calc ([facility]) 138 mg/dL 0-99 above high normal Not Available [facility] ([facility]) [address] [place], [address], 11/26/2024 08:12:57 11/26/19 25 11/26/2024 LIPID PANEL LDL calc comment: PUMP MECHANIC Not Available [facility] ([facility]) [address] [facility], [place], [address], 11/26/2024 08:12:57 11/26/19 25 11/26/2024 VITAM IN B12 AND FOLAT E vitamin B12 402 pg/mL 232-12 45 normal Not Available [facility] ([facility]) [address] [facility], [place], [address], 11/26/2024 08:12:58 11/26/1911/26/2024 VITAM IN B12 AND FOLAT E folate (folic acid), serum 19.5 NG/mL >3.0 normal A serum folat e mart ntrat ion of less than 3.1 ng/mL is consi dered to repre sent clini anam defic iency . Not Available [facility] ([facility]) [address] [facility], [place], [address], 11/26/2024 08:12:58 11/26/1911/26/2024 HEMOG LOBIN A1C hemoglobin A1C 6.7 % 4.8-5. 6 above high normal Predi abete s: 5.7 - 6.4 Diabe chriss: >6.4 Glyce shemar contr ol for adult s with diabe chriss: <7.0 Not Available [facility] ([facility]) [address] [facility], [place], [address], 11/26/2024 08:12:58 11/26/19 25 11/26/2024 VITAM IN [...] Medic ine). 2010. Dieta ry refer ence tg es for calci um and D. Pepe alvarez [place]: [facility] . 2. Cheryl sainz [place], Moira ibanez [place], Bisch off-F errar i FLOOD, et al. Evalu ation , treat ment, and preve ntion of vitam in D defic iency : an Endoc rine Socie ty clini anam pract ice guide line. JCEM. 2010; 96(7) :1911 -30. Not Available [facility] ([facility]) [address] [place], [address], 11/26/2024 08:12:59 11/26/19 25 11/26/2024 NUSWA B VAGIN ITIS PLUS (VG+) atopobium vaginae Low - 0 score Not Available [facility] ([facility]) [address] [place], [address], 11/27/2024 05:06:44 11/26/19 25 11/26/2024 NUSWA B VAGIN ITIS PLUS (VG+) bvab 2 Low - 0 score Not Available [facility] ([facility]) [address] [place], [address], 11/27/2024 05:06:44 11/26/19 25 11/26/2024 NUSWA B [...] prese nce of BV. Not Available [facility] ([facility]) [address] [place], [address], 11/27/2024 05:06:44 11/26/19 25 11/26/2024 NUSWA B VAGIN ITIS PLUS (VG+) becky albicans, SUPA Negati ve negati ve Not Available [facility] ([facility]) [address] [place], [address], 11/27/2024 05:06:44 11/26/19 25 11/26/2024 NUA B VAGIN ITIS PLUS (VG+) becky glabrata, SUPA Negati ve negati ve Not Available [facility] ([facility]) [address] [place], [address], 11/27/2024 05:06:44 11/26/19 25 11/27/2024 NUA B VAGIN ITIS PLUS (VG+) trich vag by SUPA Negati ve negati ve Not Available [facility] ([facility]) [address] [place], [address], 11/27/2024 05:06:44 11/26/19 25 11/27/2024 NUA B VAGIN ITIS PLUS (VG+) chlamydia trachomatis, SUPA Negati ve negati ve Not Available [facility] ([facility]) [address] [place], [address], 11/27/2024 05:06:44 11/26/19 25 11/27/2024 NUA B VAGIN ITIS PLUS (VG+) neisseria gonorrhoeae, SUPA Negati ve negati ve Not Available [facility] ([facility]) [address] [place], [address], 11/27/2024 05:06:44 11/26/19 25 11/26/2024 URINE CULTU RE, ROUTI NE urine culture, routine Final report Not Available [facility] ([facility]) [address] [facility], [place], [address], 11/27/2024 05:06:44 11/26/19 25 11/26/2024 URINE CULTU RE, ROUTI NE result 1 COMMEN T Cultu re shows less than 10,00 0 colon y formi ng units of bacte vito per nicho liter of urine . This colon y count is not gener ally consi dered to be clini breanna signi gunner t. Not Available [facility] ([facility]) [address] [facility], [place], [address], 11/27/2024 05:06:44 11/26/19 25 11/25/2024 urina lysis , dipst ick Leukocytes Large Not Available [address], [address], 11/25/2024 09:22:28 11/26/19 25 11/25/2024 urina lysis , dipst ick Nitrite negati ve Not Available [address], [address], 11/25/2024 09:22:28 11/26/19 25 11/25/2024 urina lysis , dipst ick Urobilinogen .2 Not Available [address], [address], 11/25/2024 09:22:28 11/26/19 25 11/25/2024 urina lysis , dipst ick Protein Negati ve Not Available [address], [address], 11/25/2024 09:22:28 11/26/19 25 11/25/2024 urina lysis , dipst ick pH 6.0 Not Available [address], [address], 11/25/2024 09:22:28 11/26/19 25 11/25/2024 urina lysis , dipst ick Blood Non-He molyze d: Trace Not Available [address], [address], 11/25/2024 09:22:28 11/26/19 25 11/25/2024 urina lysis , dipst ick Specific [place] 1.015 Not Available [address], [address], 11/25/2024 09:22:28 11/26/19 25 11/25/2024 urina lysis , dipst ick Ketone Negati ve Not Available [address], [address], 11/25/2024 09:22:28 11/26/19 25 11/25/2024 urina lysis , dipst ick Bilirubin Negati ve Not Available [address], [address], 11/25/2024 09:22:28 11/26/19 25 11/25/2024 urina lysis , dipst ick Glucose Negati ve Not Available [address], [address], 11/25/2024 09:22:28 11/26/19 25 11/25/2024 urina lysis , dipst ick Appearance Cloudy Not Available [address], [address], 11/25/2024 09:22:28 11/26/19 25 11/25/2024 urina lysis , dipst ick Color Dark Yellow Not Available [facility] [address], [place], [address], 11/25/2024 09:22:28 02/27/20 25 03/05/2025 COMPL IANCE [...] ===== ===== ===== ===== === For pam hardyu ltati on, pleas e call [phone]. ===== ===== ===== ===== ===== ===== ===== ===== ===== ===== ===== ===== ===== === Not Available [facility] ([facility]) [address] [facility], [place], [address], 03/05/2025 13:07:54 02/27/20 25 03/05/2025 COMPL IANCE DRUG DEMI SIS, UR pdf . Not Available [facility] ([facility]) [address] [facility], [place], [address], 03/05/2025 13:07:54 02/27/20 25 02/26/2025 HbA1c (hemo globi n A1c), blood HbA1c 6.6 Not Available [address], [address], 02/25/2025 17:20:33 07/14/20 25 07/14/2025 HbA1c (hemo globi n A1c), blood HbA1c 6.0 Not Available [address], [address], 07/14/2025 13:39:53 01/28/20 25 05/13/2021 colon oscop y proce dure (PROC ) No observ ation record ed. [email or web address] Not Available 01/27 17:54:05 02/27/20 25 04/25/2021 DEXA No observ ation record ed. [email or web address] [facility] (Med Record) [address], [place], [address], 02/27/2025 10:30:40 02/27/20 XR, knee, 3 view No observ ation record ed. [address], [place], [address], 02/27/2025 10:09:09 03/25/20 25 03/18/2025 XR, knee, 3 view No observ ation record ed. [address] (Radiology) [address] [place] [address] , [place], [address], 03/27/2025 10:53:27 03/25/20 25 03/18/2025 XR, knee, 3 view No observ ation record ed. [address] (Radiology) [address] [place] [address] , [place], [address], 03/27/2025 10:53:34 08/10/20 25 08/05/2025 MAMMO , scree chava, digit al, bilat eral No observ ation record ed. [place] [address], [place], [address], 08/10/2025 08:13:43 Result Notes None recorded. Problems Name Problem SNOMED Code Status Onset Date Resolution Date Notes Provider Name and Address Organization Details Recorded Time Generali zed anxiety disorder [id number] Completed 201501/25/2021 Problem Code: 300.02; Problem Code Type: ICD-9; Not Available [facility] 22:56:12 Acute pharyngi tis [id number] Completed 201509/29/2016 Problem Code: J02.8; Problem Code Type: ICD-10; Not Available [facility] 22:55:54 Cough [id number] Completed 201511/14/2016 Problem Code: R05; Problem Code Type: ICD-10; Sarah keen [facility] 13:56:02 Spasm of back muscles [id number] Completed 201612/15/2016 Problem Code: M62.830; Problem Code Type: ICD-10; Not Available [facility] 22:56:11 Generali zed anxiety disorder [id number] Completed 201601/25/2021 Problem Code: 300.02; Problem Code Type: ICD-9; Not Available [facility] 22:56:15 Spasm [id number] Completed 201612/15/2016 Problem Code: 728.85; Problem Code Type: ICD-9; Not Available [facility] 22:56:20 Generali zed anxiety disorder [id number] Active 2016 Problem Code: F41.1; Problem Code Type: ICD-10; Not Available [facility] 22:55:53 Streptoc occal sore throat [id number] Completed 201601/14/2017 Problem Code: J02.0; Problem Code Type: ICD-10; Not Available [facility] 22:55:54 Fever [id number] Completed 201607/20/2022 Problem Code: R50.81; Problem Code Type: ICD-10; KARMA keen [facility] [employer] 08:38:26 Spasm of back muscles 281855733 Completed 201603/30/2017 Problem Code: M62.830; Problem Code Type: ICD-10; Not Available [facility] 22:55:57 Spasm 65020336 Completed 201603/30/2017 Problem Code: 728.85; Problem Code Type: ICD-9; Not Available [facility] 22:56:20 Mixed hyperlip idemia 896282012 Active 2016 Problem Code: E78.2; Problem Code Type: ICD-10; Not Available [facility] 22:55:53 Hyperten sive disorder 26644076 Active 2016 Problem Code: I10; Problem Code Type: ICD-10; Not Available [facility] 22:55:54 Dysthymi a 72761027 Completed 201609/04/2019 Problem Code: R53.81; Problem Code Type: ICD-10; Not Available [facility] 22:56:00 Benign essentia l hyperten andrew 5964050 Completed 201601/25/2021 Problem Code: 401.1; Problem Code Type: ICD-9; Not Available [facility] 22:56:16 Malaise and fatigue 234816867 Completed 201601/25/2021 Problem Code: 780.79; Problem Code Type: ICD-9; Not Available [facility] 22:56:26 Acute pharyngi tis 090379111 Completed 201605/28/2017 Problem Code: J02.8; Problem Code Type: ICD-10; Not Available [facility] 22:55:54 Acute pharyngi tis 959017267 Completed 201606/14/2017 Problem Code: J02.8; Problem Code Type: ICD-10; Not Available [facility] 22:55:54 Low back pain 976352559 Active 2016 Problem Code: M54.5; Problem Code Type: ICD-10; Not Available [facility] 22:55:56 Lumbar spondylo listhesi s 63299295464 9102 Completed 201607/20/2022 Problem Code: M43.16; Problem Code Type: ICD-10; KARMA keen [facility] [employer] 08:38:26 Acquired spondylo listhesi s 882811325 Completed 201601/25/2021 Problem Code: 738.4; Problem Code Type: ICD-9; Not Available [facility] 22:56:18 Low back pain 920352231 Completed 201609/04/2019 Problem Code: M54.5; Problem Code Type: ICD-10; Not Available [facility] 22:55:57 Divertic ulitis of large intestin e without complica tion 166551832 Completed 201606/17/2021 Problem Code: K57.32; Problem Code Type: ICD-10; Not Available [facility] 2 22:55:54 Divertic ulitis of colon 515870236 Completed 201601/25/2021 Problem Code: 562.11; Problem Code Type: ICD-9; Not Available [facility] 2 22:56:17 Generali zed anxiety disorder 30646332 Completed 201709/19/2018 Problem Code: F41.1; Problem Code Type: ICD-10; Not Available [facility] 2 22:55:53 Cyst of thyroid 62041579 Completed 201701/25/2021 Problem Code: 246.2; Problem Code Type: ICD-9; Not Available [facility] 2 22:56:09 Benign essentia l hyperten andrew 2320031 Completed 201701/25/2021 Problem Code: 401.1; Problem Code Type: ICD-9; Not Available [facility] 2 22:56:17 Acute sinusiti s 04179888 Completed 201701/31/2018 Problem Code: J01.90; Problem Code Type: ICD-10; Not Available [facility] 2 22:55:54 Divertic ulum of [place] an tube 020644069 Completed 201703/18/2018 Problem Code: H69.80; Problem Code Type: ICD-10; Not Available [facility] 2 22:56:01 Dysfunct ion of eust[place] an tube 26729400 Completed 201703/18/2018 Problem Code: 381.81; Problem Code Type: ICD-9; Not Available [facility] 2 22:56:16 Abnormal weight gain 671139126 Completed 201706/15/2018 Problem Code: R63.5; Problem Code Type: ICD-10; Not Available [facility] 2 22:56:00 Rebound tenderne ss 05069793 Completed 201708/09/2018 Not Available [facility] 2 22:55:59 Urinary tract infectio us disease 54121012 Completed 201709/24/2018 Problem Code: N39.0; Problem Code Type: ICD-10; Not Available [facility] 22:56:14 Generali zed abdomina l pain 089818501 Completed 201708/09/2018 Problem Code: 789.07; Problem Code Type: ICD-9; Not Available [facility] 22:56:19 Acute sinusiti s 72842755 Completed 201810/03/2018 Problem Code: J01.90; Problem Code Type: ICD-10; Not Available [facility] 22:56:03 Irritabl e bowel syndrome 81740763 Active 2018 Problem Code: K58.2; Problem Code Type: ICD-10; Not Available [facility] 22:55:55 Obstruct meg sleep apnea syndrome 43880212 Active 2018 Problem Code: G47.33; Problem Code Type: ICD-10; Not Available [facility] 22:55:53 Acute vaginiti s 26071073 Completed 201808/21/2019 Problem Code: N76.0; Problem Code Type: ICD-10; KARMA keen [employer] 08:38:26 Divertic ulitis of intestin e 645483527 Completed 201807/20/2022 Problem Code: K57.92; Problem Code Type: ICD-10; KARMA keen [employer] 08:38:26 Abdomina l pain 29035955 Completed 201807/20/2022 Problem Code: R10.9; Problem Code Type: ICD-10; KARMA keen [employer] 08:38:26 Body mass index 30+ - obesity 192747082 Completed 201802/01/2021 Problem Code: Z68.37; Problem Code Type: ICD-10; Not Available [facility] 22:56:08 History of disorder of digestiv e system 759752445 Completed 201807/20/2022 Problem Code: Z87.19; Problem Code Type: ICD-10; [employer]MA [employer] 08:38:26 Epidermo id cyst of skin 604562922 Completed 201810/02/2022 Problem Code: L72.3; Problem Code Type: ICD-10; [employer] 3 10:15:38 Plantar fascial fibromat osis 79655817 Completed 201805/03/2020 Problem Code: M72.2; Problem Code Type: ICD-10; Not Available [facility] 22:55:57 Screenin g mammogra phy Completed 201807/20/2022 Problem Code: Z12.31; Problem Code Type: ICD-10; [employer]MA [employer] 08:38:26 Body mass index 30+ - obesity 736655780 Completed 201802/01/2021 Problem Code: Z68.37; Problem Code Type: ICD-10; Not Available [facility] 22:56:23 Disorder of skin and/or subcutan eous tissue 41169674 Completed 201807/20/2022 Problem Code: L98.9; Problem Code Type: ICD-10; KARMA SOLNER leonila, [employer]. 08:38:26 Body mass index 30+ - obesity 308245921 Completed 201802/01/2021 Problem Code: Z68.37; Problem Code Type: ICD-10; Not Available [facility] 22:56:09 Acute sinusiti s 68144082 Completed 201802/02/2020 Problem Code: J01.90; Problem Code Type: ICD-10; [facility] Available [facility] 22:55:54 Acute respirat ory infectio ns 385426711 Completed 201807/20/2022 Problem Code: J22; Problem Code Type: ICD-10; KARMA keen, [employer] 2 08:38:26 Screenin g mammogra phy Completed 201805/03/2020 Problem Code: Z12.31; Problem Code Type: ICD-10; KARMA keen, [employer] 2 08:38:26 Body mass index 30+ - obesity 269117503 Completed 201902/01/2021 Problem Code: Z68.37; Problem Code Type: ICD-10; Not Available [facility] 2 22:56:06 Dog bite Completed 201902/02/2020 KARMA SOLNER [employer] 2 08:38:26 Endocrin e/[place] lic screenin g Completed 201910/02/2022 Problem Code: Z13.29; Problem Code Type: ICD-10; KARMA keen, [employer] 3 10:15:38 General examinat ion of patient Completed 201907/20/2022 [employer] 2 08:38:26 Body mass index 30+ - obesity 198742831 Completed 201902/01/2021 Problem Code: Z68.37; Problem Code Type: ICD-10; Not Available [facility] 2 22:56:06 Current drug user 348884502 Active 2019 Problem Code: Z79.899; Problem Code Type: ICD-10; Not Available [facility] 2 22:56:07 Divertic ular disease of colon 214693706 Active 2019 Problem Code: K57.30; Problem Code Type: ICD-10; KARMA keen, [employer] 2 08:38:51 Constipa tion 87254312 Completed 201907/20/2022 [employer]MA SOLNER [employer] 2 08:38:26 Pain in right knee Completed 201907/20/2022 Problem Code: M25.561; Problem Code Type: ICD-10; KARMA keen [employer] 08:38:26 Plantar fascial fibromat osis 53065765 Active 2019 Problem Code: M72.2; Problem Code Type: ICD-10; Not Available [facility] 22:55:57 Low back pain 357556075 Completed 201904/22/2021 Problem Code: M54.5; Problem Code Type: ICD-10; Not Available [facility] 22:56:11 Candidia sis of vulva 1433642 Completed 201902/01/2021 Not Available [facility] 22:55:53 Body mass index 30+ - obesity 577971675 Active 2020 Problem Code: Z68.36; Problem Code Type: ICD-10; Not Available [facility] 22:56:05 Acquired hallux malleus 79541208 Active 2020 Problem Code: M20.40; Problem Code Type: ICD-10; Not Available [facility] 22:56:09 Bunion 270002550 Active 2020 Problem Code: M21.619; Problem Code Type: ICD-10; Not Available [facility] 22:56:10 Dog bite Completed 202007/20/2022 KARMA keen [employer] 08:38:26 Low back pain 065647074 Completed 202004/22/2021 Problem Code: M54.5; Problem Code Type: ICD-10; Not Available [facility] 22:55:56 Left side sciatica 80514321447 9104 Completed 202004/22/2021 Problem Code: M54.32; Problem Code Type: ICD-10; Not Available [facility] 22:55:56 Urinary tract infectio us disease 40388866 Completed 202004/22/2021 Problem Code: N39.0; Problem Code Type: ICD-10; Not Available [facility] 2 22:55:58 Cat scratch disease 66118898 Completed 202007/20/2022 Problem Code: A28.1; Problem Code Type: ICD-10; KARMA SOLNER leonila, [employer] 2 08:38:26 Urinary tract infectio us disease 48171686 Completed 202004/22/2021 Problem Code: N39.0; Problem Code Type: ICD-10; Not Available [facility] 2 22:55:58 Dysuria 14127779 Completed 202004/22/2021 Problem Code: R30.0; Problem Code Type: ICD-10; Sarah keen, [employer] 4 13:54:17 Screenin g mammogra phy Completed 202004/22/2021 Problem Code: Z12.31; Problem Code Type: ICD-10; KARMA SOLNER leonila, [employer] 2 08:38:26 General examinat ion of patient Completed 202006/17/2021 KARMACARLOS SOLNER Progression, [employer] 2 08:38:26 Screenin g for malignan t neoplasm of colon Completed 202007/20/2022 KARMACARLOS keen, [employer] 2 08:38:26 Chronic fatigue syndrome 50265049 Active 2020 Problem Code: R53.82; Problem Code Type: ICD-10; Not Available [facility] 2 22:56:00 Gynecolo gic examinat ion Completed 202007/20/2022 Problem Code: Z01.411; Problem Code Type: ICD-10; KARMACARLOS keen, [employer] 2 08:38:26 Body mass index 30+ - obesity 351048162 Completed 202012/22/2021 Problem Code: Z68.38; Problem Code Type: ICD-10; Not Available [facility] 22:56:07 Neoplast ic disease of uncertai n behavior 771761950 Completed 202107/20/2022 Problem Code: D48.9; Problem Code Type: ICD-10; KARMA SOLNER leonila, [employer]. 08:38:26 Fracture of lumbar spine 654471722 Completed 202107/20/2022 Problem Code: S32.009A ; Problem Code Type: ICD-10; KARMA SOLNER [employer], [employer] 08:38:26 Fracture of shoulder 90342522844 794089 Completed 202107/20/2022 Problem Code: S42.90XA ; Problem Code Type: ICD-10; KARMA SOLNER [employer], [employer]. 08:38:26 Urinary tract infectio us disease 91860281 Completed 202102/20/2022 Problem Code: N39.0; Problem Code Type: ICD-10; Not Available [facility] 22:55:57 Dysuria 08491569 Completed 202107/20/2022 Problem Code: R30.0; Problem Code Type: ICD-10; Sarah keen, [employer] 4 13:54:17 Acute vaginiti s 79217704 Completed 202107/20/2022 Problem Code: N76.0; Problem Code Type: ICD-10; KARMA SOLNER leonila, [employer]. 08:38:26 Pain of left hip joint 33778765785 9100 Completed 202107/20/2022 Problem Code: M25.552; Problem Code Type: ICD-10; KARMA SEBASTIAN leonila, [employer]. 08:38:26 Dysuria 95321212 Active 2023 Problem Code: R30.0; Problem Code Type: ICD-10; Sarah Quiroga null, [employer] 4 13:54:17 Recurren t urinary tract infectio n 732719463 Active 2023 Sarah Quiroga null, [employer] 4 13:54:30 Vaginal discharg e 469059240 Active 2023 Sarah Quiroga null, [employer] 4 13:54:43 Vaginal irritati on 251409828 Active 2024 Sarah Quiroga null, [employer] 5 09:40:04 Cough 85988413 Active 2024 Problem Code: R05; Problem Code Type: ICD-10; Sarah Quiroga null, [employer] 13:56:02 Type 2 diabetes mellitus 06796787 Active 2024 Sarah Quiroga null, [employer] 17:20:31 Lacerati on of right hand 13326820669 304661 Active 2024 Sarah Quiroga null, [employer] 14:34:23 Diabetes mellitus 25264910 Active 2024 Sarah Mcguirey null, [employer] 14:21:25 Hyperlip idemia 01831338 Active 2024 Sarah Mcguirey null, [employer] 14:22:06 Fatigue 21886417 Active 2024 Sarah [place] null, [employer] 14:22:06 Hypergly cemia 70749156 Active 2024 Sarah Mcguirey null, [employer] 14:22:06 Well controll ed type 2 diabetes mellitus 278944051 Active 2024 Sarah [employer] 5 13:24:10 Chronic pain of left upper limb 98285038220 624549 Active 2024 Sarah keen [employer] 5 14:01:42 Pain of knee region 4010964565 Active 2024 [employer] 5 14:18:49 Problem Notes None recorded. Procedures Surgical History Date Name Laterality Status Provider Name and Address Organization Details Recorded Time 03/25/20 24 Most Recent Mammogram completed [facility] [place] [facility] 06/09/2024 11:20:51 08/29/20 16 cholecystectomy completed Not Available [facility] 05/23/2022 22:56:18 Orthopedic Surgery completed [employer]. 09/19/2022 09:53:54 Gallbladder Surgery completed [employer]. 09/19/2022 09:53:54 Colposcopy completed [employer]. 09/19/2022 09:53:54 Imaging Results None recorded. Procedure Notes None recorded. Medical Equipment None Reported. Allergies Allergen ID Allergen Name Allergen Category Reaction Reaction Severity Criticality Documentation Date Start Date Code Code System Note Provider Name and Address Organization Details Recorded Time 66010 ibuprofen medicatio n Not available Not available Not available 05/23/2022 5640 RxNorm Not Available [facility] 2 22:57:15 04506 Norvasc medicatio n Not available Not available Not available 05/23/2022 07187 RxNorm Not Available [facility] 2 22:57:15 Medications Name Sig Start Date [...] Updated DateTime 5 170.18 cm 37.9 kg/m2 456518. 35 g 97.9 [degF] 65 /min 95 % 138/81 mm[Hg] Sarah Quiroga [facility] [place], [facility]. 5 13:55:39 Date Recorded Body height Body mass index (BMI) Body weight Heart rate Oxygen saturation Systolic And Diastolic Provider Name and Address Organization Details Last Updated DateTime 5 170.18 cm 39.5 kg/m2 498295. 28 g 55 /min 95 % 132/77 mm[Hg] Sarah Quiroga [facility] 5 08:54:56 Date Recorded Body height Body mass index (BMI) Body weight Heart rate Oxygen saturation Systolic And Diastolic Provider Name and Address Organization Details Last Updated DateTime 5 170.18 cm 39 kg/m2 144857. 2 g 66 /min 93 % 136/81 mm[Hg] Sarah Quiroga [employer] 5 09:39:44 Date Recorded Body height Body mass index (BMI) Body weight Body temperature Heart rate Oxygen saturation Systolic And Diastolic Provider Name and Address Organization Details Last Updated DateTime 5 170.18 cm 38.1 kg/m2 803328. 95 g 97.4 [degF] 69 /min 94 % 132/71 mm[Hg] Sarah Quiroga [employer] 5 14:32:28 Date Recorded Body height Body mass index (BMI) Body weight Heart rate Oxygen saturation Systolic And Diastolic Provider Name and Address Organization Details Last Updated DateTime 5 170.18 cm 38.1 kg/m2 249928. 95 g 73 /min 91 % 136/77 mm[Hg] Sarah Quiroga [employer] 5 13:28:49 Social History Question Answer Notes LastModified by Organizat ion Details LastModified Time Tobacco Smoking Status Never Smoker KARMA keen [employer] 07/20/2022 08:40:03 Do You Have An Advance Directive? No [email or web address] Information n ot available 07/20/2022 Is Your Home Air Conditioned? Yes [email or web address] Information not available 09/19/2022 Are You Blind Or Do You Have Difficulty Seeing? No [email or web address] Information n ot available 07/20/2022 Are You A Caregiver? No [email or web address] Information not available 07/20/2022 In The 14 Days Before Symptom Onset, Have You Had Close Contact With A Laboratory-confirm ed COVID-19 While That Case Was Ill? No Information n ot available 09/19/2022 In The 14 Days Before Symptom Onset, Have You Had Close Contact With A Person Who Is Under Investigation For COVID-19 While That Person Was Ill? No [email or web address] Information not available 09/19/2022 Have You Been To An Area Known To Be High Risk For COVID-19? No [email or web address] Information not available 09/19/2022 Are You Deaf Or Do You Have Serious Difficulty Hearing? No [email or web address] Information not available 07/20/2022 What Type Of Diet Are You Following? REGULAR Information n ot available 07/20/2022 Have There Been Any Changes To Your Family Or Social Situation? No [email or web address] Information no t available 07/20/2022 Are There Any Guns Present In Your Home? No [email or web address] Information not available 07/20/2022 Which Of Your Hands Is Dominant? Right [email or web address] Information n ot available 09/19/2022 Do You Have A Medical Power Of Beverage Steward? No [email or web address] Information not available 07/20/2022 What Was The Date Of Your Most Recent Tobacco Screening? 07/14/2025 Information not available 07/14/2025 Do You Have Any Pets? Yes Information not available 09/19/2022 Do You Use Protection During Sex? No Information not available 09/19/2022 What Is Your Relationship Status? [email or web address] Information not available 07/20/2022 Have You Repeated Any Grades? Yes [email or web address] Information not available 09/19/2022 Do You Use Your Seat Belt Or Car Seat Routinely? Yes [email or web address] Information not available 07/20/2022 Are You Sexually Active? Yes [email or web address] Information not available 09/19/2022 Do You Have Any Siblings? 3 [email or web address] Information not available 09/19/2022 Do You Have Smoke And Carbon Monoxide Detectors In Your Home? Yes [email or web address] Information not available 07/20/2022 Are You Passively Exposed To Smoke? No [email or web address] Information no t available 09/19/2022 Are There Any Smokers In Your House? Yes [email or web address] Information not available 09/19/2022 Do You Use Sunscreen Routinely? No [email or web address] Information not available 07/20/2022 Have You Recently Traveled Abroad? No Information not available 07/20/2022 Do You Have Difficulty Walking Or Climbing Stairs? No [email or web address] Information not available 07/20/2022 Are You Currently In School? No [email or web address] Information not available 07/20/2022 Sex: Unknown Functional Status Question Answer Note LastModified by [employer] Details LastModified Time Do you use any illicit or recreational drugs? No [email or web address] Information not available 09/19/2022 What is your level of alcohol consumption? None [email or web address] Information not available 07/20/2022 Are you currently employed? No [email or web address] Information not available 07/20/2022 Do you have transportation difficulties? No [email or web address] Information not available 07/20/2022 Are you able to walk independently without assistance or assistive devices? YESWOREST [email or web address] Information not available 07/20/2022 Do you have difficulty doing errands alone? No [email or web address] Information not available 07/20/2022 Are you able to care for yourself independently? Yes Information not available 07/20/2022 Do you have difficulty dressing, bathing, grooming, or toileting? No Information not available 07/20/2022 Mental Status Question Answer Note LastModified by [employer] Details LastModified Time Do you feel stressed (tense, restless, nervous, or anxious, or unable to sleep at night)? [id number] [email or web address] Information not available 09/19/2022 Do you have difficulty concentrating, remembering or making decisions? No [email or web address] Information no t available 07/20/2022 Are you or have you been involved with bullying? No [email or web address] Information not available 09/19/2022 Family History Relationship Description Onset Age of this Age Resolved Age Notes LastModified by Organization Details LastModified Time Unspecified Relation Family history of Hypertension [email or web address] Not available 09:08:53 Unspecified Relation Family history of diabetes mellitus type 2 [email or web address] Not available 2023 09:08:53 Maternal Grandmother Hypertensive disorder [email or web address] Not available 09/19 09:53:52 Paternal Grandfather Hypertensive disorder [email or web address] Not available 09/19 09:53:52 Mother Hypertensive disorder Not available 09/19 09:53:52 Mother Arthritis [email or web address] Not availa ble 09/19/2022 09:53:52 Mother Diabetes mellitus Not available 09/19 09:53:52 Mother Hypercholest erolemia [email or web address] Not available 09/19 09:53:52 Mother Anxiety disorder [email or web address] Not available 09/19 09:53:52 Father Arthritis [email or web address] Not availa ble 09/19/2022 09:53:52 Father Liver problem [email or web address] Not available 09/19 09:53:52 Father Diabetes mellitus [email or web address] Not available 09/19 09:53:52 Father Hypertensive disorder [email or web address] Not available 09/19 09:53:52 Maternal Grandfather Hypertensive disorder [email or web address] Not available 09/19 09:53:52 Brother Hypertensive disorder [email or web address] Not available 09/19 09:53:52 Brother Diabetes mellitus [email or web address] Not available 09/19 09:53:52 Sister Hypertensive disorder Not available 09/19 09:53:52 Sister Diabetes mellitus Not available 09/19 09:53:52 Medical History Condition Response High Cholesterol Y Hypertension Y Gynecological History Statement/Question Response Abnormal Pap [...] Recorded Time Influenza, split virus, quadrivalent, PF completed Reta keen [facility] [employer] [facility]. 07/10/2023 08:32:44 Influenza, split virus, quadrivalent, preservative 1 completed Reta [place] null, [employer] 12/07/2023 09:26:55 Influenza, split virus, quadrivalent, preservative 0 completed Reta [place] null, [employer] 12/07/2023 09:26:55 Influenza, split virus, quadrivalent, preservative 9 completed Reta [place] null, [employer] 12/07/2023 09:26:55 Tdap 7 completed Reta [place] null, [employer] 12/07/2023 09:26:55 COVID-19, mRNA, LNP-S, PF, 100 mcg/0.5mL dose or 50 mcg/0.25mL dose 1 completed Reta [place] null, [employer] 12/07/2023 09:26:55 COVID-19, mRNA, LNP-S, PF, 100 mcg/0.5mL dose or 50 mcg/0.25mL dose 1 completed Reta [place] null, [employer] 12/07/2023 09:26:55 Influenza, split virus, quadrivalent, PF 8 completed Reta [place] null, [employer] 12/07/2023 09:26:55 zoster recombinant 4 completed Meaghan Mcnamara APRN [address] [place], [address], [employer] 03/13/2024 08:53:07 zoster recombinant 4 completed Meaghan Mcnamara APRN [address] [place], [address], [employer] 06/09/2024 12:19:53 Influenza, split virus, trivalent, PF 4 completed Sarah Quiroga null, [employer] 06/30/2024 09:50:26 Influenza, split virus, trivalent, preservative 5 completed KARMA SEBASTIAN null, [employer] 09/19/2022 09:52:55 Influenza, split virus, quadrivalent, PF 7 completed KARMA SEBASTIAN null, [employer] 09/19/2022 09:52:55 Td (adult), 2 Lf tetanus toxoid, preservative free, adsorbed 6 completed KARMA SEBASTIAN null, [employer] 09/19/2022 09:52:55 Td (adult), 2 Lf tetanus toxoid, preservative free, adsorbed 6 completed KARMA SEBASTIAN null, [employer] 09/19/2022 09:52:55 COVID-19, mRNA, LNP-S, PF, 100 mcg/0.5mL dose or 50 mcg/0.25mL dose 1 completed KARMA SEBASTIAN null, [employer] 09/19/2022 09:52:55 Influenza, split virus, quadrivalent, PF 2 completed KARMA SEBASTIAN null, [employer] 09/21/2022 15:11:16 Pneumococcal conjugate PCV15, polysaccharide [id number] conjugate, adjuvant, PF 5 completed Meaghan Mcnamara, [employer] [address] [place] [address], [id number], [employer] 02/26/2025 09:36:12 Tdap 5 completed Sarah keen, [place] [employer] 05/25/2025 14:52:02 Influenza, split virus, trivalent, PF 5 completed Sarah keen, [employer] 07/14/2025 14:20:49 Influenza, split virus, quadrivalent, PF 1 completed Reta Vega null, [employer] 12/07/2023 09:26:55 Influenza, split virus, quadrivalent, PF 0 completed Reta keen, [facility] [employer] 12/07/2023 09:26:55 Influenza, split virus, quadrivalent, PF 9 completed Reta keen [facility] [employer] [employer] 12/07/2023 09:26:55 Past Encounters Encounter ID Performer Location Encounter Start Date Encounter Closed Date Diagnosis/Indication Diagnosis SNOMED-CT Code Diagnosis ICD10 Code Diagnosis IMO Codes Diagnosis Note [id number] [place] [address] 07/20/2022 08:47:40 07/20/2022 10:07:52 Generalized anxiety disorder 24635262 F41.1 Pain in right arm 323173 004 M79.601 Screening for malignant neoplasm of breast 698236430 Z12.39 Candidiasis of mouth 797 71847 B37.0 Body mass index 30+ - obesity 169478280 Z68.37 [id number] [place] [address] 0 09/19/2022 09:38:32 09/19/2022 10:21:47 Generalized anxiety disorder 80626952 F41.1 Low back pain 319155762 M54.50 Body mass index 30+ - obesity 473779043 Z68.37 [id number] Meaghan [place] [address] 0 10/02/2022 10:31:38 10/02/2022 11:07:07 Low back pain 449795066 M54.50 Right side sciatica 3202 283898 38042 M54.31 Dysuria 77648211 R30.0 Acute urin jocelyne tract infection 877826963 N39.0 Body mass index 30+ - obesity 388525623 Z68.37 [id number] Meaghan [place] [address] 0 11/16/2022 10:56:59 11/16/2022 11:34:48 Fatigue 74918966 R53.83 Vitamin D deficiency 347 77226 E55.9 Vitamin B deficiency 479 66474 E53.9 Hypocalcemia 3676369 E83 .51 Generalize d anxiety disorder 54537609 F41.1 Low back pain 524988047 M54.50 Hypokalemia 97618020 E87 .6 Abrasion 293703385 T14.8 XXA Body mass index 30+ - obesity 221579810 Z68.37 [id number] Meaghan Mcnam[place] [address] 0 01/16/2023 16:43:30 01/16/2023 17:20:35 Dysuria 01491550 R30.0 Candidiasis of vagina 72 024206 B37.31 Foot callus 788700656 L8 4 Generalize d anxiety disorder 25123043 F41.1 [id number] Meaghan Mcnamara [place] [address] 0 03/13/2023 11:32:34 03/13/2023 13:12:37 Pain in left foot 2396324153 71986 M79.672 Lymphedema 297163429 I89 .0 Generalize d anxiety disorder 52214363 F41.1 [id number] [place] [address] 0 05/10/2023 07:55:06 05/10/2023 08:46:09 Generalized anxiety disorder 53824192 F41.1 Tendinitis of left elbow 7243622208 6897841 M67.824 History of diverticulitis 2951742843 25380 Z87.19 Body mass index 30+ - obesity 284140937 Z68.37 [id number] Meaghan Mcnamara [place] [address] 0 05/28/2023 08:48:14 05/28/2023 10:00:55 Edema of lower extremity 780835777 R60.0 Body mass index 30+ - obesity 130256521 Z68.37 [id number] Meaghan Mcnamara [place] [address] 0 07/10/2023 08:00:20 07/10/2023 08:31:50 Administration of influenza vaccine 48992554 Z23 Hypocalcemia 6438647 E83 .51 Mixed hyperlipidemia 267 398161 E78.2 Hypertensive disorder 38 337751 I10 Generalize d anxiety disorder 99877098 F41.1 Constipation 26171143 K5 9.00 Hypokalemia 17259952 E87 .6 Body mass index 30+ - obesity 133052074 Z68.37 [id number] Meaghan [address] [address] 09/06/2023 10:28:25 09/06/2023 10:55:55 Hypertensive disorder 46587985 I10 Hypocalcemia 3338944 E83 .51 Low back pain 561802051 M54.50 Mixed hyperlipidemia 267 101570 E78.2 Generalize d anxiety disorder 00994633 F41.1 Hypokalemia 58086248 E87 .6 Constipation 19362331 K5 9.00 Lower resp iratory tract infection 24406444 J22 Body mass index 30+ - obesity 599360990 Z68.37 [id number] Meaghan [address] [address] 11/06/2023 10:24:21 11/06/2023 11:13:12 Long-term drug therapy 481821050 Z79.899 Urinary symptoms 1861476 08 R39.9 Fatigue 07360230 R53.83 Hyperlipidemia 36761601 E78.5 Vitamin D deficiency 347 20049 E55.9 Generalize d anxiety disorder 09226810 F41.1 Acute urin jocelyne tract infection 946102297 N39.0 Body mass index 30+ - obesity 007657888 Z68.37 [id number] Fadi Viveros CNM [facility] [address],[facility] [place] [address] 11/13/2023 08:57:30 11/13/2023 12:11:24 Vaginal discharge 406833754 N89.8 Dysuria 08553417 R30.[id number] [address] 12/07/2023 09:14:27 12/07/2023 10:28:54 Cough 12067426 R05.9 Acute sinusitis 57803071 J01.90 Pain of ri ght knee joint 8339729737 22570 M25.561 Body mass index 30+ - obesity 515006109 Z68.37 [id number] [place] [address] 01/14/2024 11:25:36 01/14/2024 11:40:52 Generalized anxiety disorder 50541958 F41.1 Low back pain 881739180 M54.50 Body mass index 30+ - obesity 954968566 Z68.37 [id number] Meaghan Mcnamara [place] [address] 03/13/2024 07:58:56 03/13/2024 09:01:11 Screening for malignant neoplasm of breast 139294765 Z12.39 Body mass index 30+ - obesity 876243823 Z68.37 Active or passive immunization 864816348 Z23 Low back pain 791718109 M54.50 Mixed hyperlipidemia 267 459037 E78.2 Hypertensive disorder 38 192086 I10 Generalize d anxiety disorder 60470935 F41.1 Hypokalemia 50217062 E87 .6 Constipation 50753419 K5 9.00 Vitamin D deficiency 347 75966 E55.9 [id number] Meaghan [address] [address] 06/09/2024 11:14:30 06/09/2024 11:55:48 Active or passive immunization 526251221 Z23 Hypertensive disorder 38 506823 I10 Vitamin D deficiency 347 80431 E55.9 Low back pain 351639238 M54.50 Mixed hyperlipidemia 267 417300 E78.2 Generalize d anxiety disorder 54811176 F41.1 Hypokalemia 46681471 E87 .6 Constipation 82433714 K5 9.00 Body mass index 30+ - obesity 167055161 Z68.37 [id number] [place] [address] 06/30/2024 09:25:40 06/30/2024 10:02:17 Administration of influenza vaccine 14219040 Z23 [id number] [place] [address] 08/25/2024 13:33:04 08/25/2024 14:24:26 Dysuria 96562874 R30.0 Recurrent urinary tract infection 832315241 N39.0 Vaginal discharge 636400 006 N89.8 Skin lesion 51951828 L98 .9 Acute urin jocelyne tract infection 147466519 N39.0 Candidiasis of vagina 72 254158 B37.31 Body mass index 30+ - obesity 386853730 Z68.37 [id number] Meaghan Mcnamara [address] [address] 09/25/2024 10:49:10 09/25/2024 11:09:57 Fatigue 82368735 R53.83 Hyperlipidemia 73369816 E78.5 Hyperglycemia 81062397 R 73.9 Vitamin D deficiency 347 80763 E55.9 Iron defic iency anemia 12254449 D50.9 Vitamin B deficiency 479 51695 E53.9 Hypertensive disorder 38 107679 I10 Low back pain 647318865 M54.50 Mixed hyperlipidemia 267 894737 E78.2 Generalize d anxiety disorder 74119932 F41.1 Hypokalemia 12550682 E87 .6 Constipation 63366746 K5 9.00 Body mass index 30+ - obesity 089102984 Z68.37 [id number] Meaghan Mcnamara [address] [address] 11/25/2024 08:56:09 11/25/2024 10:25:53 Recurrent urinary tract infection 983381326 N39.0 Vaginal irritation 57512 6004 N89.8 Hypertensive disorder 38 972875 I10 Mixed hyperlipidemia 267 417423 E78.2 Fatigue 35595874 R53.83 Hyperlipidemia 51101285 E78.5 Hyperglycemia 69245407 R 73.9 Vitamin D deficiency 347 74225 E55.9 Iron defic iency anemia 78323340 D50.9 Vitamin B deficiency 479 57608 E53.9 Low back pain 344448100 M54.50 Generalize d anxiety disorder 53009615 F41.1 Hypokalemia 40197389 E87 .6 Constipation 34084349 K5 9.00 Body mass index 30+ - obesity 838417207 Z68.37 Acute urin jocelyne tract infection 284628076 N39.0 Candidiasis of vagina 72 961547 B37.31 [id number] [place] [address] 12/08/2024 13:23:43 12/08/2024 14:31:57 Cough 42235271 R05.9 Impetigo 87604497 L01.00 Lower resp iratory tract infection 28861945 J22 Body mass index 30+ - obesity 448778657 Z68.37 [id number] [place] [address] 02/26/2025 08:29:46 02/26/2025 09:38:09 Type 2 diabetes mellitus 53618092 E11.9 79045940 Long-term current use of drug therapy 612355718 Z79.899 23806475 Vaccination needed 91595 15255 79247 Z23 959643 Screening for osteoporosis 618907542 Z13.820 500005 Patient states that she had this a couple of years ago at [facility] Pain of ri ght knee joint 8760852682 32387 M25.561 640388 Vitamin D deficiency 347 01323 E55.9 Mixed hyperlipidemia 267 891631 E78.2 Hypertensive disorder 38 565927 I10 Body mass index 30+ - obesity 502627185 Z68.39 121218 [id number] [place] [address] 05/04/2025 09:27:14 05/04/2025 10:03:23 Generalized anxiety disorder 50596279 F41.1 Controlled substance agreement and UDS UTD until Feb 2026. Hypertensive disorder 38 616133 I10 Vitamin D deficiency 347 39351 E55.9 Pain of mu ltiple joints 65185929 M25.50 541325 Body mass index 30+ - obesity 758805128 E66.9 4183742 [id number] Meaghan Mcnamara [place] [address] 05/25/2025 14:24:17 05/25/2025 14:55:49 Laceration of right hand 3671300539 4600572 S61.411A 72596582 Body mass index 30+ - obesity 630547974 Z68.38 116058 [id number] Meaghan Mcnamara [place] [address] 07/14/2025 13:20:05 07/14/2025 15:32:00 Well controlled type 2 diabetes mellitus 804119812 E11.9 697471 Screening mammography 24 960640 Z12.31 0089931118 Mixed hyperlipidemia 267 514831 E78.2 Low back pain 252395378 M54.50 Requires i nfluenza virus vaccination 695168925 Z23 8074124 Pain of knee region 1003 449045 M25.561 M25.562 G89.29 30981103 Body mass index 30+ - obesity 212328333 Z68.38 159348 Health Concerns Section Related Observation LastModified by Organization Detai ls LastModified Time None Recorded Concern Status LastModified by Organization Details LastModified Time None Recorded Advance Directives Directive N: Payers Insurance Date Sequence Insurance Name Policy Number Policy Molina Covered Member ID Molina Member ID Guarantor Name 02/21/2023 1 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 Berta G Jennifer 07/14/2025 [place] [employer] - [facility] Berta G Jennifer [id number] Berta G Jennifer 01/02/2025 SLIDING FEE SCHEDULE - DISCOUNT Berta G Jennifer 07/14/2025 2 [facility] (MEDICAID REPLACEMENT - HMO) Berta M Jennifer [id number] Berta G Jennifer 07/14/2025 1 [place] Berta G Jennifer [id number] Berta G Jennifer 07/14/2025 [place] [facility] (MEDICAID) Berta G Jennifer [id number] Berta G Jennifer 07/14/2025 1 [facility] (MEDICAID REPLACEMENT - HMO) Berta Terrazas Jennifer [id number] Berta Larsen Jennifer 07/14/2025 2 [place] - [place] [facility] - FFS/TRADITIONA L Berta Terrazas Jennifer [id number] Berta Larsen Jennifer Notes Date Note Type Note Provider Name and Address Organization Details Recorded Time 12/08/2024 text/html 64 year old female presents with cough, yellow chest congestion, hoarseness x 1 week. Denies fever. States shes been around illness at [facility]. Declines testing today. Left upper lobe with Exp wheezing. Will prescribe steroids and abx today.She had f.u with urology. Switched her abx, ordered oxybutynin, ct and cystoscopy. pt also has rash below right nostril. appears to be impetigo. Meaghan Mcnamara APRN [address] [place], [address], [place]. 12/08/2024 17:48:48 02/26/2025 text/html pt here today [...] exercise with pt. Meaghan Mcnamara APRN [address] [facility], [place], [address], [place]. 02/26/2025 10:49:54 05/04/2025 text/html pt here today for medication refills. pt states shes doing well on current medication regime. pt states that she has flared up her back again, doing too much and it is hurting along with knees. i will order steroid injection and a couple days of oral steroid. pt voiced understanding. return for worsening symptoms. Meaghan Mcnamara APRN [address] [place], [address], [place]. 05/04/2025 10:11:54 05/25/2025 text/html pt here today [...] s/s of infection. Meaghan Mcnamara APRN [address] [place], [address], [place]. 05/25/2025 15:03:21 07/14/2025 text/html pt here today [...] at last visit. Meaghan Mcnamara APRN [address] [place], [address], [place]. 07/14/2025 14:37:20 OBGyn Episode No OBEpisode recorded.
--- OUTSIDE RECORDS SUMMARY | 2025-08-11 09:06 | XMS_ITS | Clinical Summary ---
Author Organization [facility] , [facility] Address [address] [place] [address] Phone Care Team Providers Care Transportation Aid Name Role Phone Isaac CORONA, Brandon Diallo Unavailable [phone] Yuliana Sheikh APRN Primary Care Provider [phone] Meaghan Mcnamara APRN Unavailable [phone] Reason for Referral Date Encounter Description Provider Reason for Referral 01/18/22 Follow Up Adrian Massey MD Refe rral To Physician Reason for Visit and Chief Complaint The Chief Complaint is: Left shoulder pain Problems Includes: Problems addressed during this encounter and other active Problems Current Visit Onset Date Resolved Date Provider Conditio n Status Lower Back Pain 12/23/2015 Brandon Gray MD Act meg Last Documented On 6 1:16PM ; [facility], [facility] Past Visits Onset Date Resolved Date Provider Condition Status History of Joint Pain Shoulder Left 2021 Sarath Eli PA-C Active Last Documented On 2 8:12AM ; [facility], [facility] Plan of Treatment NON SURGICAL PLAN: I REVIEWED THE XRAYS WITH THE PATIENT TODAY IN THE OFFICE. HER FRACTURE HAS HEALED AND SHE CAN DISCONTINUE HER SLING. SINCE SHE IS DOING THERAPY FOR HER BACK, I WILL GIVE HER AN ORDER TO BEGIN THERAPY FOR HER SHOULDER TO WORK ON GENTLE STRENGTHENING. SHE ALSO HAS A BAD ROTATOR CUFF AND IS HER SHOULDER BECOMES MORE PAINFUL OR WEAK I WOULD LIKE TO KNOW ABOUT IT. SHE IS UNDERSTANDING OF EVERYTHING DISCUSSED AND HAS NO FURTHER QUESTIONS FOR ME TODAY. - Last Documented On 01/20/2022 8:23AM ; [facility], [facility] Instructions to patient Lose weight Last Documented On 2 8:06AM ; [facility] Assessments Includes: Assessments from this encounter Findings LEFT SHOULDER GLENOID FRACTURE - Last Documented On 01/20/2022 8:23AM ; [facility] Instructions Includes: Instructions from this encounter Instructions to patient Lose weight Last Documented On 2 8:06AM ; [facility] Medical Equipment - Implanted Devices Includes: Current Devices No Medical Equipment Recorded Medications Includes: Medications discussed during this encounter and other current Medications Current Medications (continue as prescribed) Diclofenac Sodium 75 MG Oral Tablet Delayed Release Provider: Diagnosis: Last Documented On 2 8:36AM By Hillary Lofton ; [facility], [facility] Active-Pac/Gabapentin 300 & 4-1 MG & % Combination Therapy Pack 12/15/2021 Provider: Diagnosis: Last Documented On 2 8:36AM By Hillary Lofton ; [facility], [facility] Diclofenac Sodium 1% External Gel 12/15/2021 Provide r: Diagnosis: Last Documented On 2 8:36AM By Hillary Lofton ; [facility], [facility] Calcium 600 MG Oral Tablet 2021 Provider: Diagnosis: Last Documented On 2 8:41AM By Argelia Romero ; [facility], [facility] LORazepam 0.5 MG Oral Tablet 2021 Provider: Diagnosis: Last Documented On 2 8:41AM By Argelia Romero ; [facility], [facility] Metoprolol Tartrate 25 MG Oral Tablet 2021 Pro vider: Diagnosis: Last Documented On 2 8:42AM By Argelia Romero ; [facility], [facility] FiberCon 625 MG Oral Tablet 2021 Provider: Diagnosis: Last Documented On 2 8:43AM By Argelia Romero ; [facility], [facility] PreserVision AREDS Oral Capsule 2021 Provider: Diagnosis: Last Documented On 2 8:43AM By Argelia Romero ; [facility], [facility] Methocarbamol 500 MG Oral Tablet 11/21/2021 Provider : Meaghan Stone [employer] Diagnosis: Last Documented On 2 8:42AM By Argelia Romero ; [facility] Potassium Chloride Ivania ER 2 0 MEQ Oral Tablet Extended Release 11/21/2021 Provider: Meaghan Diallo PRN Diagnosis: Last Documented On 2 8:42AM By Argelia Romero ; [facility] Fenofibrate 48 MG Oral Tablet 10/24/2021 Provider: Meaghan Mcnamara [employer] Diagnosis: Last Documented On 2 8:42AM By Argelia Romero ; [facility] Medications Administered Includes: Administered Medications from this encounter No Administered Medications Recorded Vital Signs Includes: Vital Signs from this encounter Vital Name 01/18/2022 08:10A Blood Pressure Sitting (mmHg) 136/73 Pulse Rate-Sitting (bpm) 55 Height (in) 67.5 Weight (lb) 233 Body Mass Index (kg/m2) 36.0 Body Surface Area (m2) 2.2 Note: HR Last Documented: On 01/18/2022 8:20AM ; [facility] Results Includes: Results discussed during this encounter No Results Recorded For Specified Dates History of Present Illness Includes: History of Present Illness from this encounter HPI Berta Rodriguez is a 61 year old female. - Allergy list reviewed - Problem list reviewed - Medication list reviewed PATIENT IS IN TO FOLLOW UP ON HER LEFT SHOULDER FRACTURE. SHE PRESENTS IN SLING TODAY. SHE STATES HER SHOULDER IS FEELING BETTER. HOWEVER, HER BACK IS GIVING HER ISSUES. Social History Description Last Updated Non-smoker 12/07/2021 Last Documented On 2 8:06AM ; [facility] No caffeine use 2021 Last Documented On 2 8:06AM ; [facility] No recent change in diet 2021 Last Documented On 2 8:06AM ; [facility] Not a current smoker. 2021 Last Documented On 2 8:06AM ; [facility] Not exercising regularly 2021 Last Documented On 2 8:06AM ; [facility] Not using alcohol 2021 Last Documented On 2 8:06AM ; [facility] Not using drugs 2021 Last Documented On 2 8:06AM ; [facility] No recent change in diet 12/23/2015 Last Documented On 2 8:06AM ; [facility] Not a current smoker 12/23/2015 Last Documented On 2 8:06AM ; [facility] No tobacco use 12/23/2015 Last Documented On 2 8:06AM ; [facility] Smoking status : Never smoker 12/23/2015 Last Documented On 2 8:06AM ; [facility] Procedures and Surgical History Includes: Procedures from this encounter Procedures Code Diagnosis Performing Provider Service L ocation Service Date use of tobacco assessment performed 1000F Last Documented On 2 8:06AM ; [facility] referral to physician Last Documented On 2 8:06AM ; [facility] an X-ray was performed 75567 Last Documented On 2 8:06AM ; [facility], [facility] an MRI was performed 01106 Last Documented On 2 8:06AM ; [facility] Surgical History Last Updated History of History of Gallbladder 2021 Last Documented On 2 8:06AM ; [facility] Medical History Includes: Medical History addressed during this encounter Description Last Updated History of arthritis 2021 Last Documented On 2 8:06AM ; [facility] History of diverticulitis of colon 12/06 Last Documented On 2 8:06AM ; [facility] History of Sleep Apnea 2021 Last Documented On 2 8:06AM ; [facility] No recent immunization for pneumococcal pneumonia 2021 Last Documented On 2 8:06AM ; [facility] Recent immunization for flu 05/18/2021 Last Documented On 2 8:06AM ; [facility] Use of CPAP 2021 Last Documented On 2 8:06AM ; [facility], [facility] Rotator Cuff 12/23/2015 Last Documented On 2 8:06AM ; [facility], [facility] Arthritic joint problems 12/23/2015 Last Documented On 2 8:06AM ; [facility], [facility] Gallbladder disease 12/23/2015 Last Documented On 2 8:06AM ; [facility] History of osteoporosis 12/23/2015 Last Documented On 2 8:06AM ; [facility], [facility] Intermittent hypertension 12/23/2015 Last Documented On 2 8:06AM ; [facility], [facility] Family History Includes: Family History addressed during this encounter Description Last Updated Diabetes mellitus 2021 Last Documented On 2 8:06AM ; [facility] Family history of systemic hypertension 2021 Last Documented On 2 8:06AM ; [facility] Family history of diabetes mellitus Moth er, Father, Sister, Brother 12/23/2015 Last Documented On 2 8:06AM ; [facility], [facility] Family history of osteoporosis Father Last Documented On 2 8:06AM ; [facility], [facility] Review of Systems Includes: Review of [...] Exam Includes: Physical Exam from this encounter Immunizations Includes: Immunizations addressed during this encounter Vaccine Dose # Date Site Reaction(s) Status Source Influenza 1 08/17/2021 Complete (Reported) Patient Last Documented On 2 8:18AM ; [facility] PCV (Pneumovax 23) 1 01/18/2022 Complete (Refused - Patient objection) [facility] Last Documented On 2 8:18AM ; [facility] Td 1 01/18/2022 Complete (Refused - Patient objection) [facility] Last Documented On 2 8:18AM ; [facility] Allergies Includes: Active Allergies Substance Type Reaction Onset Date Resolved Date Statu s NSAIDs Allergy 12/23/2015 Active Last Documented On 2 8:06AM ; [facility] Encounters Encounter Provider Location Date Check-In Time Check- Out Time Diagnosis Follow Up Adrian Massey MD [facility] 2 8:09AM 8:34AM Insurance Includes: Active Insurance Policies Plan Name Member ID Group # Subscriber Relationship Effect meg Dates 1 - [employer] [id number] Berta Rodriguez Self Clinical Notes Includes: Clinical Notes from this encounter No Clinical Notes Recorded
--- OUTSIDE RECORDS SUMMARY | 2025-08-11 09:06 | XMS_ITS | Clinical Summary ---
Author Organization [facility] , [facility] Address [address] [place] [address] Phone Care Team Providers Care Iron Assorter Name Role Phone Isaac CORONA, Brandon Diallo Unavailable [phone] Yuliana Sheikh APRN Primary Care Provider [phone] Meaghan Mcnamara APRN Unavailable [phone] Reason for Visit and Chief Complaint The Chief Complaint is: Left shoulder pain Problems Includes: Problems addressed during this encounter and other active Problems Current Visit Onset Date Resolved Date Provider Conditio n Status Lower Back Pain 12/23/2015 Brandon Gray MD Act meg Last Documented On 6 1:16PM ; [facility] Past Visits Onset Date Resolved Date Provider Condition Status History of Joint Pain Shoulder Left 2021 Sarath Eli PA-C Active Last Documented On 2 8:12AM ; [facility] Plan of Treatment NON SURGICAL PLAN: I REVIEWED THE CT SCAN IMAGES WITH THE PATIENT. I DISCUSSED OPTIONS WITH THE PATIENT. I EXPLAINED TO HER TODAY THAT HER SHOULDER IS TREATABLE ONCE THE FRACTURE IS HEALED. WHAT SHE WOULD NEED IS A REVERSE TOTAL SHOULDER ARTHROPLASTY IN ORDER TO GET HER FUNCTION BACK. SHE IS UNDERSTANDING OF THIS. WE WILL CONTINUE TO OBSERVE THE FRACTURE. I WOULD LIKE FOR HER TO CONTINUE TO WEAR HER SLING. WE WILL SEE HER BACK IN 3 WEEKS WITH XRAYS ON ARRIVAL OF HER SHOULDER. I HAVE ANSWERED ALL QUESTIONS PRESENTED TODAY. - Last Documented On 12/09/2021 10:00AM ; [facility] Instructions to patient Lose weight Last Documented On 2 9:49AM ; [facility], [facility] Assessments Includes: Assessments from this encounter Findings LEFT SHOULDER ROTATOR CUFF ARTHROPATHY FRACTURE OF THE INFERIOR GLENOID - Last Documented On 12/09/2021 10:00AM ; [facility] Instructions Includes: Instructions from this encounter Instructions to patient Lose weight Last Documented On 2 9:49AM ; [facility] Medical Equipment - Implanted Devices Includes: Current Devices No Medical Equipment Recorded Medications Includes: Medications discussed during this encounter and other current Medications Current Medications (continue as prescribed) Diclofenac Sodium 75 MG Oral Tablet Delayed Release Provider: Diagnosis: Last Documented On 2 8:36AM By Hillary Lofton ; [facility] Active-Pac/Gabapentin 300 & 4-1 MG & % Combination Therapy Pack 12/15/2021 Provider: Diagnosis: Last Documented On 2 8:36AM By Hillary Lofton ; [facility] Diclofenac Sodium 1% External Gel 12/15/2021 Provide r: Diagnosis: Last Documented On 2 8:36AM By Hillary Lofton ; [facility], [facility] Calcium 600 MG Oral Tablet 2021 Provider: Diagnosis: Last Documented On 2 8:41AM By Argelia Romero ; [facility], [facility] LORazepam 0.5 MG Oral Tablet 2021 Provider: Diagnosis: Last Documented On 2 8:41AM By Argelia Romero ; [facility], [facility] Metoprolol Tartrate 25 MG Oral Tablet 2021 Pro vider: Diagnosis: Last Documented On 2 8:42AM By Argelia Romero ; [facility], [facility] FiberCon 625 MG Oral Tablet 2021 Provider: Diagnosis: Last Documented On 2 8:43AM By Argelia Romero ; [facility], [facility] PreserVision AREDS Oral Capsule 2021 Provider: Diagnosis: Last Documented On 2 8:43AM By Argelia Romero ; [facility], [facility] Methocarbamol 500 MG Oral Tablet 11/21/2021 Provider : Meaghan Mcnamara APRN Diagnosis: Last Documented On 2 8:42AM By Argelia Romero ; [facility] Potassium Chloride Ivania ER 2 0 MEQ Oral Tablet Extended Release 11/21/2021 Provider: Meaghan Diallo PRN Diagnosis: Last Documented On 2 8:42AM By Argelia Romero ; [facility] Fenofibrate 48 MG Oral Tablet 10/24/2021 Provider: Meaghan Mcnamara CAPITAL EQUIPMENT SPECIALIST Diagnosis: Last Documented On 2 8:42AM By Argelia Romero ; [facility] Medications Administered Includes: Administered Medications from this encounter No Administered Medications Recorded Vital Signs Includes: Vital Signs from this encounter Vital Name 12/07/2021 09:48A Blood Pressure Sitting L 146/84 Pulse Rate-Sitting (bpm) 60 Height (in) 67.5 Weight (lb) 239 Body Mass Index (kg/m2) 36.9 Body Surface Area (m2) 2.2 Note: sb Last Documented: On 12/07/2021 9:49AM ; [facility] Results Includes: Results discussed during this encounter No Results Recorded For Specified Dates History of Present Illness Includes: History of Present Illness from this encounter HPI Berta Rodriguez is a 61 year old female. - Allergy list reviewed - Problem list reviewed - Medication list reviewed PATIENT IS IN TO FOLLOW UP ON HER LEFT SHOULDER. SHE PRESENTS IN A SLING TODAY. SHE HAD A PREVIOUS SURGERY TO REPAIR HER ROTATOR CUFF IN 2013. SHE RECENTLY HAD A TRAUMATIC FALL INJURING HER SHOULDER. SHE HAS HAD A CT SCAN OF HER SHOULDER WITH 3-D RECON AND IS HERE TO GO OVER THE RESULTS. Social History Description Last Updated Non-smoker 12/07/2021 Last Documented On 2 10:00AM ; [facility] No caffeine use 2021 Last Documented On 2 9:35AM ; [facility] No recent change in diet 2021 Last Documented On 2 9:35AM ; [facility] Not a current smoker. 2021 Last Documented On 2 9:35AM ; [facility] Not exercising regularly 2021 Last Documented On 2 9:35AM ; [facility] Not using alcohol 2021 Last Documented On 2 9:35AM ; [facility] Not using drugs 2021 Last Documented On 2 9:35AM ; [facility] No recent change in diet 12/23/2015 Last Documented On 2 9:35AM ; [facility] Not a current smoker 12/23/2015 Last Documented On 2 9:35AM ; [facility] No tobacco use 12/23/2015 Last Documented On 2 9:35AM ; [facility] Smoking status : Never smoker 12/23/2015 Last Documented On 2 9:35AM ; [facility] Procedures and Surgical History Includes: Procedures from this encounter Procedures Code Diagnosis Performing Provider Service L ocation Service Date use of tobacco assessment performed 1000F Last Documented On 2 9:49AM ; [facility] an X-ray was performed 80571 Last Documented On 2 9:35AM ; [facility], [facility] an MRI was performed [id number] Last Documented On 2 9:35AM ; [facility] Surgical History Last Updated History of History of Gallbladder 2021 Last Documented On 2 9:35AM ; [facility], [facility] Medical History Includes: Medical History addressed during this encounter Description Last Updated History of arthritis 2021 Last Documented On 2 9:35AM ; [facility] History of diverticulitis of colon 12/06 Last Documented On 2 9:35AM ; [facility] History of Sleep Apnea 2021 Last Documented On 2 9:35AM ; [facility] No recent immunization for pneumococcal pneumonia 2021 Last Documented On 2 9:35AM ; [facility] Recent immunization for flu 05/18/2021 Last Documented On 2 9:35AM ; [facility], [facility] Use of CPAP 2021 Last Documented On 2 9:35AM ; [facility], [facility] Rotator Cuff 12/23/2015 Last Documented On 2 9:35AM ; [facility], [facility] Arthritic joint problems 12/23/2015 Last Documented On 2 9:35AM ; [facility], [facility] Gallbladder disease 12/23/2015 Last Documented On 2 9:35AM ; [facility], [facility] History of osteoporosis 12/23/2015 Last Documented On 2 9:35AM ; [facility], [facility] Intermittent hypertension 12/23/2015 Last Documented On 2 9:35AM ; [facility], [facility] Family History Includes: Family History addressed during this encounter Description Last Updated Diabetes mellitus 2021 Last Documented On 2 9:35AM ; [facility], [facility] Family history of systemic hypertension 2021 Last Documented On 2 9:35AM ; [facility], [facility] Family history of diabetes mellitus Moth er, Father, Sister, Brother 12/23/2015 Last Documented On 2 9:35AM ; [facility], [facility] Family history of osteoporosis Father Last Documented On 2 9:35AM ; [facility], [facility] Review of Systems Includes: Review of [...] Active Last Documented On 2 8:06AM ; [facility] Encounters Encounter Provider Location Date Check-In Time Check- Out Time Diagnosis Follow Up Adrian Massey MD [facility] 2 9:43AM 9:58AM Insurance Includes: Active Insurance Policies Plan Name Member ID Group # Subscriber Relationship Effect meg Dates 1 - [employer] MEDICA[employer] [id number] Berta Rodriguez Self Clinical Notes Includes: Clinical Notes from this encounter No Clinical Notes Recorded
[2025-08-12 22:15] LABS: BVAB2 Low - 0 Score (.); Candida albicans NAA Negative (Negative); Candida glabrata Negative (Negative); HSV 1 NAA Negative (Negative); HSV 2 NAA Negative (Negative)
== END 2025-08-10 23:59 | disposition home or self-care (01) ==
LOC: LAB.DROPOF 08-11 09:01
PROVIDERS: PCP Nurse Practitioner; Visit Provider Urology
DX: N39.0 Urinary tract infection, site not specified (principal); B37.31 Acute candidiasis of vulva and vagina; N89.8 Other specified noninflammatory disorders of vagina
CPT/HCPCS: 81001; 87086; 87088; 87186; 87491; 87529; 87591; 87661; 87798; 87801

== ENCOUNTER 2025-08-17 16:53 | Outpatient (CLI) | payer MEDICARE, MEDICAID, SELFPAY ==
[2025-08-17 16:33] LABS: Microscopic,Cath URINE MICROSCOPIC (MICROSCOPIC)
--- OUTSIDE RECORDS SUMMARY | 2025-08-17 16:56 | XMS_ITS | Clinical Summary ---
Author Organization [facility] Address [address] [place] [address] Phone Care Team Providers Care Market Research Senior Project Manager Name Role Phone Isaac CORONA, Brandon Diallo Unavailable [phone] Yuliana Sheikh APRN Primary Care Provider [phone] Meaghan Mcnamara APRN Unavailable [phone] Reason for Visit and Chief Complaint The Chief Complaint is: follow up for MRI L Spine on 12/14/15 Problems Includes: Problems addressed during this encounter and other active Problems Current Visit Onset Date Resolved Date Provider Conditio n Status Lower Back Pain 12/23/2015 Brandon Gray MD Act meg Last Documented On 6 1:16PM ; [facility] Past Visits Onset Date Resolved Date Provider Condition Status History of Joint Pain Shoulder Left 2021 Sarath Eli PA-C Active Last Documented On 2 8:12AM ; [facility] Plan of Treatment Follow up apt 03/23/16 at 1pm. K[place] - Last Documented On 12/31/2015 10:11AM ; [facility] Recommend weight loss. Recommend continued activity and therapy exercises. Informed of lumbar fusion surgery, she would like to think about this. Follow up in 3 months time. - Last Documented On 12/31/2015 10:11AM ; [facility] Instructions to patient Instructions for patient see pcp for wt mgmt Last Documented On 6 1:21PM ; [facility] Assessments Includes: Assessments from this encounter Findings Low back pain with L4-L5 spondylolisthesis - Last Documented On 12/31/2015 10:11AM ; [facility] Instructions Includes: Instructions from this encounter Instructions to patient Instructions for patient see pcp for wt mgmt Last Documented On 6 1:21PM ; [facility] Medical Equipment - Implanted Devices Includes: Current Devices No Medical Equipment Recorded Medications Includes: Medications discussed during this encounter and other current Medications Current Medications (continue as prescribed) Diclofenac Sodium 75 MG Oral Tablet Delayed Release Provider: Diagnosis: Last Documented On 2 8:36AM By Hillary Lofton ; [facility] Active-Pac/Gabapentin 300 & 4-1 MG & % Combination Therapy Pack 12/15/2021 Provider: Diagnosis: Last Documented On 2 8:36AM By Hillary Lofton ; [facility] Diclofenac Sodium 1% External Gel 12/15/2021 Provide r: Diagnosis: Last Documented On 2 8:36AM By Hillary Lofton ; [facility] Calcium 600 MG Oral Tablet 2021 Provider: Diagnosis: Last Documented On 2 8:41AM By Argelia Romero ; [facility] LORazepam 0.5 MG Oral Tablet 2021 Provider: Diagnosis: Last Documented On 2 8:41AM By Argelia Romero ; [facility] Metoprolol Tartrate 25 MG Oral Tablet 2021 Pro vider: Diagnosis: Last Documented On 2 8:42AM By Argelia Romero ; [facility] FiberCon 625 MG Oral Tablet 2021 Provider: Diagnosis: Last Documented On 2 8:43AM By Argelia Romero ; [facility] PreserVision AREDS Oral Capsule 2021 Provider: Diagnosis: Last Documented On 2 8:43AM By Argelia Romero ; [facility] Methocarbamol 500 MG Oral Tablet 11/21/2021 Provider : Meaghan Mcnamara APRN Diagnosis: Last Documented On 2 8:42AM By Argelia Romero ; [facility] Potassium Chloride Ivania ER 2 0 MEQ Oral Tablet Extended Release 11/21/2021 Provider: Meaghan Diallo PRN Diagnosis: Last Documented On 2 8:42AM By Argelia Romero ; [facility] Fenofibrate 48 MG Oral Tablet 10/24/2021 Provider: Meaghan Mcnamara COMPUTATIONAL CHEMIST Diagnosis: Last Documented On 2 8:42AM By Argelia Romero ; [facility] Medications Administered Includes: Administered Medications from this [...] Documented On 6 10:11AM ; [facility] No recent change in diet 12/23/2015 Last Documented On 6 10:11AM ; [facility] Not a current smoker 12/23/2015 Last Documented On 6 10:11AM ; [facility] Not exercising regularly 12/23/2015 Last Documented On 6 10:11AM ; [facility] Not using alcohol 12/23/2015 Last Documented On 6 10:11AM ; [facility] Not using drugs 12/23/2015 Last Documented On 6 10:11AM ; [facility] No tobacco use 12/23/2015 Last Documented On 6 10:11AM ; [facility] Smoking status : Never smoker 12/23/2015 Last Documented On 6 10:11AM ; [facility] Procedures and Surgical History Includes: Procedures from this encounter Procedures Code Diagnosis Performing Provider Service L ocation Service Date education and instructions Last Documented On 6 1:21PM ; [facility] Clinical summary provided to patient Last Documented On 6 1:21PM ; [facility] history of a CT scan was per formed [facility] 02/27, [facility] 03/29 [id number] Last Documented On 6 1:37PM ; [facility] history of an MRI was performed 12/14/15 [id number] Last Documented On 6 1:37PM ; [facility] Medical History Includes: Medical History addressed during this encounter Description Last Updated Rotator Cuff 12/23/2015 Last Documented On 6 10:11AM ; [facility] Arthritic joint problems 12/23/2015 Last Documented On 6 10:11AM ; [facility] Gallbladder disease 12/23/2015 Last Documented On 6 10:11AM ; [facility] History of diverticulitis of colon 12/22 Last Documented On 6 10:11AM ; [facility] History of osteoporosis 12/23/2015 Last Documented On 6 10:11AM ; [facility] Intermittent hypertension 12/23/2015 Last Documented On 6 10:11AM ; [facility] Family History Includes: Family History addressed during this encounter Description Last Updated Family history of diabetes mellitus Moth er, Father, Sister, Brother 12/23/2015 Last Documented On 6 10:11AM ; [facility] Family history of hypertension Mother, F ather, Sister, Brother 12/23/2015 Last Documented On 6 10:11AM ; [facility] Family history of osteoporosis Father Last Documented On 6 10:11AM ; [facility] Review of Systems Includes: Review of Systems [...] Active Last Documented On 2 8:06AM ; [facility] Encounters Encounter Provider Location Date Check-In Time Check- Out Time Diagnosis Follow Up Brandon Gray MD [facility] 6 1:06PM 1:58PM Insurance Includes: Active Insurance Policies Plan Name Member ID Group # Subscriber Relationship Effect meg Dates 1 - [employer] MED[employer] [id number] Berta Rodriguez Self Clinical Notes Includes: Clinical Notes from this encounter No Clinical Notes Recorded
--- OUTSIDE RECORDS SUMMARY | 2025-08-17 16:56 | XMS_ITS ---
Author Organization [facility] Address [address] [place] [address] Phone Care Team Providers Care Tank Cooper Name Role Phone Isaac CORONA, Brandon Diallo Unavailable [phone] Yuliana Sheikh APRN Primary Care Provider [phone] Meaghan Mcnamara APRN Unavailable [phone] Reason for Referral Date Encounter Description Provider [...] Active Last Documented On 2 8:12AM ; [facility], [facility] Lower Back Pain 12/23/2015 Brandon Gray MD Act meg Last Documented On 6 1:16PM ; [facility], [facility] Plan of Treatment Pending Tests Order Diagnosis Results Due Ordering P rovider Radiology - CT Scan Shoulder 12/20/21 Mora Eli PA-C Last Documented On 2 8:45AM ; [facility], [facility] Instructions to patient Lose weight Last Documented On 2 8:06AM ; [facility], [facility] Lose weight Last Documented On 2 8:28AM ; [facility] Lose weight Last Documented On 2 9:49AM ; [facility] Lose weight Last Documented On 2 11:25AM ; [facility] Instructions for patient see pcp for wt mgmt Last Documented On 6 1:21PM ; [facility] Assessments Includes: Assessments for all patient encounters No Assessments Recorded Instructions Includes: Instructions for all patient encounters Instructions to patient Lose weight Last Documented On 2 8:06AM ; [facility] Lose weight Last Documented On 2 8:28AM ; [facility] Lose weight Last Documented On 2 9:49AM ; [facility] Lose weight Last Documented On 2 11:25AM ; [facility] Instructions for patient see pcp for wt mgmt Last Documented On 6 1:21PM ; [facility] Medical Equipment - Implanted Devices Includes: Current and historical Devices No Medical Equipment Recorded Medications Includes: Current and historical Medications Current Medications (continue as prescribed) Diclofenac Sodium 75 MG Oral Tablet Delayed Release Provider: Diagnosis: Last Documented On 2 8:36AM By Hillary UNGER, [facility] Active-Pac/Gabapentin 300 & 4-1 MG & % Combination Therapy Pack 12/15/2021 Provider: Diagnosis: Last Documented On 2 8:36AM By Hillary UNGER, [facility] Diclofenac Sodium 1% External Gel 12/15/2021 Provide r: Diagnosis: Last Documented On 2 8:36AM By Hillary UNGER, [facility] Calcium 600 MG Oral Tablet 2021 Provider: Diagnosis: Last Documented On 2 8:41AM By Argelia MCCLAIN [facility], [facility] LORazepam 0.5 MG Oral Tablet 2021 Provider: Diagnosis: Last Documented On 2 8:41AM By Argelia MCCLAIN [facility], [facility] Metoprolol Tartrate 25 MG Oral Tablet 2021 Pro vider: Diagnosis: Last Documented On 2 8:42AM By Argelia Romero ; [facility] FiberCon 625 MG Oral Tablet 2021 Provider: Diagnosis: Last Documented On 2 8:43AM By Argelia Romero ; [facility], [facility] PreserVision AREDS Oral Capsule 2021 Provider: Diagnosis: Last Documented On 2 8:43AM By Argelia Romero ; [facility] Methocarbamol 500 MG Oral Tablet 11/21/2021 Provider : Meaghan Mcnamara APRN Diagnosis: Last Documented On 2 8:42AM By Argelia Romero ; [facility] Potassium Chloride Ivania ER 2 0 MEQ Oral Tablet Extended Release 11/21/2021 Provider: Meaghan MYERS Diagnosis: Last Documented On 2 8:42AM By Argelia Romero ; [facility] Fenofibrate 48 MG Oral Tablet 10/24/2021 Provider: Meaghan Mcnamara APRN Diagnosis: Last Documented On 2 8:42AM By Argelia Romero ; [facility] Past Medications on file Metoprolol Tartrate 25 MG Tablet 12/23/2015 - 12/07/19 Provider: Diagnosis: Last Documented On 2 8:42AM By Argelia Romero ; [facility] Benazepril-Hydrochlorothiazide 20-25 MG Tablet 0 12/23/2015 - 2021 Provider: Diagnosis: Last Documented On 2 8:41AM By Argelia Romero ; [facility] Mobic 15 MG Tablet 12/23/2015 - 2021 Provider: Diagnosis: Last Documented On 2 8:41AM By Argelia Romero ; [facility] Aspirin 81 MG Tablet 12/23/2015 - 2021 Provider: Diagnosis: Last Documented On 2 8:40AM By Argelia Romero ; [facility] Klor-Con 25 MEQ Packet 12/23/2015 - 2021 Provide r: Diagnosis: Last Documented On 2 8:41AM By Argelia Romero ; [facility] Calcium 600 MG Tablet 12/23/2015 - 2021 Provider : Diagnosis: Last Documented On 2 8:41AM By Argelia Romero ; [facility] LORazepam 0.5 MG Tablet 12/23/2015 - 2021 Provid er: Diagnosis: Last Documented On 2 8:41AM By Argelia Romero ; [facility] Medications Administered Includes: Administered Medications in patient's chart No Administered Medications Recorded Results Includes: Results from 08/17/2024 through 08/17/2025 No Results Recorded For Specified Dates History of Present Illness History of Present Illness not supported for this document type No History of Present Illness Recorded Social History Description Last Updated Non-smoker 12/07/2021 Last Documented On 2 10:00AM ; [facility] No caffeine use 2021 Last Documented On 2 1:18PM ; [facility] No recent change in diet 2021 Last Documented On 2 1:18PM ; [facility] Not a current smoker. 2021 Last Documented On 2 1:18PM ; [facility], [facility] Not exercising regularly 2021 Last Documented On 2 1:18PM ; [facility], [facility] Not using alcohol 2021 Last Documented On 2 1:18PM ; [facility] Not using drugs 2021 Last Documented On 2 1:18PM ; [facility] No recent change in diet 12/23/2015 Last Documented On 6 10:11AM ; [facility], [facility] Not a current smoker 12/23/2015 Last Documented On 6 10:11AM ; [facility], [facility] No tobacco use 12/23/2015 Last Documented On 6 10:11AM ; [facility], [facility] Smoking status : Never smoker 12/23/2015 Last Documented On 6 10:11AM ; [facility], [facility] Procedures and Surgical History Surgical History Last Updated History of History of Gallbladder 2021 Last Documented On 2 1:18PM ; [facility], [facility] Medical History Includes: Medical History in patient's chart Description Last Updated History of arthritis 2021 Last Documented On 2 1:18PM ; [facility] History of diverticulitis of colon 12/06 Last Documented On 2 1:18PM ; [facility], [facility] History of Sleep Apnea 2021 Last Documented On 2 1:18PM ; [facility], [facility] No recent immunization for pneumococcal pneumonia 2021 Last Documented On 2 1:18PM ; [facility], [facility] Recent immunization for flu 05/18/2021 Last Documented On 2 1:18PM ; [facility], [facility] Use of CPAP 2021 Last Documented On 2 1:18PM ; [facility] Rotator Cuff 12/23/2015 Last Documented On 6 10:11AM ; [facility], [facility] Arthritic joint problems 12/23/2015 Last Documented On 6 10:11AM ; [facility], [facility] Gallbladder disease 12/23/2015 Last Documented On 6 10:11AM ; [facility], [facility] History of osteoporosis 12/23/2015 Last Documented On 6 10:11AM ; [facility], [facility] Intermittent hypertension 12/23/2015 Last Documented On 6 10:11AM ; [facility], [facility] Family History Includes: Family History in patient's chart Description Last Updated Diabetes mellitus 2021 Last Documented On 2 1:18PM ; [facility], [facility] Family history of systemic hypertension 2021 Last Documented On 2 1:18PM ; [facility], [facility] Family history of diabetes mellitus Moth er, Father, Sister, Brother 12/23/2015 Last Documented On 6 10:11AM ; [facility], [facility] Family history of osteoporosis Father Last Documented On 6 10:11AM ; [facility] Review of Systems Review of Systems not [...] Patient Last Documented On 2 8:18AM ; [facility] PCV (Pneumovax 23) 1 01/18/2022 Complete (Refused - Patient objection) [facility] Last Documented On 2 8:18AM ; [facility] Td 1 01/18/2022 Complete (Refused - Patient objection) [facility] Last Documented On 2 8:18AM ; [facility] Allergies Includes: Active, inactive, and resolved Allergies Substance Type Reaction Onset Date Resolved Date Statu s NSAIDs Allergy 12/23/2015 Active Last Documented On 2 8:06AM ; [facility] Insurance Includes: Active Insurance Policies Plan Name Member ID Group # Subscriber Relationship Effect meg Dates 1 - [employer] [id number] Berta Tyson Clinical Notes Includes: Signed Clinical Notes starting from 08/31/2022 No Clinical Notes Recorded
--- OUTSIDE RECORDS SUMMARY | 2025-08-17 16:56 | XMS_ITS ---
Care Plan - [facility], [facility] Created on: August 17, 2025 Berta Rodriguez : 1960 Sex: Female Author Organization [facility], [facility] Address [address] [place] [address] Phone Care Team Providers Care Hot Patcher Name Role Phone Isaac CORONA, Brandon Diallo Unavailable [phone] Yluiana Sheikh APRN Primary Care Provider [phone] Meaghan Mcnamara APRN Unavailable [phone]
--- OUTSIDE RECORDS SUMMARY | 2025-08-17 16:56 | XMS_ITS | Clinical Summary ---
Author Organization [facility] , [facility] Address [address] [place] [address] Phone Care Team Providers Care Cylinder Dyer Name Role Phone Isaac CORONA, Brandon Diallo Unavailable [phone] Yuliana Sheikh APRN Primary Care Provider [phone] Meaghan Mcnamara APRN Unavailable [phone] Reason for Referral Date Encounter Description Provider [...] Active Last Documented On 2 8:12AM ; [facility], [facility] Lower Back Pain 12/23/2015 Brandon Gray MD Act meg Last Documented On 6 1:16PM ; [facility], [facility] Plan of Treatment I did speak with Dr. Massey. we need a CT scan to further evaluate her glenoid. We will see her back as scheduled tomorrow. Options would be possible cuff revision repair versus shoulder arthroplasty - Last Documented On 12/08/2021 1:18PM ; [facility], [facility] Pending Tests Order Diagnosis Results Due Ordering P rovider Radiology - CT Scan Shoulder 12/20/21 Mora Eli PA-C Last Documented On 2 8:45AM ; [facility], [facility] Instructions to patient Lose weight Last Documented On 2 11:25AM ; [facility], [facility] Assessments Includes: Assessments from this encounter Findings Recent right shoulder dislocation with previous cuff repair now re-torn - Last Documented On 12/08/2021 1:18PM ; [facility] Instructions Includes: Instructions from this encounter Instructions to patient Lose weight Last Documented On 2 11:25AM ; [facility] Medical Equipment - Implanted Devices Includes: Current Devices No Medical Equipment Recorded Medications Includes: Medications discussed during this encounter and other current Medications Discontinued / Stopped on this date on 12/23/2015 Benazepril-Hydrochlorothiazide 20-25 MG Tablet Provider: Diagnosis: Last Documented On 2 8:41AM By Argelia Romero ; [facility], [facility] Mobic 15 MG Tablet Provider: Diagnosis: Last Documented On 2 8:41AM By Argelia Romero ; [facility], [facility] Aspirin 81 MG Tablet Provider: Diagnosis: Last Documented On 2 8:40AM By Argelia Romero ; [facility], [facility] Klor-Con 25 MEQ Packet Provider: Diagnosis: Last Documented On 2 8:41AM By Argelia Romero ; [facility], [facility] Current Medications (continue as prescribed) Diclofenac Sodium 75 MG Oral Tablet Delayed Release Provider: Diagnosis: Last Documented On 2 8:36AM By Hillary Lofton ; [facility] Active-Pac/Gabapentin 300 & 4-1 MG & % Combination Therapy Pack 12/15/2021 Provider: Diagnosis: Last Documented On 2 8:36AM By Hillary Lofton ; [facility] Diclofenac Sodium 1% External Gel 12/15/2021 Provide r: Diagnosis: Last Documented On 2 8:36AM By Hillary Lofton ; [facility] Calcium 600 MG Oral Tablet 2021 Provider: Diagnosis: Last Documented On 2 8:41AM By Argelia Romero ; [facility], [facility] LORazepam 0.5 MG Oral Tablet 2021 Provider: Diagnosis: Last Documented On 2 8:41AM By Argelia Romero ; [facility], [facility] Metoprolol Tartrate 25 MG Oral Tablet 2021 Pro vider: Diagnosis: Last Documented On 2 8:42AM By Argelia Romero ; [facility], [facility] FiberCon 625 MG Oral Tablet 2021 Provider: Diagnosis: Last Documented On 2 8:43AM By Argelia Romero ; [facility], [facility] PreserVision AREDS Oral Capsule 2021 Provider: Diagnosis: Last Documented On 2 8:43AM By Argelia Romero ; [facility], [facility] Methocarbamol 500 MG Oral Tablet 11/21/2021 Provider : Meaghan Mcnamara APRN Diagnosis: Last Documented On 2 8:42AM By Argelia Romero ; [facility], [facility] Potassium Chloride Ivania ER 2 0 MEQ Oral Tablet Extended Release 11/21/2021 Provider: Meaghan Diallo PRN Diagnosis: Last Documented On 2 8:42AM By Argelia Romero ; [facility], [facility] Fenofibrate 48 MG Oral Tablet 10/24/2021 Provider: Meaghan Mcnamara APRN Diagnosis: Last Documented On 2 8:42AM By Argelia Romero ; [facility], [facility] Medications Administered Includes: Administered Medications from this encounter No Administered Medications Recorded Vital Signs Includes: Vital Signs from this encounter Vital Name 2021 08:36A Blood Pressure Sitting R 149/98 Pulse Rate-Sitting (bpm) 57 Height (in) 67.5 Weight (lb) 240 Body Mass Index (kg/m2) 37.0 Body Surface Area (m2) 2.2 Note: mb Last Documented: On 2021 8:41AM ; [facility], [facility] Results Includes: Results discussed during this encounter [...] 2021 Last Documented On 2 1:18PM ; [facility], [facility] No recent change in diet 2021 Last Documented On 2 1:18PM ; [facility] Not a current smoker. 2021 Last Documented On 2 1:18PM ; [facility] Not exercising regularly 2021 Last Documented On 2 1:18PM ; [facility] Not using alcohol 2021 Last Documented On 2 1:18PM ; [facility] Not using drugs 2021 Last Documented On 2 1:18PM ; [facility] Smoking Status Unknown Procedures and Surgical History Includes: Procedures from this encounter Procedures Code Diagnosis Performing Provider Service L ocation Service Date referral to physician Last Documented On 2 11:25AM ; [facility] an X-ray was performed 40907 Last Documented On 2 3:53PM ; [facility] an MRI was performed [id number] Last Documented On 2 3:53PM ; [facility] Surgical History Last Updated History of History of Gallbladder 2021 Last Documented On 2 1:18PM ; [facility] Medical History Includes: Medical History addressed during this encounter Description Last Updated History of arthritis 2021 Last Documented On 2 1:18PM ; [facility] History of diverticulitis of colon 12/06 Last Documented On 2 1:18PM ; [facility] History of Sleep Apnea 2021 Last Documented On 2 1:18PM ; [facility] No recent immunization for pneumococcal pneumonia 2021 Last Documented On 2 1:18PM ; [facility] Recent immunization for flu 05/18/2021 Last Documented On 2 1:18PM ; [facility] Use of CPAP 2021 Last Documented On 2 1:18PM ; [facility] Family History Includes: Family History addressed during this encounter Description Last Updated Diabetes mellitus 2021 Last Documented On 2 1:18PM ; [facility] Family history of systemic hypertension 2021 Last Documented On 2 1:18PM ; [facility] Review of Systems Includes: Review [...] Active Last Documented On 2 8:06AM ; [facility], [facility] Encounters Encounter Provider Location Date Check-In Time Check-Out Time Diagnosis Physician Specified [facility] 12/07/19 22 8:28AM 9:34AM Insurance Includes: Active Insurance Policies Plan Name Member ID Group # Subscriber Relationship Effect meg Dates 1 - [employer] [id number] Berta Rodriguez Self Clinical Notes Includes: Clinical Notes from this encounter No Clinical Notes Recorded
--- OUTSIDE RECORDS SUMMARY | 2025-08-17 16:56 | XMS_ITS | Clinical Summary ---
Author Organization [facility] Address [address] [place] [address] Phone Care Team Providers Care Finish Repair Worker Name Role Phone Unavailable Unavailable Conditions or Problems No information available. Medications No information available. Medications Administered No information available. Allergies, Adverse Reactions, Alerts No information available. Results No information available. Plan of Care No information available. Procedures No information available. Vital Signs No information available. Immunizations No information available. Advance Directives No information available.
--- OUTSIDE RECORDS SUMMARY | 2025-08-17 16:56 | XMS_ITS | Continuity of Care Document ---
Author Organization [facility] Address [address] [place] [phone] Care Team Providers Care Registered Nurse Renal Name Role Phone MEAGHAN MCNAMARA Primary Care [...] Lab HbA1c (hemoglob in A1c), blood [address], [address] [place] [address], [phone], 07/14/2025 14:00:46 Referral None recorded. Procedures None recorded. Surgeries None recorded. Imaging MAMMO, screening , digital, bilateral 2024 [facility] ([facility]), [address], [place], [address], 08/10/2025 08:13:43 Medication Orders Depo-Medr ol 40 mg/mL suspensio n for injection [address] [facility] [address] [facility], [address] [place] [address], [id number], 07/14/2025 14:36:51 fenofibra te nanocryst allized 48 mg tablet 2024 025 [facility], [address] [place] [address], [id number], 07/20/2025 08:28:54 methocarb heber 500 mg tablet 2024 025 [facility], [address] [place] [address], [id number], 07/20/2025 08:28:51 Patient TargetsNo targets recorded. Patient InstructionsNo instructions recorded. Reason for Referral None Reported. Results Created Date Observation Date Name Description Value Unit Range Abnormal Flag Note LastModifiedBy Organization Detail LastModifiedTime 07/14/2007/14/2025 HbA1c (hemo globi n A1c), blood HbA1c 6.0 Not Available [address], [phone], 07/14/2025 13:39:53 08/10/2008/05/2025 MAMMO , scree chava, digit al, bilat eral No observ ation record ed. [facility] [address], [place], [address], 08/10/2025 08:13:43 Result Notes None recorded. Problems Name Problem SNOMED Code Status Onset Date Resolution Date Notes Provider Name and Address Organization Details Recorded Time Generali zed anxiety disorder 58195983 Completed 201501/25/2021 Problem Code: 300.02; Problem Code Type: ICD-9; Not Available [facility] 22:56:12 Acute pharyngi tis 122009548 Completed 201509/29/2016 Problem Code: J02.8; Problem Code Type: ICD-10; Not Available [facility] 22:55:54 Cough 46968687 Completed 201511/14/2016 Problem Code: R05; Problem Code Type: ICD-10; CURTIS Blanco - [employer], [employer] 13:56:02 Spasm of back muscles 872318647 Completed 201612/15/2016 Problem Code: M62.830; Problem Code Type: ICD-10; Not Available [facility] 22:56:11 Generali zed anxiety disorder 37345666 Completed 201601/25/2021 Problem Code: 300.02; Problem Code Type: ICD-9; Not Available [facility] 22:56:15 Spasm 12171781 Completed 201612/15/2016 Problem Code: 728.85; Problem Code Type: ICD-9; Not Available [facility] 22:56:20 Generali zed anxiety disorder 56261654 Active 2016 Problem Code: F41.1; Problem Code Type: ICD-10; Not Available [facility] 22:55:53 Streptoc occal sore throat 76776608 Completed 201601/14/2017 Problem Code: J02.0; Problem Code Type: ICD-10; Not Available [facility] 22:55:54 Fever 466426048 Completed 201607/20/2022 Problem Code: R50.81; Problem Code Type: ICD-10; KARMA keen [place] [employer] [facility]. 08:38:26 Spasm of back muscles 734762657 Completed 201603/30/2017 Problem Code: M62.830; Problem Code Type: ICD-10; Not Available [facility] 22:55:57 Spasm 52370607 Completed 201603/30/2017 Problem Code: 728.85; Problem Code Type: ICD-9; Not Available [facility] 22:56:20 Mixed hyperlip idemia 824421482 Active 2016 Problem Code: E78.2; Problem Code Type: ICD-10; Not Available [facility] 22:55:53 Hyperten sive disorder 92445767 Active 2016 Problem Code: I10; Problem Code Type: ICD-10; Not Available [facility] 22:55:54 Dysthymi a 87998916 Completed 201609/04/2019 Problem Code: R53.81; Problem Code Type: ICD-10; Not Available [facility] 22:56:00 Benign essentia l hyperten andrew 4718159 Completed 201601/25/2021 Problem Code: 401.1; Problem Code Type: ICD-9; Not Available [facility] 22:56:16 Malaise and fatigue 935552665 Completed 201601/25/2021 Problem Code: 780.79; Problem Code Type: ICD-9; Not Available [facility] 22:56:26 Acute pharyngi tis 341190878 Completed 201605/28/2017 Problem Code: J02.8; Problem Code Type: ICD-10; Not Available [facility] 22:55:54 Acute pharyngi tis 337528133 Completed 201606/14/2017 Problem Code: J02.8; Problem Code Type: ICD-10; Not Available [facility] 22:55:54 Low back pain 895727834 Active 2016 Problem Code: M54.5; Problem Code Type: ICD-10; Not Available [facility] 22:55:56 Lumbar spondylo listhesi s 00799595042 9102 Completed 201607/20/2022 Problem Code: M43.16; Problem Code Type: ICD-10; KARMA keen [facility] [employer] [facility]. 08:38:26 Acquired spondylo listhesi s 036126804 Completed 201601/25/2021 Problem Code: 738.4; Problem Code Type: ICD-9; Not Available [facility] 22:56:18 Low back pain 462755322 Completed 201609/04/2019 Problem Code: M54.5; Problem Code Type: ICD-10; Not Available [facility] 22:55:57 Divertic ulitis of large intestin e without complica tion 745976168 Completed 201606/17/2021 Problem Code: K57.32; Problem Code Type: ICD-10; [facility] 22:55:54 Divertic ulitis of colon 958440027 Completed 201601/25/2021 Problem Code: 562.11; Problem Code Type: ICD-9; Not Available [facility] 2 22:56:17 Generali zed anxiety disorder 59015800 Completed 201709/19/2018 Problem Code: F41.1; Problem Code Type: ICD-10; Not Available [facility] 2 22:55:53 Cyst of thyroid 60283321 Completed 201701/25/2021 Problem Code: 246.2; Problem Code Type: ICD-9; Not Available [facility] 22:56:09 Benign essentia l hyperten andrew 0848695 Completed 201701/25/2021 Problem Code: 401.1; Problem Code Type: ICD-9; Not Available [facility] 2 22:56:17 Acute sinusiti s 21369504 Completed 201701/31/2018 Problem Code: J01.90; Problem Code Type: ICD-10; Not Available [facility] 2 22:55:54 Divertic ulum of [place] an tube 178732884 Completed 201703/18/2018 Problem Code: H69.80; Problem Code Type: ICD-10; Not Available [facility] 2 22:56:01 Dysfunct ion of [place] an tube 66342242 Completed 201703/18/2018 Problem Code: 381.81; Problem Code Type: ICD-9; Not Available [facility] 2 22:56:16 Abnormal weight gain 333478466 Completed 201706/15/2018 Problem Code: R63.5; Problem Code Type: ICD-10; Not Available [facility] 2 22:56:00 Rebound tenderne ss 47720090 Completed 201708/09/2018 Not Available [facility] 2 22:55:59 Urinary tract infectio us disease 13702395 Completed 201709/24/2018 Problem Code: N39.0; Problem Code Type: ICD-10; Not Available [facility] 22:56:14 Generali zed abdomina l pain 177394268 Completed 201708/09/2018 Problem Code: 789.07; Problem Code Type: ICD-9; Not Available [facility] 22:56:19 Acute sinusiti s 89950503 Completed 201810/03/2018 Problem Code: J01.90; Problem Code Type: ICD-10; Not Available [facility] 22:56:03 Irritabl e bowel syndrome 92794486 Active 2018 Problem Code: K58.2; Problem Code Type: ICD-10; Not Available [facility] 22:55:55 Obstruct meg sleep apnea syndrome 30770599 Active 2018 Problem Code: G47.33; Problem Code Type: ICD-10; Not Available [facility] 22:55:53 Acute vaginiti s 94800829 Completed 201808/21/2019 Problem Code: N76.0; Problem Code Type: ICD-10; KARMA keen, [employer] 08:38:26 Divertic ulitis of intestin e 488588780 Completed 201807/20/2022 Problem Code: K57.92; Problem Code Type: ICD-10; KARMA keen [employer] 08:38:26 Abdomina l pain 12151871 Completed 201807/20/2022 Problem Code: R10.9; Problem Code Type: ICD-10; KARMA keen, [employer] 08:38:26 Body mass index 30+ - obesity 689768857 Completed 201802/01/2021 Problem Code: Z68.37; Problem Code Type: ICD-10; Not Available [facility] 22:56:08 History of disorder of digestiv e system 494409940 Completed 201807/20/2022 Problem Code: Z87.19; Problem Code Type: ICD-10; KARMA SEBASTIAN [employer]. 08:38:26 Epidermo id cyst of skin 423419364 Completed 201810/02/2022 Problem Code: L72.3; Problem Code Type: ICD-10; KARMA [employer]. 3 10:15:38 Plantar fascial fibromat osis 76155323 Completed 201805/03/2020 Problem Code: M72.2; Problem Code Type: ICD-10; Not Available [facility] 22:55:57 Screenin g mammogra phy Completed 201807/20/2022 Problem Code: Z12.31; Problem Code Type: ICD-10; KARMA keen, [employer]. 08:38:26 Body mass index 30+ - obesity 905333162 Completed 201802/01/2021 Problem Code: Z68.37; Problem Code Type: ICD-10; Not Available [facility] 2 22:56:23 Disorder of skin and/or subcutan eous tissue 86424774 Completed 201807/20/2022 Problem Code: L98.9; Problem Code Type: ICD-10; KARMA keen, [employer]. 2 08:38:26 Body mass index 30+ - obesity 482074272 Completed 201802/01/2021 Problem Code: Z68.37; Problem Code Type: ICD-10; Not Available [facility] 2 22:56:09 Acute sinusiti s 51539825 Completed 201802/02/2020 Problem Code: J01.90; Problem Code Type: ICD-10; Not Available [facility] 2 22:55:54 Acute respirat ory infectio ns 883100816 Completed 201807/20/2022 Problem Code: J22; Problem Code Type: ICD-10; KARMA SEBASTIAN [employer] 2 08:38:26 Screenin g mammogra phy Completed 201805/03/2020 Problem Code: Z12.31; Problem Code Type: ICD-10; KARMA SOLNER leonila, [employer]. 2 08:38:26 Body mass index 30+ - obesity 328932011 Completed 201902/01/2021 Problem Code: Z68.37; Problem Code Type: ICD-10; Not Available [facility] 2 22:56:06 Dog bite Completed 201902/02/2020 KARMA SOLNER leonila, [employer] 2 08:38:26 Endocrin e/metabo lic screenin g Completed 201910/02/2022 Problem Code: Z13.29; Problem Code Type: ICD-10; KARMA SOLNER leonila, [employer] 3 10:15:38 General examinat ion of patient Completed 201907/20/2022 KARMA SOLNER [employer] 2 08:38:26 Body mass index 30+ - obesity 608953432 Completed 201902/01/2021 Problem Code: Z68.37; Problem Code Type: ICD-10; Not Available [facility] 2 22:56:06 Current drug user 110028670 Active 2019 Problem Code: Z79.899; Problem Code Type: ICD-10; Not Available [facility] 2 22:56:07 Divertic ular disease of colon 153368772 Active 2019 Problem Code: K57.30; Problem Code Type: ICD-10; KARMA SOLNER leonila, [employer] 2 08:38:51 Constipa tion 71068966 Completed 201907/20/2022 KARMA SOLNER leonila, [employer] 2 08:38:26 Pain in right knee Completed 201907/20/2022 Problem Code: M25.561; Problem Code Type: ICD-10; KARMA keen [email or web address] 08:38:26 Plantar fascial fibromat osis 25151604 Active 2019 Problem Code: M72.2; Problem Code Type: ICD-10; Not Available [facility] 22:55:57 Low back pain 817387801 Completed 201904/22/2021 Problem Code: M54.5; Problem Code Type: ICD-10; Not Available [facility] 22:56:11 Candidia sis of vulva 9396220 Completed 201902/01/2021 Not Available [facility] 22:55:53 Body mass index 30+ - obesity 664925710 Active 2020 Problem Code: Z68.36; Problem Code Type: ICD-10; Not Available [facility] 22:56:05 Acquired hallux malleus 98825704 Active 2020 Problem Code: M20.40; Problem Code Type: ICD-10; Not Available [facility] 22:56:09 Bunion 976781918 Active 2020 Problem Code: M21.619; Problem Code Type: ICD-10; Not Available [facility] 22:56:10 Dog bite Completed 202007/20/2022 KARMA keen [employer]. 08:38:26 Low back pain 955275524 Completed 202004/22/2021 Problem Code: M54.5; Problem Code Type: ICD-10; Not Available [facility] 22:55:56 Left side sciatica 17000315237 9104 Completed 202004/22/2021 Problem Code: M54.32; Problem Code Type: ICD-10; Not Available [facility] 22:55:56 Urinary tract infectio us disease 42374988 Completed 202004/22/2021 Problem Code: N39.0; Problem Code Type: ICD-10; Not Available [facility] 2 22:55:58 Cat scratch disease 72091516 Completed 202007/20/2022 Problem Code: A28.1; Problem Code Type: ICD-10; KARMA SOLNER leonila, [email or web address] 2 08:38:26 Urinary tract infectio us disease 69955869 Completed 202004/22/2021 Problem Code: N39.0; Problem Code Type: ICD-10; Not Available [facility] 2 22:55:58 Dysuria 80513953 Completed 202004/22/2021 Problem Code: R30.0; Problem Code Type: ICD-10; Sarah keen, [email or web address] 4 13:54:17 Screenin g mammogra phy Completed 202004/22/2021 Problem Code: Z12.31; Problem Code Type: ICD-10; KARMA SOLNER leonila, [email or web address] 2 08:38:26 General examinat ion of patient Completed 202006/17/2021 KARMACARLOS SOLNER [employer] 2 08:38:26 Screenin g for malignan t neoplasm of colon Completed 202007/20/2022 KARMA JAZCARMELITA keen, [email or web address] 2 08:38:26 Chronic fatigue syndrome 87682551 Active 2020 Problem Code: R53.82; Problem Code Type: ICD-10; Not Available [facility] 2 22:56:00 Gynecolo gic examinat ion Completed 202007/20/2022 Problem Code: Z01.411; Problem Code Type: ICD-10; KARMACARLOS keen, [email or web address] 2 08:38:26 Body mass index 30+ - obesity 779167301 Completed 202012/22/2021 Problem Code: Z68.38; Problem Code Type: ICD-10; Not Available [employer] 22:56:07 Neoplast ic disease of uncertai n behavior 989187169 Completed 202107/20/2022 Problem Code: D48.9; Problem Code Type: ICD-10; KARMA keen, [email or web address] 08:38:26 Fracture of lumbar spine 448740650 Completed 202107/20/2022 Problem Code: S32.009A ; Problem Code Type: ICD-10; KARMA keen, [email or web address] 08:38:26 Fracture of shoulder 05552599603 533982 Completed 202107/20/2022 Problem Code: S42.90XA ; Problem Code Type: ICD-10; KARMA SOLNER [employer], [email or web address] 08:38:26 Urinary tract infectio us disease 40218308 Completed 202102/20/2022 Problem Code: N39.0; Problem Code Type: ICD-10; Not Available [facility] 22:55:57 Dysuria 45270741 Completed 202107/20/2022 Problem Code: R30.0; Problem Code Type: ICD-10; Sarah keen, [email or web address] 13:54:17 Acute vaginiti s 84745432 Completed 202107/20/2022 Problem Code: N76.0; Problem Code Type: ICD-10; KARMA SOLNER leonila, [email or web address] 08:38:26 Pain of left hip joint 97895017295 9100 Completed 202107/20/2022 Problem Code: M25.552; Problem Code Type: ICD-10; KARMA SOLNER leonila, [email or web address] 08:38:26 Dysuria 96418092 Active 2023 Problem Code: R30.0; Problem Code Type: ICD-10; Sarah keen, [employer] 4 13:54:17 Recurren t urinary tract infectio n 111367663 Active 2023 Sarah Quiroga null, [employer] 4 13:54:30 Vaginal discharg e 593320077 Active 2023 Sarah Quiroga null, [employer] 4 13:54:43 Vaginal irritati on 977339384 Active 2024 Sarah Quiroga null, [employer] 09:40:04 Cough 42674081 Active 2024 Problem Code: R05; Problem Code Type: ICD-10; Sarah keen, [employer] 13:56:02 Type 2 diabetes mellitus 89079273 Active 2024 Sarah Quiroga null, [employer] 17:20:31 Lacerati on of right hand 34475044225 289605 Active 2024 Sarah Quiroga null, [employer] 14:34:23 Diabetes mellitus 10795367 Active 2024 Sarah Quiroga null, [employer] 14:21:25 Hyperlip idemia 93396808 Active 2024 Sarah Quiroga null, [employer] 14:22:06 Fatigue 34842298 Active 2024 Sarah Quiroga null, [employer] 14:22:06 Hypergly cemia 82628512 Active 2024 Sarah Quiroga null, [employer] 14:22:06 Well controll ed type 2 diabetes mellitus 451131058 Active 2024 Sarah Quiroga null, [employer] 5 13:24:10 Chronic pain of left upper limb 33666343159 525530 Active 2024 Sarah [employer] 5 14:01:42 Pain of knee region 1378364320 Active 2024 Sarah keen [employer]. 14:18:49 Problem Notes None recorded. Procedures Surgical History Date Name Laterality Status Provider Name and Address Organization Details Recorded Time 03/25/20 24 Most Recent Mammogram completed Sarah Quiroga [employer] 06/09/2024 11:20:51 08/29/20 16 cholecystectomy completed Not Available [facility] 05/23/2022 22:56:18 Orthopedic Surgery completed [employer]. 09/19/2022 09:53:54 Gallbladder Surgery completed [employer]. 09/19/2022 09:53:54 Colposcopy completed [employer] 09/19/2022 09:53:54 Imaging Results None recorded. Procedure Notes None recorded. Medical Equipment None Reported. Allergies Allergen ID Allergen Name Allergen Category Reaction Reaction Severity Criticality Documentation Date Start Date Code Code System Note Provider Name and Address Organization Details Recorded Time 46447 ibuprofen medicatio n Not available Not available Not available 05/23/2022 5640 RxNorm Not Available [facility] 2 22:57:15 49054 Norvasc medicatio n Not available Not available Not available 05/23/2022 51995 RxNorm Not Available [facility] 2 22:57:15 88850 Non-stero idal anti-infl ammatory agent (substanc e) medicatio n Not available Not available Not available 08/12/20252015 12485 5008 SNOMED Not Available [employer] - [employer] - prod 5 11:55:30 Medications Name Sig Start Date Stop Date Status Note LastModified by Organization Details LastModified Time gabapenti n 4% lipomax cream [16197] APPLY 1 GRAM 3-4 TIMES DAILY FOR [...] 1 CAPSULE BY MOUTH TWICE DAILY FOR 3 DAYS THEN 1 CAPSULE ONCE DAILY AT BEDTIME MUST ADMINIST ER WITH A MEAL/SERGO D active Not Available Not Available No t Available lidocaine 5 % topical patch USE [...] 1 CAPSULE BY MOUTH TWICE DAILY FOR 10 DAYS active Not Available Not Available No t Available fluticaso ne propionat e 50 mcg/actua [...] Updated DateTime 5 170.18 cm 38.1 kg/m2 035442. 95 g 73 /min 91 % 136/77 mm[Hg] Sarah Quiroga [employer] 13:28:49 Social History Question Answer Notes LastModified by Organizat ion Details LastModified Time Tobacco Smoking Status Never Smoker KARMA SOLCARMELITA keen [employer] 07/20/2022 08:40:03 Do You Have An Advance Directive? No Information n ot available 07/20/2022 Is Your Home Air Conditioned? Yes Information not available 09/19/2022 Are You Blind Or Do You Have Difficulty Seeing? No [email or web address] Information n ot available 07/20/2022 Are You A Caregiver? No [email or web address] Information not available 07/20/2022 In The 14 Days Before Symptom Onset, Have You Had Close Contact With A Laboratory-confirm ed COVID-19 While That Case Was Ill? No [email or web address] Information n ot available 09/19/2022 In The 14 Days Before Symptom Onset, Have You Had Close Contact With A Person Who Is Under Investigation For COVID-19 While That Person Was Ill? No [email or web address] Information not available 09/19/2022 Have You Been To An Area Known To Be High Risk For COVID-19? No [email or web address] Information not available 09/19/2022 Are You Deaf Or Do You Have Serious Difficulty Hearing? No [email or web address] Information not available 07/20/2022 What Type Of Diet Are You Following? REGULAR [email or web address] Information n ot available 07/20/2022 Have There Been Any Changes To Your Family Or Social Situation? No [email or web address] Information no t available 07/20/2022 Are There Any Guns Present In Your Home? No [email or web address] Information not available 07/20/2022 Which Of Your Hands Is Dominant? Right [email or web address] Information n ot available 09/19/2022 Do You Have A Medical Power Of Manager Quality Compliance? No [email or web address] Information not available 07/20/2022 What Was The Date Of Your Most Recent Tobacco Screening? 07/14/2025 [email or web address] Information not available 07/14/2025 Do You Have Any Pets? Yes [email or web address] Information not available 09/19/2022 Do You Use Protection During Sex? No Information not available 09/19/2022 What Is Your Relationship Status? [email or web address] Information not available 07/20/2022 Have You Repeated Any Grades? Yes [email or web address] Information not available 09/19/2022 Do You Use Your Seat Belt Or Car Seat Routinely? Yes [email or web address] Information not available 07/20/2022 Are You Sexually Active? Yes [email or web address] Information not available 09/19/2022 Do You Have Any Siblings? 3 [email or web address] Information not available 09/19/2022 Do You Have Smoke And Carbon Monoxide Detectors In Your Home? Yes [email or web address] Information not available 07/20/2022 Are You Passively Exposed To Smoke? No [email or web address] Information no t available 09/19/2022 Are There Any Smokers In Your House? Yes [email or web address] Information not available 09/19/2022 Do You Use Sunscreen Routinely? No [email or web address] Information not available 07/20/2022 Have You Recently Traveled Abroad? No [email or web address] Information not available 07/20/2022 Do You Have Difficulty Walking Or Climbing Stairs? No [email or web address] Information not available 07/20/2022 Are You Currently In School? No [email or web address] Information not available 07/20/2022 Sex: Unknown Functional Status Question Answer Note LastModified by Organizat ion Details LastModified Time Do you use any illicit or recreational drugs? No [email or web address] Information not available 09/19/2022 What is your level of alcohol consumption? None [email or web address] Information not available 07/20/2022 Are you currently employed? No Information not available 07/20/2022 Do you have transportation difficulties? No [email or web address] Information not available 07/20/2022 Are you able to walk independently without assistance or assistive devices? YESWOREST [email or web address] Information not available 07/20/2022 Do you have difficulty doing errands alone? No [email or web address] Information not available 07/20/2022 Are you able to care for yourself independently? Yes [email or web address] Information not available 07/20/2022 Do you have difficulty dressing, bathing, grooming, or toileting? No Information not available 07/20/2022 Mental Status Question Answer Note LastModified by Organizat ion Details LastModified Time Do you feel stressed (tense, restless, nervous, or anxious, or unable to sleep at night)? [id number] [email or web address] Information not available 09/19/2022 Do you have difficulty concentrating, remembering or making decisions? No [email or web address] Information no t available 07/20/2022 Are you or have you been involved with bullying? No [email or web address] Information not available 09/19/2022 Family History Relationship Description Onset Age of this Age Resolved Age Notes LastModified by Organization Details LastModified Time Unspecified Relation Family history of Hypertension [email or web address] Not available 09:08:53 Unspecified Relation Family history of diabetes mellitus type 2 [email or web address] Not available 2023 09:08:53 Maternal Grandmother Hypertensive disorder Not available 09/19 09:53:52 Paternal Grandfather Hypertensive disorder [email or web address] Not available 09/19 09:53:52 Mother Hypertensive disorder [email or web address] Not available 09/19 09:53:52 Mother Arthritis [email or web address] Not availa ble 09/19/2022 09:53:52 Mother Diabetes mellitus [email or web address] Not available 09/19 09:53:52 Mother Hypercholest erolemia [email or web address] Not available 09/19 09:53:52 Mother Anxiety disorder Not available 09/19 09:53:52 Father Arthritis [email or web address] Not availa ble 09/19/2022 09:53:52 Father Liver problem [email or web address] Not available 09/19 09:53:52 Father Diabetes mellitus [email or web address] Not available 09/19 09:53:52 Father Hypertensive disorder [email or web address] Not available 09/19 09:53:52 Maternal Grandfather Hypertensive disorder [email or web address] Not available 09/19 09:53:52 Brother Hypertensive disorder [email or web address] Not available 09/19 09:53:52 Brother Diabetes mellitus [email or web address] Not available 09/19 09:53:52 Sister Hypertensive disorder [email or web address] Not available 09/19 09:53:52 Sister Diabetes mellitus [email or web address] Not available 09/19 09:53:52 Medical History Condition [...] quadrivalent, PF 3 completed Reta Gary null, [employer] 07/10/2023 08:32:44 Influenza, split virus, quadrivalent, preservative 1 completed Reta [place] null, [employer] 12/07/2023 09:26:55 Influenza, split virus, quadrivalent, preservative 0 completed Reta [place] null, [employer] 12/07/2023 09:26:55 Influenza, split virus, quadrivalent, preservative 9 completed Reta [place] null, [employer] 12/07/2023 09:26:55 Tdap 7 completed Reta [place] null, [employer] 12/07/2023 09:26:55 COVID-19, mRNA, LNP-S, PF, 100 mcg/0.5mL dose or 50 mcg/0.25mL dose 1 completed Reta Pawhuska null, [employer] 12/07/2023 09:26:55 COVID-19, mRNA, LNP-S, PF, 100 mcg/0.5mL dose or 50 mcg/0.25mL dose 1 completed Reta [place] null, [employer] 12/07/2023 09:26:55 Influenza, split virus, quadrivalent, PF 8 completed Reta Vega null, [employer] 12/07/2023 09:26:55 zoster recombinant 4 completed Meaghan Mcnamara, ASHWIN [address] [place], [address], [employer] 03/13/2024 08:53:07 zoster recombinant 4 completed Meaghan Mcnamara APRN [address] [place], [address], [employer] 06/09/2024 12:19:53 Influenza, split virus, trivalent, PF 4 completed Sarah Quiroga null, [employer] 06/30/2024 09:50:26 Influenza, split virus, trivalent, preservative 5 completed KARMA SEBASTIAN [employer], [employer] 09/19/2022 09:52:55 Influenza, split virus, quadrivalent, PF 7 completed KARMA SEBASTIAN [employer], [employer] 09/19/2022 09:52:55 Td (adult), 2 Lf tetanus toxoid, preservative free, adsorbed 6 completed KARMA SEBASTIAN null, [employer] 09/19/2022 09:52:55 Td (adult), 2 Lf tetanus toxoid, preservative free, adsorbed 6 completed KARMA SEBASTIAN [employer], [employer] 09/19/2022 09:52:55 COVID-19, mRNA, LNP-S, PF, 100 mcg/0.5mL dose or 50 mcg/0.25mL dose 1 completed KARMA SEBASTIAN [employer], [employer] 09/19/2022 09:52:55 Influenza, split virus, quadrivalent, PF 2 completed KARMA SEBASTIAN [employer], [employer] 09/21/2022 15:11:16 Pneumococcal conjugate PCV15, polysaccharide [id number] conjugate, adjuvant, PF 5 completed Meaghan Mcnamara APRN [address] [place], [address], [employer] 02/26/2025 09:36:12 Tdap 5 completed Sarah keen, [place] [employer] 05/25/2025 14:52:02 Influenza, split virus, trivalent, PF 5 completed Sarah Quiroga null, [place] [employer] 07/14/2025 14:20:49 Influenza, split virus, quadrivalent, PF 1 completed Reta Corteschie null, [employer] 12/07/2023 09:26:55 Influenza, split virus, quadrivalent, PF 0 completed Reta Gary null, [employer] 12/07/2023 09:26:55 Influenza, split virus, quadrivalent, PF 9 completed Reta [place] null, [employer] 12/07/2023 09:26:55 Past Encounters Encounter ID Performer Location Encounter Start Date Encounter Closed Date Diagnosis/Indication Diagnosis SNOMED-CT Code Diagnosis ICD10 Code Diagnosis IMO Codes Diagnosis Note [id number] Meaghan Mcnamara APRN [address] [address] 07/14/2025 13:20:05 07/14/2025 15:32:00 Well controlled type 2 diabetes mellitus 253246004 E11.9 636005 Screening mammography 24 810120 Z12.31 [id number] Mixed hyperlipidemia 267 211877 E78.2 Low back pain 043653915 M54.50 Requires i nfluenza virus vaccination 098227447 Z23 7991522 Pain of knee region 1003 786287 M25.561 M25.562 G89.29 35728319 Body mass index 30+ - obesity 680345104 Z68.38 967892 Health Concerns Section Related Observation LastModified by Organization Detai ls LastModified Time None Recorded Concern Status LastModified by Organization Details LastModified Time None Recorded Payers Encounter Date Sequence Insurance Name Policy Number Policy Molina Covered Member ID Molina Member ID Guarantor Name 07/14/2025 1 [place] Berta Mckeon Jennifer [id number] Berta Mckeon Jennifer 07/14/2025 2 MEDICAID-[facility] CHOICES - FFS/TRADITIO NAL Berta Terrazas Jennifer [id number] Berta Mckeon Jennifer Notes Date Note Type [...] february and 6.6 at last visit. Meaghan Mcnamraa APRN [address] [facility], [place], [address], [facility] [employer] 07/14/2025 14:37:20 OBGyn Episode No OBEpisode recorded.
--- OUTSIDE RECORDS SUMMARY | 2025-08-17 16:56 | XMS_ITS | Clinical Summary ---
Author Organization [facility] , [facility] Address [address] [place] [address] Phone Care Team Providers Care Ceramic Maker Demonstrator Name Role Phone Isaac CORONA, Brandon Diallo Unavailable [phone] Yuliana Sheikh APRN Primary Care Provider [phone] Meaghan Mcnamara APRN Unavailable [phone] Reason for Referral Date Encounter Description Provider [...] meg Last Documented On 6 1:16PM ; [facility], [facility] Past Visits Onset Date Resolved Date Provider Condition Status History of Joint Pain Shoulder Left 2021 Sarath Eli PA-C Active Last Documented On 2 8:12AM ; [facility], [facility] Plan of Treatment We are still waiting [...] - Last Documented On 12/29/2021 8:50AM ; [facility], [facility] Pending Tests Order Diagnosis Results Due Ordering P rovider Radiology - CT Scan Shoulder 12/20/21 Mora Eli PA-C Last Documented On 2 8:45AM ; [facility], [facility] Instructions to patient Lose weight Last Documented On 2 8:28AM ; [facility], [facility] Assessments Includes: Assessments from this encounter Findings Glenoid fracture left shoulder with cuff tear - Last Documented On 12/29/2021 8:50AM ; [facility], [facility] Instructions Includes: Instructions from this encounter Instructions to patient Lose weight Last Documented On 2 8:28AM ; [facility], [facility] Medical Equipment - Implanted Devices Includes: Current Devices No Medical Equipment Recorded Medications Includes: Medications discussed during this encounter and other current Medications Current Medications (continue as prescribed) Diclofenac Sodium 75 MG Oral Tablet Delayed Release Provider: Diagnosis: Last Documented On 2 8:36AM By [facility] Active-Pac/Gabapentin 300 & 4-1 MG & % Combination Therapy Pack 12/15/2021 Provider: Diagnosis: Last Documented On 2 8:36AM By Hillary Lofton ; [facility], [facility] Diclofenac Sodium 1% External Gel 12/15/2021 Provide r: Diagnosis: Last Documented On 2 8:36AM By Hillary MCCLAIN [facility], [facility] Calcium 600 MG Oral Tablet 2021 Provider: Diagnosis: Last Documented On 2 8:41AM By Argelia Romero ; [facility], [facility] LORazepam 0.5 MG Oral Tablet 2021 Provider: Diagnosis: Last Documented On 2 8:41AM By Argelia Romero ; [facility], [facility] Metoprolol Tartrate 25 MG Oral Tablet 2021 Pro vider: Diagnosis: Last Documented On 2 8:42AM By Argelia Romero ; [facility], [facility] FiberCon 625 MG Oral Tablet 2021 Provider: Diagnosis: Last Documented On 2 8:43AM By Argelia Romero ; [facility], [facility] PreserVision AREDS Oral Capsule 2021 [...] Documented On 2 8:28AM ; [facility], [facility] Not using alcohol 2021 Last Documented On 2 8:28AM ; [facility], [facility] Not using drugs 2021 Last Documented On 2 8:28AM ; [facility], [facility] No recent change in diet 12/23/2015 Last Documented On 2 8:28AM ; [facility], [facility] Not a current smoker 12/23/2015 Last Documented On 2 8:28AM ; [facility], [facility] No tobacco use 12/23/2015 Last Documented On 2 8:28AM ; [facility], [facility] Smoking status : Never smoker 12/23/2015 Last Documented On 2 8:28AM ; [facility], [facility] Procedures and Surgical History Includes: Procedures from this encounter Procedures Code Diagnosis Performing Provider Service L ocation Service Date use of tobacco assessment performed 1000F Last Documented On 2 8:28AM ; [facility], [facility] referral to physician Last Documented On 2 8:37AM ; [facility], [facility] an X-ray was performed [id number] Last Documented On 2 8:28AM ; [facility], [facility] an MRI was performed [id number] Last Documented On 2 8:28AM ; [facility], [facility] Surgical History Last Updated History of History of Gallbladder 2021 Last Documented On 2 8:28AM ; [facility], [facility] Medical History Includes: Medical History addressed during this encounter Description Last Updated History of arthritis 2021 Last Documented On 2 8:28AM ; [facility], [facility] History of diverticulitis of colon 12/06 Last Documented On 2 8:28AM ; [facility], [facility] History of Sleep Apnea 2021 Last Documented On 2 8:28AM ; [facility], [facility] No recent immunization for pneumococcal pneumonia 2021 Last Documented On 2 8:28AM ; [facility], [facility] Recent immunization for flu 05/18/2021 Last Documented On 2 8:28AM ; [facility], [facility] Use of CPAP 2021 Last Documented On 2 8:28AM ; [facility], [facility] Rotator Cuff 12/23/2015 Last Documented On 2 8:28AM ; [facility], [facility] Arthritic joint problems 12/23/2015 Last Documented On 2 8:28AM ; [facility], [facility] Gallbladder disease 12/23/2015 Last Documented On 2 8:28AM ; [facility], [facility] History of osteoporosis 12/23/2015 Last Documented On 2 8:28AM ; [facility], [facility] Intermittent hypertension 12/23/2015 Last Documented On 2 8:28AM ; [facility], [facility] Family History Includes: Family History addressed during this encounter Description Last Updated Diabetes mellitus 2021 Last Documented On 2 8:28AM ; [facility], [facility] Family history of systemic hypertension 2021 Last Documented On 2 8:28AM ; [facility], [facility] Family history of diabetes mellitus Moth er, Father, Sister, Brother 12/23/2015 Last Documented On 2 8:28AM ; [facility], [facility] Family history of osteoporosis Father Last Documented On 2 8:28AM ; [facility], [facility] Review of Systems Includes: Review [...] Active Last Documented On 2 8:06AM ; [facility], [facility] Encounters Encounter Provider Location Date Check-In Time Check- Out Time Diagnosis Follow Up Sarath Eli PA-C [facility] 2 8:21AM 8:50AM Insurance Includes: Active Insurance Policies Plan Name Member ID Group # Subscriber Relationship Effect meg Dates 1 - [employer] MED[employer] [id number] Berta Rodriguez Self Clinical Notes Includes: Clinical Notes from this encounter No Clinical Notes Recorded
--- OUTSIDE RECORDS SUMMARY | 2025-08-17 16:57 | XMS_ITS | Clinical Summary ---
Author Organization [facility] , [facility] Address [address] [place] [place] [address] Phone Care Team Providers Care Clinical Nurse Leader Name Role Phone Isaac CORONA, Brandon Diallo Unavailable [phone] Yuliana Sheikh APRN Primary Care Provider [phone] Meaghan Mcnamara APRN Unavailable [phone] Reason for Visit and Chief Complaint The Chief Complaint is: Left shoulder pain Problems Includes: Problems addressed during this encounter and other active Problems Current Visit Onset Date Resolved Date Provider Conditio n Status Lower Back Pain 12/23/2015 Brandon Gray MD Act meg Last Documented On 6 1:16PM ; [facility] Past Visits Onset Date Resolved Date Provider Condition Status History of Joint Pain Shoulder Left 2021 Sarath Eli PA-C Active Last Documented On 2 8:12AM ; [facility] Plan of Treatment NON SURGICAL PLAN: [...] - Last Documented On 12/09/2021 10:00AM ; [facility] Instructions to patient Lose weight Last Documented On 2 9:49AM ; [facility], [facility] Assessments Includes: Assessments from this encounter Findings LEFT SHOULDER ROTATOR CUFF ARTHROPATHY FRACTURE OF THE INFERIOR GLENOID - Last Documented On 12/09/2021 10:00AM ; [facility], [facility] Instructions Includes: Instructions from this encounter Instructions to patient Lose weight Last Documented On 2 9:49AM ; [facility], [facility] Medical Equipment - Implanted Devices Includes: Current Devices No Medical Equipment Recorded Medications Includes: Medications discussed during this encounter and other current Medications Current Medications (continue as prescribed) Diclofenac Sodium 75 MG Oral Tablet Delayed Release Provider: Diagnosis: Last Documented On 2 8:36AM By Hillary Lofton ; [facility], [facility] Active-Pac/Gabapentin 300 & 4-1 MG & % Combination Therapy Pack 12/15/2021 Provider: Diagnosis: Last Documented On 2 8:36AM By Hillary Lofton ; [facility], [facility] Diclofenac Sodium 1% External Gel 12/15/2021 Provide r: Diagnosis: Last Documented On 2 8:36AM By Hillary Lofton ; [facility], [facility] Calcium 600 MG Oral Tablet 2021 Provider: Diagnosis: Last Documented On 2 8:41AM By Argelia Romero ; [facility], [facility] LORazepam 0.5 MG Oral Tablet 2021 Provider: Diagnosis: Last Documented On 2 8:41AM By Argelia Romero ; [facility], [facility] Metoprolol Tartrate 25 MG Oral Tablet 2021 Pro vider: Diagnosis: Last Documented On 2 8:42AM By Argelia Romero ; [facility], [facility] FiberCon 625 MG Oral Tablet 2021 Provider: Diagnosis: Last Documented On 2 8:43AM By Argelia Romero ; [facility], [facility] PreserVision AREDS Oral Capsule 2021 Provider: Diagnosis: Last Documented On 2 8:43AM By Argelia Romero ; [facility], [facility] Methocarbamol 500 MG Oral Tablet 11/21/2021 Provider : Meaghan Mcnamara APRN Diagnosis: Last Documented On 2 8:42AM By Argelia Romero ; [facility] Potassium Chloride [facility] 2 0 MEQ Oral Tablet Extended Release 11/21/2021 Provider: Meaghan Diallo PRN Diagnosis: Last Documented On 2 8:42AM By Argelia Romero ; [facility] Fenofibrate 48 MG Oral Tablet 10/24/2021 Provider: Meaghan Mcnamara TESTING TECH Diagnosis: Last Documented On 2 8:42AM By Argelia Romero ; [facility], [facility] Medications Administered Includes: Administered Medications from this encounter No Administered Medications Recorded Vital Signs Includes: Vital Signs from this encounter Vital Name 12/07/2021 09:48A Blood Pressure Sitting L 146/84 Pulse Rate-Sitting (bpm) 60 Height (in) 67.5 Weight (lb) 239 Body Mass Index (kg/m2) 36.9 Body Surface Area (m2) 2.2 Note: sb Last Documented: On 12/07/2021 9:49AM ; [facility] Results Includes: Results discussed during this [...] Documented On 2 10:00AM ; [facility], [facility] No caffeine use 2021 Last Documented On 2 9:35AM ; [facility], [facility] No recent change in diet 2021 Last Documented On 2 9:35AM ; [facility], [facility] Not a current smoker. 2021 Last Documented On 2 9:35AM ; [facility], [facility] Not exercising regularly 2021 Last Documented On 2 9:35AM ; [facility], [facility] Not using alcohol 2021 Last Documented On 2 9:35AM ; [facility], [facility] Not using drugs 2021 Last Documented On 2 9:35AM ; [facility], [facility] No recent change in diet 12/23/2015 Last Documented On 2 9:35AM ; [facility], [facility] Not a current smoker 12/23/2015 Last Documented On 2 9:35AM ; [facility] No tobacco use 12/23/2015 Last Documented On 2 9:35AM ; [facility], [facility] Smoking status : Never smoker 12/23/2015 Last Documented On 2 9:35AM ; [facility], [facility] Procedures and Surgical History Includes: Procedures from this encounter Procedures Code Diagnosis Performing Provider Service L ocation Service Date use of tobacco assessment performed 1000F Last Documented On 2 9:49AM ; [facility], [facility] an X-ray was performed 72041 Last Documented On 2 9:35AM ; [facility], [facility] an MRI was performed [id number] Last Documented On 2 9:35AM ; [facility] Surgical History Last Updated History of History of Gallbladder 2021 Last Documented On 2 9:35AM ; [facility], [facility] Medical History Includes: Medical History addressed during this encounter Description Last Updated History of arthritis 2021 Last Documented On 2 9:35AM ; [facility], [facility] History of diverticulitis of colon 12/06 Last Documented On 2 9:35AM ; [facility], [facility] History of Sleep Apnea 2021 Last Documented On 2 9:35AM ; [facility] No recent immunization for pneumococcal pneumonia 2021 Last Documented On 2 9:35AM ; [facility], [facility] Recent immunization for flu 05/18/2021 Last Documented On 2 9:35AM ; [facility], [facility] Use of CPAP 2021 Last Documented On 2 9:35AM ; [facility], [facility] Rotator Cuff 12/23/2015 Last Documented On 2 9:35AM ; [facility], [facility] Arthritic joint problems 12/23/2015 Last Documented On 2 9:35AM ; [facility], [facility] Gallbladder disease 12/23/2015 Last Documented On 2 9:35AM ; [facility], [facility] History of osteoporosis 12/23/2015 Last Documented On 2 9:35AM ; [facility], [facility] Intermittent hypertension 12/23/2015 Last Documented On 2 9:35AM ; [facility], [facility] Family History Includes: Family History addressed during this encounter Description Last Updated Diabetes mellitus 2021 Last Documented On 2 9:35AM ; [facility], [facility] Family history of systemic hypertension 2021 Last Documented On 2 9:35AM ; [facility], [facility] Family history of diabetes mellitus Moth er, Father, Sister, Brother 12/23/2015 Last Documented On 2 9:35AM ; [facility], [facility] Family history of osteoporosis Father Last Documented On 2 9:35AM ; [facility], [facility] Review of Systems Includes: Review of [...] Active Last Documented On 2 8:06AM ; [facility] Encounters Encounter Provider Location Date Check-In Time Check- Out Time Diagnosis Follow Up Adrian Massey MD [facility] 2 9:43AM 9:58AM Insurance Includes: Active Insurance Policies Plan Name Member ID Group # Subscriber Relationship Effect meg Dates 1 - [employer] [id number] Berta Rodriguez Self Clinical Notes Includes: Clinical Notes from this encounter No Clinical Notes Recorded
--- OUTSIDE RECORDS SUMMARY | 2025-08-17 16:57 | XMS_ITS | Data Portability ---
Author Organization [facility] [place] - [place] Address [address] [place] [id number] Care Team Providers Care Damage Cutter Name Role Phone MEAGHAN MCNAMARA Primary Care Provider Unavailabl e Assessment Encounter Date Assessment Date Assessment LastModified by Organization Details LastModified Time 05/04/2025 05/04/2025 Patient presented for medication refill. Patient tolerating medication well at current dose without adverse effects. Refilled as below. Discussed plan with patient, who expressed understanding . Follow up as noted below. [place] [id number] Not available 05/04/2025 10:10:54 Plan of Treatment Reminders Order Date Submit Date Provider Last Modified By Organization Details Last Modified Time Details Appointments FOLLOW UP 15 2024 01:30P Mk Mcnamara APRN Not available Not available Not available FOLLOW UP 30 2025 09:00A Mk Mcnamara APRN Not available Not available Not available Lab HbA1c (hemoglob in A1c), blood [address], [address], 07/14/2025 14:00:46 HbA1c (hemoglob in A1c), blood [address], [address] [place] [address], [address], 02/26/2025 12:36:45 drug screen, 14 drugs (detectim ed), urine 2024 025 [facility] ([facility], [address] [place] [address], [place], [address], 03/05/2025 13:07:55 Referral None recorded. Procedures None recorded. Surgeries None recorded. Imaging MAMMO, screening , digital, bilateral 2024 [facility] ([facility]), [address], [place], [address], 08/10/2025 08:13:43 XR, knee, 3 view 2024 [facility], [address] [place] [address], [address], 02/26/2025 13:52:59 Medication Orders Depo-Medr ol 40 mg/mL suspensio n for injection [address], [address] [place] [address], [address], 07/14/2025 14:36:51 fenofibra te nanocryst allized 48 mg tablet 2024 025 [facility], [address] [place] [address], [address], 07/20/2025 08:28:54 methocarb heber 500 mg tablet 2024 025 [facility], [address] [place] [address], [address], 07/20/2025 08:28:51 cephalexi n 500 mg capsule 2024 025 [facility], [address] [place] [address], [address], 06/08/2025 05:01:25 metoprolo l tartrate 100 mg tablet 2024 025 [facility], [address] [place] [address], [address], 05/25/2025 15:16:22 calcium 600 mg (as carbonate )-vitamin D3 20 mcg (800 unit) tablet 2024 025 [facility], [address] [place] [address], [address], 07/14/2025 13:46:47 lorazepam 0.5 mg tablet 2024 025 [facility], [address] [place] [address], [address], 05/05/2025 18:00:11 Depo-Medr ol 40 mg/mL suspensio n for injection 2024 025 Not available 05/25/2025 14:28:27 prednison e 10 mg tablet 2024 025 [facility], [address] [place] [address], [address], 05/14/2025 05:01:13 fenofibra te nanocryst allized 48 mg tablet 2024 025 [facility], [address] [place] [address], [address], 03/03/2025 14:49:23 metoprolo l tartrate 100 mg tablet 2024 025 [facility], [address] [place] [address], [address], 03/03/2025 14:49:24 calcium 600 mg (as carbonate )-vitamin D3 20 mcg (800 unit) tablet 2024 025 [email or web address], [address] [place] [address], [address], 07/14/2025 13:29:07 prednison e 20 mg tablet 2024 025 [facility], [address] [place] [address], [address], 05/04/2025 09:48:49 doxycycli ne monohydra te 100 mg capsule 2024 025 [facility], [address] [place] [address], [address], 02/26/2025 09:06:29 prednison e 20 mg tablet [address], [address] [place] [address], [address], 05/04/2025 09:40:21 mupirocin 2 % topical ointment 2024 025 [facility], [address] [place] [address], [address], 07/14/2025 13:46:46 Patient TargetsNo targets recorded. Patient Instructions Encounter Date Encounter Id Patient Instructions Last Modified By Organization Details Last Modified Time 02/26/2025 [id number] controlled substance agreement* [email or web address] Not available 02/26/2025 09:36:12 Reason for Referral None Reported. Results Created Date Observation Date Name Description Value Unit Range Abnormal Flag Note LastModifiedBy Organization Detail LastModifiedTime 11/26/1911/26/2024 FE+TI BC+FE R iron bind.cap.(TI BC) 300 ug/dL 250-45 0 normal Not Available [facility] ([facility]) [address] [place], [address], 11/26/2024 08:12:56 11/26/1911/26/2024 FE+TI BC+FE R UIBC 213 ug/dL 118-36 9 normal Not Available [facility] ([facility]) [address] [place], [address], 11/26/2024 08:12:56 11/26/19 25 11/26/2024 FE+TI BC+FE R iron 87 ug/dL 27-139 normal Not Available [facility] ([facility]) [address] [place], [address], 11/26/2024 08:12:56 11/26/19 25 11/26/2024 FE+TI BC+FE R iron saturation 29 % 15-55 normal Not Available [facility] ([facility]) [address] [place], [address], 11/26/2024 08:12:56 11/26/19 25 11/26/2024 FE+TI BC+FE R ferritin 288 NG/mL 15-150 above high normal Not Available [facility] ([facility]) [address] [place], [address], 11/26/2024 08:12:56 11/26/19 25 11/26/2024 TSH+F REE T4 TSH 1.260 uIU/m L 0.450- 4.500 normal Not Available [facility] ([facility]) [address] [place], [address], 11/26/2024 08:12:56 11/26/1911/26/2024 TSH+F REE T4 T4,free(dire ct) 1.10 NG/dL 0.82-1 .77 normal Not Available [facility] ([facility]) [address] [place], [address], 11/26/2024 08:12:56 11/26/1911/26/2024 CBC WITH DIFFE RENTI AL/PL ATELE T WBC 12.8 x10e3 /uL 3.4-10 .8 above high normal Not Available [facility] ([facility]) [address] [place], [address], 11/26/2024 08:12:56 11/26/19 25 11/26/2024 CBC WITH DIFFE RENTI AL/PL ATELE T RBC 5.41 x10e6 /uL 3.77-5 .28 above high normal Not Available [facility] ([facility]) [address] [place], [address], 11/26/2024 08:12:56 11/26/19 25 11/26/2024 CBC WITH DIFFE RENTI AL/PL ATELE T hemoglobin 16.3 g/dL 11.1-1 5.9 above high normal Not Available [facility] ([facility]) [address] [place], [address], 11/26/2024 08:12:56 11/26/19 25 11/26/2024 CBC WITH DIFFE RENTI AL/PL ATELE T hematocrit 48.9 % 34.0-4 6.6 above high normal Not Available [facility] ([facility]) [address] [place], [address], 11/26/2024 08:12:56 11/26/19 25 11/26/2024 CBC WITH DIFFE RENTI AL/PL ATELE T MCV 90 fL 79-97 normal Not Available [facility] ([facility]) [address] [place], [address], 11/26/2024 08:12:56 11/26/19 25 11/26/2024 CBC WITH DIFFE RENTI AL/PL ATELE T MCH 30.1 pg 26.6-3 3.0 normal Not Available [facility] ([facility]) [address] [place], [address], 11/26/2024 08:12:56 11/26/1911/26/2024 CBC WITH DIFFE RENTI AL/PL ATELE T MCHC 33.3 g/dL 31.5-3 5.7 normal Not Available [facility] ([facility]) [address] [place], [address], 11/26/2024 08:12:56 11/26/19 25 11/26/2024 CBC WITH DIFFE RENTI AL/PL ATELE T RDW 12.2 % 11.7-1 5.4 Not Available [facility] ([facility]) [address] [place], [address], 11/26/2024 08:12:56 11/26/19 25 11/26/2024 CBC WITH DIFFE RENTI AL/PL ATELE T platelets 233 x10e3 /uL 150-45 0 normal Not Available [facility] ([facility]) [address] [facility], [place], [address], 11/26/2024 08:12:56 11/26/19 25 11/26/2024 CBC WITH DIFFE RENTI AL/PL ATELE T neutrophils 83 % not estab. normal Not Available [facility] ([facility]) [address] [facility], [place], [address], 11/26/2024 08:12:56 11/26/19 25 11/26/2024 CBC WITH DIFFE RENTI AL/PL ATELE T lymphs 9 % not estab. normal Not Available [facility] ([facility]) [address] [facility], [place], [address], 11/26/2024 08:12:56 11/26/19 25 11/26/2024 CBC WITH DIFFE RENTI AL/PL ATELE T monocytes 6 % not estab. normal Not Available [facility] ([facility]) [address] [facility], [place], [address], 11/26/2024 08:12:56 11/26/19 25 11/26/2024 CBC WITH DIFFE RENTI AL/PL ATELE T eos 1 % not estab. normal Not Available [facility] ([facility]) [address] [facility], [place], [address], 11/26/2024 08:12:56 11/26/19 25 11/26/2024 CBC WITH DIFFE RENTI AL/PL ATELE T basos 1 % not estab. normal Not Available [facility] ([facility]) [address] [facility], [place], [address], 11/26/2024 08:12:56 11/26/19 25 11/26/2024 CBC WITH DIFFE RENTI AL/PL ATELE T immature cells SHARE HOLDER Not Available [facility] ([facility]) [address] [place], [address], 11/26/2024 08:12:56 11/26/19 25 11/26/2024 CBC WITH DIFFE RENTI AL/PL ATELE T neutrophils (absolute) 10.6 x10e3 /uL 1.4-7. 0 above high normal Not Available [facility] ([facility]) [address] [place], [address], 11/26/2024 08:12:56 11/26/19 25 11/26/2024 CBC WITH DIFFE RENTI AL/PL ATELE T lymphs (absolute) 1.2 x10e3 /uL 0.7-3. 1 normal Not Available [facility] ([facility]) [address] [place], [address], 11/26/2024 08:12:56 11/26/19 25 11/26/2024 CBC WITH DIFFE RENTI AL/PL ATELE T monocytes(ab solute) 0.8 x10e3 /uL 0.1-0. 9 normal Not Available [facility] ([facility]) [address] [place], [address], 11/26/2024 08:12:56 11/26/19 25 11/26/2024 CBC WITH DIFFE RENTI AL/PL ATELE T eos (absolute) 0.2 x10e3 /uL 0.0-0. 4 normal Not Available [facility] ([facility]) [address] [place], [address], 11/26/2024 08:12:56 11/26/19 25 11/26/2024 CBC WITH DIFFE RENTI AL/PL ATELE T baso (absolute) 0.1 x10e3 /uL 0.0-0. 2 normal Not Available [facility] ([facility]) [address] [place], [address], 11/26/2024 08:12:56 11/26/19 25 11/26/2024 CBC WITH DIFFE RENTI AL/PL ATELE T immature granulocytes 0 % not estab. Not Available [facility] ([facility]) [address] [facility], [place], [address], 11/26/2024 08:12:56 11/26/19 25 11/26/2024 CBC WITH DIFFE RENTI AL/PL ATELE T immature grans (abs) 0.0 x10e3 /uL 0.0-0. 1 Not Available [facility] ([facility]) [address] [facility], [place], [address], 11/26/2024 08:12:56 11/26/19 25 11/26/2024 CBC WITH DIFFE RENTI AL/PL ATELE T NRBC SHARE HOLDER Not Available [facility] ([facility]) [address] [facility], [place], [address], 11/26/2024 08:12:56 11/26/19 25 11/26/2024 CBC WITH DIFFE RENTI AL/PL ATELE T hematology comments: SHARE HOLDER Not Available [facility] ([facility]) [address] [facility], [place], [address], 11/26/2024 08:12:56 11/26/19 25 11/26/2024 COMP. METAB OLIC PANEL (14) glucose 112 mg/dL 70-99 above high normal Not Available [facility] ([facility]) [address] [facility], [place], [address], 11/26/2024 08:12:57 11/26/19 25 11/26/2024 COMP. METAB OLIC PANEL (14) BUN 18 mg/dL 8-27 normal Not Available [facility] ([facility]) [address] [facility], [place], [address], 11/26/2024 08:12:57 11/26/19 25 11/26/2024 COMP. METAB OLIC PANEL (14) creatinine 0.67 mg/dL 0.57-1 .00 normal Not Available [facility] ([facility]) [address] [facility] [place], [address], 11/26/2024 08:12:57 11/26/19 25 11/26/2024 COMP. METAB OLIC PANEL (14) eGFR 98 mL/mi n/1.7 3 >59 normal Not Available [facility] ([facility]) [address] [facility], [place], [address], 11/26/2024 08:12:57 11/26/19 25 11/26/2024 COMP. METAB OLIC PANEL (14) BUN/creatini ne ratio 27 12-28 normal Not Available [facility] ([facility]) [address] [facility], [place], [address], 11/26/2024 08:12:57 11/26/19 25 11/26/2024 COMP. METAB OLIC PANEL (14) sodium 141 mmol/ L 134-14 4 normal Not Available [facility] ([facility]) [address] [place], [address], 11/26/2024 08:12:57 11/26/19 25 11/26/2024 COMP. METAB OLIC PANEL (14) potassium 4.4 mmol/ L 3.5-5. 2 normal Not Available [facility] ([facility]) [address] [place], [address], 11/26/2024 08:12:57 11/26/19 25 11/26/2024 COMP. METAB OLIC PANEL (14) chloride 101 mmol/ L 96-106 normal Not Available [facility] ([facility]) [address] [place], [address], 11/26/2024 08:12:57 11/26/19 25 11/26/2024 COMP. METAB OLIC PANEL (14) carbon dioxide, total 22 mmol/ L 20-29 normal Not Available [facility] ([facility]) [address] [facility] [place], [address], 11/26/2024 08:12:57 11/26/19 25 11/26/2024 COMP. METAB OLIC PANEL (14) calcium 9.4 mg/dL 8.7-10 .3 normal Not Available [facility] ([facility]) [address] [facility], [place], [address], 11/26/2024 08:12:57 11/26/19 25 11/26/2024 COMP. METAB OLIC PANEL (14) protein, total 6.6 g/dL 6.0-8. 5 normal Not Available [facility] ([facility]) [address] [facility], [place], [address], 11/26/2024 08:12:57 11/26/19 25 11/26/2024 COMP. METAB OLIC PANEL (14) albumin 4.2 g/dL 3.9-4. 9 normal Not Available [facility] ([facility]) [address] [facility] [place], [address], 11/26/2024 08:12:57 11/26/19 25 11/26/2024 COMP. METAB OLIC PANEL (14) globulin, total 2.4 g/dL 1.5-4. 5 Not Available [facility] ([facility]) [address] [place], [address], 11/26/2024 08:12:57 11/26/19 25 11/26/2024 COMP. METAB OLIC PANEL (14) bilirubin, total 0.8 mg/dL 0.0-1. 2 normal Not Available [facility] ([facility]) [address] [facility] [place], [address], 11/26/2024 08:12:57 11/26/19 25 11/26/2024 COMP. METAB OLIC PANEL (14) alkaline phosphatase 63 IU/L 44-121 normal Not Available [facility] ([facility]) [address] [facility] [place], [address], 11/26/2024 08:12:57 11/26/19 25 11/26/2024 COMP. METAB OLIC PANEL (14) AST (SGOT) 20 IU/L 0-40 normal Not Available [facility] ([facility]) [address] [facility] [place], [address], 11/26/2024 08:12:57 11/26/19 25 11/26/2024 COMP. METAB OLIC PANEL (14) ALT (SGPT) 17 IU/L 0-32 normal Not Available [facility] ([facility]) [address] [facility] [place], [address], 11/26/2024 08:12:57 11/26/19 25 11/26/2024 LIPID PANEL cholesterol, total 221 mg/dL 100-19 9 above high normal Not Available [facility] ([facility]) [address] [place], [address], 11/26/2024 08:12:57 11/26/19 25 11/26/2024 LIPID PANEL triglyceride s 129 mg/dL 0-149 normal Not Available [facility] ([facility]) [address] [facility] [place], [address], 11/26/2024 08:12:57 11/26/19 25 11/26/2024 LIPID PANEL HDL cholesterol 60 mg/dL >39 normal Not Available [facility] ([facility]) [address] [facility] [place], [address], 11/26/2024 08:12:57 11/26/19 25 11/26/2024 LIPID PANEL VLDL cholesterol anam 23 mg/dL 5-40 Not Available [facility] ([facility]) [address] [place], [address], 11/26/2024 08:12:57 11/26/19 25 11/26/2024 LIPID PANEL LDL chol calc ([facility]) 138 mg/dL 0-99 above high normal Not Available [facility] ([facility]) [address] [place], [address], 11/26/2024 08:12:57 11/26/19 25 11/26/2024 LIPID PANEL LDL calc comment: SHARE HOLDER Not Available [facility] ([facility]) [address] [facility], [place], [address], 11/26/2024 08:12:57 11/26/19 25 11/26/2024 VITAM IN B12 AND FOLAT E vitamin B12 402 pg/mL 232-12 45 normal Not Available [facility] ([facility]) [address] [facility], [place], [address], 11/26/2024 08:12:58 11/26/1911/26/2024 VITAM IN B12 AND FOLAT E folate (folic acid), serum 19.5 NG/mL >3.0 normal A serum folat e mart ntrat ion of less than 3.1 ng/mL is consi dered to repre sent clini anam defic iency . Not Available [facility] ([facility]) [address] [facility], [place], [address], 11/26/2024 08:12:58 11/26/1911/26/2024 HEMOG LOBIN A1C hemoglobin A1C 6.7 % 4.8-5. 6 above high normal Predi abete s: 5.7 - 6.4 Diabe chriss: >6.4 Glyce shemar contr ol for adult s with diabe chriss: <7.0 Not Available [facility] ([facility]) [address] [facility], [place], [address], 11/26/2024 08:12:58 11/26/19 25 11/26/2024 VITAM IN [...] um and D. Pepe alvarez [place]: [facility] . 2. Cheryl sainz [place], Moira ibanez [place], Bisch off-F errar i FLOOD, et al. Evalu ation , treat ment, and preve ntion of vitam in D defic iency : an Endoc rine Socie ty clini anam pract ice guide line. JCEM. 2010; 96(7) :1911 -30. Not Available [facility] ([facility]) [address] [place], [address], 11/26/2024 08:12:59 11/26/19 25 11/26/2024 NUSWA B VAGIN ITIS PLUS (VG+) atopobium vaginae Low - 0 score Not Available [facility] ([facility]) [address] [place], [address], 11/27/2024 05:06:44 11/26/19 25 11/26/2024 NUSWA B VAGIN ITIS PLUS (VG+) bvab 2 Low - 0 score Not Available [facility] ([facility]) [address] [place], [address], 11/27/2024 05:06:44 11/26/19 25 11/26/2024 NUSWA B [...] prese nce of BV. Not Available [facility] ([facility]) [address] [place], [address], 11/27/2024 05:06:44 11/26/19 25 11/26/2024 NUSWA B VAGIN ITIS PLUS (VG+) becky albicans, SUPA Negati ve negati ve Not Available [facility] ([facility]) [address] [place], [address], 11/27/2024 05:06:44 11/26/19 25 11/26/2024 NUA B VAGIN ITIS PLUS (VG+) becky glabrata, SUPA Negati ve negati ve Not Available [facility] ([facility]) [address] [place], [address], 11/27/2024 05:06:44 11/26/19 25 11/27/2024 NUA B VAGIN ITIS PLUS (VG+) trich vag by SUPA Negati ve negati ve Not Available [facility] ([facility]) [address] [place], [address], 11/27/2024 05:06:44 11/26/19 25 11/27/2024 NUA B VAGIN ITIS PLUS (VG+) chlamydia trachomatis, SUPA Negati ve negati ve Not Available [facility] ([facility]) [address] [place], [address], 11/27/2024 05:06:44 11/26/19 25 11/27/2024 NUA B VAGIN ITIS PLUS (VG+) neisseria gonorrhoeae, SUPA Negati ve negati ve Not Available [facility] ([facility]) [address] [place], [address], 11/27/2024 05:06:44 11/26/19 25 11/26/2024 URINE CULTU RE, ROUTI NE urine culture, routine Final report Not Available [facility] ([facility]) [address] [facility], [place], [address], 11/27/2024 05:06:44 11/26/19 25 11/26/2024 URINE CULTU RE, ROUTI NE result 1 COMMEN T Cultu re shows less than 10,00 0 colon y formi ng units of bacte vito per nicho liter of urine . This colon y count is not gener ally consi dered to be clini breanna signi gunner t. Not Available [facility] ([facility]) [address] [facility], [place], [address], 11/27/2024 05:06:44 11/26/19 25 11/25/2024 urina lysis , dipst ick Leukocytes Large Not Available [address], [address], 11/25/2024 09:22:28 11/26/19 25 11/25/2024 urina lysis , dipst ick Nitrite negati ve Not Available [address], [address], 11/25/2024 09:22:28 11/26/19 25 11/25/2024 urina lysis , dipst ick Urobilinogen .2 Not Available [address], [address], 11/25/2024 09:22:28 11/26/19 25 11/25/2024 urina lysis , dipst ick Protein Negati ve Not Available [address], [address], 11/25/2024 09:22:28 11/26/19 25 11/25/2024 urina lysis , dipst ick pH 6.0 Not Available [address], [address], 11/25/2024 09:22:28 11/26/19 25 11/25/2024 urina lysis , dipst ick Blood Non-He molyze d: Trace Not Available [address], [address], 11/25/2024 09:22:28 11/26/19 25 11/25/2024 urina lysis , dipst ick Specific [place] 1.015 Not Available [address], [address], 11/25/2024 09:22:28 11/26/19 25 11/25/2024 urina lysis , dipst ick Ketone Negati ve Not Available [address], [address], 11/25/2024 09:22:28 11/26/19 25 11/25/2024 urina lysis , dipst ick Bilirubin Negati ve Not Available [address], [address], 11/25/2024 09:22:28 11/26/19 25 11/25/2024 urina lysis , dipst ick Glucose Negati ve Not Available [address], [address], 11/25/2024 09:22:28 11/26/19 25 11/25/2024 urina lysis , dipst ick Appearance Cloudy Not Available [address], [address], 11/25/2024 09:22:28 11/26/19 25 11/25/2024 urina lysis , dipst ick Color Dark Yellow Not Available [facility] [place] [facility] [address], [place], [address], 11/25/2024 09:22:28 02/27/20 25 03/05/2025 COMPL IANCE [...] pam hardyu ltati on, pleas e call [phone]. ===== ===== ===== ===== ===== ===== ===== ===== ===== ===== ===== ===== ===== === Not Available [facility] ([facility]) [address] [facility], [place], [address], 03/05/2025 13:07:54 02/27/20 25 03/05/2025 COMPL IANCE DRUG DEMI SIS, UR pdf . Not Available [facility] ([facility]) [address] [facility], [place], [address], 03/05/2025 13:07:54 02/27/20 25 02/26/2025 HbA1c (hemo globi n A1c), blood HbA1c 6.6 Not Available [address], [address], 02/25/2025 17:20:33 07/14/20 25 07/14/2025 HbA1c (hemo globi n A1c), blood HbA1c 6.0 Not Available [address], [address], 07/14/2025 13:39:53 01/28/20 25 05/13/2021 colon oscop y proce dure (PROC ) No observ ation record ed. Not Available 01/27 17:54:05 02/27/20 25 04/25/2021 DEXA No observ ation record ed. [email or web address] [facility] (Med Record) [address], [place], [address], 02/27/2025 10:30:40 02/27/20 XR, knee, 3 view No observ ation record ed. [address], [place], [address], 02/27/2025 10:09:09 03/25/20 25 03/18/2025 XR, knee, 3 view No observ ation record ed. [address] (Radiology) [address] [place] [address] , [place], [address], 03/27/2025 10:53:27 03/25/20 25 03/18/2025 XR, knee, 3 view No observ ation record ed. [address] (Radiology) [address] [place] [address] , [place], [address], 03/27/2025 10:53:34 08/10/20 25 08/05/2025 MAMMO , scree chava, digit al, bilat eral No observ ation record ed. [place] [address], [place], [address], 08/10/2025 08:13:43 Result Notes None recorded. Problems Name Problem SNOMED Code Status Onset Date Resolution Date Notes Provider Name and Address Organization Details Recorded Time Generali zed anxiety disorder [id number] Completed 201501/25/2021 Problem Code: 300.02; Problem Code Type: ICD-9; Not Available [facility] 22:56:12 Acute pharyngi tis [id number] Completed 201509/29/2016 Problem Code: J02.8; Problem Code Type: ICD-10; Not Available [facility] 22:55:54 Cough [id number] Completed 201511/14/2016 Problem Code: R05; Problem Code Type: ICD-10; Sarah keen [place] - [facility] 13:56:02 Spasm of back muscles [id number] Completed 201612/15/2016 Problem Code: M62.830; Problem Code Type: ICD-10; Not Available [facility] 22:56:11 Generali zed anxiety disorder [id number] Completed 201601/25/2021 Problem Code: 300.02; Problem Code Type: ICD-9; Not Available [facility] 22:56:15 Spasm [id number] Completed 201612/15/2016 Problem Code: 728.85; Problem Code Type: ICD-9; Not Available [facility] 22:56:20 Generali zed anxiety disorder 18329610 Active 2016 Problem Code: F41.1; Problem Code Type: ICD-10; Not Available [facility] 22:55:53 Streptoc occal sore throat 20536476 Completed 201601/14/2017 Problem Code: J02.0; Problem Code Type: ICD-10; Not Available [facility] 22:55:54 Fever 642554876 Completed 201607/20/2022 Problem Code: R50.81; Problem Code Type: ICD-10; KARMA keen [place] [employer] 08:38:26 Spasm of back muscles 425998997 Completed 201603/30/2017 Problem Code: M62.830; Problem Code Type: ICD-10; Not Available [facility] 22:55:57 Spasm 36000193 Completed 201603/30/2017 Problem Code: 728.85; Problem Code Type: ICD-9; Not Available [facility] 22:56:20 Mixed hyperlip idemia 175144844 Active 2016 Problem Code: E78.2; Problem Code Type: ICD-10; Not Available [facility] 22:55:53 Hyperten sive disorder 31207022 Active 2016 Problem Code: I10; Problem Code Type: ICD-10; Not Available [facility] 22:55:54 Dysthymi a 07514940 Completed 201609/04/2019 Problem Code: R53.81; Problem Code Type: ICD-10; Not Available [facility] 22:56:00 Benign essentia l hyperten andrew 5605525 Completed 201601/25/2021 Problem Code: 401.1; Problem Code Type: ICD-9; Not Available [facility] 22:56:16 Malaise and fatigue 142159313 Completed 201601/25/2021 Problem Code: 780.79; Problem Code Type: ICD-9; Not Available [facility] 22:56:26 Acute pharyngi tis 670093838 Completed 201605/28/2017 Problem Code: J02.8; Problem Code Type: ICD-10; Not Available [facility] 22:55:54 Acute pharyngi tis 830471950 Completed 201606/14/2017 Problem Code: J02.8; Problem Code Type: ICD-10; Not Available [facility] 22:55:54 Low back pain 198299727 Active 2016 Problem Code: M54.5; Problem Code Type: ICD-10; Not Available [facility] 22:55:56 Lumbar spondylo listhesi s 21657628151 9102 Completed 201607/20/2022 Problem Code: M43.16; Problem Code Type: ICD-10; KARMA keen [facility] [employer] 08:38:26 Acquired spondylo listhesi s 757231915 Completed 201601/25/2021 Problem Code: 738.4; Problem Code Type: ICD-9; Not Available [facility] 22:56:18 Low back pain 341640090 Completed 201609/04/2019 Problem Code: M54.5; Problem Code Type: ICD-10; Not Available [facility] 22:55:57 Divertic ulitis of large intestin e without complica tion 763404465 Completed 201606/17/2021 Problem Code: K57.32; Problem Code Type: ICD-10; Not Available [facility] 2 22:55:54 Divertic ulitis of colon 631083093 Completed 201601/25/2021 Problem Code: 562.11; Problem Code Type: ICD-9; Not Available [facility] 2 22:56:17 Generali zed anxiety disorder 37751868 Completed 201709/19/2018 Problem Code: F41.1; Problem Code Type: ICD-10; Not Available [facility] 2 22:55:53 Cyst of thyroid 50114358 Completed 201701/25/2021 Problem Code: 246.2; Problem Code Type: ICD-9; Not Available [facility] 2 22:56:09 Benign essentia l hyperten andrew 4887851 Completed 201701/25/2021 Problem Code: 401.1; Problem Code Type: ICD-9; Not Available [facility] 2 22:56:17 Acute sinusiti s 65570040 Completed 201701/31/2018 Problem Code: J01.90; Problem Code Type: ICD-10; Not Available [facility] 2 22:55:54 Divertic ulum of [place] an tube 448047881 Completed 201703/18/2018 Problem Code: H69.80; Problem Code Type: ICD-10; Not Available [facility] 2 22:56:01 Dysfunct ion of eustachi an tube 95574017 Completed 201703/18/2018 Problem Code: 381.81; Problem Code Type: ICD-9; Not Available [facility] 2 22:56:16 Abnormal weight gain 786225475 Completed 201706/15/2018 Problem Code: R63.5; Problem Code Type: ICD-10; Not Available [facility] 2 22:56:00 Rebound tenderne ss 15512206 Completed 201708/09/2018 Not Available [facility] 2 22:55:59 Urinary tract infectio us disease 62660011 Completed 201709/24/2018 Problem Code: N39.0; Problem Code Type: ICD-10; Not Available [facility] 22:56:14 Generali zed abdomina l pain 261829985 Completed 201708/09/2018 Problem Code: 789.07; Problem Code Type: ICD-9; Not Available [facility] 22:56:19 Acute sinusiti s 66559900 Completed 201810/03/2018 Problem Code: J01.90; Problem Code Type: ICD-10; Not Available [facility] 22:56:03 Irritabl e bowel syndrome 56589053 Active 2018 Problem Code: K58.2; Problem Code Type: ICD-10; Not Available [facility] 22:55:55 Obstruct meg sleep apnea syndrome 91609749 Active 2018 Problem Code: G47.33; Problem Code Type: ICD-10; Not Available [facility] 22:55:53 Acute vaginiti s 73456559 Completed 201808/21/2019 Problem Code: N76.0; Problem Code Type: ICD-10; KARMA eken [employer] 08:38:26 Divertic ulitis of intestin e 937118017 Completed 201807/20/2022 Problem Code: K57.92; Problem Code Type: ICD-10; KARMA keen [employer] 08:38:26 Abdomina l pain 30348811 Completed 201807/20/2022 Problem Code: R10.9; Problem Code Type: ICD-10; KARMA keen [employer] 08:38:26 Body mass index 30+ - obesity 044133708 Completed 201802/01/2021 Problem Code: Z68.37; Problem Code Type: ICD-10; Not Available [facility] 22:56:08 History of disorder of digestiv e system 116939089 Completed 201807/20/2022 Problem Code: Z87.19; Problem Code Type: ICD-10; [employer]MA [employer] 08:38:26 Epidermo id cyst of skin 307735997 Completed 201810/02/2022 Problem Code: L72.3; Problem Code Type: ICD-10; [employer]MA [employer] 3 10:15:38 Plantar fascial fibromat osis 07306088 Completed 201805/03/2020 Problem Code: M72.2; Problem Code Type: ICD-10; Not Available [facility] 22:55:57 Screenin g mammogra phy Completed 201807/20/2022 Problem Code: Z12.31; Problem Code Type: ICD-10; [employer] 08:38:26 Body mass index 30+ - obesity 961821490 Completed 201802/01/2021 Problem Code: Z68.37; Problem Code Type: ICD-10; Not Available [facility] 22:56:23 Disorder of skin and/or subcutan eous tissue 92435736 Completed 201807/20/2022 Problem Code: L98.9; Problem Code Type: ICD-10; KARMA SOLNER leonila, [employer]. 08:38:26 Body mass index 30+ - obesity 176304064 Completed 201802/01/2021 Problem Code: Z68.37; Problem Code Type: ICD-10; Not Available [facility] 22:56:09 Acute sinusiti s 86296678 Completed 201802/02/2020 Problem Code: J01.90; Problem Code Type: ICD-10; Not Available [facility] 22:55:54 Acute respirat ory infectio ns 107579886 Completed 201807/20/2022 Problem Code: J22; Problem Code Type: ICD-10; KARMA keen, [employer]. 2 08:38:26 Screenin g mammogra phy Completed 201805/03/2020 Problem Code: Z12.31; Problem Code Type: ICD-10; KARMA keen, [employer] 2 08:38:26 Body mass index 30+ - obesity 480624984 Completed 201902/01/2021 Problem Code: Z68.37; Problem Code Type: ICD-10; Not Available [facility] 2 22:56:06 Dog bite Completed 201902/02/2020 [facility]ARMA SOLNER [employer] 2 08:38:26 Endocrin e/metabo lic screenin g Completed 201910/02/2022 Problem Code: Z13.29; Problem Code Type: ICD-10; KARMA keen, [employer]. 3 10:15:38 General examinat ion of patient Completed 201907/20/2022 [employer] 2 08:38:26 Body mass index 30+ - obesity 100795173 Completed 201902/01/2021 Problem Code: Z68.37; Problem Code Type: ICD-10; Not Available [facility] 2 22:56:06 Current drug user 007355881 Active 2019 Problem Code: Z79.899; Problem Code Type: ICD-10; Not Available [facility] 2 22:56:07 Divertic ular disease of colon 852954345 Active 2019 Problem Code: K57.30; Problem Code Type: ICD-10; KARMA keen, [employer]. 2 08:38:51 Constipa tion 29032885 Completed 201907/20/2022 KARMA SOLNER [employer] 2 08:38:26 Pain in right knee Completed 201907/20/2022 Problem Code: M25.561; Problem Code Type: ICD-10; KARMA keen [employer]. 08:38:26 Plantar fascial fibromat osis 50490165 Active 2019 Problem Code: M72.2; Problem Code Type: ICD-10; Not Available [facility] 22:55:57 Low back pain 909617666 Completed 201904/22/2021 Problem Code: M54.5; Problem Code Type: ICD-10; Not Available [facility] 22:56:11 Candidia sis of vulva 2445070 Completed 201902/01/2021 Not Available [facility] 22:55:53 Body mass index 30+ - obesity 417996646 Active 2020 Problem Code: Z68.36; Problem Code Type: ICD-10; Not Available [facility] 22:56:05 Acquired hallux malleus 86880805 Active 2020 Problem Code: M20.40; Problem Code Type: ICD-10; Not Available [facility] 22:56:09 Bunion 698981908 Active 2020 Problem Code: M21.619; Problem Code Type: ICD-10; Not Available [facility] 22:56:10 Dog bite Completed 202007/20/2022 KARMA keen [employer]. 08:38:26 Low back pain 826737012 Completed 202004/22/2021 Problem Code: M54.5; Problem Code Type: ICD-10; Not Available [facility] 22:55:56 Left side sciatica 95848133855 9104 Completed 202004/22/2021 Problem Code: M54.32; Problem Code Type: ICD-10; Not Available [facility] 22:55:56 Urinary tract infectio us disease 46147140 Completed 202004/22/2021 Problem Code: N39.0; Problem Code Type: ICD-10; Not Available [facility] 2 22:55:58 Cat scratch disease 49518236 Completed 202007/20/2022 Problem Code: A28.1; Problem Code Type: ICD-10; KARMA SOLNER leonila, [employer] 2 08:38:26 Urinary tract infectio us disease 29330298 Completed 202004/22/2021 Problem Code: N39.0; Problem Code Type: ICD-10; Not Available [facility] 2 22:55:58 Dysuria 63015607 Completed 202004/22/2021 Problem Code: R30.0; Problem Code Type: ICD-10; Sarah keen, [employer] 4 13:54:17 Screenin g mammogra phy Completed 202004/22/2021 Problem Code: Z12.31; Problem Code Type: ICD-10; KARMA SOLNER leonila, [employer] 2 08:38:26 General examinat ion of patient Completed 202006/17/2021 KARMACARLOS SOLNER [employer], [employer] 2 08:38:26 Screenin g for malignan t neoplasm of colon Completed 202007/20/2022 KARMACARLOS keen, [employer] 2 08:38:26 Chronic fatigue syndrome 58160190 Active 2020 Problem Code: R53.82; Problem Code Type: ICD-10; Not Available [facility] 2 22:56:00 Gynecolo gic examinat ion Completed 202007/20/2022 Problem Code: Z01.411; Problem Code Type: ICD-10; KARMACARLOS keen, [employer] 2 08:38:26 Body mass index 30+ - obesity 092389438 Completed 202012/22/2021 Problem Code: Z68.38; Problem Code Type: ICD-10; Not Available [facility] 22:56:07 Neoplast ic disease of uncertai n behavior 311010478 Completed 202107/20/2022 Problem Code: D48.9; Problem Code Type: ICD-10; KARMA SOLNER leonila, [employer]. 08:38:26 Fracture of lumbar spine 307072627 Completed 202107/20/2022 Problem Code: S32.009A ; Problem Code Type: ICD-10; KARMA SOLNER [employer], [employer]. 08:38:26 Fracture of shoulder 25854091135 003218 Completed 202107/20/2022 Problem Code: S42.90XA ; Problem Code Type: ICD-10; KARMA SOLNER [employer], [employer]. 08:38:26 Urinary tract infectio us disease 10632362 Completed 202102/20/2022 Problem Code: N39.0; Problem Code Type: ICD-10; Not Available [facility] 22:55:57 Dysuria 96351768 Completed 202107/20/2022 Problem Code: R30.0; Problem Code Type: ICD-10; Sarah keen, [employer]. 4 13:54:17 Acute vaginiti s 43182124 Completed 202107/20/2022 Problem Code: N76.0; Problem Code Type: ICD-10; KARMA SOLNER leonila, [employer]. 08:38:26 Pain of left hip joint 37497993708 9100 Completed 202107/20/2022 Problem Code: M25.552; Problem Code Type: ICD-10; KARMA SEBASTIAN leonila, [employer]. 08:38:26 Dysuria 16979447 Active 2023 Problem Code: R30.0; Problem Code Type: ICD-10; Sarah Quiroga null, [employer] 4 13:54:17 Recurren t urinary tract infectio n 931704532 Active 2023 Sarah Quiroga null, [employer] 4 13:54:30 Vaginal discharg e 736972054 Active 2023 Sarah Quiroga null, [employer] 4 13:54:43 Vaginal irritati on 917730103 Active 2024 Sarah Quiroga null, [employer] 5 09:40:04 Cough 49327049 Active 2024 Problem Code: R05; Problem Code Type: ICD-10; Sarah Quiroga null, [employer] 13:56:02 Type 2 diabetes mellitus 11678416 Active 2024 Sarah Quiroga null, [employer] 17:20:31 Lacerati on of right hand 69196051409 252723 Active 2024 Sarah Quiroga null, [employer] 14:34:23 Diabetes mellitus 79492245 Active 2024 Sarah Mcguirey null, [employer] 14:21:25 Hyperlip idemia 86126399 Active 2024 Sarah Mcguirey null, [employer] 14:22:06 Fatigue 25880961 Active 2024 Sarah Brenas null, [employer] 14:22:06 Hypergly cemia 17709588 Active 2024 Sarah Mcguirey null, [employer] 14:22:06 Well controll ed type 2 diabetes mellitus 169830458 Active 2024 [employer] 5 13:24:10 Chronic pain of left upper limb 74345756569 868367 Active 2024 Sarah keen [employer] 5 14:01:42 Pain of knee region 6629586524 Active 2024 Sarah keen [employer] 5 14:18:49 Problem Notes None recorded. Procedures Surgical History Date Name Laterality Status Provider Name and Address Organization Details Recorded Time 03/25/20 24 Most Recent Mammogram completed [facility] [employer]. 06/09/2024 11:20:51 08/29/20 16 cholecystectomy completed Not Available [facility] 05/23/2022 22:56:18 Orthopedic Surgery completed Friday. 09/19/2022 09:53:54 Gallbladder Surgery completed Friday. 09/19/2022 09:53:54 Colposcopy completed Friday. 09/19/2022 09:53:54 Imaging Results None recorded. Procedure Notes None recorded. Medical Equipment None Reported. Allergies Allergen ID Allergen Name Allergen Category Reaction Reaction Severity Criticality Documentation Date Start Date Code Code System Note Provider Name and Address Organization Details Recorded Time 71435 ibuprofen medicatio n Not available Not available Not available 05/23/2022 5640 RxNorm Not Available [facility] 2 22:57:15 14154 Norvasc medicatio n Not available Not available Not available 05/23/2022 29869 RxNorm Not Available [facility] 2 22:57:15 85094 Non-stero idal anti-infl ammatory agent (substanc e) medicatio n Not available Not available Not available 08/12/20252015 80171 5008 SNOMED Not Available danyelle - External Data Service - prod 5 [...] Updated DateTime 5 170.18 cm 37.9 kg/m2 769042. 35 g 97.9 [degF] 65 /min 95 % 138/81 mm[Hg] Sarah Quiroga [employer] 5 13:55:39 Date Recorded Body height Body mass index (BMI) Body weight Heart rate Oxygen saturation Systolic And Diastolic Provider Name and Address Organization Details Last Updated DateTime 5 170.18 cm 39.5 kg/m2 101407. 28 g 55 /min 95 % 132/77 mm[Hg] Sarah [employer] 5 08:54:56 Date Recorded Body height Body mass index (BMI) Body weight Heart rate Oxygen saturation Systolic And Diastolic Provider Name and Address Organization Details Last Updated DateTime 5 170.18 cm 39 kg/m2 906045. 2 g 66 /min 93 % 136/81 mm[Hg] Sarah [employer] 5 09:39:44 Date Recorded Body height Body mass index (BMI) Body weight Body temperature Heart rate Oxygen saturation Systolic And Diastolic Provider Name and Address Organization Details Last Updated DateTime 5 170.18 cm 38.1 kg/m2 660131. 95 g 97.4 [degF] 69 /min 94 % 132/71 mm[Hg] Sarah [employer]. 5 14:32:28 Date Recorded Body height Body mass index (BMI) Body weight Heart rate Oxygen saturation Systolic And Diastolic Provider Name and Address Organization Details Last Updated DateTime 5 170.18 cm 38.1 kg/m2 363109. 95 g 73 /min 91 % 136/77 mm[Hg] Sarah [employer] 5 13:28:49 Social History Question Answer Notes LastModified by Organizat ion Details LastModified Time Tobacco Smoking Status Never Smoker KARMA keen [employer]. 07/20/2022 08:40:03 Do You Have An Advance Directive? No [email or web address] Information n ot available 07/20/2022 Is Your Home Air Conditioned? Yes [email or web address] Information not available 09/19/2022 Are You Blind Or Do You Have Difficulty Seeing? No [email or web address] Information n ot available 07/20/2022 Are You A Caregiver? No [email or web address] Information not available 07/20/2022 In The 14 Days Before Symptom Onset, Have You Had Close Contact With A Laboratory-confirm ed COVID-19 While That Case Was Ill? No [email or web address] Information n ot available 09/19/2022 In The 14 Days Before Symptom Onset, Have You Had Close Contact With A Person Who Is Under Investigation For COVID-19 While That Person Was Ill? No Information not available 09/19/2022 Have You Been To An Area Known To Be High Risk For COVID-19? No [email or web address] Information not available 09/19/2022 Are You Deaf Or Do You Have Serious Difficulty Hearing? No [email or web address] Information not available 07/20/2022 What Type Of Diet Are You Following? REGULAR [email or web address] Information n ot available 07/20/2022 Have There Been Any Changes To Your Family Or Social Situation? No [email or web address] Information no t available 07/20/2022 Are There Any Guns Present In Your Home? No [email or web address] Information not available 07/20/2022 Which Of Your Hands Is Dominant? Right [email or web address] Information n ot available 09/19/2022 Do You Have A Medical Power Of Certified Nurse? No [email or web address] Information not available 07/20/2022 What Was The Date Of Your Most Recent Tobacco Screening? 07/14/2025 Information not available 07/14/2025 Do You Have Any Pets? Yes Information not available 09/19/2022 Do You Use Protection During Sex? No [email or web address] Information not available 09/19/2022 What Is Your Relationship Status? [email or web address] Information not available 07/20/2022 Have You Repeated Any Grades? Yes [email or web address] Information not available 09/19/2022 Do You Use Your Seat Belt Or Car Seat Routinely? Yes [email or web address] Information not available 07/20/2022 Are You Sexually Active? Yes [email or web address] Information not available 09/19/2022 Do You Have Any Siblings? 3 [email or web address] Information not available 09/19/2022 Do You Have Smoke And Carbon Monoxide Detectors In Your Home? Yes [email or web address] Information not available 07/20/2022 Are You Passively Exposed To Smoke? No [email or web address] Information no t available 09/19/2022 Are There Any Smokers In Your House? Yes [email or web address] Information not available 09/19/2022 Do You Use Sunscreen Routinely? No Information not available 07/20/2022 Have You Recently Traveled Abroad? No [email or web address] Information not available 07/20/2022 Do You Have Difficulty Walking Or Climbing Stairs? No [email or web address] Information not available 07/20/2022 Are You Currently In School? No [email or web address] Information not available 07/20/2022 Sex: Unknown Functional Status Question Answer Note LastModified by Organizat ion Details LastModified Time Do you use any illicit or recreational drugs? No [email or web address] Information not available 09/19/2022 What is your level of alcohol consumption? None [email or web address] Information not available 07/20/2022 Are you currently employed? No [email or web address] Information not available 07/20/2022 Do you have transportation difficulties? No [email or web address] Information not available 07/20/2022 Are you able to walk independently without assistance or assistive devices? YESWOREST [email or web address] Information not available 07/20/2022 Do you have difficulty doing errands alone? No [email or web address] Information not available 07/20/2022 Are you able to care for yourself independently? Yes [email or web address] Information not available 07/20/2022 Do you have difficulty dressing, bathing, grooming, or toileting? No [email or web address] Information not available 07/20/2022 Mental Status Question Answer Note LastModified by Organizat ion Details LastModified Time Do you feel stressed (tense, restless, nervous, or anxious, or unable to sleep at night)? [id number] [email or web address] Information not available 09/19/2022 Do you have difficulty concentrating, remembering or making decisions? No [email or web address] Information no t available 07/20/2022 Are you or have you been involved with bullying? No [email or web address] Information not available 09/19/2022 Family History Relationship Description Onset Age of this Age Resolved Age Notes LastModified by Organization Details LastModified Time Unspecified Relation Family history of Hypertension [email or web address] Not available 09:08:53 Unspecified Relation Family history of diabetes mellitus type 2 [email or web address] Not available 2023 09:08:53 Maternal Grandmother Hypertensive disorder [email or web address] Not available 09/19 09:53:52 Paternal Grandfather Hypertensive disorder [email or web address] Not available 09/19 09:53:52 Mother Hypertensive disorder [email or web address] Not available 09/19 09:53:52 Mother Arthritis [email or web address] Not availa ble 09/19/2022 09:53:52 Mother Diabetes mellitus Not available 09/19 09:53:52 Mother Hypercholest erolemia Not available 09/19 09:53:52 Mother Anxiety disorder [email or web address] Not available 09/19 09:53:52 Father Arthritis [email or web address] Not availa ble 09/19/2022 09:53:52 Father Liver problem [email or web address] Not available 09/19 09:53:52 Father Diabetes mellitus [email or web address] Not available 09/19 09:53:52 Father Hypertensive disorder Not available 09/19 09:53:52 Maternal Grandfather Hypertensive disorder [email or web address] Not available 09/19 09:53:52 Brother Hypertensive disorder [email or web address] Not available 09/19 09:53:52 Brother Diabetes mellitus [email or web address] Not available 09/19 09:53:52 Sister Hypertensive disorder [email or web address] Not available 09/19 09:53:52 Sister Diabetes mellitus [...] split virus, quadrivalent, PF 3 completed Reta [place] null, [employer] 07/10/2023 08:32:44 Influenza, split virus, quadrivalent, preservative 1 completed Reta [place] null, [employer] 12/07/2023 09:26:55 Influenza, split virus, quadrivalent, preservative 0 completed Reta [place] null, [employer] 12/07/2023 09:26:55 Influenza, split virus, quadrivalent, preservative 9 completed Reta [place] null, [employer] 12/07/2023 09:26:55 Tdap 7 completed Reta [place] null, [employer] 12/07/2023 09:26:55 COVID-19, mRNA, LNP-S, PF, 100 mcg/0.5mL dose or 50 mcg/0.25mL dose 1 completed Reta [place] null, [employer] 12/07/2023 09:26:55 COVID-19, mRNA, LNP-S, PF, 100 mcg/0.5mL dose or 50 mcg/0.25mL dose 1 completed Reta [place] null, [employer] 12/07/2023 09:26:55 Influenza, split virus, quadrivalent, PF 8 completed Reta [place] null, [employer] 12/07/2023 09:26:55 zoster recombinant 4 completed Meaghan Mcnamara APRN [address] [place], [address], [employer] 03/13/2024 08:53:07 zoster recombinant 4 completed Meaghan Mcnamara APRN [address] [place], [address], [employer] 06/09/2024 12:19:53 Influenza, split virus, trivalent, PF 4 completed Sarah keen, [employer] 06/30/2024 09:50:26 Influenza, split virus, trivalent, preservative 5 completed KARMA keen, [employer] 09/19/2022 09:52:55 Influenza, split virus, quadrivalent, PF 7 completed KARMA SEBASTIAN [employer], [employer] 09/19/2022 09:52:55 Td (adult), 2 Lf tetanus toxoid, preservative free, adsorbed 6 completed KARMA SEBASTIAN [employer], [employer] 09/19/2022 09:52:55 Td (adult), 2 Lf tetanus toxoid, preservative free, adsorbed 6 completed KARMA SEBASTIAN [employer], [employer] 09/19/2022 09:52:55 COVID-19, mRNA, LNP-S, PF, 100 mcg/0.5mL dose or 50 mcg/0.25mL dose 1 completed KARMA SEBASTIAN [employer], [employer] 09/19/2022 09:52:55 Influenza, split virus, quadrivalent, PF 2 completed KARMA keen, [employer] 09/21/2022 15:11:16 Pneumococcal conjugate PCV15, polysaccharide AQU073 conjugate, adjuvant, PF 5 completed Meaghan Mcnamara APRN [address] [place], [address], [employer] 02/26/2025 09:36:12 Tdap 5 completed Sarah keen, [employer] 05/25/2025 14:52:02 Influenza, split virus, trivalent, PF 5 completed Sarah keen, [employer] 07/14/2025 14:20:49 Influenza, split virus, quadrivalent, PF 1 completed Reta Berriose null, [employer] 12/07/2023 09:26:55 Influenza, split virus, quadrivalent, PF 0 completed Reta Corteschie null, [employer] 12/07/2023 09:26:55 Influenza, split virus, quadrivalent, PF 9 completed Reta Corteschie null, [employer] 12/07/2023 09:26:55 Past Encounters Encounter ID Performer Location Encounter Start Date Encounter Closed Date Diagnosis/Indication Diagnosis SNOMED-CT Code Diagnosis ICD10 Code Diagnosis IMO Codes Diagnosis Note [id number] [place] [address] 07/20/2022 08:47:40 07/20/2022 10:07:52 Generalized anxiety disorder 34347315 F41.1 Pain in right arm 231670 004 M79.601 Screening for malignant neoplasm of breast 925730304 Z12.39 Candidiasis of mouth 797 60208 B37.0 Body mass index 30+ - obesity 129704680 Z68.37 [id number] Meaghan Mcnamara [place] [address] 0 09/19/2022 09:38:32 09/19/2022 10:21:47 Generalized anxiety disorder 32553400 F41.1 Low back pain 545087016 M54.50 Body mass index 30+ - obesity 790676652 Z68.37 [id number] Meaghan Mcnamara [place] [address] 0 10/02/2022 10:31:38 10/02/2022 11:07:07 Low back pain 430918151 M54.50 Right side sciatica 3202 854138 44838 M54.31 Dysuria 72286185 R30.0 Acute urin jocelyne tract infection 068788706 N39.0 Body mass index 30+ - obesity 556021770 Z68.37 [id number] [place] [address] 11/16/2022 10:56:59 11/16/2022 11:34:48 Fatigue 27092350 R53.83 Vitamin D deficiency 347 49826 E55.9 Vitamin B deficiency 479 64221 E53.9 Hypocalcemia 2911848 E83 .51 Generalize d anxiety disorder 00411429 F41.1 Low back pain 551136263 M54.50 Hypokalemia 91938547 E87 .6 Abrasion 223643230 T14.8 XXA Body mass index 30+ - obesity 076298265 Z68.37 [id number] Meaghan Mcnamara [place] [address] 0 01/16/2023 16:43:30 01/16/2023 17:20:35 Dysuria 25957310 R30.0 Candidiasis of vagina 72 066395 B37.31 Foot callus 192955579 L8 4 Generalize d anxiety disorder 05805043 F41.1 [id number] [place] [address] 03/13/2023 11:32:34 03/13/2023 13:12:37 Pain in left foot 8606571682 96763 M79.672 Lymphedema 213552226 I89 .0 Generalize d anxiety disorder 22649463 F41.1 [id number] [place] [address] 05/10/2023 07:55:06 05/10/2023 08:46:09 Generalized anxiety disorder 39277906 F41.1 Tendinitis of left elbow 1738952259 5450283 M67.824 History of diverticulitis 4570742608 41178 Z87.19 Body mass index 30+ - obesity 520630131 Z68.37 [id number] Meaghan Mcnamara [place] [address] 05/28/2023 08:48:14 05/28/2023 10:00:55 Edema of lower extremity 960789237 R60.0 Body mass index 30+ - obesity 269842573 Z68.37 [id number] [place] [address] 07/10/2023 08:00:20 07/10/2023 08:31:50 Administration of influenza vaccine 67111120 Z23 Hypocalcemia 9505246 E83 .51 Mixed hyperlipidemia 267 949026 E78.2 Hypertensive disorder 38 129339 I10 Generalize d anxiety disorder 29819431 F41.1 Constipation 07678529 K5 9.00 Hypokalemia 59182883 E87 .6 Body mass index 30+ - obesity 129177287 Z68.37 [id number] [place] [address] 09/06/2023 10:28:25 09/06/2023 10:55:55 Hypertensive disorder 22217248 I10 Hypocalcemia 0401049 E83 .51 Low back pain 256742350 M54.50 Mixed hyperlipidemia 267 932255 E78.2 Generalize d anxiety disorder 08852986 F41.1 Hypokalemia 16289425 E87 .6 Constipation 98158639 K5 9.00 Lower resp iratory tract infection 54944308 J22 Body mass index 30+ - obesity 044481599 Z68.37 [id number] [place] [address] 11/06/2023 10:24:21 11/06/2023 11:13:12 Long-term drug therapy 193456183 Z79.899 Urinary symptoms 3776153 08 R39.9 Fatigue 57490513 R53.83 Hyperlipidemia 41533505 E78.5 Vitamin D deficiency 347 79931 E55.9 Generalize d anxiety disorder 56656448 F41.1 Acute urin jocelyne tract infection 071324989 N39.0 Body mass index 30+ - obesity 404373558 Z68.37 [id number] Fadi Viveros CNM [address],[place] [address] 11/13/2023 08:57:30 11/13/2023 12:11:24 Vaginal discharge 343229704 N89.8 Dysuria 57817400 R30.0 [id number] Meaghan Mcnamara [address] [address] 12/07/2023 09:14:27 12/07/2023 10:28:54 Cough 79802087 R05.9 Acute sinusitis 24406038 J01.90 Pain of ri ght knee joint 7450523972 61221 M25.561 Body mass index 30+ - obesity 020205111 Z68.37 [id number] Meaghan Mcnamara[address] [address] 01/14/2024 11:25:36 01/14/2024 11:40:52 Generalized anxiety disorder 34811427 F41.1 Low back pain 187251796 M54.50 Body mass index 30+ - obesity 255974739 Z68.37 [id number] Meaghan Mcnamara [address] [address] 03/13/2024 07:58:56 03/13/2024 09:01:11 Screening for malignant neoplasm of breast 526996749 Z12.39 Body mass index 30+ - obesity 344281377 Z68.37 Active or passive immunization 788392327 Z23 Low back pain 411625090 M54.50 Mixed hyperlipidemia 267 882865 E78.2 Hypertensive disorder 38 454467 I10 Generalize d anxiety disorder 62004293 F41.1 Hypokalemia 74400802 E87 .6 Constipation 36755422 K5 9.00 Vitamin D deficiency 347 70000 E55.9 [id number] Meaghan Mcnamara [address] [address] 06/09/2024 11:14:30 06/09/2024 11:55:48 Active or passive immunization 612258983 Z23 Hypertensive disorder 38 696646 I10 Vitamin D deficiency 347 69672 E55.9 Low back pain 360268852 M54.50 Mixed hyperlipidemia 267 436026 E78.2 Generalize d anxiety disorder 88992993 F41.1 Hypokalemia 41686108 E87 .6 Constipation 68359007 K5 9.00 Body mass index 30+ - obesity 388260959 Z68.37 [id number] [place] [address] 06/30/2024 09:25:40 06/30/2024 10:02:17 Administration of influenza vaccine 08538059 Z23 [id number] [place] [address] 0 08/25/2024 13:33:04 08/25/2024 14:24:26 Dysuria 14567797 R30.0 Recurrent urinary tract infection 367971081 N39.0 Vaginal discharge 498951 006 N89.8 Skin lesion 27408910 L98 .9 Acute urin jocelyne tract infection 066770312 N39.0 Candidiasis of vagina 72 134145 B37.31 Body mass index 30+ - obesity 522564077 Z68.37 [id number] [place] [address] 0 09/25/2024 10:49:10 09/25/2024 11:09:57 Fatigue 89679798 R53.83 Hyperlipidemia 72113719 E78.5 Hyperglycemia 33665331 R 73.9 Vitamin D deficiency 347 60145 E55.9 Iron defic iency anemia 11288760 D50.9 Vitamin B deficiency 479 04366 E53.9 Hypertensive disorder 38 688116 I10 Low back pain 401300318 M54.50 Mixed hyperlipidemia 267 689094 E78.2 Generalize d anxiety disorder 81669815 F41.1 Hypokalemia 40090461 E87 .6 Constipation 48429845 K5 9.00 Body mass index 30+ - obesity 377138426 Z68.37 [id number] [place] [address] 0 11/25/2024 08:56:09 11/25/2024 10:25:53 Recurrent urinary tract infection 541613339 N39.0 Vaginal irritation 10548 6004 N89.8 Hypertensive disorder 38 563560 I10 Mixed hyperlipidemia 267 996764 E78.2 Fatigue 68364455 R53.83 Hyperlipidemia 02550182 E78.5 Hyperglycemia 31040338 R 73.9 Vitamin D deficiency 347 11494 E55.9 Iron defic iency anemia 13634564 D50.9 Vitamin B deficiency 479 72644 E53.9 Low back pain 033217002 M54.50 Generalize d anxiety disorder 04480687 F41.1 Hypokalemia 19872262 E87 .6 Constipation 58029205 K5 9.00 Body mass index 30+ - obesity 326385668 Z68.37 Acute urin jocelyne tract infection 874919200 N39.0 Candidiasis of vagina 72 318292 B37.31 [id number] Meaghanestevan Mcnamara[address] 0 12/08/2024 13:23:43 12/08/2024 14:31:57 Cough 76792381 R05.9 Impetigo 03028156 L01.00 Lower resp iratory tract infection 18684642 J22 Body mass index 30+ - obesity 674780572 Z68.37 [id number] Meaghanestevan Mcnamara[address] 0 02/26/2025 08:29:46 02/26/2025 09:38:09 Type 2 diabetes mellitus 04447498 E11.9 29948971 Long-term current use of drug therapy 819723441 Z79.899 38956122 Vaccination needed 21462 45565 18452 Z23 664315 Screening for osteoporosis 264116305 Z13.820 676287 Patient states that she had this a couple of years ago at [facility] Pain of ri ght knee joint 9761355752 61896 M25.561 210580 Vitamin D deficiency 347 15504 E55.9 Mixed hyperlipidemia 267 098457 E78.2 Hypertensive disorder 38 307990 I10 Body mass index 30+ - obesity 302015180 Z68.39 644466 [id number] [place] [address] 05/04/2025 09:27:14 05/04/2025 10:03:23 Generalized anxiety disorder 44554166 F41.1 Controlled substance agreement and UDS UTD until Feb 2026. Hypertensive disorder 38 027313 I10 Vitamin D deficiency 347 85139 E55.9 Pain of mu ltiple joints 24899288 M25.50 040481 Body mass index 30+ - obesity 665089975 E66.9 0326388 [id number] [place] [address] 0 05/25/2025 14:24:17 05/25/2025 14:55:49 Laceration of right hand 2547129802 2838654 S61.411A 64597335 Body mass index 30+ - obesity 108627897 Z68.38 871027 [id number] [place] [address] 0 07/14/2025 13:20:05 07/14/2025 15:32:00 Well controlled type 2 diabetes mellitus 761056414 E11.9 989753 Screening mammography 24 383055 Z12.31 0368101367 Mixed hyperlipidemia 267 481356 E78.2 Low back pain 552592754 M54.50 Requires i nfluenza virus vaccination 597054394 Z23 1106577 Pain of knee region 1003 015064 M25.561 M25.562 G89.29 02861919 Body mass index 30+ - obesity 634599569 Z68.38 314858 Health Concerns Section Related Observation LastModified by Organization Detai ls LastModified Time None Recorded Concern Status LastModified by Organization Details LastModified Time None Recorded Advance Directives Directive N: Payers Insurance Date Sequence Insurance Name Policy Number Policy Molina Covered Member ID Molina Member ID Guarantor Name 02/21/2023 1 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 Berta Larsen Jennifer 08/17/2025 [place] LUIS FELIPE [employer] - [facility] Berta G Jennifer [id number] Berta G Jennifer 01/02/2025 SLIDING FEE SCHEDULE - DISCOUNT Berta G Jennifer 07/14/2025 2 [facility] (MEDICAID REPLACEMENT - HMO) Berta M Jennifer [id number] Berta Larsen Jennifer 08/17/2025 1 [place] Berta Larsen Jennifer [id number] Berta Larsen Jennifer 07/14/20[facility] Berta Larsen Jennifer [id number] Berta Larsen Jennifer 07/14/2025 1 [facility] (MEDICAID REPLACEMENT - HMO) Breta Terrazas Jennifer [id number] Berta Larsen Jennifer 08/17/2025 2 [place] [facility] - FFS/TRADITIONA L Berta Terrazas Jennifer [id number] Berta Larsen Jennifer Notes Date Note Type Note Provider Name and Address Organization Details Recorded Time 12/08/2024 text/html 64 year old female presents with cough, yellow chest congestion, hoarseness x 1 week. Denies fever. States shes been around illness at [facility]. Declines testing today. Left upper lobe with Exp wheezing. Will prescribe steroids and abx today.She had f.u with urology. Switched her abx, ordered oxybutynin, ct and cystoscopy. pt also has rash below right nostril. appears to be impetigo. Meaghan Mcnamara, REHAB TECHNICIAN [address] [place] [address], [place], [address], [facility] [employer] 12/08/2024 17:48:48 02/26/2025 text/html pt here [...] over diabetic diet and exercise with pt. Meaghanestevan Mcnamara APRN [address] [place], [address], [employer] 02/26/2025 10:49:54 05/04/2025 text/html pt here today for medication refills. pt states shes doing well on current medication regime. pt states that she has flared up her back again, doing too much and it is hurting along with knees. i will order steroid injection and a couple days of oral steroid. pt voiced understanding. return for worsening symptoms. Meaghan Mcnamara APRN [address] [place], [address], [employer] 05/04/2025 10:11:54 05/25/2025 text/html pt here today [...] s/s of infection. Meaghan Mcnamara APRN [address] [place], [address], [employer] 05/25/2025 15:03:21 07/14/2025 text/html pt here today [...] february and 6.6 at last visit. Meaghan Mcnamara, ASHWIN [address] [place], [address], [facility] [employer] 07/14/2025 14:37:20 OBGyn Episode No OBEpisode recorded.
--- OUTSIDE RECORDS SUMMARY | 2025-08-17 16:57 | XMS_ITS | Clinical Summary ---
Author Organization [facility] , [facility] Address [address] [place] [address] Phone Care Team Providers Care Hr Recruiter Name Role Phone Isaac CORONA, Brandon Diallo Unavailable [phone] Yuliana Sheikh APRN Primary Care Provider [phone] Meaghan Mcnamara APRN Unavailable [phone] Reason for Referral Date Encounter Description Provider [...] meg Last Documented On 6 1:16PM ; [facility], [facility] Past Visits Onset Date Resolved Date Provider Condition Status History of Joint Pain Shoulder Left 2021 Sarath Eli PA-C Active Last Documented On 2 8:12AM ; [facility], [facility] Plan of Treatment NON SURGICAL PLAN: [...] - Last Documented On 01/20/2022 8:23AM ; [facility], [facility] Instructions to patient Lose weight Last Documented On 2 8:06AM ; [facility], [facility] Assessments Includes: Assessments from this encounter Findings LEFT SHOULDER GLENOID FRACTURE - Last Documented On 01/20/2022 8:23AM ; [facility], [facility] Instructions Includes: Instructions from this encounter Instructions to patient Lose weight Last Documented On 2 8:06AM ; [facility], [facility] Medical Equipment - Implanted Devices Includes: Current Devices No Medical Equipment Recorded Medications Includes: Medications discussed during this encounter and other current Medications Current Medications (continue as prescribed) Diclofenac Sodium 75 MG Oral Tablet Delayed Release Provider: Diagnosis: Last Documented On 2 8:36AM By Hillary Lofton ; [facility] Active-Pac/Gabapentin 300 & 4-1 MG & % Combination Therapy Pack 12/15/2021 Provider: Diagnosis: Last Documented On 2 8:36AM By Hillary Lofton ; [facility] Diclofenac Sodium 1% External Gel 12/15/2021 Provide r: Diagnosis: Last Documented On 2 8:36AM By Hillary Lofton ; [facility], [facility] Calcium 600 MG Oral Tablet 2021 Provider: Diagnosis: Last Documented On 2 8:41AM By Argelia Romero ; [facility], [facility] LORazepam 0.5 MG Oral Tablet 2021 Provider: Diagnosis: Last Documented On 2 8:41AM By Argelia Romero ; [facility], [facility] Metoprolol Tartrate 25 MG Oral Tablet 2021 Pro vider: Diagnosis: Last Documented On 2 8:42AM By Argelia Romero ; [facility], [facility] FiberCon 625 MG Oral Tablet 2021 Provider: Diagnosis: Last Documented On 2 8:43AM By Argelia Romero ; [facility], [facility] PreserVision AREDS Oral Capsule 2021 Provider: Diagnosis: Last Documented On 2 8:43AM By Argelia Romero ; [facility], [facility] Methocarbamol 500 MG Oral Tablet 11/21/2021 Provider : Meaghan Stone GLOBAL PROGRAM MANAGER Diagnosis: Last Documented On 2 8:42AM By Argelia Romero ; [facility] Potassium Chloride Ivania ER 2 0 MEQ Oral Tablet Extended Release 11/21/2021 Provider: Meaghan Diallo PRN Diagnosis: Last Documented On 2 8:42AM By Argelia Romero ; [facility] Fenofibrate 48 MG Oral Tablet 10/24/2021 Provider: Meaghan Mcnamara GLOBAL PROGRAM MANAGER Diagnosis: Last Documented On 2 8:42AM By [...] Documented: On 01/18/2022 8:20AM ; [facility] Results Includes: Results discussed during [...] Documented On 2 8:06AM ; [facility], [facility] No recent change in diet 2021 Last Documented On 2 8:06AM ; [facility], [facility] Not a current smoker. 2021 Last Documented On 2 8:06AM ; [facility], [facility] Not exercising regularly 2021 Last Documented On 2 8:06AM ; [facility], [facility] Not using alcohol 2021 Last Documented On 2 8:06AM ; [facility], [facility] Not using drugs 2021 Last Documented On 2 8:06AM ; [facility], [facility] No recent change in diet 12/23/2015 Last Documented On 2 8:06AM ; [facility], [facility] Not a current smoker 12/23/2015 Last Documented On 2 8:06AM ; [facility], [facility] No tobacco use 12/23/2015 Last Documented On 2 8:06AM ; [facility] Smoking status : Never smoker 12/23/2015 Last Documented On 2 8:06AM ; [facility] Procedures and Surgical History Includes: Procedures from this encounter Procedures Code Diagnosis Performing Provider Service L ocation Service Date use of tobacco assessment performed 1000F Last Documented On 2 8:06AM ; [facility], [facility] referral to physician Last Documented On 2 8:06AM ; [facility], [facility] an X-ray was performed 45865 Last Documented On 2 8:06AM ; [facility], [facility] an MRI was performed 87567 Last Documented On 2 8:06AM ; [facility] Surgical History Last Updated History of History of Gallbladder 2021 Last Documented On 2 8:06AM ; [facility] Medical History Includes: Medical History addressed during this encounter Description Last Updated History of arthritis 2021 Last Documented On 2 8:06AM ; [facility], [facility] History of diverticulitis of colon 12/06 Last Documented On 2 8:06AM ; [facility], [facility] History of Sleep Apnea 2021 Last Documented On 2 8:06AM ; [facility], [facility] No recent immunization for pneumococcal pneumonia 2021 Last Documented On 2 8:06AM ; [facility], [facility] Recent immunization for flu 05/18/2021 Last Documented On 2 8:06AM ; [facility], [facility] Use of CPAP 2021 Last Documented On 2 8:06AM ; [facility], [facility] Rotator Cuff 12/23/2015 Last Documented On 2 8:06AM ; [facility], [facility] Arthritic joint problems 12/23/2015 Last Documented On 2 8:06AM ; [facility], [facility] Gallbladder disease 12/23/2015 Last Documented On 2 8:06AM ; [facility], [facility] History of osteoporosis 12/23/2015 Last Documented On 2 8:06AM ; [facility], [facility] Intermittent hypertension 12/23/2015 Last Documented On 2 8:06AM ; [facility], [facility] Family History Includes: Family History addressed during this encounter Description Last Updated Diabetes mellitus 2021 Last Documented On 2 8:06AM ; [facility], [facility] Family history of systemic hypertension 2021 Last Documented On 2 8:06AM ; [facility], [facility] Family history of diabetes mellitus Moth er, Father, Sister, Brother 12/23/2015 Last Documented On 2 8:06AM ; [facility], [facility] Family history of osteoporosis Father Last Documented On 2 8:06AM ; [facility], [facility] Review of Systems Includes: Review [...] Patient Last Documented On 2 8:18AM ; [facility] PCV (Pneumovax 23) 1 01/18/2022 Complete (Refused - Patient objection) [facility] Last Documented On 2 8:18AM ; [facility] Td 1 01/18/2022 Complete (Refused - Patient objection) [facility] Last Documented On 2 8:18AM ; [facility] Allergies Includes: Active Allergies Substance Type Reaction Onset Date Resolved Date Statu s NSAIDs Allergy 12/23/2015 Active Last Documented On 2 8:06AM ; [facility] Encounters Encounter Provider Location Date Check-In Time Check- Out Time Diagnosis Follow Up Adrian Massey MD [facility] 2 8:09AM 8:34AM Insurance Includes: Active Insurance Policies Plan Name Member ID Group # Subscriber Relationship Effect meg Dates 1 - [employer] [id number] Berta Rodriguez Self Clinical Notes Includes: Clinical Notes from this encounter No Clinical Notes Recorded
[2025-08-17 17:28] LABS: Appearance,Urine/Cath CLEAR (Clear); Bilirubin,Cath Negative (Negative); Blood, Urine/Cath Negative (Negative); Color,Urine/Cath YELLOW (Yellow); Glucose,Urine/Cath (UA) Negative (Negative); Ketones,Urine/Cath Negative (Negative); Leukocyte Esterase,Cath Negative (Negative); Nitrate,Cath Negative (Negative); PH,Urine/Cath 6.0 (5.0-8.5); Protein,Urine/Cath Negative (Negative); Specific Gravity, Urine/Cath <= 1.005 (1.005-1.030); Urobilinogen,Cath 0.2 EU/dl (0.2)
== END 2025-08-17 23:59 | disposition home or self-care (01) ==
LOC: LAB.DROPOF 16:54
PROVIDERS: PCP Nurse Practitioner; Visit Provider Urology
DX: N39.0 Urinary tract infection, site not specified (principal)
CPT/HCPCS: 81001; 87086

== ENCOUNTER 2025-09-14 10:00 | Outpatient (CLI) | payer MEDICARE, MEDICAID, SELFPAY ==
[2025-09-14 15:57] LABS: Microscopic, Urine URINE MICROSCOPIC (MICROSCOPIC)
[2025-09-14 17:23] LABS: Bilirubin,Urine Negative (Negative); Color,Urine YELLOW (Yellow); Glucose,Urine (UA) Negative (Negative); Ketones,Urine Negative (Negative); Leukocyte Esterase,Urine Negative (Negative); PH,Urine 6.0 (5.0-8.5); Protein,Urine Negative (Negative); Specific Gravity, Urine 1.025 (1.005-1.030); Urobilinogen,Urine 0.2 EU/dl (0.2)
[2025-09-14 17:48] LABS: Bacteria,Urine Trace /lpf; WBC,Urine Occasional #/hpf (0-3)
--- OUTSIDE RECORDS SUMMARY | 2025-09-15 10:16 | XMS_ITS | Clinical Summary ---
Author Organization [facility] Address [address] [place] [address] Phone Care Team Providers Care Swamper Name Role Phone Unavailable Unavailable Conditions or Problems No information available. Medications No information available. Medications Administered No information available. Allergies, Adverse Reactions, Alerts No information available. Results No information available. Plan of Care No information available. Procedures No information available. Vital Signs No information available. Immunizations No information available. Advance Directives No information available.
== END 2025-09-14 23:59 | disposition home or self-care (01) ==
LOC: LAB.DROPOF 09-15 09:59
PROVIDERS: PCP Nurse Practitioner; Visit Provider Urology
DX: N39.0 Urinary tract infection, site not specified (principal)
CPT/HCPCS: 81001; 87086